=== PATIENT | male | born 1940 | race Caucasian/White ===

== ENCOUNTER → 2018-09-15 | Day surgery (SDC) | payer MEDICARE, OTHER ==
[2018-09-12 13:22] LABS: BASOPHILS % 1.3 % (0.0-1.0); EOSINOPHILS # (AUTO) 0.1 (0.0-0.4); EOSINOPHILS % 4.4 % (0.0-6.0); HEMATOCRIT 26.5 % (38.2-49.6); LYMPHOCYTES # (AUTO) 0.8 (1.0-3.2); LYMPHOCYTES % 48.1 % (18.0-39.1); MEAN CORPUSCULAR HEMOGLOBIN 29.2 pg (28-32); MEAN CORPUSCULAR HGB CONC 30.2 g/dL (31-35); MEAN CORPUSCULAR VOLUME 96.7 fL (81-99); MONOCYTES # (AUTO) 0.2 (0.2-0.8); NEUTROPHILS # (AUTO) 0.5 (2.1-6.9); NEUTROPHILS % 31.2 % (38.7-80.0); RED BLOOD COUNT 2.74 x10e6/uL (4.3-5.7); RED CELL DISTRIBUTION WIDTH 15.9 % (11.7-14.4)
[2018-09-12 13:26] LABS: PLATELET COUNT 62 x10e3/uL (140-360)
[2018-09-12 13:50] LABS: ALBUMIN 3.3 g/dL (3.5-5.0); ANION GAP 16.6 mmol/L (8-16); CALCIUM 8.7 mg/dL (8.4-10.2); CREATININE, SERUM 1.72 mg/dL (0.72-1.25); POTASSIUM 4.6 mmol/L (3.5-5.1)
--- NOTE | 2018-09-12 14:20 | Diagnostic Imaging Report ---
EXAMINATION: CHEST 2 VIEWS INDICATION: Preop COMPARISON: CT abdomen and pelvis 01/18/2017 FINDINGS: PA and lateral views TUBES and LINES: None. LUNGS: Lungs are hyperinflated. Right upper lobe nodular opacities. Faint reticular nodular opacities in the right and left lower lobe. No lobar consolidations or pulmonary edema. PLEURA: No pleural effusion or pneumothorax. HEART AND MEDIASTINUM: The cardiomediastinal silhouette is unremarkable. BONES AND SOFT TISSUES: No acute osseous lesion. Soft tissues are unremarkable. UPPER ABDOMEN: No free air under the diaphragm. Linear opacities overlying the upper abdomen may represent retained contrast versus calcifications. IMPRESSION: Left and right lower lobe reticular nodular opacities, new since 01/18/2017 as well as reticular nodular opacities in the right upper lobe not included on CT abdomen and pelvis are indeterminate. Differential diagnosis includes infection or aspiration. Correlate with clinical history and consider CT chest for further evaluation. Signed by: Dr. Yvette Berger M.D. on 09/12/2018 2:17 PM
[2018-09-12 16:14] LABS: EOSINOPHILS % (MANUAL) 2 % (0-7); HYPOCHROMASIA MODERATE; LYMPHOCYTES % (MANUAL) 46 % (19-48); MONOCYTES % (MANUAL) 4 % (3.4-9.0); NEUTROPHILS % (MANUAL) 48 % (40-74); PLATELET ESTIMATE MODERATELY DECREASED; PLATELET MORPHOLOGY COMMENT FEW LARGE; RBC MORPHOLOGY COMMENT NORMAL
[~2018-09-15] MED LIST: ASPIRIN81 MG PO; BUPIVACAINE 0.25% 30ML SDV INJ ONE; COQ-10100 MG PO; CORAL CALCIUM1 EACH PO; FENOFIBRATE145 MG PO; FENTANYL CITRATE/PF 100MCG/2 ML INJ ONE; FINASTERIDE5 MG PO; HEPARIN SOD (PORCINE) 5,000 UNIT/ML VIAL ONE; LEVOFLOXACIN 500MG/D5W 100ML 100 ML IV ONE; LEVOTHYROXINE50 MCG PO; LIDOCAINE HCL 2% LOCAL INJ 5 ML SDV VIAL INJ ONE; LISINOPRIL2.5 MG PO; LORATADINE10 MG PO; MIDAZOLAM HCL 2 MG/2 ML VIAL ONE; MONTELUKAST SOD10 MG PO; NITROLINGUAL SL; NORCO 7.5-3251 EACH PO; OMEPRAZOLE40 MG PO; ONDANSETRON HCL INJ 2 MG/ML VIAL ONE; PLAVIX75 MG PO; PRAVASTATIN SOD40 MG PO; PROPOFOL IV EMULSION 10 MG/ML 20 ML VIAL ONE; SEVOFLURANE INHAL SOLN 250 ML PEN BTL ONE; SODIUM CHLORIDE 0.9% 500ML 500 ML ONE; TRICOR48 MG PO; Z FEOSOL PO; Z.0.AMIODARONE HCL20 PO; Z.0.ASPIRIN325 MG PO; Z.0.ATENOLOL25 MG PO; Z.0.COUMADIN4 MG; Z.0.CRESTOR40 MG; Z.0.EFFIENT10 MG; Z.0.OMEPRAZOLE20 M1; [UNRECOGNIZED DRUG - OTHER] PO
[2018-09-15 16:10] VITALS: BP 110/50
--- NOTE | 2018-09-15 16:21 | Operative Report ---
DATE OF PROCEDURE: September 15, 2018 PREOPERATIVE DIAGNOSIS: Myelodysplastic disease needing intravenous access for chemotherapy. 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 OPERATION PERFORMED: Placement of left subclavian venous access port under C-arm guidance. ANESTHESIA: General. COMPLICATIONS: None. ESTIMATED BLOOD LOSS: Minimal. DESCRIPTION OF PROCEDURE: With the patient lying in bed in the Trendelenburg position under good general anesthesia, the left chest and neck were prepped with Betadine solution and draped in the usual manner. A standard left subclavian venipuncture was performed without any difficulty, and a guidewire was advanced into central venous position. Using the C-arm, the tip of the wire was confirmed to be at the level of the superior vena cava and the left lung was fully expanded. A pocket was then created in the left anterior chest to accept the reservoir, and the catheter was threaded to the subclavian position. the reservoir was anchored to the anterior chest wall with interrupted sutures of 2-0 silk. The reservoir and catheter were fully flushed. The peel-away sheath introducer was then placed over the guidewire, and the guidewire was removed. The catheter had been previously cut to the appropriate length and was then threaded through the peel-away sheath introducer. The peel-away sheath was removed without any problems. There was good blood return, and the reservoir and catheter were flushed. Using the C-arm, the tip of the catheter was confirmed to be at the level of the superior vena cava and the left lung was fully expanded. The wounds were then closed in layers. The subcutaneous tissue was approximated with 3-0 and 4-0 Vicryl, and the skin was closed with subcuticular 5-0 Vicryl. Benzoin, Steri-Strips and dressings were applied. The sponge, lap and needle count was correct. The patient tolerated the procedure well and returned to the recovery room in stable condition. Job#: [id number] VIANNEY
--- OUTSIDE RECORDS SUMMARY | 2018-09-16 14:19 | XMS REPORT ---
Author Author [facility] Address Unknown Phone Unavailable Care Team Providers Care Dictionary Editor Name Role Phone Jose MARES Unavailable Unavailable Payers Payer Name Policy Type Policy Number Effective Date Expiration Date Problems This patient has no known problems. Allergies, Adverse Reactions, Alerts Allergy Name Allergy Type Status Severity Reaction(s) Onset Date Inactive Date Treating Clinician Comments cephalexin DA Active MO 2018-08-15 00:00:00 Iodine and Iodide Containing Produc DA Active MO 2016-04-02 00:00:00 Heparin Analogues DA Active SV 2016-04-02 00:00:00 Penicillins DA Active MO 2016-04-02 00:00:00 chlordiazepoxide DA Active MO 2016-04-02 00:00:00 lithium DA Active MO 2016-04-02 00:00:00 Medications This patient has no known medications. Results Test Description Test Time Test Comments Text Results Atomic Results Result Comments CHEST 2 VIEWS 2018-09-12 14:14:00 [place] [id number] Patient Name: DEJUAN BROWN MR #: [id number] : 1940 Age/Sex: 78/M Req #: [id number] Adm Physician: Ordered by: CATHY MARES MD Report #: [id number] Location: OR Room/Bed: Procedure: [id number] DX/CHEST 2 VIEWS Exam Date: Exam Time: REPORT STATUS: Signed EXAMINATION: CHEST 2 VIEWS INDICATION: Preop COMPARISON: CT abdomen and pelvis 01/18/2017 FINDINGS: PA and lateral views TUBES and LINES: None. LUNGS: Lungs are hyperinflated. Right upper lobe nodular opacities. Faint reticular nodular opacities in the right and left lower lobe. No lobar consolidations or pulmonary edema. PLEURA: No pleural effusion or pneumothorax. HEART AND MEDIASTINUM: The cardiomediastinal silhouette is unremarkable. BONES AND SOFT TISSUES: No acute osseous lesion. Soft tissues are unremarkable. UPPER ABDOMEN: No free air under the diaphragm. Linear opacities overlying the upper abdomen may represent retained contrast versus calcifications. IMPRESSION: Left and right lower lobe reticular nodular opacities, new since 01/18/2017 as well as reti cular nodular opacities in the right upper lobe not included on CT abdomen and pelvis are indeterminate. Differential diagnosis includes infection or aspiration. Correlate with clinical history and consider CT chest for further evaluation. Signed by: Dr. Alvino Montgomery M.D. on 09/12/2018 2:17 PM Dictated By: ALVINO MONTGOMERY MD 16 Transcribed By: GRACIELA on 09/12/181416 COPY TO: CATHY MARES MD
== END | disposition home or self-care (01) ==
LOC: OR 10:49
PROVIDERS: ATTEND Surgery
DX: D46.9 Myelodysplastic syndrome, unspecified (principal); I48.91 Unspecified atrial fibrillation; I25.10 Atherosclerotic heart disease of native coronary artery without angina pectoris; E03.9 Hypothyroidism, unspecified; Z88.0 Allergy status to penicillin; Z88.8 Allergy status to other drugs, medicaments and biological substances; Z91.041 Radiographic dye allergy status; Z01.810 Encounter for preprocedural cardiovascular examination; Z01.812 Encounter for preprocedural laboratory examination; Z01.818 Encounter for other preprocedural examination; Z79.82 Long term (current) use of aspirin; Z95.5 Presence of coronary angioplasty implant and graft; Z87.01 Personal history of pneumonia (recurrent)
CPT/HCPCS: 36415; 36561; 71046; 77001; 80053; 85025; 93005; C1751; J1644; J1956; J2001; J2250; J2405; J7040

== ENCOUNTER 2019-04-29 12:10 | Inpatient (IN) | payer MEDICARE, OTHER ==
[~2019-04-29] VITALS: Ht 175.3 cm; Wt 91.2 kg
[~2019-04-29 12:10] MED LIST changes: -BUPIVACAINE 0.25% 30ML SDV INJ ONE; -FENTANYL CITRATE/PF 100MCG/2 ML INJ ONE; -HEPARIN SOD (PORCINE) 5,000 UNIT/ML VIAL ONE; -LEVOFLOXACIN 500MG/D5W 100ML 100 ML IV ONE; -LIDOCAINE HCL 2% LOCAL INJ 5 ML SDV VIAL INJ ONE; -MIDAZOLAM HCL 2 MG/2 ML VIAL ONE; -ONDANSETRON HCL INJ 2 MG/ML VIAL ONE; -PROPOFOL IV EMULSION 10 MG/ML 20 ML VIAL ONE; -SEVOFLURANE INHAL SOLN 250 ML PEN BTL ONE; -SODIUM CHLORIDE 0.9% 500ML 500 ML ONE
[2019-04-29] MEDS ORDERED: SODIUM CHLORIDE 0.9% 1000ML 1,000 ML IV STA (12:22)
[2019-04-29] MEDS ORDERED: SODIUM CHLORIDE 0.9% 1000ML 1,000 ML ONE (12:30)
[2019-04-29] MEDS ORDERED: SODIUM CHLORIDE 0.9% 250ML 250 ML IV ONE ×2 (12:30→13:30)
--- NOTE | 2019-04-29 12:45 | NUR ---
PATIENT ABULATED TO ROOM 1
[2019-04-29 13:11] LABS: LYMPHOCYTES # (AUTO) 0.5 (1.0-3.2); LYMPHOCYTES % 86.7 % (18.0-39.1); MEAN CORPUSCULAR HEMOGLOBIN 29.5 pg (28-32); MEAN CORPUSCULAR HGB CONC 30.1 g/dL (31-35); MEAN CORPUSCULAR VOLUME 97.9 fL (81-99); MONOCYTES # (AUTO) 0.1 (0.2-0.8); NEUTROPHILS % 3.3 % (38.7-80.0); RED CELL DISTRIBUTION WIDTH 17.2 % (11.7-14.4)
[2019-04-29 13:17] LABS: HEMATOCRIT 18.6 % (38.2-49.6); HEMOGLOBIN 5.6 g/dL (14.0-18.0); PLATELET COUNT 3 x10e3/uL (140-360)
--- NOTE | 2019-04-29 13:18 | NUR ---
RECEIVED BLOOD RESULTS FROM LAB WBC .60 HBG 5.6 HCT 18.6 PLT 3
[2019-04-29 13:21] LABS: INR 1.04; PARTIAL THROMBOPLASTIN TIME 23.8 seconds (23.8-35.5); PROTHROMBIN TIME 14.1 seconds (11.9-14.5)
[2019-04-29 13:31] LABS: ALANINE AMINOTRANSFERASE 9 IU/L (0-55); ALBUMIN 2.7 g/dL (3.5-5.0); ALBUMIN/GLOBULIN RATIO 1.5 (0.8-2.0); ALKALINE PHOSPHATASE 36 IU/L (40-150); ANION GAP 8.1 mmol/L (8-16); BLOOD UREA NITROGEN 27 mg/dL (7-26); BUN/CREATININE RATIO 16 (6-25); CALCIUM 8.1 mg/dL (8.4-10.2); CARBON DIOXIDE 22 mmol/L (22-29); CHLORIDE 110 mmol/L (98-107); CREATINE KINASE 27 IU/L (30-200); CREATININE, SERUM 1.66 mg/dL (0.72-1.25); EST GLOMERULAR FILTRATION RATE 40 ML/MIN (60-); GLUCOSE 112 mg/dL (74-118); MAGNESIUM 2.2 MG/DL (1.3-2.1); POTASSIUM 4.1 mmol/L (3.5-5.1); SODIUM 136 mmol/L (136-145)
--- NOTE | 2019-04-29 13:36 | Diagnostic Imaging Report ---
Examination: Single AP view of the chest. COMPARISON: 09/12/2018, CT abdomen and pelvis 01/18/2017 INDICATION: Weakness, shortness of breath DISCUSSION: Interval placement of a left subclavian port catheter, the tip of which projects over the mid superior vena cava. The lungs are well-inflated and without consolidation, pleural effusion, or pneumothorax. Right apical nodular opacity and left basal reticular opacities described on the comparison are less conspicuous on the current study. Stable cardiomediastinal contour with convexity along the right heart border shown to represent prominent epicardial fat on comparison CT. No acute osseous abnormality. IMPRESSION: 1. No acute cardiopulmonary abnormalities. Signed by: Dr. Alfonso Boyer M.D. on 04/29/2019 1:33 PM
[2019-04-29] MEDS ORDERED: COQ-10100 MG PO (13:39)
[2019-04-29] MEDS ORDERED: VITAMIN B-1100 M1 PO (13:39)
--- NOTE | 2019-04-29 13:40 | NUR ---
BLOOD CONSENT FOR COMPLETED
[2019-04-29 13:45] LABS: B-TYPE NATRIURETIC PEPTIDE2 141.5 pg/mL (0-100)
[2019-04-29] MEDS: CEFEPIME 2 GM/NS 0.9% 100 ML 100 ML IV SCH (14:45)
--- NOTE | 2019-04-29 15:23 | NUR ---
PATIENT COMPLETED 1 UNIT PLATELET RECEIVING 1ST UNIT PRBC
[2019-04-29 16:57] LABS: BILIRUBIN,URINE NEGATIVE (NEGATIVE); CLARITY,URINE CLEAR (CLEAR); COLOR,URINE YELLOW (YELLOW); KETONES,URINE NEGATIVE (NEGATIVE); LEUKOCYTE ESTERASE ,URINE NEGATIVE (NEGATIVE); NITRITE,URINE NEGATIVE (NEGATIVE); PROTEIN,URINE DIPSTICK NEGATIVE (NEGATIVE); URINE UROBILINOGEN 0.2 mg/dL (0.2 - 1)
--- NOTE | 2019-04-29 17:12 | NUR ---
DR. SANTIAGO AT BEDSIDE EVALUATING PATIENT
[2019-04-29 17:14] LABS: BACTERIA,URINE MODERATE /HPF
--- NOTE | 2019-04-29 18:10 | NUR ---
PT ASSISTED WITH BEDPAN, SMALL BOWEL MOVEMENT NOTED, SEMI-SOLID IN TEXTURE, DARK AND TARRY. INFORMED PRIMARY NURSE IRAM KRAUS.
[2019-04-29] MEDS ORDERED: HYDROCODONE/APAP 7.5MG-325MG 1 EA TAB PO PRN (19:00)
--- NOTE | 2019-04-29 19:14 | NUR ---
PATIENT HAD RED BLOODY STOOL
--- NOTE | 2019-04-29 19:20 | NUR ---
BEDSIDE REPORT TO AYDIN Erwin
[2019-04-29 20:19] LABS: BLAST CELLS % MANUAL 4; HYPOCHROMASIA MODERATE; LYMPHOCYTES % (MANUAL) 64 % (19-48); MONOCYTES % (MANUAL) 10 % (3.4-9.0); PLATELET ESTIMATE MARKEDLY DECREASED; PLATELET MORPHOLOGY COMMENT NORMAL; POIKILOCYTOSIS SLIGHT; PROMYELOCYTES % (MANUAL) 2 % (0-0); RBC MORPHOLOGY COMMENT NORMAL
[2019-04-29] MEDS ORDERED: LEVOTHYROXINE SODIUM 50 MCG TAB PO SCH (21:00)
--- NOTE | 2019-04-29 21:15 | NUR ---
Received patient, stable, states improvement. On his 2nd unit of blood, no complaints raised.
[2019-04-29 21:16] VITALS: BP 123/56
[2019-04-29 22:00] VITALS: BP 124/50
[2019-04-29] MEDS: FINASTERIDE 5 MG TAB PO SCH (22:00)
[2019-04-29] MEDS: LORATADINE 10 MG TAB PO SCH (22:00)
[2019-04-29 22:30] VITALS: BP_SYST 137; BP_SYST 143; BP_DIAS 56; BP_DIAS 62
[2019-04-29 23:00] VITALS: BP 136/61
--- NOTE | 2019-04-29 23:36 | Consultation ---
DATE OF CONSULTATION: HISTORY OF PRESENT ILLNESS: Mr. Sykes is a 79-year-old male with MDS, who progressing towards acute myelogenous leukemia, presents with extreme weakness, found to have a hemoglobin of 5.6, hematocrit 18.6, white count of 600, and platelets of 3000. The patient claims that he has had some rectal bleed. SOCIAL HISTORY: Noncontributory. FAMILY HISTORY: Noncontributory. ALLERGIES: NONE. MEDICATIONS: At this time consisting of: 1. Cefepime. 2. Normal saline. REVIEW OF SYSTEMS: HEENT: Normal. CARDIAC: History of hypertension. RESPIRATORY: Normal. GI: GI bleed at this time. : Normal. Musculoskeletal: Normal. SKIN AND BREASTS: Normal. NEUROENDOCRINE: Essentially normal. PHYSICAL EXAMINATION: GENERAL: A marked adult male. NECK: No palpable adenopathy. HEART: Within normal limits. LUNGS: Clear. ABDOMEN: Soft. RECTAL: Deferred. CENTRAL NERVOUS SYSTEM: Essentially normal. EXTREMITIES: Essentially normal. IMPRESSION: 1. Neutropenia. 2. Thrombocytopenia. 3. Anemia. 4. Myelodysplastic syndrome. 5. Progression towards acute myelogenous leukemia. 6. Gastrointestinal bleed. PLAN: Give him platelets, blood transfusion, Neupogen if possible will be avoided. Appropriate cultures. Antibiotics with supportive care. MD TIMOTHY Yang/MODL /[id number]
[2019-04-30] VITALS (15 sets, daily range): BP systolic 101–146; BP diastolic 38–67
[2019-04-30 00:08] LABS: HEMATOCRIT 21.8 % (38.2-49.6); HEMOGLOBIN 7.2 g/dL (14.0-18.0); LYMPHOCYTES # (AUTO) 0.6 (1.0-3.2); LYMPHOCYTES % 66.7 % (18.0-39.1); MEAN CORPUSCULAR HEMOGLOBIN 30.1 pg (28-32); MONOCYTES # (AUTO) 0.2 (0.2-0.8); MONOCYTES % 20.2 % (4.4-11.3); NEUTROPHILS # (AUTO) 0.1 (2.1-6.9); NEUTROPHILS % 13.1 % (38.7-80.0); RED BLOOD COUNT 2.39 x10e6/uL (4.3-5.7); RED CELL DISTRIBUTION WIDTH 16.9 % (11.7-14.4)
[2019-04-30 00:26] LABS: PLATELET COUNT 39 x10e3/uL (140-360)
[2019-04-30 00:27] LABS: MEAN CORPUSCULAR VOLUME 91.2 fL (81-99)
--- NOTE | 2019-04-30 00:30 | NUR ---
Dr Chapin informed of the CBC results, ordered for jumbo platelet and 1 unit of PRBC, for repeat of CBC in the AM
[2019-04-30] MEDS ORDERED: SODIUM CHLORIDE 0.9% 250ML 250 ML IV ONE ×2 (00:45→22:45)
[2019-04-30] MEDS: CEFEPIME 2 GM/NS 0.9% 100 ML 100 ML IV SCH ×2 (02:00→14:10)
--- NOTE | 2019-04-30 06:54 | NUR ---
handed over stable, blood transfusion ended at 0600 awaiting CBC sample collection
[2019-04-30] MEDS: AMIODARONE HCL 200 MG TAB PO SCH (08:26)
[2019-04-30] MEDS: PANTOPRAZOLE 40 MG 10ML VIAL IV SCH (08:26)
[2019-04-30] MEDS: ATENOLOL 50 MG TAB PO SCH (08:26)
[2019-04-30 08:52] LABS: HEMATOCRIT 24.1 % (38.2-49.6); LYMPHOCYTES # (AUTO) 0.4 (1.0-3.2); LYMPHOCYTES % 48.3 % (18.0-39.1); MEAN CORPUSCULAR HEMOGLOBIN 29.6 pg (28-32); MEAN CORPUSCULAR HGB CONC 33.2 g/dL (31-35); MEAN CORPUSCULAR VOLUME 89.3 fL (81-99); MONOCYTES # (AUTO) 0.3 (0.2-0.8); MONOCYTES % 32.2 % (4.4-11.3); NEUTROPHILS # (AUTO) 0.2 (2.1-6.9); NEUTROPHILS % 19.5 % (38.7-80.0); RED CELL DISTRIBUTION WIDTH 17.2 % (11.7-14.4)
[2019-04-30 09:03] LABS: PLATELET COUNT 39 x10e3/uL (140-360)
--- NOTE | 2019-04-30 09:45 | NUR ---
SPOKE TO REGARDING RESULTS RECEIVED ORDERS. PER MD 1900 AND 0700 RESULTS TO BE CALLED TO MD PERSONAL CELL PHONE.
--- NOTE | 2019-04-30 11:50 | NUR ---
RECEIVED CALL FROM CHRIS IN LAB STATES THERE IS NO PLTS AVAILABLE AT THIS TIME BLOOD BANK ATTEMPTING TO LOCATE AT THIS TIME WILL CALL WHEN READY
[2019-04-30] MEDS ORDERED: SODIUM CHLORIDE 0.9% 250ML 250 ML ONE ×2 (12:31→16:44)
[2019-04-30 14:39] LABS: RBC MORPHOLOGY COMMENT ABNORMAL
[2019-04-30 14:46] LABS: ANISOCYTOSIS MODERATE; HYPOCHROMASIA MODERATE; PLATELET ESTIMATE MARKEDLY DECREASED; PLATELET MORPHOLOGY COMMENT NORMAL
--- NOTE | 2019-04-30 14:53 | NUR ---
REPORTED TO NURSE TO RESUME CARE OF PATIENT SPOKE TO AYDIN IN THE LAB WHO STATES PLATELETS WHERE FOUND AND WHERE BEING SENT TO HOSPITAL STAT.
--- NOTE | 2019-04-30 19:57 | NUR ---
RECEIVED PT SITTING ON THE CHAIR PT HAD 2 UNIT PLATELETS .NO ACUTE DISTRESS NOTED .RESPIRATIONS ARE EVEN AND UNLABORED .DENIES PAIN CALL LIGHT WITH IN REACH .CONTINUE TO MONITOR
[2019-04-30] MEDS: FINASTERIDE 5 MG TAB PO SCH (21:06)
[2019-04-30] MEDS: LORATADINE 10 MG TAB PO SCH (21:06)
[2019-04-30 21:41] LABS: HEMATOCRIT 24.7 % (38.2-49.6); HEMOGLOBIN 7.9 g/dL (14.0-18.0); LYMPHOCYTES # (AUTO) 0.8 (1.0-3.2); LYMPHOCYTES % 61.5 % (18.0-39.1); MEAN CORPUSCULAR HEMOGLOBIN 30.3 pg (28-32); MEAN CORPUSCULAR VOLUME 94.6 fL (81-99); MONOCYTES # (AUTO) 0.4 (0.2-0.8); MONOCYTES % 32.8 % (4.4-11.3); NEUTROPHILS # (AUTO) 0.1 (2.1-6.9); NEUTROPHILS % 4.9 % (38.7-80.0); PLATELET COUNT 58 x10e3/uL (140-360); RED BLOOD COUNT 2.61 x10e6/uL (4.3-5.7); RED CELL DISTRIBUTION WIDTH 18.2 % (11.7-14.4)
[2019-04-30 22:36] LABS: BLAST CELLS % MANUAL 3; EOSINOPHILS % (MANUAL) 1 % (0-7); LYMPHOCYTES % (MANUAL) 62 % (19-48); MONOCYTES % (MANUAL) 29 % (3.4-9.0); NEUTROPHILS % (MANUAL) 5 % (40-74)
[2019-05-01] VITALS (8 sets, daily range): BP systolic 130–146; BP diastolic 47–85
[2019-05-01] MEDS ORDERED: SODIUM CHLORIDE 0.9% 250ML 250 ML ONE ×2 (00:39→02:10)
[2019-05-01] MEDS: CEFEPIME 2 GM/NS 0.9% 100 ML 100 ML IV SCH (01:45)
[2019-05-01] MEDS: LEVOTHYROXINE SODIUM 50 MCG TAB PO SCH (06:01)
--- NOTE | 2019-05-01 06:02 | NUR ---
TRANSFUSED 1 UNI RBC .NO REACTION NOTED 3BM .I WAS BLOODY AND OTHER 2 HAS NO BLOOD .PT RESTING .CALL LIGHT WITH IN REACH CONTINUE TO MONITOR
--- NOTE | 2019-05-01 07:06 | NUR ---
REPORT GIVEN TO THE ONCOMING NURSE.
[2019-05-01 08:09] LABS: HEMATOCRIT 27.4 % (38.2-49.6); HEMOGLOBIN 8.8 g/dL (14.0-18.0); LYMPHOCYTES # (AUTO) 0.7 (1.0-3.2); LYMPHOCYTES % 72.3 % (18.0-39.1); MEAN CORPUSCULAR HEMOGLOBIN 29.7 pg (28-32); MEAN CORPUSCULAR HGB CONC 32.1 g/dL (31-35); MEAN CORPUSCULAR VOLUME 92.6 fL (81-99); MONOCYTES # (AUTO) 0.2 (0.2-0.8); MONOCYTES % 22.8 % (4.4-11.3); NEUTROPHILS % 3.9 % (38.7-80.0); PLATELET COUNT 52 x10e3/uL (140-360); RED BLOOD COUNT 2.96 x10e6/uL (4.3-5.7); RED CELL DISTRIBUTION WIDTH 16.6 % (11.7-14.4)
--- NOTE | 2019-05-01 08:28 | NUR ---
Called Dr. Westley Asher, left a message of CBC results and WBC critical 1.01, waiting for a call back.
--- NOTE | 2019-05-01 08:58 | NUR ---
Lab was informed 1 unit of Jumbo platelets were ordered stat by Dr. Cristina Asher, Lab reported platelets not in stock in our facility they will call [facility] Dr. Sweeney made aware.
[2019-05-01] MEDS: PANTOPRAZOLE 40 MG 10ML VIAL IV SCH (09:14)
[2019-05-01] MEDS: AMIODARONE HCL 200 MG TAB PO SCH (09:14)
[2019-05-01] MEDS: ATENOLOL 50 MG TAB PO SCH (09:33)
[2019-05-01 13:49] LABS: HEMATOCRIT 29.4 % (38.2-49.6); HEMOGLOBIN 9.4 g/dL (14.0-18.0); LYMPHOCYTES # (AUTO) 0.7 (1.0-3.2); LYMPHOCYTES % 77.1 % (18.0-39.1); MEAN CORPUSCULAR HEMOGLOBIN 29.7 pg (28-32); MEAN CORPUSCULAR VOLUME 92.7 fL (81-99); MONOCYTES # (AUTO) 0.2 (0.2-0.8); MONOCYTES % 18.8 % (4.4-11.3); NEUTROPHILS % 4.1 % (38.7-80.0); RED BLOOD COUNT 3.17 x10e6/uL (4.3-5.7); RED CELL DISTRIBUTION WIDTH 16.8 % (11.7-14.4)
[2019-05-01 13:50] LABS: PLATELET COUNT 66 x10e3/uL (140-360)
[2019-05-01 14:02] LABS: HYPOCHROMASIA MODERATE; RBC MORPHOLOGY COMMENT ABNORMAL
[2019-05-01 14:03] LABS: ANISOCYTOSIS SLIGHT; PLATELET ESTIMATE SLIGHTLY DECREASED; PLATELET MORPHOLOGY COMMENT NORMAL
[2019-05-01] MEDS ORDERED: PEG (High)/E-LYTE SOLN 4,000 ML BTL PO ONE (17:15)
[2019-05-01] MEDS ORDERED: BISACODYL 5 MG TAB EC PO ONE (17:15)
[2019-05-01] MEDS: FINASTERIDE 5 MG TAB PO SCH (20:54)
[2019-05-01] MEDS: LORATADINE 10 MG TAB PO SCH (20:54)
[2019-05-02] VITALS (9 sets, daily range): BP systolic 115–158; BP diastolic 57–78
--- NOTE | 2019-05-02 00:02 | Consultation ---
DATE OF CONSULTATION: 05/01/2019 HISTORY OF PRESENT ILLNESS: This is a 79-year-old gentleman, who has a history of MDS along with pancytopenia, admitted to the hospital because of generalized weakness, significant pancytopenia, and some rectal bleeding. The patient also complained of mild left upper quadrant pain. He reports that he apparently has had an EGD and a colonoscopy about five years or so ago and was found to have some vessel that was have to be cauterized. He denies any nausea or vomiting. He denies any history of ulcer disease. PAST MEDICAL HISTORY: Significant for history of MDS progressing towards acute myelogenous leukemia. ALLERGIES: NONE. CURRENT MEDICATIONS: Including Timolol, Protonix, Cordarone, Synthroid, and Claritin. SOCIAL HISTORY: No alcohol use. FAMILY HISTORY: Noncontributory. REVIEW OF SYSTEMS: Denies any chest pain or shortness of breath. Denies any dysphagia or odynophagia. Denies any dysuria, hematuria, or any kind of syncopal episode. PHYSICAL EXAMINATION: GENERAL: The patient is awake, alert, appears to be stable and not in acute distress at this point. VITAL SIGNS: Afebrile currently with stable vital signs. HEAD, EYES, EARS, NOSE, AND THROAT: Normocephalic, atraumatic. Sclerae are anicteric. NECK: Supple. HEART: Regular. LUNGS: Clear. ABDOMEN: Soft. Nontender. EXTREMITIES: No cyanosis. No clubbing. LABORATORY VALUES: WBC 0.96, hemoglobin of 9.4, hematocrit 29.4, platelet count of 66,000, okay. IMPRESSION: 1. Gastrointestinal bleed. The patient has some abdominal pain. Very likely he probably have problems with AVMs. 2. Myelodysplastic syndrome progressing to acute myelogenous leukemia. 3. Pancytopenia. RECOMMENDATION: Continue current care at this point. We will proceed with EGD and colonoscopy progressing tomorrow, follow labs clinically. This has been discussed with Dr. Velazquez, who agreed with the plan. MD KENNETH Rodríguez/TIMOTHY /[id number] cc: MD Harvey Yang MD
[2019-05-02] MEDS ORDERED: SODIUM CHLORIDE 0.9% 250ML 250 ML ONE ×2 (01:34→15:17)
--- NOTE | 2019-05-02 01:50 | NUR ---
Transfused 1units of Jumbo platelets at this time. Patient tolerated well. Will continue to monitor.
--- NOTE | 2019-05-02 03:12 | NUR ---
Patient had several times liquid BM with brown red color. V/S WNL. Will continue to monitor.
[2019-05-02 05:24] LABS: HEMATOCRIT 22.2 % (38.2-49.6); HEMOGLOBIN 7.4 g/dL (14.0-18.0); LYMPHOCYTES # (AUTO) 0.6 (1.0-3.2); LYMPHOCYTES % 82.7 % (18.0-39.1); MEAN CORPUSCULAR HEMOGLOBIN 30.2 pg (28-32); MEAN CORPUSCULAR HGB CONC 33.3 g/dL (31-35); MEAN CORPUSCULAR VOLUME 90.6 fL (81-99); MONOCYTES # (AUTO) 0.1 (0.2-0.8); MONOCYTES % 14.7 % (4.4-11.3); NEUTROPHILS % 2.6 % (38.7-80.0); PLATELET COUNT 65 x10e3/uL (140-360); RED BLOOD COUNT 2.45 x10e6/uL (4.3-5.7); RED CELL DISTRIBUTION WIDTH 16.7 % (11.7-14.4)
[2019-05-02] MEDS: LEVOTHYROXINE SODIUM 50 MCG TAB PO SCH (05:32)
[2019-05-02 05:43] LABS: INR 0.99; PROTHROMBIN TIME 13.6 seconds (11.9-14.5)
[2019-05-02 05:50] LABS: ANION GAP 8.6 mmol/L (8-16); BLOOD UREA NITROGEN 16 mg/dL (7-26); BUN/CREATININE RATIO 14 (6-25); CALCIUM 8.3 mg/dL (8.4-10.2); CARBON DIOXIDE 24 mmol/L (22-29); CHLORIDE 111 mmol/L (98-107); CREATININE, SERUM 1.11 mg/dL (0.72-1.25); EST GLOMERULAR FILTRATION RATE > 60 ML/MIN (60-); GLUCOSE 91 mg/dL (74-118); POTASSIUM 3.6 mmol/L (3.5-5.1); SODIUM 140 mmol/L (136-145)
--- NOTE | 2019-05-02 06:43 | NUR ---
Report given to lissette Amin.
[2019-05-02] MEDS ORDERED: FUROSEMIDE INJ 10 MG/ML 2 ML VIAL IV NR (08:15)
[2019-05-02] MEDS ORDERED: FAMOTIDINE 20 MG/2 ML VIAL IV NR (08:15)
[2019-05-02] MEDS ORDERED: SODIUM CHLORIDE 0.9% 250ML 250 ML IV NR (08:15)
[2019-05-02] MEDS: CEFEPIME 2 GM/NS 0.9% 100 ML 100 ML IV SCH (08:31)
[2019-05-02] MEDS: PANTOPRAZOLE 40 MG 10ML VIAL IV SCH (13:00)
[2019-05-02] MEDS: ATENOLOL 50 MG TAB PO SCH (13:00)
[2019-05-02] MEDS: AMIODARONE HCL 200 MG TAB PO SCH (13:00)
--- NOTE | 2019-05-02 13:00 | NUR ---
patient back from procedure. platelet transfusion started. am meds given. vitals stable with no distress.
--- NOTE | 2019-05-02 16:14 | NUR ---
all platelets and plasma done and 1st unit PRBC started. will monitor status closely.
[2019-05-02] MEDS ORDERED: PROPOFOL IV EMULSION 10 MG/ML 20 ML VIAL ONE (17:29)
[2019-05-02] MEDS ORDERED: FENTANYL CITRATE/PF 100MCG/2 ML INJ ONE (18:46)
[2019-05-02] MEDS ORDERED: MIDAZOLAM HCL 2 MG/2 ML VIAL ONE (18:46)
[2019-05-02] MEDS ORDERED: KETAMINE HCL INJ 50 MG/ML 10 ML VIAL ONE (18:46)
--- NOTE | 2019-05-02 19:00 | NUR ---
Received patient from day nurse, introduced self to patient, plan of care discussed with patient, patient with ng tube to suction, patient on fluids, patient with two jose guadalupe drains, site assessment done, patient has an abdominal binder, patient is alert and oriented, patient on buffing wheel operator dilaudid pump on demand. patient is fairly stable, will continue to monitor.
[2019-05-02] MEDS: AMINOCAPROIC ACID IV SCH (20:00)
[2019-05-02] MEDS: SODIUM CHLORIDE 0.9% IV SCH (20:00)
--- NOTE | 2019-05-02 20:01 | NUR ---
Amicar drip started
--- NOTE | 2019-05-02 21:40 | NUR ---
Blood started, vitals checked within normal limits.
[2019-05-02] MEDS: LORATADINE 10 MG TAB PO SCH (22:01)
[2019-05-02] MEDS: FINASTERIDE 5 MG TAB PO SCH (22:01)
[2019-05-03] VITALS (9 sets, daily range): BP systolic 116–146; BP diastolic 48–82
--- NOTE | 2019-05-03 01:00 | NUR ---
blood completed, vitals stable.
[2019-05-03 05:12] LABS: HEMATOCRIT 27.1 % (38.2-49.6); HEMOGLOBIN 9.2 g/dL (14.0-18.0); LYMPHOCYTES # (AUTO) 0.8 (1.0-3.2); LYMPHOCYTES % 80.9 % (18.0-39.1); MEAN CORPUSCULAR HEMOGLOBIN 30.5 pg (28-32); MEAN CORPUSCULAR HGB CONC 33.9 g/dL (31-35); MEAN CORPUSCULAR VOLUME 89.7 fL (81-99); MONOCYTES # (AUTO) 0.2 (0.2-0.8); NEUTROPHILS % 2.1 % (38.7-80.0); PLATELET COUNT 57 x10e3/uL (140-360); RED BLOOD COUNT 3.02 x10e6/uL (4.3-5.7); RED CELL DISTRIBUTION WIDTH 15.9 % (11.7-14.4)
[2019-05-03] MEDS: LEVOTHYROXINE SODIUM 50 MCG TAB PO SCH (05:59)
[2019-05-03 06:56] LABS: EOSINOPHILS % (MANUAL) 1 % (0-7); LYMPHOCYTES % (MANUAL) 79 % (19-48); MONOCYTES % (MANUAL) 17 % (3.4-9.0); NEUTROPHILS % (MANUAL) 3 % (40-74)
[2019-05-03] MEDS: CEFEPIME 2 GM/NS 0.9% 100 ML 100 ML IV SCH (09:37)
[2019-05-03] MEDS: PANTOPRAZOLE 40 MG 10ML VIAL IV SCH (09:37)
[2019-05-03] MEDS: AMIODARONE HCL 200 MG TAB PO SCH (09:37)
[2019-05-03] MEDS: ATENOLOL 50 MG TAB PO SCH (09:38)
--- NOTE | 2019-05-03 15:20 | NUR ---
Visit made by the Spiritual Care Department Pastoral Visitor, Todd Díaz. PV provided pastoral presence, hospitality, and supportive listening. Pastoral Visitor informed pt/family of the scope of Phytopathologist Services and availability. MARIA L MCGOWAN Bilingual Secretary Spiritual Care Department O: [phone] Pager: [phone] ([phone] number calling from)
[2019-05-03] MEDS: AMINOCAPROIC ACID IV SCH (16:52)
[2019-05-03] MEDS: SODIUM CHLORIDE 0.9% IV SCH (16:52)
--- NOTE | 2019-05-03 19:15 | NUR ---
Received patient from day nurse, patient is alert and oriented x3. patient is on room air. safety and fall precautions maintained, bed in lowest position and locked, needed items beside bed, call gonzalez placed close to patient and patient instructed to use it to call nurses for assistance needed, patient verbalized understanding. patient is currently stable, will continue to monitor.
[2019-05-03 19:17] LABS: HEMATOCRIT 28.3 % (38.2-49.6); HEMOGLOBIN 9.6 g/dL (14.0-18.0); LYMPHOCYTES # (AUTO) 0.7 (1.0-3.2); LYMPHOCYTES % 80.5 % (18.0-39.1); MEAN CORPUSCULAR HEMOGLOBIN 30.9 pg (28-32); MEAN CORPUSCULAR HGB CONC 33.9 g/dL (31-35); MONOCYTES # (AUTO) 0.1 (0.2-0.8); MONOCYTES % 14.6 % (4.4-11.3); NEUTROPHILS % 3.7 % (38.7-80.0); RED BLOOD COUNT 3.11 x10e6/uL (4.3-5.7); RED CELL DISTRIBUTION WIDTH 16.5 % (11.7-14.4)
[2019-05-03 19:54] LABS: PLATELET COUNT 43 x10e3/uL (140-360)
--- NOTE | 2019-05-03 20:45 | NUR ---
Dr. Laz Evans was paged for critical lab value wbc=0.82, platelets 43, no call back yet. patient is stable.
[2019-05-03] MEDS: FINASTERIDE 5 MG TAB PO SCH (21:20)
[2019-05-03] MEDS: LORATADINE 10 MG TAB PO SCH (21:20)
[2019-05-04 04:00] VITALS: BP 136/78
[2019-05-04] MEDS: LEVOTHYROXINE SODIUM 50 MCG TAB PO SCH (05:15)
[2019-05-04 05:36] LABS: HEMATOCRIT 27.5 % (38.2-49.6); HEMOGLOBIN 9.1 g/dL (14.0-18.0); LYMPHOCYTES # (AUTO) 0.8 (1.0-3.2); LYMPHOCYTES % 86.7 % (18.0-39.1); MEAN CORPUSCULAR HEMOGLOBIN 30.2 pg (28-32); MEAN CORPUSCULAR HGB CONC 33.1 g/dL (31-35); MEAN CORPUSCULAR VOLUME 91.4 fL (81-99); MONOCYTES # (AUTO) 0.1 (0.2-0.8); NEUTROPHILS % 3.3 % (38.7-80.0); RED BLOOD COUNT 3.01 x10e6/uL (4.3-5.7); RED CELL DISTRIBUTION WIDTH 16.3 % (11.7-14.4)
[2019-05-04 05:40] LABS: PLATELET COUNT 35 x10e3/uL (140-360)
--- NOTE | 2019-05-04 06:16 | NUR ---
Dr. Rosa Isela Evans office called for critical lab value of wbc and platelets, no response message left with Brenda. Will endorse to day nurse for continuity of care.
--- NOTE | 2019-05-04 06:42 | NUR ---
Dr. Rosa Isela Evans called back for critical lab values informed him about the wbc and platelet levels, no new orders.
--- NOTE | 2019-05-04 07:13 | NUR ---
patient endorsed to next shift for continuity of care.
[2019-05-04 07:30] VITALS: BP 103/53
--- NOTE | 2019-05-04 07:30 | NUR ---
Pt received resting in bed. Alert and oriented x4. Oriented to staff and surroundings. Encouraged to press call gonzalez if help needed. Pt on neutropenic isolation. Pt with left chest wall portAcath, left upper arm and left wrist saline locks. Pt verbalized understanding of teaching. Emotional support given. Will monitor
--- NOTE | 2019-05-04 08:40 | NUR ---
All meds given as ordered. Pt receiving Amicar drip. Call gonzalez within reach. Will monitor
[2019-05-04] MEDS: CEFEPIME 2 GM/NS 0.9% 100 ML 100 ML IV SCH (08:41)
[2019-05-04] MEDS: PANTOPRAZOLE 40 MG 10ML VIAL IV SCH (08:41)
[2019-05-04] MEDS: ATENOLOL 50 MG TAB PO SCH (09:00)
--- NOTE | 2019-05-04 10:00 | NUR ---
Pt is for discharge home once IV bag is completed (1-2pm). Pt made aware. Emotional support given. Will monitor
[2019-05-04 11:59] VITALS: BP 121/47
--- NOTE | 2019-05-04 13:47 | NUR ---
EDUCATED ABOUT IMM, SIGNED, FILED IN CHART, WITH COPY LEFT WITH FAMILY AT BEDSIDE
[2019-05-04 16:24] VITALS: BP 141/68
[2019-05-04] MEDS ORDERED: amicar PO (16:50)
[2019-05-04] MEDS ORDERED: HEPARIN SOD (PORCINE) 1000 UNIT/ML 10ML MDV IV STA (18:14)
[2019-05-04] MEDS ORDERED: HEPARIN SOD (PORCINE) 1000 UNIT/ML SDV INJ ONE (18:30)
--- NOTE | 2019-05-04 18:38 | NUR ---
Pt educated regarding meds, diet, activities, and follow up appointment with hematology. Dr. Chapin gave order to pack PortAcath with 1000Units of heparin. Removal done by nurse watch supervisor. Emotional support given to pt. Will take pt out in wheelchair to niece's car
--- NOTE | 2019-05-05 06:31 | Discharge Summary ---
CONSULTANTS: 1. Urban Velazquez MD. 2. Parker Pina MD. FINAL DIAGNOSES: 1. Pancytopenia secondary to myelodysplastic syndrome. 2. Severe thrombocytopenia and anemia, status post multiple blood transfusion and platelet transfusion. 3. Status post EGD and colonoscopy finding of colon internal hemorrhoids and EGD with gastritis, but no gross bleed. The patient has duodenitis and hiatal hernia. 4. Neutropenia. SUMMARY: The patient is a 79-year-old male with MDS. The patient did receive chemotherapy. The patient came into the hospital with severe low WBC of 600 and also hemoglobin and hematocrit of 5.6 and 18.6. The patient also has very low platelet of 3000 on admission. The patient since then receive multiple treatments including platelet transfusion and blood transfusion. The patient also has received aminocaproic acid drip as well. The patient did undergoes EGD and colonoscopy due to rectal bleed, positive for stool for occult blood. The patient was empirically treated with antibiotics due to his severe neutropenia. The patient is doing much better now. He is stable. Platelet is 35,000, hemoglobin and hematocrit of 9.1 and 27.5. BUN and creatinine of 16 and 1.1 respectively. The patient has been cleared by Dr. Velazquez for discharge home and I agreed. He is very comfortable. He will follow up with Dr. Velazquez tomorrow for Neupogen treatment. The patient is otherwise stable. Resume home medication. He will get aminocaproic acid 1000 mg 4 times a day. The patient will continue to monitor his outpatient. He will stop the aspirin. MD SUE Ramirez/MODL /[id number]
== END 2019-05-04 18:47 | disposition home or self-care (01) | DRG 809 ==
LOC: ER 12:10 → ERHOLD 13:50 → ICU 21:07 → IMCU 04-30 14:42
PROVIDERS: ADMIT Internal Medicine; ATTEND Internal Medicine
PROC: 30233N1 Transfusion of Nonautologous Red Blood Cells into Peripheral Vein, Percutaneous Approach (ICD-10-PCS; 2019-04-29)
PROC: 30233R1 Transfusion of Nonautologous Platelets into Peripheral Vein, Percutaneous Approach (ICD-10-PCS; 2019-04-29)
PROC: 30233K1 Transfusion of Nonautologous Frozen Plasma into Peripheral Vein, Percutaneous Approach (ICD-10-PCS; principal; 2019-04-30)
PROC: 0DJ08ZZ Inspection of Upper Intestinal Tract, Via Natural or Artificial Opening Endoscopic (ICD-10-PCS; 2019-05-02)
PROC: 0DJD8ZZ Inspection of Lower Intestinal Tract, Via Natural or Artificial Opening Endoscopic (ICD-10-PCS; 2019-05-02)
DX: D61.818 Other pancytopenia (principal); C92.92 Myeloid leukemia, unspecified in relapse; K92.2 Gastrointestinal hemorrhage, unspecified; D46.9 Myelodysplastic syndrome, unspecified; K64.8 Other hemorrhoids; D62 Acute posthemorrhagic anemia; K29.70 Gastritis, unspecified, without bleeding; K44.9 Diaphragmatic hernia without obstruction or gangrene; K29.80 Duodenitis without bleeding; G47.33 Obstructive sleep apnea (adult) (pediatric); E03.9 Hypothyroidism, unspecified; I48.91 Unspecified atrial fibrillation; I25.10 Atherosclerotic heart disease of native coronary artery without angina pectoris; J45.909 Unspecified asthma, uncomplicated; I95.9 Hypotension, unspecified; I25.2 Old myocardial infarction; Z88.8 Allergy status to other drugs, medicaments and biological substances; Z95.1 Presence of aortocoronary bypass graft; Z91.041 Radiographic dye allergy status; Z95.5 Presence of coronary angioplasty implant and graft; Z88.0 Allergy status to penicillin; Z91.013 Allergy to seafood
CPT/HCPCS: 36415; 43235; 45378; 71045; 80048; 80053; 81001; 82270; 82550; 82553; 83605; 83735; 83880; 84484; 85025; 85610; 85730; 86850; 86900; 86920; 86945; 87040; 87086; 93005; 96361; 99284; J1940; J2250; J7030; J7050; P9016; P9017; P9034

== ENCOUNTER 2019-05-13 14:46 | Observation (INO) | payer MEDICARE, OTHER ==
[~2019-05-13] VITALS: Ht 327.7 cm; Wt 91.2 kg
[~2019-05-13 14:46] MED LIST changes: +VITAMIN B-1100 M1 PO; +amicar PO
[2019-05-13 15:53] LABS: HEMATOCRIT 29.2 % (38.2-49.6); HEMOGLOBIN 9.2 g/dL (14.0-18.0); LYMPHOCYTES # (AUTO) 0.6 (1.0-3.2); LYMPHOCYTES % 86.6 % (18.0-39.1); MEAN CORPUSCULAR HEMOGLOBIN 29.9 pg (28-32); MEAN CORPUSCULAR HGB CONC 31.5 g/dL (31-35); MEAN CORPUSCULAR VOLUME 94.8 fL (81-99); MONOCYTES # (AUTO) 0.1 (0.2-0.8); MONOCYTES % 10.4 % (4.4-11.3); RED BLOOD COUNT 3.08 x10e6/uL (4.3-5.7); RED CELL DISTRIBUTION WIDTH 16.4 % (11.7-14.4)
[2019-05-13 16:00] LABS: INR 0.95; PLATELET COUNT 5 x10e3/uL (140-360); PROTHROMBIN TIME 13.2 seconds (11.9-14.5)
[2019-05-13 16:01] LABS: PARTIAL THROMBOPLASTIN TIME 27.5 seconds (23.8-35.5)
--- NOTE | 2019-05-13 16:10 | Diagnostic Imaging Report ---
EXAM: CHEST SINGLE (PORTABLE), AP Portable DATE: 05/13/2019 Time stamp on exam: 3:55 PM INDICATION: Shortness of breath with possible pneumonia COMPARISON: 04/29/2019 FINDINGS: LINES/TUBES: Left subclavian Port-A-Cath present appearing unchanged in position. LUNGS: No consolidations or edema. PLEURA: No effusions or pneumothorax. HEART AND MEDIASTINUM: Normal size and contour. Again noted is a prominent right epicardial fat pad. BONES AND SOFT TISSUES: No acute findings. IMPRESSION: No acute thoracic abnormality. Signed by: Dr. Doyle Arango DO on 05/13/2019 4:07 PM
[2019-05-13 16:11] LABS: ALBUMIN 3.4 g/dL (3.5-5.0); ALBUMIN/GLOBULIN RATIO 1.5 (0.8-2.0); ANION GAP 9.1 mmol/L (8-16); CALCIUM 9.2 mg/dL (8.4-10.2); CREATININE, SERUM 1.37 mg/dL (0.72-1.25); POTASSIUM 4.1 mmol/L (3.5-5.1)
--- NOTE | 2019-05-13 16:44 | NUR ---
Accessed port a cath with 20g 1" de paz with sterile technique and pt tolerated well. Pt has no complaints or concerns. Pt has a large bruise on his right upper chest into axilla area from an IV last week and IV today started in his right forearm infiltrated into his arm tonight.
--- NOTE | 2019-05-13 17:03 | NUR ---
Report to IRAM Roberson
[2019-05-13 17:20] VITALS: BP 143/56
--- NOTE | 2019-05-13 17:22 | NUR ---
received patient to room 187. patient is alert, oriented, no s/s of distress. able to scoot from stretcher to bed. neutropenic precations. awaiting platelet transfusion
[2019-05-13 18:10] VITALS: BP 130/67
--- NOTE | 2019-05-13 19:39 | NUR ---
reports received from Jose Luis dickens, patient just finished with the first platelets transfusion, patient is awake alert oriented no distress noted. dr Li just made round at this time, jose luis made him aware about reconciled meds list. will continue to monitor.
[2019-05-13 19:57] LABS: BILIRUBIN,URINE NEGATIVE (NEGATIVE); CLARITY,URINE CLEAR (CLEAR); COLOR,URINE YELLOW (YELLOW); KETONES,URINE NEGATIVE (NEGATIVE); LEUKOCYTE ESTERASE ,URINE NEGATIVE (NEGATIVE); NITRITE,URINE NEGATIVE (NEGATIVE); PROTEIN,URINE DIPSTICK NEGATIVE (NEGATIVE); URINE UROBILINOGEN 0.2 mg/dL (0.2 - 1)
[2019-05-13] MEDS ORDERED: ONDANSETRON HCL INJ 2MG/ML 2ML 2 MG/ML VIAL IV PRN (20:00)
[2019-05-13] MEDS ORDERED: HYDROCODONE/APAP 7.5MG-325MG 1 EA TAB PO PRN (20:00)
[2019-05-13] MEDS ORDERED: ACETAMINOPHEN 325 MG TAB PO PRN (20:00)
[2019-05-13 20:02] VITALS: BP 127/57
[2019-05-13 20:03] VITALS: BP 127/57
[2019-05-13 20:12] LABS: BACTERIA,URINE FEW /HPF; EPITHELIAL CELLS,URINE FEW /LPF; WBC,URINE (MAN) 0-5 /HPF (0-5)
[2019-05-13 20:43] VITALS: BP 150/63
[2019-05-13] MEDS ORDERED: LORATADINE 10 MG TAB PO SCH (21:00)
[2019-05-13] MEDS ORDERED: NON-FORMULARY MEDICATION (Pravastatin Sodium 40 MG) PO SCH (21:00)
[2019-05-13] MEDS ORDERED: FENOFIBRATE 48 MG TAB PO SCH (21:00)
[2019-05-13] MEDS ORDERED: PANTOPRAZOLE SOD 40 MG TABEC PO SCH (21:00)
[2019-05-13] MEDS ORDERED: FINASTERIDE 5 MG TAB PO SCH (21:00)
[2019-05-13] MEDS ORDERED: LISINOPRIL 2.5 MG TAB PO SCH (21:00)
[2019-05-13] MEDS ORDERED: MONTELUKAST SODIUM 10 MG TAB PO SCH (21:00)
[2019-05-13] MEDS ORDERED: PRAVASTATIN 20 MG TAB PO SCH (21:00)
[2019-05-13 21:52] VITALS: BP 150/63
--- NOTE | 2019-05-14 00:53 | Consultation ---
DATE OF CONSULTATION: 05/13/2019 HISTORY OF PRESENT ILLNESS: Mr. Sykes is a 79-year-old male with MDS, brought as outpatient for platelet transfusion as the platelets are less than 10,000. Past illness history of MDS, treated for more than one year with systemic chemotherapy consisting of Vidaza. FAMILY HISTORY: Noncontributory. FAMILY HISTORY: Noncontributory. ALLERGIES: REPORTED NONE. MEDICATIONS: At this time. 1. Amiodarone. 2. Atenolol. 3. Fenofibrate. 4. Finasteride. 5. Hydrocodone. 6. Synthroid. 7. Lisinopril. 8. Montelukast. 9. Pravastatin. 10. Thiamine. 11. Omeprazole. REVIEW OF SYSTEMS: HEENT: Normal. CARDIAC: History of cardiac arrhythmias, history of hyperlipidemia. RESPIRATORY: History of bronchial asthma. GASTROINTESTINAL: GI bleed in the past. GENITOURINARY: Normal. MUSCULOSKELETAL: Normal. SKIN AND BREASTS: Normal. NEUROENDOCRINE: History of hypothyroidism. PHYSICAL EXAMINATION: GENERAL: A marked adult male very anemic, no palpable adenopathy. HEART: Within normal limits. LUNGS: Clear. ABDOMEN: Obese. RECTAL EXAM: Deferred. CENTRAL NERVOUS SYSTEM: Essentially normal. LAB: Shows a hemoglobin of 9.2, hematocrit 29.2, white count of 0.67, platelets of 5,000 and absolute neutrophil count is 0. IMPRESSION: 1. Neutropenia. 2. Anemia. 3. Thrombocytopenia. 4. Myelodysplastic syndromes. 5. Hypertension. 6. Hyperlipidemia. 7. Cardiac arrhythmias. 8. Bronchial asthma. 9. Hypothyroidism. PLAN: To give him platelets to avoid any bleeding. A very close watch will be kept in the patient's CBC and the patient will also have a bone marrow aspirate and biopsy as an outpatient once stable. MD TIMOTHY Yang/TIMOTHY /[id number]
--- NOTE | 2019-05-14 03:04 | History and Physical ---
PRIMARY CARE PHYSICIAN: Dr. Keith. CAR COOPER: Dr. Tom. I am covering for Dr. Keith. CHIEF COMPLAINT: Thrombocytopenia. 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 The patient denies any other source of bleeding, no hematuria, no black tarry stool, no hematochezia, no hemoptysis, no hematemesis. He reports just epistaxis only. The patient denies any recent fever, cough, congestion, or any recent infection. Reports having recent chemotherapy about 3 weeks ago. The patient was seen and evaluated at bedside on the medical floor. He is currently doing well with no other issues at this time. REVIEW OF SYSTEMS: Pertinent positives: Epistaxis. Pertinent negatives: Denies any chest pain, palpitation, nausea, vomiting, diarrhea, dysuria, hematuria, frequency, urgency, lightheadedness, dizziness, abdominal pain, headaches, shortness of breath, cough, congestion, fever, or any other complaints. The rest of 14-point review of systems are reviewed with the patient and are negative. ALLERGIES: HEPARIN, PENICILLIN, CEPHALEXIN, CHLORDIAZEPOXIDE, IODINE, AND LITHIUM. HOME MEDICATIONS: Amiodarone 200 mg daily, fenofibrate 48 mg at bedtime, iron supplements 325 mg p.o. b.i.d., finasteride 5 mg at bedtime, Fertile 7.5 mg one tab every 8 hours as needed for pain, levothyroxine 50 mcg daily, lisinopril 5 mg daily, loratadine 10 mg daily, Singulair 10 mg daily, omeprazole 40 mg at bedtime, atenolol 25 mg daily, pravastatin 40 mg at bedtime, thiamine 100 mg p.o. b.i.d. PAST MEDICAL HISTORY: He has history of atrial fibrillation, iron deficiency anemia, myelodysplastic syndrome, hypertension, and hyperlipidemia. PAST SURGICAL HISTORY: He has a port. FAMILY HISTORY: Hypertension and diabetes. SOCIAL HISTORY: No drugs. No alcohol. Does not smoke. Good social support. LAB FINDINGS: Show white count of 0.67, hemoglobin 9.2, hematocrit 29, platelets of 5. Coagulation, PT 13, INR 0.95, PTT 27.5. Chemistry, sodium 137, potassium 4.1, chloride 106, bicarb 26, anion gap 9.1, BUN 21, creatinine 1.37, glucose 99, calcium 9.2, total bilirubin is 0.8, AST 13, ALT 12, total protein 5.7, albumin is 3.4. MICROBIOLOGY: Blood cultures were corrected. IMAGING STUDIES: Chest x-ray, no acute thoracic abnormality. PHYSICAL EXAMINATION: VITAL SIGNS: Temperature is 98, pulse 62, respiratory rate is 20, blood pressure is 116/63, pulse ox 100% on room air. GENERAL: No acute distress. Alert and oriented x3. Cooperative on examination. HEENT: Head is normocephalic, atraumatic. Eyes; pupils are equal, round, and reactive to light bilaterally. Extraocular movements are intact bilaterally. Throat, no evidence of erythema or exudates in the posterior pharynx. Has poor dentition. NECK: Supple. Good range of motion throughout. PULMONARY: Clear to auscultation bilaterally. No wheezing, no rales, no rhonchi, and no crackles appreciated. CARDIOVASCULAR: Positive S1 and S2. No murmurs, rubs, or gallops appreciated. ABDOMEN: Soft, nondistended, and nontender to palpation. Bowel sounds present. MUSCULOSKELETAL: Strength is 5/5 throughout. No evidence of any muscle deficits on examination. NEUROLOGIC: Cranial nerves II through XII grossly intact. No evidence of any neurological deficits on exam. SKIN: Intact. Warm to touch. Good cap refill. PSYCHIATRIC: Normal affect and mood. EXTREMITIES: No edema. Good range of motion throughout. IMPRESSION: 1. Epistaxis secondary to thrombocytopenia from underlying chemotherapy. 2. Myelodysplastic syndrome. 3. Benign prostatic hypertrophy. 4. Hypertension. 5. History of atrial fibrillation. 6. Leukopenia. 7. Thrombocytopenia. PLAN: At this time, he has already received one jumbo platelets. He is scheduled to have another jumbo platelets. Hematology-Oncology consulted. Repeat labs in the morning. According to Hematology if his platelets are much improved, he can be discharged tomorrow. We are going to resume same home medications with no changes. Pain control, antinausea medications. Regular diet for now. No anticoagulation due to low platelets, otherwise we will continue same plan of care and monitor him very closely. Dr. Keith will be available tomorrow. MD DIGNA Paez/TIMOTHY /[id number]
[2019-05-14 04:07] VITALS: BP 131/52
--- NOTE | 2019-05-14 04:08 | NUR ---
patient awaken, vitals checked, denied any pain or discomfort.
[2019-05-14 05:51] LABS: HEMATOCRIT 25.6 % (38.2-49.6); HEMOGLOBIN 8.4 g/dL (14.0-18.0); LYMPHOCYTES # (AUTO) 0.6 (1.0-3.2); LYMPHOCYTES % 84.5 % (18.0-39.1); MEAN CORPUSCULAR HEMOGLOBIN 30.3 pg (28-32); MEAN CORPUSCULAR HGB CONC 32.8 g/dL (31-35); MEAN CORPUSCULAR VOLUME 92.4 fL (81-99); MONOCYTES # (AUTO) 0.1 (0.2-0.8); MONOCYTES % 9.9 % (4.4-11.3); NEUTROPHILS % 5.6 % (38.7-80.0); RED BLOOD COUNT 2.77 x10e6/uL (4.3-5.7); RED CELL DISTRIBUTION WIDTH 15.9 % (11.7-14.4)
[2019-05-14] MEDS ORDERED: LEVOTHYROXINE SODIUM 50 MCG TAB PO SCH (06:00)
[2019-05-14 06:20] LABS: PLATELET COUNT 40 x10e3/uL (140-360)
--- NOTE | 2019-05-14 06:38 | NUR ---
Called answering service of dr Velazquez tried to report labs results; awaiting for MD to call back.
--- NOTE | 2019-05-14 07:11 | NUR ---
received report from parking lot supervisor rn, no distress noted, denies pain at this time, updated on poc voiced understanding, pt in reverse isolation no other co voiced call light in reach will continue to monitor
[2019-05-14 08:00] VITALS: BP 126/61
[2019-05-14] MEDS ORDERED: OYST-CAL-D 500MG TABLET PO SCH (08:00)
--- NOTE | 2019-05-14 08:00 | History and Physical ---
CHIEF COMPLAINT: Thrombocytopenia. HISTORY OF PRESENT ILLNESS: This is a 79-year-old male. DICTATION ENDS HERE MD DIGNA Paez/TIMOTHY /[id number]
[2019-05-14 09:00] VITALS: BP 126/61
[2019-05-14] MEDS ORDERED: ATENOLOL 50 MG TAB PO SCH (09:00)
[2019-05-14] MEDS ORDERED: FERROUS SULFATE 325 MG TAB PO SCH (09:00)
[2019-05-14] MEDS ORDERED: NON-FORMULARY MEDICATION (Thiamine Mononitrate (Vitamin B-1) 100 MG) PO SCH (09:00)
[2019-05-14] MEDS ORDERED: AMIODARONE HCL 200 MG TAB PO SCH (09:00)
[2019-05-14] MEDS ORDERED: NON-FORMULARY MEDICATION (Atenolol 25 MG) PO SCH (09:00)
[2019-05-14] MEDS ORDERED: THIAMINE HCL 100 MG TAB PO SCH (09:00)
[2019-05-14] MEDS ORDERED: ONDANSETRON HCL 4 MG ORAL DISINTEGRATING TAB PO PRN (09:15)
--- NOTE | 2019-05-14 10:04 | NUR ---
SPOKE WITH DR ZAVALA RE: PLT COUNT, PT BEING DC'D HOME AND FU WITH MD IN OFFICE TOMORROW. VOICED UNDERSTANDING, WITH NO FURTHER ORDERS AT THIS TIME,
--- NOTE | 2019-05-14 10:47 | NUR ---
SPOKE WITH DR ZAVALA RE: HEPARIN ADMINISTRATION FOR PORT A CATH DEACCESS, NEW ORDERS NOTED. CONFIRMED WITH PATIENT AND DR ZAVALA RE: ALLERGIES, PATIENT AND MD INFORMED THIS NURSE PT HAS NO ALLERGIES TO HEPARIN.
--- NOTE | 2019-05-14 11:20 | NUR ---
port a cath dc'd as per ordered using sterile technique, cath flushed with 5cc of saline then 1000units of heparin as per ordered, needle removed,site covered with dressing,pt tolerated well, dc instructions given voiced understanding,
--- NOTE | 2019-05-15 02:50 | Discharge Summary ---
The patient is on observation. FINAL DIAGNOSES: 1. Chronic thrombocytopenia with severe low level. 2. Status post 2 Jumbo units of platelets. SUMMARY: A 79-year-old male with MDS with low platelet. Outpatient lab work sent to the hospital for platelet transfusion. The patient is stable. He did receive 2 Jumbo platelets. His platelet now is 40,000. The patient is stable. He will be discharged home today and he will have a bone marrow biopsy tomorrow with Dr. Urban Velazquez, his oncologist. The patient is otherwise stable. He will resume his home medication on discharge. MD SUE Ramirez/TIMOTHY /[id number]
== END 2019-05-14 11:30 | disposition home or self-care (01) ==
LOC: ER 14:46 → IMCU 16:25 → INTOOBSV 16:25 → ER 17:08
PROVIDERS: ADMIT Internal Medicine; ATTEND Internal Medicine
DX: D69.6 Thrombocytopenia, unspecified (principal); R04.0 Epistaxis; I12.9 Hypertensive chronic kidney disease with stage 1 through stage 4 chronic kidney disease, or unspecified chronic kidney disease; N18.9 Chronic kidney disease, unspecified; I25.2 Old myocardial infarction; Z88.0 Allergy status to penicillin; Z88.8 Allergy status to other drugs, medicaments and biological substances; Z91.048 Other nonmedicinal substance allergy status; D70.9 Neutropenia, unspecified; I48.91 Unspecified atrial fibrillation; N40.0 Benign prostatic hyperplasia without lower urinary tract symptoms; D46.9 Myelodysplastic syndrome, unspecified; E78.5 Hyperlipidemia, unspecified; E03.9 Hypothyroidism, unspecified
CPT/HCPCS: 36415 ×2; 36430; 71045; 80053; 81001; 85025 ×2; 85610; 85730; 86850; 86900; 87040; 87086; 99284; G0378 ×2; J1642; J3411; P9031; S0164

== ENCOUNTER 2019-06-10 17:50 | Observation (INO) | payer MEDICARE, OTHER ==
[~2019-06-10] VITALS: Ht 175.3 cm; Wt 86.2 kg
--- OUTSIDE RECORDS SUMMARY | 2019-06-10 17:55 | XMS REPORT | Clinical Summary ---
Author Author [facility] [place] [facility] Address Unknown Phone Unavailable Care Team Providers [employer] Manufacturer Name Role Phone Dejuan Keith MD PCP Allergies Comments Active Allergy Reactions Severity Noted Date Cephalexin 05/16/2019 Allergic to oral only not topical. Iodine Hives, Rash Low 05/16/2019 Chlordiazepoxide Hcl 05/16/2019 [place] 05/16/2019 Penicillins 05/16/2019 Medications End Date Status Medication Sig Dispensed Refills Start Date Active amIODarone (PACERONE) 200 Take 200 mg 0 MG tablet by mouth daily. Active ferrous sulfate 325 (65 Take 325 mg 0 FE) MG tablet by mouth 2 (two) times a day. Active loratadine (CLARITIN) 10 Take 10 mg by 0 mg tablet mouth nightly. Active levothyroxine (SYNTHROID, Take 50 mcg 0 LEVOXYL) 50 mcg tablet by mouth daily. Active montelukast (SINGULAIR) Take 10 mg by 0 10 mg tablet mouth nightly. Active nitroglycerin (NITROSTAT) Place 0.4 mg 0 0.4 MG SL tablet under the tongue every 5 (five) minutes as needed for chest pain (sprays at 5 min intervals, max 3 sprays/15 min max.). Active omeprazole (PriLOSEC) 40 Take 40 mg by 0 MG capsule mouth nightly. Active thiamine mononitrate, vit Take 100 mg 0 B1, (B-1) 100 mg tablet by mouth 2 (two) times a day. Active pravastatin (PRAVACHOL) Take 40 mg by 0 40 MG tablet mouth daily. 06/21/2019 Active pregabalin (LYRICA) 50 MG Take 1 60 capsule 0 capsule capsule (50 9 mg total) by mouth 2 (two) times a day for 30 days. 06/21/2019 Active metoprolol tartrate Take 1 tablet 60 tablet 0 (LOPRESSOR) 25 mg tablet (25 mg total) 9 by mouth 2 (two) times a day for 30 days. 06/22/2019 Active fenofibrate (LOFIBRA) 54 Take 1 tablet 30 tablet 0 MG tablet (54 mg total) 9 by mouth daily for 30 days. 06/21/2019 Active finasteride (PROSCAR) 5 Take 1 tablet 30 tablet 0 mg tablet (5 mg total) 9 by mouth nightly for 30 days. 06/22/2019 Active amLODIPine (NORVASC) 5 mg Take 1 tablet 30 tablet 0 tablet (5 mg total) 9 by mouth daily for 30 days. 05/22/2020 Active venetoclax (VENCLEXTA) Take 400 mg 120 tablet 11 100 mg tabletIndications: by mouth 9 MDS (myelodysplastic daily for 360 syndrome), high grade days. (HCC) 05/22/2019 Discontinued atenolol (TENORMIN) 25 MG Take 25 mg by 0 tablet mouth daily. 05/22/2019 Discontinued fenofibrate (TRICOR) 48 Take 48 mg by 0 MG tablet mouth nightly. 05/22/2019 Discontinued finasteride (PROSCAR) 5 Take 5 mg by 0 mg tablet mouth nightly. 05/22/2019 Discontinued acetaminophen-codeine Take 1 tablet 0 (TYLENOL WITH CODEINE #3) by mouth 300-30 mg per tablet every 6 (six) hours as needed for moderate pain. 05/17/2019 Discontinued aminocaproic acid Take 1 g by 0 (AMICAR) 500 mg tablet mouth 4 (four) times a day. 05/17/2019 Discontinued aspirin (ECOTRIN) 81 MG Take 81 mg by 0 enteric coated tablet mouth daily. 05/22/2019 Discontinued aminocaproic acid Take 1 g by 0 (AMICAR) 500 mg tablet mouth 4 (four) times a day. 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 Last Filed Vital Signs Time Taken Vital Sign Reading 05/22/2019 11:57 AM CDT Blood Pressure 116/55 05/22/2019 11:57 AM CDT Pulse 71 05/22/2019 11:57 AM CDT Temperature 36.3 C (97.4 F) 05/22/2019 11:57 AM CDT Respiratory Rate 16 05/22/2019 11:57 AM CDT Oxygen Saturation 99% - Inhaled Oxygen - Concentration 05/16/2019 11:01 PM CDT Weight 86 kg (189 lb 9.6 oz) 05/16/2019 7:17 PM CDT Height 175.3 cm (5' 9") 05/16/2019 7:17 PM CDT Body Mass Index 28 Plan of Treatment Health Maintenance Due Date Last Done Comments SHINGLES VACCINES (#1) 02/06/1992 65+ PNEUMOCOCCAL VACCINE 2007 (1 of 2 - PCV13) INFLUENZA VACCINE 07/02/2019 Implants Device Identifier Shelf Expiration Date Model / Serial / Lot Implanted Type Area Manufactur er Vascular Access-02/13/2019 Vascular Left: Chest Implanted: 02/13/2019 (Quantity not Access on file) Procedures Comments Procedure Name Priority Date/Time Associated Diagnosis MANUAL DIFFERENTIAL Routine 05/22/2019 4:00 AM CDT ESTIMATED GFR Routine 05/22/2019 4:00 AM CDT PHOSPHORUS LEVEL Routine 05/22/2019 4:00 AM CDT MAGNESIUM LEVEL Routine 05/22/2019 4:00 AM CDT CBC WITH PLATELET AND Routine 05/22/2019 DIFFERENTIAL 4:00 AM CDT BASIC METABOLIC PANEL Routine 05/22/2019 4:00 AM CDT MANUAL DIFFERENTIAL Routine 05/21/2019 4:40 AM CDT ESTIMATED GFR Routine 05/21/2019 4:40 AM CDT PHOSPHORUS LEVEL Routine 05/21/2019 4:40 AM CDT MAGNESIUM LEVEL Routine 05/21/2019 4:40 AM CDT CBC WITH PLATELET AND Routine 05/21/2019 DIFFERENTIAL 4:40 AM CDT BASIC METABOLIC PANEL Routine 05/21/2019 4:40 AM CDT ECG 12-LEAD Routine 05/20/2019 4:48 PM CDT ECHOCARDIOGRAM 2D Routine 05/20/2019 COMPLETE W MMODE SPECTRAL 12:02 PM CDT COLOR DOPPLER ([id number]) MANUAL DIFFERENTIAL Routine 05/20/2019 4:43 AM CDT ESTIMATED GFR Routine 05/20/2019 4:43 AM CDT PHOSPHORUS LEVEL Routine 05/20/2019 4:43 AM CDT MAGNESIUM LEVEL Routine 05/20/2019 4:43 AM CDT CBC WITH PLATELET AND Routine 05/20/2019 DIFFERENTIAL 4:43 AM CDT BASIC METABOLIC PANEL Routine 05/20/2019 4:43 AM CDT SURGICAL PATHOLOGY Routine 05/19/2019 REQUEST 4:39 PM CDT MISCELLANEOUS REFERRAL Routine 05/19/2019 TEST 2:44 PM CDT 54 GENE MYELOID MUTATION Routine 05/19/2019 TEST 2:44 PM CDT BONE MARROW TRAY Routine 05/19/2019 2:44 PM CDT FLOW CYTOMETRY EVALUATION Routine 05/19/2019 2:44 PM CDT PREPARE PLATELET PHERESIS Routine 05/19/2019 5:25 AM CDT TYPE AND SCREEN Routine 05/19/2019 5:25 AM CDT MANUAL DIFFERENTIAL Routine 05/19/2019 5:10 AM CDT ESTIMATED GFR Routine 05/19/2019 5:10 AM CDT PHOSPHORUS LEVEL Routine 05/19/2019 5:10 AM CDT MAGNESIUM LEVEL Routine 05/19/2019 5:10 AM CDT CBC WITH PLATELET AND Routine 05/19/2019 DIFFERENTIAL 5:10 AM CDT BASIC METABOLIC PANEL Routine 05/19/2019 5:10 AM CDT TRANSFUSE PLATELETS Routine 05/18/2019 3:16 PM CDT TRANSFUSE PLATELETS Routine 05/18/2019 12:38 PM CDT FLOW CYTOMETRY EVALUATION Routine 05/18/2019 11:02 AM CDT MANUAL DIFFERENTIAL Routine 05/18/2019 5:00 AM CDT ESTIMATED GFR Routine 05/18/2019 5:00 AM CDT PHOSPHORUS LEVEL Routine 05/18/2019 5:00 AM CDT MAGNESIUM LEVEL Routine 05/18/2019 5:00 AM CDT CBC WITH PLATELET AND Routine 05/18/2019 DIFFERENTIAL 5:00 AM CDT BASIC METABOLIC PANEL Routine 05/18/2019 5:00 AM CDT SMEAR REVIEW Routine 05/17/2019 5:25 AM CDT ESTIMATED GFR Routine 05/17/2019 5:25 AM CDT LIPID PANEL Routine 05/17/2019 5:25 AM CDT HEMOGLOBIN A1C Routine 05/17/2019 5:25 AM CDT T4, FREE Routine 05/17/2019 5:25 AM CDT THYROID STIMULATING Routine 05/17/2019 HORMONE 5:25 AM CDT PHOSPHORUS LEVEL Routine 05/17/2019 5:25 AM CDT MAGNESIUM LEVEL Routine 05/17/2019 5:25 AM CDT BASIC METABOLIC PANEL Routine 05/17/2019 5:25 AM CDT CBC HEMOGRAM Routine 05/17/2019 5:25 AM CDT FOLATE LEVEL Routine 05/17/2019 5:25 AM CDT VITAMIN B12 LEVEL Routine 05/17/2019 5:25 AM CDT LACTIC ACID LEVEL, SEPSIS Timed 05/17/2019 - NOW AND REPEAT 2X EVERY 5:25 AM CDT 3 HOURS US RENAL Routine 05/16/2019 9:00 PM CDT RADHA MARKS VIRUS (EBV) Routine 05/16/2019 BY PCR 8:13 PM CDT PARTIAL THROMBOPLASTIN Routine 05/16/2019 TIME (PTT) 7:18 PM CDT FIBRINOGEN Routine 05/16/2019 7:18 PM CDT RETICULOCYTE COUNT Routine 05/16/2019 7:18 PM CDT SYPHILIS TOTAL ANTIBODY Routine 05/16/2019 7:18 PM CDT HIV AG/AB COMBINATION Routine 05/16/2019 7:18 PM CDT PARVOVIRUS B19 ANTIBODY, Routine 05/16/2019 IGG AND IGM 7:18 PM CDT LACTIC ACID LEVEL, SEPSIS Timed 05/16/2019 - NOW AND REPEAT 2X EVERY 7:18 PM CDT 3 HOURS ECG 12-LEAD STAT 05/16/2019 5:44 PM CDT URINALYSIS SCREEN AND STAT 05/16/2019 MICROSCOPY, WITH REFLEX 5:30 PM CDT TO CULTURE URINE CULTURE STAT 05/16/2019 5:30 PM CDT RESPIRATORY PATHOGEN Routine 05/16/2019 PANEL 5:23 PM CDT BLOOD CULTURE, AEROBIC & Routine 05/16/2019 ANAEROBIC 3:33 PM CDT PREPARE PLATELET PHERESIS Routine 05/16/2019 3:25 PM CDT MANUAL DIFFERENTIAL STAT 05/16/2019 3:25 PM CDT ESTIMATED GFR STAT 05/16/2019 3:25 PM CDT LACTIC ACID LEVEL, SEPSIS STAT 05/16/2019 - NOW AND REPEAT 2X EVERY 3:25 PM CDT 3 HOURS PHOSPHORUS LEVEL STAT 05/16/2019 3:25 PM CDT MAGNESIUM LEVEL STAT 05/16/2019 3:25 PM CDT COMPREHENSIVE METABOLIC STAT 05/16/2019 PANEL 3:25 PM CDT TYPE AND SCREEN Routine 05/16/2019 3:25 PM CDT CBC WITH PLATELET AND STAT 05/16/2019 DIFFERENTIAL 3:25 PM CDT PARTIAL THROMBOPLASTIN STAT 05/16/2019 TIME (PTT) 3:25 PM CDT PROTHROMBIN TIME WITH INR STAT 05/16/2019 3:25 PM CDT BLOOD CULTURE, AEROBIC & Routine 05/16/2019 ANAEROBIC 3:25 PM CDT XR CHEST 1 VW PORTABLE STAT 05/16/2019 2:57 PM CDT after 06/09/2018 Results * Estimated GFR (05/22/2019 4:00 AM CDT) Only the most recent of 7 results within the time period is included. Pathologist [facility] Estimated GFR 49 (A) mL/min/1.73 m2 [facility] Comment: [facility] rpretation G1 >=90 Normal or high G2 60-89Mildly decreased [id number] Mildly to moderately decreased C7y85-12 Moderately to severely decreased G4 15-29Severely decreased G5 <15Kidney failure The eGFR was calculated using the Chronic Kidney Disease Epidemiology Collaboration (CKD-EPI) equation. Interpretation is based on recommendations of the National Kidney Foundation-Kidney Disease Outcomes Quality Initiative (NKF-KDOQI) published in 2014. Specimen Plasma specimen Performing Organization Address City/[facility] [place] [address] PATHOLOGY AND [facility]ICINE [address] * Manual differential (05/22/2019 4:00 AM CDT) Only the most recent of 6 results within the time period is included. [facility] Manual PERFORMED [facility] Neutrophils 5.0 (L) 39.0 - 69.0 % [facility] Lymphocytes 82.0 (H) 25.0 - 45.0 % [facility] Monocytes 10.0 0.0 - 10.0 % [facility] Eosinophils 1.0 0.0 - 5.0 % [facility] Basophils 0.0 0.0 - 1.0 % [facility] Metamyelocytes 0 % [facility] Myelocytes 2 % [facility] Promyelocytes 0 % [facility] Platelet slide Mkd decreased (A) [facility] Anisocytosis Moderate [facility] Ovalocytes Moderate [facility] Specimen Performing Organization Address City/[facility]/Zipcode Phone Number [facility] [place] [address] PATHOLOGY AND [facility] [address] * CBC with platelet and differential (05/22/2019 4:00 AM CDT) Only the most recent of 6 results within the time period is included. [facility] WBC 0.88 (LL) 4.50 - 11.00 k/uL [facility] Comment: [facility] Results called to and read HOSPITAL back by RICKY Zurita OCA/WT14 (name/location) at 05/22/201905:50 (date/time) by 465. RBC 2.42 (L) 4.40 - 6.00 m/uL [facility] HGB 7.3 (L) 14.0 - 18.0 g/dL [facility] HCT 23.6 (L) 41.0 - 51.0 % [facility] MCV 97.5 82.0 - 100.0 fL [facility] MCH 30.2 27.0 - 34.0 pg [facility] MCHC 30.9 (L) 31.0 - 37.0 g/dL [facility] RDW - SD 58.9 (H) 37.0 - 55.0 fL [facility] MPV 10.5 8.8 - 13.2 fL [facility] Platelet count 31 (L) 150 - 400 k/uL [facility] Nucleated RBC 0.00 /100 WBC [facility] Neutrophils 5.0 (L) 39.0 - 69.0 % [facility] Lymphocytes 82.0 (H) 25.0 - 45.0 % [facility] Monocytes 10.0 0.0 - 10.0 % [facility] Eosinophils 1.0 0.0 - 5.0 % [facility] Basophils 0.0 0.0 - 1.0 % [facility] Specimen Blood Performing Organization Address City/[facility]/Zipcode Phone Number [facility] DEPARTMENT OF [address] [place] [address] PATHOLOGY AND GENOMIC MEDICINE [address] * Phosphorus level (05/22/2019 4:00 AM CDT) Only the most recent of 7 results within the time period is included. Phosphorus 3.6 2.4 - 4.5 mg/dL [facility] Specimen Plasma specimen Performing Organization Address City/[facility]ercode Phone Number [facility] [place] [address] PATHOLOGY AND GENOMIC MEDICINE [address] * Magnesium level (05/22/2019 4:00 AM CDT) Only the most recent of 7 results within the time period is included. Pathologist [facility] Magnesium 1.8 1.6 - 2.4 mg/dL [facility] Specimen Plasma specimen Performing Organization Address City/[facility]ode Phone Number [facility] [place] [address] PATHOLOGY AND GENOMIC MEDICINE [address] * Basic metabolic panel (05/22/2019 4:00 AM CDT) Only the most recent of 6 results within the time period is included. Pathologist [facility] Sodium 142 135 - 148 mEq/L [facility] Potassium 4.0 3.5 - 5.0 mEq/L [facility] Chloride 109 98 - 112 mEq/L [facility] CO2 22 (L) 24 - 31 mEq/L [facility] Anion gap 11@ANIO 7 - 15 mEq/L [facility] BUN 20 8 - 23 mg/dL [facility] Creatinine 1.38 (H) 0.70 - 1.20 mg/dL [facility] Glucose 98 65 - 99 mg/dL [facility] Calcium 8.6 (L) 8.8 - 10.2 mg/dL [facility] Specimen Plasma specimen Performing Organization Address City/[facility]ode Phone Number [facility] [place] [address] PATHOLOGY AND GENOMIC MEDICINE [address] * Transfuse platelets (05/21/2019 5:54 PM CDT) Only the most recent of 4 results within the time period is included. * ECG 12 lead (05/20/2019 4:48 PM CDT) Only the most recent of 2 results within the time period is included. Ventricular 68 [facility] rate Atrial rate 68 [facility] [place] interval 164 [facility] QRSD interval 88 [facility] QT interval 438 [facility] QTC interval 465 [facility] P axis 1 61 [facility] QRS axis 1 42 [facility] T wave axis 80 [facility] EKG impression Normal sinus rhythm-Low [facility] voltage QRS-Septal infarct (cited on or before 16-MAY-2019)-Abnormal ECG-In automated comparison with ECG of 16-MAY-2019 17:44,-No significant change was found- Specimen Narrative Performed At Performing Organization Address City/State/Zipcode Phone Number [facility] [address] [place] [address] * Echocardiogram complete w contrast and 3D if needed (05/20/2019 12:02 PM CDT) Specimen Narrative Performed At DONNA RonquilloName:DEJUAN BROWN.ID:[id number] .Date: 05/20/2019 Exam Time: 11:26:00 AM Study Type:Routine EchoHeight:69in Weight:188.61lbBSA: 2.02 m2 DOBAge:1940,79YSex: MALE Sonogrphr: Kristy Study Status:Final Echo Event ID:[id number] Order ID:[id number] Procedures:2D Echo, Colorflow Doppler, Intravenous Lumason Contrast Race:C FINDINGS: LV: LV size is normal. Concentric left ventricular remodeling. LVEF is normal. Overall wall motion is normal. Estimated EFis 60-64%. RV: RV size is normal. RV systolic function is normal. RV wall motionis normal. LA: LA size is normal. RA: RA size is normal. AO: Aortic root diameter is normal. JILLIAN: No pericardial effusion. AV: No structural AV abnormalities noted. MV: No structural MV abnormalities noted. A trace of mitral regurgitation. PV: No structural PV abnormalities noted. A trace of pulmonic regurgitation. TV: No structural TV abnormalities noted. Costa: LV relaxation is impaired. LV filling pressure is elevated. Other:Insufficient TR jet to estimate PA systolic pressure. MEASUREMENTS: 2D Parasternal Long [place] LVOT 2 cmLA Ds4.4 cm LVIDd4.6 cmIndex2.3 cm/m Ao Rtd 3.8 cm Index1.9 cm/m LVIDs2.8 cm LV Icaj288.6 g(122-174) LV%fs 39.4 % LVM Myyqd863.8 g/m2 IVSd 1.3 cmRWT0.5 LVPWd1.1 cm LA Sng Plane LA Area 21.2 cm2(8.8-23.4) LA Vol60.3 ml Index29.8 ml/m LA LngAx 6.3 cm RA Sng Plane RA Area 19.8 cm2(8.3-19.5) RA Vol56.4 ml Index27.9 ml/m RA LngAx 5.8 cm Signed 05/21/2019 05:05 PM Litzy Mackay M.D. Procedure Note Interface, Radiology Results In - 05/21/2019 5:05 PM CDT Pat.Name: DEJUAN BROWN Gloria.ID: [id number] .Date: 05/20/2019 Exam Time: 11:26:00 AM Study Type:Routine Echo Height: 69in Weight: 188.61lb BSA: 2.02 m2 Age: 5 1940,79Y Sex: MALE Sonogrphr: Kristy Study Status:Final Echo Event ID:[id number] Order ID: [id number] Procedures:2D Echo, Colorflow Doppler, Intravenous Lumason Contrast Race: C FINDINGS: LV: LV size is normal. Concentric left ventricular remodeling. LV EF is normal. Overall wall motion is normal. Estimated EF is 60-64%. RV: RV size is normal. RV systolic function is normal. RV wall motion is normal. LA: LA size is normal. RA: RA size is normal. AO: Aortic root diameter is normal. JILLIAN: No pericardial effusion. AV: No structural AV abnormalities noted. MV: No structural MV abnormalities noted. A trace of mitral regurgitation. PV: No structural PV abnormalities noted. A trace of pulmonic regurgitation. TV: No structural TV abnormalities noted. Costa: LV relaxation is impaired. LV filling pressure is elevated. Other: Insufficient TR jet to estimate PA systolic pressure. MEASUREMENTS: 2D Parasternal Long [place] LVOT 2 cm LA Ds 4.4 cm LVIDd 4.6 cm Index 2.3 cm/m Ao Rtd 3.8 cm Index 1.9 cm/m LVIDs 2.8 cm LV Mass 209.6 g (122-174) LV%fs 39.4 % LVM Index 103.8 g/m2 IVSd 1.3 cm RWT 0.5 LVPWd 1.1 cm LA Sng Plane LA Area 21.2 cm2 (8.8-23.4) LA Vol 60.3 ml Index 29.8 ml/m LA LngAx 6.3 cm RA Sng Plane RA Area 19.8 cm2 (8.3-19.5) RA Vol 56.4 ml Index 27.9 ml/m RA LngAx 5.8 cm Signed 05/21/2019 05:05 PM Ltizy Mackay M.D. Performing Organization Address City/[facility]/Zipcode Phone Number [facility] [address] [place] [address] * Surgical pathology request (05/19/2019 4:39 PM CDT) [facility] OF PATHOLOGY AND GENOMIC MEDICINE Surgical See link below for PDF Lab [facility] pathology Report OF PATHOLOGY report AND GENOMIC MEDICINE Result status This is Final Report for [facility] [id number] OF PATHOLOGY AND GENOMIC MEDICINE Specimen Performing Organization Address City/State/Zipcode Phone Number [facility] OF [address] [place] [address] PATHOLOGY AND GENOMIC MEDICINE * Bone marrow tray (05/19/2019 2:44 PM CDT) Bone marrow Done [facility] Specimen Fluid Performing Organization Address City/State/Zipcode Phone Number [facility] DEPART[facility] OF [address] [place] [address] PATHOLOGY AND GENOMIC MEDICINE [facility] [address] [place] [address] HOSPITAL * Miscellaneous referral test (05/19/2019 2:44 PM CDT) [facility] test name FLT3,CEPBA,NPM1,IDH2 SHOWN ABOVE [facility] test see note SHOWN ABOVE result Comment: EBPA Mutation Detection [employer] test code 3640031 CEBPA Mutation Detection Results Not Detected A CEBPA mutation was not detected.This does not exclude the possibility of a mutation present below the limit of detection for this assay. This result has been reviewed and approved by Ted Owens M.D., Ph.D. INTERPRETIVE INFORMATION: CEBPA Mutation Detection INTERPRETATION: The presence of double (two) mutations, but not a single (one) mutation, is associated with a more favorable clinical outcome in patients with acute myeloid leukemia. The good prognosis associated with double CEBPA mutations is only seen in the absence of a concurrent FLT3-ITD mutation (Jovan DAMON, et al. 2010. J Clin Oncol:28,2422-9279). METHODOLOGY: CEBPA mutations in white blood cells are detected by a combination of PCR amplification, fragment length analysis (agarose gel electrophoresis), and direct sequencing of DNA fragments from the coding regions of the CEBPA gene. LIMIT OF DETECTION: The detection limit for heterozygous mutations is 40 percent mutated cells. LIMITATIONS: A "Not Detected" result does not preclude the presence of CEBPA mutations below the detection limits of this test. Results of this test must always be interpreted in the context of morphologic and other relevant data, and should not be used alone for a diagnosis of malignancy. Test developed and characteristics determined by [facility]. See Compliance Statement B: [employer]/CS ------ ------ ------ -- Order comments CEBPA Mutation Detection ONE FULL LAVENDER BONE MARROW IDH1 and IDH2 Mutation Analysis, exon 4 [employer] test code [id number] IDH1 and IDH2 Mutation Results Not Detected A mutation was not detected in the IDH1 (codon R132) or IDH2 (codons R140 or R172) genes. This does not exclude the possibility of a mutation below the limit of detection for this assay. This result has been reviewed and approved by Ted Owens M.D., Ph.D. BACKGROUND INFORMATION: IDH1 and IDH2 Mutation Results CHARACTERISTICS: This test is designed to detect mutations in exon 4 of the IDH1 and IDH2 genes at hotspots R132 of IDH1 and R140 and R172 of IDH2 that are frequently present in gliomas and in a subset of cases of acute myeloid leukemia. IDH1/2 mutations in gliomas are generally associated with a better prognosis. In acute myeloid leukemia, the prognostic significance of IDH1 mutations is context dependent. IDH1 mutations appear to be associated with worse outcome in patients without FLT3-ITD mutations (see J Clin Oncol 2010. 28:3636 and Blood 2010. 116:2779). In acute myeloid leukemia patients with IDH2 abnormalities, IDH2 R140 mutations appear to be associated with better outcome while IDH2 R172 mutations appear associated with worse outcome (see Blood 2011. 118:409). METHODOLOGY: DNA is isolated from FFPE tissue, blood, or bone marrow. The DNA is amplified for IDH1 and IDH2 covering exon 4 of both genes including the important residues R132 (IDH1), R140 (IDH2) and R172 (IDH2). Lola sequencing is then performed to detect mutations. Only mutations in R132 (IDH1), R140 and R172 (IDH2) are reported. LIMITATIONS: Mutations in other locations within the IDH1 and IDH2 genes or in other genes will not be detected. The limit of detection for this test is 20 percent mutant allele. Results of this test must always be interpreted within the clinical context and with other relevant data, and should not be used alone for a diagnosis of malignancy. This test is not intended to detect minimal residual disease. Test developed and characteristics determined by [facility]. See Compliance Statement B: [employer]/CS - - - - - - - - - - - - - - - - - - - - - - - - - - - - - - IDH 1-2 Source Bone Marrow ------ ------ ------ -- Order comments IDH1 and IDH2 Mutation Analysis, exon 4 ONE FULL LAVENDER BONE MARROW NPM1 Mutation Detection by RT-PCR, Quantitative [facility] test code [id number] NPM1 Quantitative, Source Bone Marrow - - - - - - - - - - - - - - - - - - - - - - - - - - - - - - NPM1 Quantitative, Result Not Detected A NPM1 (type A, B, or D) mutation was not detected. This result has been reviewed and approved by Ted Owens M.D., Ph.D. INTERPRETIVE INFORMATION: NPM1 Mutation Detection by RT-PCR, Quantitative This test is designed to detect and quantify NPM1 mutant transcripts. NPM1 mutations represent a common recurrent genetic abnormality found in a subset of patients with acute myeloid leukemia (AML). Approximately one-third of AML patients overall and one-half of cytogenetically normal AML patients harbor an NPM1 mutation, with the most common form being a TCTG insertion (type A) seen in approximately 80% of NPM1-mutated cases. Rarer forms, known as types B and D, compose around 10% of NPM1-mutated cases. This test is designed to detect and quantify NPM1-mutant transcripts of types A, B, and D only. Mutated NPM1 confers a favorable prognosis in cytogenetically normal AML patients who lack FLT3 internal tandem duplication mutations. Recent studies show that minimal residual disease (MRD) monitoring of AML patients after chemotherapy provides important prognostic information independent of other risk factors and may help to inform clinical decisions (see reference). METHODOLOGY: Patient RNA is isolated, reverse transcribed into cDNA, and amplified using multiplex allele-specific primers targeting types A, B, and D NPM1 variants. A fragment of the ABL1 gene is co-amplified and quantification is performed using the delta-delta Ct method relative to a plasmid calibrator that harbors a 1:1 ratio of NPM1 type A and ABL1 cDNA fragments. Results are reported as a normalized ratio of NPM1 variant transcripts to ABL1 transcripts present in the sample. LIMITATIONS: Rare NPM1 variants (non-type A, B, or D) may not be detected. The limit of detection for this assay is 1:100,000 cells (0.001%) for type A NPM1 mutants based on cell line dilution experiments. The sensitivity of this assay for type B and D mutants is expected to be similar but has not been demonstrated. Results of this test must always be interpreted within the patient's clinical context and in conjunction with other relevant data, and should not be used alone for a diagnosis of malignancy. A negative result does not definitely exclude the possibility of an NPM1 mutation below the detection limit of this test and does not exclude the possibility ofrare forms of NPM1 mutant transcripts (non-type A, B, or D) not detectable by this methodology. For ongoing monitoring after initial diagnosis, this test should only be used in patients who are known to have NPM1-mutated AML. Reference: Jazmin Cohen et al. Assessment of Minimal Residual Disease in Standard-Risk AML. N Engl J Med. 2016 Jan 05;374(5):422-33. Test developed and characteristics determined by [facility]. See Compliance Statement B: [employer] - - - - - - - - - - - - - - - - - - - - - - - - - - - - - - NPM1 Quantitative, Ratio 0.0000 ------ ------ ------ -- Order comments NPM1 Mutation Detection by RT-PCR, Quantitative ONE FULL LAVENDER BONE MARROW FLT3 ITD and TKD Mutation Detection [employer] test code [id number] FLT3 Source Bone Marrow - - - - - - - - - - - - - - - - - - - - - - - - - - - - - - ITD Result Not Detected - - - - - - - - - - - - - - - - - - - - - - - - - - - - - - ITD Ratio 0.00 - - - - - - - - - - - - - - - - - - - - - - - - - - - - - - TKD Result Not Detected - - - - - - - - - - - - - - - - - - - - - - - - - - - - - - FLT3 ITD and TKD Mutation Detection See Note A FLT3 mutation was not detected. This result has been reviewed and approved by Ted Owens M.D., Ph.D. INTERPRETIVE INFORMATION: FLT3 Mutation Detection by PCR and Fragment Analysis This test is designed to detect FLT3 mutations in acute myeloid leukemia (AML). FLT3 mutation incidence is 20-30 percent in cytogenetically normal AML and represents an important diagnostic and prognostic marker. Up to 70 percent of FLT3-mutated patients harbor internal tandem duplication (ITD) mutations of the juxtamembrane domain and 30 percent demonstrate tyrosine kinase domain (TKD) D835 mutations in exon 20. This test is designed to detect both ITD and D835 mutations. FLT3-ITD mutations in some AML subgroups carry a poor prognosis, while the significance of TKD mutations is less clear. The identification of these mutations is also useful in selecting an appropriate therapy. METHODOLOGY: Genomic DNA is isolated from total leukocytes, and amplified in multiplex for ITD and D835 variants. PCR products are digested with EcoRV and resolved by capillary electrophoresis. ITDs are reported with an SR, calculated by the peak area of mutated allele divided by the peak area of the wild-type allele. D835 variants are reported as Detected or Not Detected. LIMITATIONS: FLT3 mutations other than ITD and D835 will not be detected with this assay. This assay detects both D835 and I836 variants but does not distinguish between them. The limit of detection for this assay is an SR of 0.05 for ITD and 0.05 for D835 based on dilutions of DNA from mutated cell lines and patient specimens. Results of this test must always be interpreted within the patient's clinical context and in conjunction with other relevant data and should not be used alone for a diagnosis of malignancy. A negative result does not definitely exclude the possibility of an FLT3 mutation below the detection limit of this test and does not exclude the possibility of rare forms of FLT3 mutations not detectable by this methodology. Test developed and characteristics determined by [facility]. See Compliance Statement B: [employer] ------ ------ ------ -- Order comments FLT3 ITD and TKD Mutation Detection ONE FULL LAVENDER BONE MARROW Test performed by: [facility] [address] [place], [id number] Specimen Narrative Performed At [facility] DEPARTMENT OF FLT3, NPM1, CEBPA, IDH2 PCR PATHOLOGY AND ONLY ONE FULL [facility] GENOMIC MEDICINE Performing Organization Address City/State/Zipcode Phone Number [facility] DEPARTMENT OF [address] [place] [address] PATHOLOGY AND GENOMIC MEDICINE SHOWN ABOVE * Flow cytometry evaluation (05/19/2019 2:44 PM CDT) Only the most recent of 2 results within the time period is included. [facility] Flow cytometry See link below for PDF Lab COMO evaluation Report [facility] [place] Specimen Blood Narrative Performed At Performing Organization Address City/State/Zipcode Phone Number [facility] DEPARTMENT OF [address] [place] [address] PATHOLOGY AND GENOMIC MEDICINE [facility] * 54 gene myeloid mutation test (05/19/2019 2:44 PM CDT) Interpretation VARIANT(S) DETECTED: [facility] No Mutations Detected [facility] Amplicon coverage:532 of HOSPITAL 538 amplicons (98.9%) had >100x coverage and were included in the analysis. The following amplicons had <100x coverage and were not analyzed: CALR.exon.9.line.45.chr19.1305 [id number]_tile_1 CDKN2A.CDS.3.line.204.chr9.219 [id number]_tile_1 CDKN2A.CDS.3.line.204.chr9.219 [id number]_tile_2 DNMT3A.CDS.11.line.63.chr2.254 [id number]_tile_1 IKZF1.CDS.7.line.152.chr7.5046 [id number]_tile_1 RUNX1.CDS.9.line.82.chr21.3616 [id number]_tile_1 This case was reviewed in a [facility] consensus conference by Drs. Klaus Hutchinson, Judy Logan and Erasmo Jc who agree with the above interpretation. 54 genes analyzed: ABL1, ASXL1, ATRX, BCOR, BCORL1, BRAF, CALR, CBL, CBLB, CBLC, CDKN2A, CEBPA, CSF3R, CUX1, DNMT3A, ETV6, EZH2, FBXW7, FLT3, GATA1, GATA2, GNAS, HRAS, IDH1, IDH2, IKZF1, JAK2, JAK3, KDM6A, KIT, KMT2A, KRAS, MPL, MYD88, NOTCH1, NPM1, NRAS, PDGFRA, PHF6, PTEN, PTPN11, RAD21, RUNX1, SETBP1, SF3B1, SMC1A, SMC3, SRSF2, STAG2, TET2, TP53, U2AF1, WT1 and ZRSR2 54GMT result Wild Type [facility] 54 gene myeloid See link below for PDF Lab COMO mutation test ReportComment: Case Number: [facility] [id number] HOSPITAL Specimen Narrative Performed At Reviewed and signed by Erasmo Jc, PhD ([facility]) [facility] Performing Organization Address City/[facility] Phone Number [facility] [place] [address] PATHOLOGY AND GENOMIC MEDICINE [address] * Prepare platelet pheresis, 1 Units, Irradiated, Leukoreduced (05/19/2019 5:25 AM CDT) Only the most recent of 2 results within the time period is included. Product name Apheresis PLT, Leukored IRR #2 [facility] Unit number [id number] [facility] Product code [id number] [facility] Dispense status Transfused [facility] Blood [id number] COMO expiration date [facility], [place] Blood type code 6200 [facility] Blood type A POSITIVE [facility] Specimen Blood Performing Organization Address City/[facility] Centercode Phone Number [facility] [place] [address] PATHOLOGY AND GENOMIC MEDICINE [address] * Type and screen (05/19/2019 5:25 AM CDT) Only the most recent of 2 results within the time period is included. ABO grouping A [facility] Rh type POS [facility] Antibody screen NEG COMO (gel) [facility] [place] Specimen Performing Organization Address City/[facility]/Zipcode Phone Number [facility] DEPARTMENT OF [address] [place] [address] PATHOLOGY AND GENOMIC MEDICINE [address] * Smear review (05/17/2019 5:25 AM CDT) Pathologist [facility] Smear review Smear Reviewed [facility] Specimen Performing Organization Address City/State/Zipcode Phone Number [facility] DEPARTMENT OF [address] [place] [address] PATHOLOGY AND GENOMIC MEDICINE [address] * Lactic acid level, SEPSIS - Now and repeat 2x every 3 hours (05/17/2019 5:25 AM CDT) Only the most recent of 3 results within the time period is included. [facility] Lactic acid 0.9 0.5 - 2.2 mmol/L [facility] Specimen Blood Performing Organization Address City/State/Zipcode Phone Number [facility] DEPARTMENT OF [address] [place] [address] PATHOLOGY AND GENOMIC MEDICINE [address] * CBC hemogram (05/17/2019 5:25 AM CDT) [facility] WBC 0.70 (LL) 4.50 - 11.00 k/uL [facility] Comment: [facility] WBC results called to and read HOSPITAL back byFRANKI FOX (name/location) at 05/17/201905:57 (date/time) by [facility]. RBC 2.61 (L) 4.40 - 6.00 m/uL [facility] HGB 7.6 (L) 14.0 - 18.0 g/dL [facility] HCT 25.0 (L) 41.0 - 51.0 % [facility] MCV 95.8 82.0 - 100.0 fL [facility] MCH 29.1 27.0 - 34.0 pg [facility] MCHC 30.4 (L) 31.0 - 37.0 g/dL [facility] RDW - SD 53.5 37.0 - 55.0 fL [facility] MPV 11.1 8.8 - 13.2 fL [facility] Platelet count 16 (LL) 150 - 400 k/uL [facility] Comment: [facility] PLT results called to and read HOSPITAL back Geetha FOX (name/location) at 05/17/201905:57 (date/time) by JENNIE. Nucleated RBC 0.00 /100 WBC [facility] Specimen Blood Performing Organization Address City/State/Zipcode Phone Number [facility] [place] [address] PATHOLOGY AND GENOMIC MEDICINE [address] * Thyroid stimulating hormone (05/17/2019 5:25 AM CDT) TSH 2.25 0.27 - 4.20 uIU/mL [facility] Specimen Plasma specimen Performing Organization Address City/State/Zipcode Phone Number [facility] [place] [address] PATHOLOGY AND [facility] MEDICINE [address] * T4, free (05/17/2019 5:25 AM CDT) T4, free 1.4 0.9 - 1.7 ng/dL [facility] Specimen Plasma specimen Performing Organization Address City/[facility]/Zipcode Phone Number [facility] [place] [address] PATHOLOGY AND GENOMIC MEDICINE [address] * Hemoglobin A1c (05/17/2019 5:25 AM CDT) [facility] Hemoglobin A1C 6.8 (H) 4.0 - 5.6 % [facility]O Comment: [facility] HbA1c cutoffs for diagnosing HOSPITAL diabetes: 4.0% - 5.6%=normal 5.7% - 6.4%=increased risk for diabetes (prediabetes) >=6.5%=diabetes Goals for glycemic control (ADA 2016) < 7.0%Target for non adults with diabetes. More or less stringent targets may be appropriate for individual patients. <7.5% Target for Children and adolescents with type 1 diabetes. Specimen Blood Performing Organization Address City/[facility]/Zipcode Phone Number [facility] [place] [address] PATHOLOGY AND GENOMIC MEDICINE [address] * Folate level (05/17/2019 5:25 AM CDT) Folate 10.6 4.8 - 24.2 ng/mL [facility] Specimen Serum Performing Organization Address City/[facility] Centercode Phone Number [facility] DEPARTMENT [address] [address] PATHOLOGY AND GENOMIC MEDICINE [address] * Vitamin B12 level (05/17/2019 5:25 AM CDT) Vitamin B12 234 211 - 946 pg/mL [facility] Comment: [facility] Significant overlap exists HOSPITAL between normal and deficiency states. However, most patients with deficiencies will have Serum B12 <200 pg/mL. Specimen Serum Performing Organization Address [facility] Centercode Phone Number [facility] [place] [address] PATHOLOGY AND GENOMIC MEDICINE [address] * Lipid panel (05/17/2019 5:25 AM CDT) Cholesterol 141 <200 mg/dL [facility] Triglycerides 184 (H) <150 mg/dL [facility] HDL cholesterol 47 >40 mg/dL [facility] LDL cholesterol 66Comment: Result obtained by <100 mg/dL [facility] direct LDL measurement [facility] [place] Lipid [facility] interpretation Comment: [facility] Total Cholesterol HOSPITAL (mg/dL) <200 Desirable 200-239Borderline -high >=240High Triglycerides (mg/dL) <150 Normal 150-199Borderline -high 200-499High >=500Very high HDL Cholesterol (mg/dL) <40Low (male) <40Low (female) LDL Cholesterol (mg/dL) <100 Optimal 100-129Near or above optimal 130-159Borderline -high 160-189High >=190Very high Risk Catergories that modify LDL goals. Risk Catergories LDL goal (mg/dL) CHD and CHD risk equivalent<100 (10-year risk >20%) Multiple (2+) risk factors <130 (10-year risk=<20%) 0-1 risk factors <160 (<10-year risk) Defining levels of lipids in metabolic syndrome Triglycerides >=150 mg/dL HDL Cholesterol Men <40 mg/dL Women <40 mg/dL Non-HDL cholesterol is a second target for therapy in persons with high triglycerides (>=200 mg/dL) Specimen Plasma specimen Performing Organization Address City/State/Zipcode Phone Number [facility] DEPARTMENT OF [address] [place] [phone] PATHOLOGY AND GENOMIC MEDICINE [address] [address] [facility] * US Renal (05/16/2019 9:00 PM CDT) Specimen Narrative Performed At EXAMINATION:US RENAL [facility] CLINICAL HISTORY:Renal failureacute (kidney injury) COMPARISON:None. TECHNIQUE:Ultrasound evaluation of the kidneys and bladder. IMPRESSION: The right kidney measures 10.4 cm in length with a cortical thickness of 1.5 cm. Normal parenchymal echogenicity. No solid mass. No stone. There is mild hydronephrosis. The left kidney measures 11.1 cm in length with a cortical thickness of 1.3 cm. Normal parenchymal echogenicity. No solid mass. No stone. There is mild hydronephrosis. The bladder is unremarkable. [facility]-[id number] Procedure Note Interface, Radiology Results Incoming - 05/16/2019 10:15 PM CDT EXAMINATION: US RENAL CLINICAL HISTORY: Renal failure acute (kidney injury) COMPARISON: None. TECHNIQUE: Ultrasound evaluation of the kidneys and bladder. IMPRESSION: The right kidney measures 10.4 cm in length with a cortical thickness of 1.5 cm. Normal parenchymal echogenicity. No solid mass. No stone. There is mild hydronephrosis. The left kidney measures 11.1 cm in length with a cortical thickness of 1.3 cm. Normal parenchymal echogenicity. No solid mass. No stone. There is mild hydronephrosis. The bladder is unremarkable. [facility]-[id number] Performing Organization Address City/State/Zipcode Phone Number [facility] [address] [place] [phone] * Radha Marks Virus (EBV) by PCR (05/16/2019 8:13 PM CDT) Radha Marks Not-Detected Not-Detected COMO virus, PCR copies/mL [facility] [place] Radha Marks See link below for PDF Lab MADRIGAL virus, PCR ReportComment: Case Number: [facility] [id number] HOSPITAL Specimen Performing Organization Address City/State/Zipcode Phone Number [facility] DEPARTMENT OF [address] [place] [address] PATHOLOGY AND GENOMIC MEDICINE [address] [address] [facility] * Syphilis total antibody (05/16/2019 7:18 PM CDT) Pathologist [facility] Syphilis total Non-reactiveComment: No Non-reactive [facility] antibody serological evidence of [facility] syphilis infection. HOSPITAL Specimen Blood Performing Organization Address City/State/Zipcode Phone Number [facility] DEPARTMENT OF [address] [place] [address] PATHOLOGY AND GENOMIC MEDICINE [address] * HIV Ag/Ab combination (05/16/2019 7:18 PM CDT) Pathologist [facility] HIV Ag/Ab Non-reactive Non-reactive [facility] Specimen Blood Performing Organization Address City/State/Zipcode Phone Number [facility] DEPARTMENT OF [address] [place] [phone] PATHOLOGY AND GENOMIC MEDICINE [address] * Parvovirus B19 antibody, IgG and IgM (05/16/2019 7:18 PM CDT) [facility] Parvovirus B19 6.31 (H) <=0.89 IV [facility] REF LAB IgG Comment: INTERPRETIVE INFORMATION: Parvovirus B19 Antibody, IgG 0.89 IV or less .......... Negative - No significant level of detectable Parvovirus B19 IgG antibody. 0.90 - 1.10 IV ........... Equivocal - Repeat testing in 10-14 days may be helpful. 1.11 IV or greater ....... Positive - IgG antibody to Parvovirus B19 detected which may indicate a current or past infection. The best evidence for current infection is a significant change on two appropriately timed specimens, where both tests are done in the same laboratory at the same time. Parvovirus B19 0.16 <=0.89 IV [facility] REF LAB IgM Comment: INTERPRETIVE INFORMATION: Parvovirus B19 Antibody, IgM 0.89 IV or less .......... Negative - No significant level of detectable Parvovirus B19 IgM antibody. 0.90 - 1.10 IV ........... Equivocal - Repeat testing in 10-14 days may be helpful. 1.11 IV or greater ........ Positive - IgM antibody to Parvovirus B19 detected which may indicate a current or recent infection. However, low levels of IgM antibodies may occasionally persist for more than 12 months post-infection. The best evidence for current infection is a significant change on two appropriately timed specimens, where both tests are done in the same laboratory at the same time. Appearance of an IgM antibody response normally occurs 7 to 14 days after the onset of disease. Testing immediately post-exposure is of no value without a later convalescent specimen. A residual IgM response may be distinguished from early IgM response to infection by testing sera from patients three to four weeks later for changing levels of specific IgM antibodies. Performed by [facility], [address] [place] [id number] www.[employer], Buzz Tom MD - Lab. Director Specimen Serum Performing Organization Address [facility] Centercode Phone Number [facility] [address] [place] [address] REF [address] [place] [address] * Partial thromboplastin time, activated (05/16/2019 7:18 PM CDT) Only the most recent of 2 results within the time period is included. [facility] PTT 27.6 23.0 - 36.0 sec [facility] Comment: [facility] PTT therapeutic range for HOSPITAL unfractionated heparin is 61.0-112.0 seconds which corresponds to Anti-Xa 0.3-0.7 U/ml. Specimen Blood Performing Organization Address [facility] Centercoor Phone Number [facility] [place] [address] PATHOLOGY AND [facility] MEDICINE [address] * Fibrinogen (05/16/2019 7:18 PM CDT) [facility] Fibrinogen 355 200 - 450 mg/dL [facility] Specimen Blood Performing Organization Address City/[facility] Centercode Phone Number [facility] [place] [address] PATHOLOGY AND [facility] MEDICINE [address] * Reticulocyte count (05/16/2019 7:18 PM CDT) [facility] Retic %, auto 2.1 0.5 - 2.1 % [facility] Retic absolute, 0.0550 0.0220 - 0.1260 m/uL [facility] Specimen Blood Performing Organization Address City/[facility]/Zipcode Phone Number [facility] [place] [address] PATHOLOGY AND GENOMIC MEDICINE [address] * Urinalysis screen and microscopy, with reflex to culture (05/16/2019 5:30 PM CDT) Specimen site Clean catch [facility] Color, UA Straw [facility] Appearance, UA Clear [facility] Specific 1.013 1.001 - 1.035 [facility] gravity, [facility] pH, UA 6.0 5.0 - 8.5 [facility] Protein, UA Negative Negative [facility] Glucose, UA Negative Negative [facility] Ketones, UA Negative Negative [facility] Bilirubin, UA Negative Negative [facility] Blood, UA Negative Negative [facility] Nitrite, UA Negative Negative [facility] Urobilinogen, <2.0 <2.0 [facility] Leukocyte Negative Negative [facility] esterase, [facility] Epithelial <1 /HPF [facility] cells, [facility] WBC, UA <1 0 - 1 /HPF [facility] RBC, UA <1 0 - 5 /HPF [facility] Bacteria, UA None seen None seen [facility] Yeast, UA None seen [facility] Yeast with None seen [facility] Specimen Urine Performing Organization Address City/[facility]/Zipcode Phone Number [facility] [place] [address] PATHOLOGY AND GENOMIC MEDICINE [address] * Urine culture (05/16/2019 5:30 PM CDT) Pathologist [facility] Urine culture SEE COMMENTComment: [facility] Bacteriuria screen negative. [facility] [place] Specimen Performing Organization Address City/State/Zipcode Phone Number [facility] [place] [address] PATHOLOGY AND GENOMIC MEDICINE [address] * Respiratory pathogen panel (05/16/2019 5:23 PM CDT) Pathologist [facility] Respiratory Negative for all pathogens [facility] pathogen panel tested: [facility] Negative for Adenovirus [facility] Negative for Coronavirus HKU1 Negative for Coronavirus NL63 Negative for Coronavirus 229E Negative for Coronavirus OC43 Negative for Human Metapneumovirus Negative for Rhinovirus/Enterovirus Negative for Influenza A Negative for Influenza A/H1 Negative for Influenza A/H3 Negative for Influenza A/H1-2009 Negative for Influenza B Negative for Parainfluenza Virus 1 Negative for Parainfluenza Virus 2 Negative for Parainfluenza Virus 3 Negative for Parainfluenza Virus 4 Negative for Respiratory Syncytial Virus Negative for Bordetella pertussis Negative for Chlamydophila pneumoniae Negative for Mycoplasma pneumoniae This real-time PCR assay detects the presence of nucleic acids (RNA or DNA) for the respiratory pathogens listed. A result of "Not-detected" does not exclude the possibility of the presence of one or more pathogens at concentrations less than the detectable limits of the assay. Comment: Specimen Information Specimen Source: Nares Specimen Site: Not specified Specimen Nares - Not specified Performing Organization Address City/[facility] Phone Number [facility] [address] * Blood culture, aerobic & anaerobic (05/16/2019 3:33 PM CDT) Only the most recent of 2 results within the time period is included. [facility] Blood culture No growth after 5 days of COMO isolate incubation. EVANGELICAL Comment: HOSPITAL Specimen Information Specimen Source: Blood Specimen Site: Forearm, right Specimen Blood - Forearm, right Performing Organization Address [facility] Phone Number [facility] [address] * Prothrombin time with INR (05/16/2019 3:25 PM CDT) [facility] Prothrombin 13.8 11.5 - 14.5 sec [facility] INR 1.1 [facility] Comment: EVANGELICAL The International Normalized HOSPITAL Ratio (INR) is a therapeutic monitoring tool for patients who are stable on oral anticoagulant therapy. An INR of 2.0-3.0 is suggested for deep vein thrombosis/pulmonary embolism. Specimen Blood Performing Organization Address [facility] [place] [address] PATHOLOGY AND [facility] [address] * Comprehensive metabolic panel (05/16/2019 3:25 PM CDT) Sodium 143 135 - 148 mEq/L [facility] Potassium 4.3 3.5 - 5.0 mEq/L [facility] Chloride 108 98 - 112 mEq/L [facility] CO2 22 (L) 24 - 31 mEq/L [facility] Anion gap 13@ANIO 7 - 15 mEq/L [facility] BUN 29 (H) 8 - 23 mg/dL [facility] Creatinine 1.74 (H) 0.70 - 1.20 mg/dL [facility] Glucose 114 (H) 65 - 99 mg/dL [facility] Calcium 8.7 (L) 8.8 - 10.2 mg/dL [facility] Protein 6.1 (L) 6.3 - 8.3 g/dL [place] Comment: [facility] 4.6-7.0 g/dL 1 week 4.4-7.6 g/dL 7 months-1year 5.1-7.3 g/dL 1-2 years5.6-7 .5 g/dL >3 years6.0-8 .0 g/dL 18-150 6.3-8.3 g/dL Albumin 3.5 3.5 - 5.0 g/dL [facility] A/G ratio 1.3 0.7 - 3.8 [facility] Alkaline 64 40 - 129 U/L [facility] phosphatase [facility] [place] AST 16 10 - 50 U/L [facility] ALT 14 5 - 50 U/L [facility] Total bilirubin 0.6 0.0 - 1.2 mg/dL [facility] Specimen Plasma specimen Performing Organization Address City/State/Zipcode Phone Number [facility] [address] [place] [address] PATHOLOGY AND GENOMIC MEDICINE [facility] [address] [place] [id number] [facility] * XR Chest 1 Vw Portable (05/16/2019 2:57 PM CDT) Specimen Narrative Performed At EXAMINATION: [facility] XR CHEST 1 VW PORTABLE CLINICAL HISTORY: SOB COMPARISON: None. FINDINGS: Cardiac and mediastinal silhouettes are within normal limits. There is no vascular congestion, pleural fluid, infiltrate or pneumothorax. Skeletal structures are normal. A left subclavian Port-A-Cath has its tip overlying the mid superior vena cava. A 4 mm opacity is overlying the right atrium, probably outside the patient. IMPRESSION: No acute cardiopulmonary findings. [facility]-[id number] Procedure Note Hm Interface, Radiology Results Incoming - 05/16/2019 3:06 PM CDT EXAMINATION: XR CHEST 1 VW PORTABLE CLINICAL HISTORY: SOB COMPARISON: None. FINDINGS: Cardiac and mediastinal silhouettes are within normal limits. There is no vascular congestion, pleural fluid, infiltrate or pneumothorax. Skeletal structures are normal. A left subclavian Port-A-Cath has its tip overlying the mid superior vena cava. A 4 mm opacity is overlying the right atrium, probably outside the patient. IMPRESSION: No acute cardiopulmonary findings. [facility]-[id number] Performing Organization Address City/State/Zipcode Phone Number [facility] [address] [place] [address] after 06/09/2018 Insurance Type Payer Benefit Subscriber ID Effective Phone Address Plan / Dates Group Medicare MEDICARE MEDICARE xxxxxxxxxxx 2007-P [place], PART A [place] [employer] COLONIAL COLONIAL xxxxxxxxx 2012-P [facility] Advance Directives Patient has advance care planning documents on file. For more information, teodoro luevano contact: Rohan Martinez [address] [place] [address]
[2019-06-10 18:49] LABS: HEMATOCRIT 25.7 % (38.2-49.6); HEMOGLOBIN 7.6 g/dL (14.0-18.0); LYMPHOCYTES # (AUTO) 1.3 (1.0-3.2); LYMPHOCYTES % 59.3 % (18.0-39.1); MEAN CORPUSCULAR HEMOGLOBIN 28.8 pg (28-32); MEAN CORPUSCULAR HGB CONC 29.6 g/dL (31-35); MEAN CORPUSCULAR VOLUME 97.3 fL (81-99); MONOCYTES # (AUTO) 0.2 (0.2-0.8); MONOCYTES % 9.3 % (4.4-11.3); NEUTROPHILS # (AUTO) 0.7 (2.1-6.9); NEUTROPHILS % 29.6 % (38.7-80.0); RED BLOOD COUNT 2.64 x10e6/uL (4.3-5.7)
[2019-06-10 18:53] LABS: PLATELET COUNT 27 x10e3/uL (140-360)
[2019-06-10 18:57] LABS: INR 0.92; PROTHROMBIN TIME 12.9 seconds (11.9-14.5)
[2019-06-10 18:58] LABS: PARTIAL THROMBOPLASTIN TIME 27.4 seconds (23.8-35.5)
[2019-06-10] MEDS ORDERED: SODIUM CHLORIDE 0.9% 250ML 250 ML IV ONE (19:00)
[2019-06-10 19:05] LABS: ALBUMIN 3.1 g/dL (3.5-5.0); ALBUMIN/GLOBULIN RATIO 1.1 (0.8-2.0); ANION GAP 12.9 mmol/L (8-16); CALCIUM 8.9 mg/dL (8.4-10.2); CREATININE, SERUM 1.51 mg/dL (0.72-1.25); POTASSIUM 3.9 mmol/L (3.5-5.1)
[2019-06-10 20:05] LABS: HYPOCHROMASIA MARKED; LYMPHOCYTES % (MANUAL) 61 % (19-48); MONOCYTES % (MANUAL) 12 % (3.4-9.0); NEUTROPHILS % (MANUAL) 26 % (40-74); PROMYELOCYTES % (MANUAL) 1 % (0-0)
[2019-06-10 20:06] LABS: PLATELET ESTIMATE MARKEDLY DECREASED; PLATELET MORPHOLOGY COMMENT NORMAL
--- NOTE | 2019-06-10 20:10 | NUR ---
WITNESSED INFORMED CONSENT FOR TRANSFUSION OF BLOOD AND OR BLOOD PRODUCTS AT THIS TIME, PT AWARE OF RISKS AND BENEFITS OF PROCEDURE EXPLAINED BY DR. MORTON.
--- OUTSIDE RECORDS SUMMARY | 2019-06-10 21:10 | XMS REPORT | Clinical Summary ---
Author Author Madrigal Religion Organization [place] [employer] Address Unknown Phone Unavailable Care Team Providers Care Learning Administrator Name Role Phone Dejuan Keith MD PCP Allergies Comments Active Allergy Reactions Severity Noted Date Cephalexin 05/16/2019 Allergic to oral only not topical. Iodine Hives, Rash Low 05/16/2019 Chlordiazepoxide Hcl 05/16/2019 [place] 05/16/2019 Penicillins 05/16/2019 Medications End Date Status [...] MMODE SPECTRAL 12:02 PM CDT COLOR DOPPLER ([id number]) MANUAL DIFFERENTIAL Routine 05/20/2019 4:43 AM CDT [...] within the time period is included. Pathologist [facility] Estimated GFR 49 (A) mL/min/1.73 m2 DOWNS Comment: [facility] rpretation G1 >=90 Normal or high G2 60-89Mildly decreased O7u86-25 Mildly to moderately decreased B1u40-00 Moderately to severely decreased G4 15-29Severely decreased G5 <15Kidney failure The eGFR was calculated using the Chronic Kidney Disease Epidemiology Collaboration (CKD-EPI) equation. Interpretation is based on recommendations of the National Kidney Foundation-Kidney Disease Outcomes Quality Initiative (NKF-KDOQI) published in 2014. Specimen Plasma specimen Performing Organization Address City/[facility] [address] PATHOLOGY AND [facility] MEDICINE [address] * Manual differential (05/22/2019 4:00 AM CDT) Only the most recent of 6 results within the time period is included. [facility] Manual PERFORMED [facility] Neutrophils 5.0 (L) 39.0 - 69.0 % [facility] Lymphocytes 82.0 (H) 25.0 - 45.0 % [facility] Monocytes 10.0 0.0 - 10.0 % [facility] Eosinophils 1.0 0.0 - 5.0 % [facility] Basophils 0.0 0.0 - 1.0 % [facility] Metamyelocytes 0 % [facility] Myelocytes 2 % [facility] Promyelocytes 0 % [facility] Platelet slide Mkd decreased (A) [facility] Anisocytosis Moderate [facility] Ovalocytes Moderate [facility] Specimen Performing Organization Address City/[facility]/Zipcode Phone Number [facility] [place] [address] PATHOLOGY AND [facility] MEDICINE [address] * CBC with platelet and differential (05/22/2019 4:00 AM CDT) Only the most recent of 6 results within the time period is included. [facility] WBC 0.88 (LL) 4.50 - 11.00 k/uL DOWNS Comment: [facility] Results called to and read HOSPITAL back by RICKY Zurita OCA/WT14 (name/location) at 05/22/201905:50 (date/time) by 465. RBC 2.42 (L) 4.40 - 6.00 m/uL [facility] HGB 7.3 (L) 14.0 - 18.0 g/dL [facility] HCT 23.6 (L) 41.0 - 51.0 % [facility] MCV 97.5 82.0 - 100.0 fL [facility] MCH 30.2 27.0 - 34.0 pg [facility] MCHC 30.9 (L) 31.0 - 37.0 g/dL [facility] RDW - SD 58.9 (H) 37.0 - 55.0 fL [facility] MPV 10.5 8.8 - 13.2 fL [facility] Platelet count 31 (L) 150 - 400 k/uL [facility] Nucleated RBC 0.00 /100 WBC [facility] Neutrophils 5.0 (L) 39.0 - 69.0 % [facility] Lymphocytes 82.0 (H) 25.0 - 45.0 % [facility] Monocytes 10.0 0.0 - 10.0 % [facility] Eosinophils 1.0 0.0 - 5.0 % [facility] Basophils 0.0 0.0 - 1.0 % [facility] Specimen Blood Performing Organization Address City/[facility]/Zipcode Phone Number [facility] DEPARTMENT OF [address] [place] [address] PATHOLOGY AND GENOMIC MEDICINE [address] * Phosphorus level (05/22/2019 4:00 AM CDT) Only the most recent of 7 results within the time period is included. Phosphorus 3.6 2.4 - 4.5 mg/dL [facility] Specimen Plasma specimen Performing Organization Address City/[facility] Phone Number [facility] [place] [address] PATHOLOGY AND GENOMIC MEDICINE [address] * Magnesium level (05/22/2019 4:00 AM CDT) Only the most recent of 7 results within the time period is included. Pathologist [facility] Magnesium 1.8 1.6 - 2.4 mg/dL [facility] Specimen Plasma specimen Performing Organization Address City/[facility] Phone Number [facility] [place] [address] PATHOLOGY AND GENOMIC MEDICINE [address] * Basic metabolic panel (05/22/2019 4:00 AM CDT) Only the most recent of 6 results within the time period is included. Pathologist [facility] Sodium 142 135 - 148 mEq/L [facility] Potassium 4.0 3.5 - 5.0 mEq/L [facility] Chloride 109 98 - 112 mEq/L [facility] CO2 22 (L) 24 - 31 mEq/L [facility] Anion gap 11@ANIO 7 - 15 mEq/L [facility] BUN 20 8 - 23 mg/dL [facility] Creatinine 1.38 (H) 0.70 - 1.20 mg/dL [facility] Glucose 98 65 - 99 mg/dL [facility] Calcium 8.6 (L) 8.8 - 10.2 mg/dL [facility] Specimen Plasma specimen Performing Organization Address City/[facility] Phone Number [facility] [place] [address] PATHOLOGY AND GENOMIC MEDICINE [address] * Transfuse platelets (05/21/2019 5:54 PM CDT) Only the most recent of 4 results within the time period is included. * ECG 12 lead (05/20/2019 4:48 PM CDT) Only the most recent of 2 results within the time period is included. Ventricular 68 [facility] MUSE rate Atrial rate 68 [facility] MUSE OK interval 164 [facility] MUSE QRSD interval 88 [...] At Performing Organization Address City/State/Zipcode Phone Number [facility] [place] [address] [place] [address] * Echocardiogram complete w contrast and 3D if needed (05/20/2019 12:02 PM CDT) Specimen Narrative Performed At DONNA RonquilloName:DEJUAN BROWN.ID:[id number] .Date: 05/20/2019 Exam Time: 11:26:00 AM Study Type:Routine EchoHeight:69in Weight:188.61lbBSA: 2.02 m2 DOBAge:1940,79YSex: MALE Sonogrphr: Kristy Study Status:Final Echo Event ID:[id number] Order ID:[id number] Procedures:2D Echo, Colorflow Doppler, Intravenous Lumason Contrast [...] PA systolic pressure. MEASUREMENTS: 2D Parasternal [place] LVOT 2 cmLA Ds4.4 cm LVIDd4.6 cmIndex2.3 cm/m Ao Rtd 3.8 cm Index1.9 cm/m LVIDs2.8 cm LV Dyzv781.6 g(122-174) LV%fs 39.4 % LVM Lkuqm583.8 g/m2 IVSd 1.3 cmRWT0.5 LVPWd1.1 cm LA Sng Plane LA Area 21.2 cm2(8.8-23.4) LA Vol60.3 ml Index29.8 ml/m LA LngAx 6.3 cm RA Sng Plane RA Area 19.8 cm2(8.3-19.5) RA Vol56.4 ml Index27.9 ml/m RA LngAx 5.8 cm Signed 05/21/2019 05:05 PM Litzy Mackay M.D. Procedure Note Interface, Radiology Results In - 05/21/2019 5:05 PM CDT Pat.Name: DEJUAN BROWN Gloria.ID: [id number] .Date: 05/20/2019 Exam Time: 11:26:00 AM Study Type:Routine Echo Height: 69in Weight: 188.61lb BSA: 2.02 m2 Age: 5 1940,79Y Sex: MALE Sonogrphr: Kristy Study Status:Final Echo Event ID:[id number] Order ID: [id number] Procedures:2D Echo, Colorflow Doppler, Intravenous Lumason Contrast [...] PA systolic pressure. MEASUREMENTS: 2D Parasternal [place] LVOT 2 cm LA Ds 4.4 cm [...] Signed 05/21/2019 05:05 PM Litzy Mackay M.D. Performing Organization Address City/[facility]/Zipcode Phone Number [facility] [address] [place] [address] * Surgical pathology request (05/19/2019 4:39 PM CDT) [facility] DEPARTMENT OF PATHOLOGY AND GENOMIC MEDICINE Surgical See link below for PDF Lab [facility] DEPARTMENT pathology Report OF PATHOLOGY report AND GENOMIC MEDICINE Result status This is Final Report for [facility] DEPARTMENT [id number] OF PATHOLOGY AND GENOMIC MEDICINE Specimen Performing Organization Address City/State/Zipcode Phone Number [facility] DEPARTMENT OF [address] [place] [address] PATHOLOGY AND GENOMIC MEDICINE * Bone marrow tray (05/19/2019 2:44 PM CDT) Bone marrow Done [facility] Specimen Fluid Performing Organization Address City/State/Zipcode Phone Number [facility] DEPARTMENT OF [address] [place] [address] PATHOLOGY AND GENOMIC MEDICINE DOWNS [facility] [address] [place] [address] HOSPITAL * Miscellaneous referral test (05/19/2019 2:44 PM CDT) [facility] test name FLT3,CEPBA,NPM1,IDH2 SHOWN ABOVE [facility] test see note SHOWN ABOVE result Comment: EBPA Mutation Detection [employer] test code 6593602 CEBPA Mutation Detection Results Not Detected A [...] (Jovan DAMON, et al. 2010. J Clin Oncol:[id number]). METHODOLOGY: CEBPA mutations in white blood cells [...] malignancy. Test developed and characteristics determined by [facility]. See Compliance Statement B: [employer]/CS ------ ------ ------ -- Order comments CEBPA Mutation Detection ONE FULL LAVENDER BONE MARROW IDH1 and IDH2 Mutation Analysis, exon 4 [employer] test code 9651671 IDH1 and IDH2 Mutation Results Not Detected [...] disease. Test developed and characteristics determined by [facility]. See Compliance Statement B: [employer]/CS - - - - - - - - - - - - - - - - - - - - - - - - - - - - - - IDH 1-2 Source Bone Marrow ------ ------ ------ -- Order comments IDH1 and IDH2 Mutation Analysis, exon 4 ONE FULL LAVENDER BONE MARROW NPM1 Mutation Detection by RT-PCR, Quantitative [facility] test code 6220030 NPM1 Quantitative, Source Bone Marrow - - [...] 05;374(5):422-33. Test developed and characteristics determined by [facility]. See Compliance Statement B: [employer] - - - - - - - - - - - - - - - - - - - - - - - - - - - - - - NPM1 Quantitative, Ratio 0.0000 ------ ------ ------ -- Order comments NPM1 Mutation Detection by RT-PCR, Quantitative ONE FULL LAVENDER BONE MARROW FLT3 ITD and TKD Mutation Detection [employer] test code 2767685 FLT3 Source Bone Marrow - - - [...] methodology. Test developed and characteristics determined by [facility]. See Compliance Statement B: [employer] ------ ------ ------ -- Order comments FLT3 ITD and TKD Mutation Detection ONE FULL LAVENDER BONE MARROW Test performed by: [facility] [address] [place], [id number] Specimen Narrative Performed At BONE MARROW [facility] DEPARTMENT OF FLT3, NPM1, CEBPA, IDH2 PCR PATHOLOGY AND ONLY ONE FULL [facility] GENOMIC MEDICINE Performing Organization Address City/State/Zipcode Phone Number [facility] DEPARTMENT OF [address] [place] [address] PATHOLOGY AND GENOMIC MEDICINE SHOWN ABOVE * Flow cytometry evaluation (05/19/2019 2:44 PM CDT) Only the most recent of 2 results within the time period is included. [facility] Flow cytometry See link below for PDF Lab DOWNS evaluation Report [facility] Specimen Blood Narrative Performed At Performing Organization Address City/State/Zipcode Phone Number [facility] DEPARTMENT OF [address] [place] [address] PATHOLOGY AND GENOMIC MEDICINE [facility] * 54 gene myeloid mutation test (05/19/2019 2:44 PM CDT) Interpretation VARIANT(S) DETECTED: DOWNS No Mutations Detected [facility] Amplicon coverage:532 of HOSPITAL 538 amplicons (98.9%) had >100x coverage and were included in the analysis. 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 Product name Apheresis PLT, Leukored IRR #2 [facility] Unit number [id number] [facility] Product code [id number] [facility] Dispense status Transfused [facility] Blood [id number] DOWNS expiration date [facility] Blood type code 6200 [facility] Blood type A POSITIVE [facility] Specimen Blood Performing Organization Address City/[facility] Phone Number [facility] [place] [address] PATHOLOGY AND GENOMIC MEDICINE [address] * Type and screen (05/19/2019 5:25 AM CDT) Only the most recent of 2 results within the time period is included. ABO grouping A [facility] Rh type POS [facility] Antibody screen NEG DOWNS (gel) [facility] Specimen Performing Organization Address City/[facility]/Zipcode Phone Number [facility] DEPARTMENT OF [address] [place] [address] PATHOLOGY AND GENOMIC MEDICINE [address] * Smear review (05/17/2019 5:25 AM CDT) Pathologist [facility] Smear review Smear Reviewed [facility] Specimen Performing Organization Address City/State/Zipcode Phone Number [facility] DEPARTMENT OF [address] [place] [address] PATHOLOGY AND GENOMIC MEDICINE [address] * Lactic acid level, SEPSIS - Now and repeat 2x every 3 hours (05/17/2019 5:25 AM CDT) Only the most recent of 3 results within the time period is included. [facility] Lactic acid 0.9 0.5 - 2.2 mmol/L [facility] Specimen Blood Performing Organization Address City/State/Zipcode Phone Number [facility] DEPARTMENT OF [address] [place] [address] PATHOLOGY AND GENOMIC MEDICINE [address] * CBC hemogram (05/17/2019 5:25 AM CDT) [facility] WBC 0.70 (LL) 4.50 - 11.00 k/uL DOWNS Comment: [facility] WBC results called to and read HOSPITAL back byFRANKI FOX (name/location) at 05/17/201905:57 (date/time) by [facility]. RBC 2.61 (L) 4.40 - 6.00 m/uL [facility] HGB 7.6 (L) 14.0 - 18.0 g/dL [facility] HCT 25.0 (L) 41.0 - 51.0 % [facility] MCV 95.8 82.0 - 100.0 fL [facility] MCH 29.1 27.0 - 34.0 pg [facility] MCHC 30.4 (L) 31.0 - 37.0 g/dL [facility] RDW - SD 53.5 37.0 - 55.0 fL [facility] MPV 11.1 8.8 - 13.2 fL [facility] Platelet count 16 (LL) 150 - 400 k/uL DOWNS Comment: [facility] PLT results called to and read HOSPITAL back Geetha FOX (name/location) at 05/17/201905:57 (date/time) by JENNIE. Nucleated RBC 0.00 /100 WBC [facility] Specimen Blood Performing Organization Address City/State/Zipcode Phone Number [facility] [place] [address] PATHOLOGY AND GENOMIC MEDICINE [address] * Thyroid stimulating hormone (05/17/2019 5:25 AM CDT) TSH 2.25 0.27 - 4.20 uIU/mL [facility] Specimen Plasma specimen Performing Organization Address City/State/Zipcode Phone Number [facility] [place] [address] PATHOLOGY AND [facility] MEDICINE [address] * T4, free (05/17/2019 5:25 AM CDT) T4, free 1.4 0.9 - 1.7 ng/dL [facility] Specimen Plasma specimen Performing Organization Address City/[facility]/Zipcode Phone Number [facility] [place] [place] [address] PATHOLOGY AND GENOMIC MEDICINE [address] * Hemoglobin A1c (05/17/2019 5:25 AM CDT) [facility] Hemoglobin A1C 6.8 (H) 4.0 - 5.6 % DOWNS Comment: [facility] HbA1c cutoffs for diagnosing HOSPITAL diabetes: 4.0% - 5.6%=normal 5.7% - 6.4%=increased risk for diabetes (prediabetes) >=6.5%=diabetes Goals for glycemic control (ADA 2016) < 7.0%Target for non adults with diabetes. More or less stringent targets may be appropriate for individual patients. <7.5% Target for Children and adolescents with type 1 diabetes. Specimen Blood Performing Organization Address City/[facility]/Zipcode Phone Number [facility] [place] [address] PATHOLOGY AND GENOMIC MEDICINE [address] * Folate level (05/17/2019 5:25 AM CDT) Folate 10.6 4.8 - 24.2 ng/mL [facility] Specimen Serum Performing Organization Address City/[facility] Phone Number [facility] DEPARTMENT [address] [address] PATHOLOGY AND GENOMIC MEDICINE [address] * Vitamin B12 level (05/17/2019 5:25 AM CDT) Vitamin B12 234 211 - 946 pg/mL DOWNS Comment: [facility] Significant overlap exists HOSPITAL between normal and deficiency states. However, most patients with deficiencies will have Serum B12 <200 pg/mL. Specimen Serum Performing Organization Address [facility] Phone Number [facility] [place] [place] [address] PATHOLOGY AND GENOMIC MEDICINE [address] * Lipid panel (05/17/2019 5:25 AM CDT) Cholesterol 141 <200 mg/dL [facility] Triglycerides 184 (H) <150 mg/dL [facility] HDL cholesterol 47 >40 mg/dL [facility] LDL cholesterol 66Comment: Result obtained by <100 mg/dL DOWNS direct LDL measurement [facility] Lipid panel [facility] interpretation Comment: [facility] Total Cholesterol HOSPITAL (mg/dL) <200 Desirable 200-239Borderline [...] specimen Performing Organization Address City/State/Zipcode Phone Number [facility] DEPARTMENT OF [address] [place] [address] PATHOLOGY AND GENOMIC MEDICINE [address] [address] [facility] * US Renal (05/16/2019 9:00 PM CDT) Specimen Narrative Performed At EXAMINATION:US RENAL [facility] CLINICAL HISTORY:Renal failureacute (kidney injury) COMPARISON:None. TECHNIQUE:Ultrasound [...] is mild hydronephrosis. The bladder is unremarkable. [facility]-[id number] Procedure Note Interface, Radiology Results Incoming - [...] is mild hydronephrosis. The bladder is unremarkable. [facility]-[id number] Performing Organization Address City/State/Zipcode Phone Number [facility] [address] [place] [address] * Radha Marks Virus (EBV) by PCR (05/16/2019 8:13 PM CDT) Radha Marks Not-Detected Not-Detected DOWNS virus, PCR copies/mL [facility] Radha Marks See link below for PDF Lab MADRIGAL virus, PCR ReportComment: Case Number: [facility] [id number] HOSPITAL Specimen Performing Organization Address City/State/Zipcode Phone Number [facility] DEPARTMENT OF [address] [place] [address] PATHOLOGY AND GENOMIC MEDICINE [address] [address] [facility] * Syphilis total antibody (05/16/2019 7:18 PM CDT) Pathologist [facility] Syphilis total Non-reactiveComment: No Non-reactive DOWNS antibody serological evidence of [facility] syphilis infection. HOSPITAL Specimen Blood Performing Organization Address City/State/Zipcode Phone Number [facility] DEPARTMENT OF [address] [place] [address] PATHOLOGY AND GENOMIC MEDICINE [address] * HIV Ag/Ab combination (05/16/2019 7:18 PM CDT) Pathologist [facility] HIV Ag/Ab Non-reactive Non-reactive [facility] Specimen Blood Performing Organization Address City/State/Zipcode Phone Number [facility] DEPARTMENT OF [address] [place] [address] PATHOLOGY AND GENOMIC MEDICINE [address] * Parvovirus B19 antibody, IgG and IgM (05/16/2019 7:18 PM CDT) [facility] Parvovirus B19 6.31 (H) <=0.89 IV [facility] REF LAB IgG Comment: INTERPRETIVE INFORMATION: Parvovirus [...] levels of specific IgM antibodies. Performed by [facility], [address] [place] [id number] [email or web address], Buzz Tom MD - Lab. Director Specimen Serum Performing Organization Address [facility] Phone Number [facility] [address] [place] [address] RE[address] [place] [address] * Partial thromboplastin time, activated (05/16/2019 7:18 PM CDT) Only the most recent of 2 results within the time period is included. [facility] PTT 27.6 23.0 - 36.0 sec DOWNS Comment: [facility] PTT therapeutic range for HOSPITAL unfractionated heparin is 61.0-112.0 seconds which corresponds to Anti-Xa 0.3-0.7 U/ml. Specimen Blood Performing Organization Address [facility] Hospital[facility]owi Phone Number [facility] [place] [address] PATHOLOGY AND [facility] MEDICINE [address] * Fibrinogen (05/16/2019 7:18 PM CDT) [facility] Fibrinogen 355 200 - 450 mg/dL [facility] Specimen Blood Performing Organization Address City/[facility] Phone Number [facility] [place] [address] PATHOLOGY AND [facility] MEDICINE [address] * Reticulocyte count (05/16/2019 7:18 PM CDT) [facility] Retic %, auto 2.1 0.5 - 2.1 % [facility] Retic absolute, 0.0550 0.0220 - 0.1260 m/uL [facility] Specimen Blood Performing Organization Address City/[facility]/Zipcode Phone Number [facility] [place] [address] PATHOLOGY AND GENOMIC MEDICINE [address] * Urinalysis screen and microscopy, with reflex to culture (05/16/2019 5:30 PM CDT) Specimen site Clean catch [facility] Color, UA Straw [facility] Appearance, UA Clear [facility] Specific 1.013 1.001 - 1.035 DOWNS gravity, [facility] pH, UA 6.0 5.0 - 8.5 [facility] Protein, UA Negative Negative [facility] Glucose, UA Negative Negative [facility] Ketones, UA Negative Negative [facility] Bilirubin, UA Negative Negative [facility] Blood, UA Negative Negative [facility] Nitrite, UA Negative Negative [facility] Urobilinogen, <2.0 <2.0 [facility] Leukocyte Negative Negative DOWNS esterase, [facility] Epithelial <1 /HPF DOWNS cells, [facility] WBC, UA <1 0 - 1 /HPF [facility] RBC, UA <1 0 - 5 /HPF [facility] Bacteria, UA None seen None seen [facility] Yeast, UA None seen [facility] Yeast with None seen [facility] Specimen Urine Performing Organization Address City/[facility]/Zipcode Phone Number [facility] [place] [address] PATHOLOGY AND GENOMIC MEDICINE [address] * Urine culture (05/16/2019 5:30 PM CDT) Pathologist [facility] Urine culture SEE COMMENTComment: DOWNS Bacteriuria screen negative. [facility] Specimen Performing Organization Address City/State/Zipcode Phone Number [facility] [place] [address] PATHOLOGY AND GENOMIC MEDICINE [address] [address] * Respiratory pathogen panel (05/16/2019 5:23 PM CDT) Pathologist [facility] Respiratory Negative for all pathogens [facility] pathogen panel tested: [facility] Negative for Adenovirus [facility] Negative for Coronavirus HKU1 Negative for Coronavirus [...] Nares - Not specified Performing Organization Address City/[facility] Phone Number [facility] DEPARTMENT [address] * Blood culture, aerobic & anaerobic (05/16/2019 3:33 PM CDT) Only the most recent of 2 results within the time period is included. [facility] Blood culture No growth after 5 days of DOWNS isolate incubation. [facility] Comment: HOSPITAL Specimen Information Specimen Source: Blood Specimen Site: Forearm, right Specimen Blood - Forearm, right Performing Organization Address [facility] Phone Number [facility] DEPARTMENT [address] * Prothrombin time with INR (05/16/2019 3:25 PM CDT) [facility] Prothrombin 13.8 11.5 - 14.5 sec [facility] INR 1.1 [facility] Comment: [facility] The International Normalized HOSPITAL Ratio (INR) is a therapeutic monitoring tool for patients who are stable on oral anticoagulant therapy. An INR of 2.0-3.0 is suggested for deep vein thrombosis/pulmonary embolism. Specimen Blood Performing Organization Address [facility] [place] [address] PATHOLOGY AND [facility] MEDICINE [address] * Comprehensive metabolic panel (05/16/2019 3:25 PM CDT) Sodium 143 135 - 148 mEq/L [facility] Potassium 4.3 3.5 - 5.0 mEq/L [facility] Chloride 108 98 - 112 mEq/L [facility] CO2 22 (L) 24 - 31 mEq/L [facility] Anion gap 13@ANIO 7 - 15 mEq/L [facility] BUN 29 (H) 8 - 23 mg/dL [facility] Creatinine 1.74 (H) 0.70 - 1.20 mg/dL [facility] Glucose 114 (H) 65 - 99 mg/dL [facility] Calcium 8.7 (L) 8.8 - 10.2 mg/dL [facility] Protein 6.1 (L) 6.3 - 8.3 g/dL [facility] Comment: [facility] 4.6-7.0 g/dL 1 week 4.4-7.6 g/dL 7 months-1year 5.1-7.3 g/dL 1-2 years5.6-7 .5 g/dL >3 years6.0-8 .0 g/dL 18-150 6.3-8.3 g/dL Albumin 3.5 3.5 - 5.0 g/dL [facility] A/G ratio 1.3 0.7 - 3.8 [facility] Alkaline 64 40 - 129 U/L [facility] phosphatase [facility] AST 16 10 - 50 U/L [facility] ALT 14 5 - 50 U/L [facility] Total bilirubin 0.6 0.0 - 1.2 mg/dL [facility] Specimen Plasma specimen Performing Organization Address City/State/Zipcode Phone Number [facility] DEPARTMENT OF [address] [place] [address] PATHOLOGY AND GENOMIC MEDICINE [facility] [address] [place] [id number] [facility] * XR Chest 1 Vw Portable (05/16/2019 [...] the patient. IMPRESSION: No acute cardiopulmonary findings. [facility]-[id number] Procedure Note Hm Interface, Radiology Results Incoming [...] the patient. IMPRESSION: No acute cardiopulmonary findings. [facility]-[id number] Performing Organization Address City/State/Zipcode Phone Number [facility] [address] [place] [address] after 06/09/2018 Insurance Type Payer Benefit Subscriber ID Effective Phone Address Plan / Dates Group Medicare MEDICARE MEDICARE xxxxxxxxxxx 2007-P [place], PART A [place] resent [place] [employer] COLONIAL COLONIAL xxxxxxxxx 2012-P [facility] Advance Directives Patient has advance care planning documents on file. For more information, teodoro luevano contact: Rohan Martinez [address] [place] [address]
--- NOTE | 2019-06-10 21:14 | NUR ---
BEDSIDE BLOOD VERIFICATION COMPLETED AT THIS TIME, SEE FLOWSHEET ON CHART.
--- NOTE | 2019-06-10 23:30 | NUR ---
BEDSIDE VERIFICATION COMPLETED FOR [facility], SEE FLOWSHEET.
--- NOTE | 2019-06-10 23:45 | NUR ---
PT VERBALIZES TO FEEL IMPROVEMENT, DENIES MUCH WEAKNESS, DENIES CP, SOB; STATES "I CAN SEE I HAVE MORE COLOR NOW".
--- NOTE | 2019-06-11 00:01 | NUR ---
RECEIVED REPORT FROM IRAM TAN.
--- NOTE | 2019-06-11 00:01 | NUR ---
REPORT GIVEN TO IRAM ESPINAL
[2019-06-11] MEDS ORDERED: SODIUM CHLORIDE 0.9% 250ML 250 ML ONE (00:41)
[2019-06-11 03:30] VITALS: BP 140/60
--- NOTE | 2019-06-11 03:30 | NUR ---
patient is a new admit that arrived via stretcher. patient is awake and talking. patient has been assisted into the bed. bed is in the lowest position and call gonzalez is within reach reach. will continue to monitor patient.
[2019-06-11 04:00] VITALS: BP 140/60
--- NOTE | 2019-06-11 06:42 | NUR ---
report given to day nurse. patient is resting comfortably in bed. bed is in lowest position and call gonzalez is within reach.
[2019-06-11] MEDS ORDERED: HYOSCYAMINE 0.125 MG TAB ONE (07:15)
[2019-06-11 07:46] VITALS: BP 143/64
[2019-06-11 08:40] LABS: HEMOGLOBIN 9.9 g/dL (14.0-18.0); LYMPHOCYTES # (AUTO) 1.1 (1.0-3.2); LYMPHOCYTES % 51.9 % (18.0-39.1); MEAN CORPUSCULAR HEMOGLOBIN 28.8 pg (28-32); MEAN CORPUSCULAR HGB CONC 30.9 g/dL (31-35); MONOCYTES # (AUTO) 0.2 (0.2-0.8); NEUTROPHILS # (AUTO) 0.8 (2.1-6.9); NEUTROPHILS % 39.2 % (38.7-80.0); RED BLOOD COUNT 3.44 x10e6/uL (4.3-5.7); RED CELL DISTRIBUTION WIDTH 18.9 % (11.7-14.4)
[2019-06-11 08:53] VITALS: BP 143/64
[2019-06-11 08:55] LABS: PLATELET COUNT 44 x10e3/uL (140-360)
[2019-06-11 08:58] LABS: CREATININE, SERUM 1.48 mg/dL (0.72-1.25)
--- NOTE | 2019-06-11 09:00 | NUR ---
RECIEVED CALL FROM NIRU IN LAB FOR CRITICAL VALUE OF PLATELETS OF 44, [facility] DR ZAVALA STATED, "WHAT IS HIS HEMOGLOBIN..9.9, OKAY, I WILL COME SEE THE PATIENT." DR. ZAVALA DID NOT PROVIDE ANY NEW ORDERS.
--- NOTE | 2019-06-11 13:26 | History and Physical ---
HISTORY OF PRESENT ILLNESS: Mr. Sykes is a 79-year-old white male with MDS, who presents to the ER with history of extreme weakness. Subsequently, he was seen. The patient was found to have a hemoglobin of 7.6, white count of 2260, and platelets of 27,000. The patient is on aggressive systemic chemotherapy consisting of Vidaza for MDS since July 2018. Subsequently admitted for 23-hour observation. SOCIAL HISTORY: Noncontributory. FAMILY HISTORY: Noncontributory. ALLERGIES: REPORTED TO, 1. CEPHALEXIN. 2. LITHIUM. 3. PENICILLIN. 4. CHLORDIAZEPOXIDE. MEDICATIONS: At this time consists of, 1. Amiodarone 200 mg a day. 2. Atenolol 25 mg a day. 3. Pravastatin 40 mg a day. 4. Fenofibrate 48 mg a day. 5. Finasteride 5 mg a day. 6. Tylenol with Codeine No. 3 every 6 hours p.r.n. 7. Loratadine 10 mg a day. 8. Synthroid 50 mcg a day. 9. Montelukast 10 mg a day. 10. Nitroglycerin. 11. Omeprazole 40 mg a day. 12. Aspirin 81 mg a day. 13. Co Q10. 14. Calcium. REVIEW OF SYSTEMS: HEENT: Normal. CARDIAC: History of cardiac arrhythmias. RESPIRATORY: History of bronchial asthma. GI: Multiple GI bleeds. : Normal. MUSCULOSKELETAL: Normal. SKIN AND BREASTS: Normal. NEUROENDOCRINE: History of hypothyroidism. PHYSICAL EXAMINATION: GENERAL: Remarkable male, very anemic. NECK: No palpable adenopathy. HEART: Within normal limits. LUNGS: Clear. ABDOMEN: Obese. RECTAL: Deferred. CENTRAL NERVOUS SYSTEM: Essentially normal. IMPRESSION: 1. Myelodysplastic syndrome. 2. Anemia. 3. Neutropenia. 4. Thrombocytopenia. 5. Coronary artery disease. 6. Cardiac arrhythmias. 7. Hypothyroidism. 8. Hyperlipidemia. PLAN: Plan is to give him blood transfusion, platelet transfusion, as he is symptomatic with anemia and is on fairly aggressive chemotherapy consisting of Vidaza. MD TIMOTHY Yang/TIMOTHY /[id number]
--- NOTE | 2019-06-11 13:31 | Discharge Summary ---
HOSPITAL COURSE: Mr. Sykes is a 79-year-old white male, who presents to the ER with history of weakness. For detailed history and physical, please review my dictation dated 06/09/2019. The patient's hemoglobin was 7.6, hematocrit 25.7, white count of 6260, platelets 27,000. One unit of platelets was given as well as 2 units of packed RBCs with Lasix 20 mg IV before his transfusion. The patient's CBC today shows a hemoglobin of 9.9, hematocrit of 32, white count of 6200, platelets of 44,000. This is a safe figure for him. The patient subsequently is being discharged. The patient is suggested to have systemic chemotherapy restarted on 07/06/2019 when he is schedule to have the chemotherapy at my office, [place] daily x5 days. I have also explained to him that I will be out of country from June 17 for 10 days, to either come to the emergency room or call Dr. Harvey Keith, the attending physician, so that he will be taken care of for any acute medical emergency. Urban Velazquez MD MAQ/MODL /[id number] cc: Harvey Keith MD
== END 2019-06-11 11:06 | disposition home or self-care (01) ==
LOC: ER 17:50 → ERHOLD 21:07 → IMCU 06-11 03:19
PROVIDERS: ADMIT Internal Medicine Medical Oncology; ATTEND Internal Medicine Medical Oncology
DX: D46.9 Myelodysplastic syndrome, unspecified (principal); T45.1X5A Adverse effect of antineoplastic and immunosuppressive drugs, initial encounter; E78.5 Hyperlipidemia, unspecified; E03.9 Hypothyroidism, unspecified; I49.9 Cardiac arrhythmia, unspecified; I25.10 Atherosclerotic heart disease of native coronary artery without angina pectoris; D69.6 Thrombocytopenia, unspecified; D70.9 Neutropenia, unspecified; Z88.0 Allergy status to penicillin; Z88.8 Allergy status to other drugs, medicaments and biological substances
CPT/HCPCS: 36415 ×2; 36430; 80048; 80053; 85025 ×2; 85610; 85730; 86850; 86900; 86920; 93005; 99284; G0378 ×2; J7050 ×2; P9016 ×2; P9034

== ENCOUNTER 2019-07-13 15:24 | Emergency (ER) | payer MEDICARE, OTHER ==
[~2019-07-13] VITALS: Ht 175.3 cm; Wt 86.2 kg
--- OUTSIDE RECORDS SUMMARY | 2019-07-13 15:29 | XMS REPORT | Clinical Summary ---
Author Author [facility] Organization [facility] Address Unknown Phone Unavailable Care Team Providers Care Gravity Prospecting Observer Helper Name Role Phone Dejuan Keith MD PCP Allergies Comments Active Allergy Reactions Severity Noted Date Cephalexin 05/16/2019 Allergic to oral only not topical. Iodine Hives, Rash Low 05/16/2019 Chlordiazepoxide Hcl 05/16/2019 [place] 05/16/2019 Penicillins 05/16/2019 Medications End Date Status [...] by 0 40 MG tablet mouth daily. 05/22/2020 Active venetoclax (VENCLEXTA) Take 400 mg [...] tablet mouth 4 (four) times a day. 06/21/2019 pregabalin (LYRICA) 50 MG Take 1 60 capsule 0 capsule capsule (50 9 mg total) by mouth 2 (two) times a day for 30 days. 06/21/2019 metoprolol tartrate Take 1 tablet 60 tablet 0 (LOPRESSOR) 25 mg tablet (25 mg total) 9 by mouth 2 (two) times a day for 30 days. 06/22/2019 fenofibrate (LOFIBRA) 54 Take 1 tablet 30 tablet 0 MG tablet (54 mg total) 9 by mouth daily for 30 days. 06/21/2019 finasteride (PROSCAR) 5 Take 1 tablet 30 tablet 0 mg tablet (5 mg total) 9 by mouth nightly for 30 days. 06/22/2019 amLODIPine (NORVASC) 5 mg Take 1 tablet 30 tablet 0 tablet (5 mg total) 9 by mouth daily for 30 days. Active Problems Problem Noted Date Severe neutropenia [...] Oncology - Encounter 05/22/2019 05/16/2019 Travel after 07/12/2018 Social History Date Tobacco Use Types Packs/Day [...] MMODE SPECTRAL 12:02 PM CDT COLOR DOPPLER ([id number]) MANUAL DIFFERENTIAL Routine 05/20/2019 4:43 AM CDT [...] PANEL Routine 05/19/2019 5:10 AM CDT TRANSFUSE PLATELET Routine 05/18/2019 PHERESIS 3:16 PM CDT TRANSFUSE PLATELET Routine 05/18/2019 PHERESIS 12:38 PM CDT FLOW CYTOMETRY EVALUATION Routine [...] PORTABLE STAT 05/16/2019 2:57 PM CDT after 07/12/2018 Results * Estimated GFR (05/22/2019 4:00 AM CDT) Only the most recent of 7 results within the time period is included. [facility] Estimated GFR 49 (A) mL/min/1.73 m2 [facility] Comment: [facility] rpretation G1 >=90 Normal or high G2 60-89Mildly decreased K1l85-35 Mildly to moderately decreased L7i81-40 Moderately to severely decreased G4 15-29Severely decreased G5 <15Kidney failure The eGFR was calculated using the Chronic Kidney Disease Epidemiology Collaboration (CKD-EPI) equation. Interpretation is based on recommendations of the National Kidney Foundation-Kidney Disease Outcomes Quality Initiative (NKF-KDOQI) published in 2014. Specimen Plasma specimen Performing Organization Address City/[facility] Phone Number [facility] [place] [address] PATHOLOGY AND GENOMIC MEDICINE [address] * Manual differential (05/22/2019 4:00 AM CDT) Only the most recent of 6 results within the time period is included. [facility] Manual PERFORMED [place] differential [facility] Neutrophils 5.0 (L) 39.0 - 69.0 % [facility] Lymphocytes 82.0 (H) 25.0 - 45.0 % [facility] Monocytes 10.0 0.0 - 10.0 % [facility] Eosinophils 1.0 0.0 - 5.0 % [facility] Basophils 0.0 0.0 - 1.0 % [facility] Metamyelocytes 0 % [facility] Myelocytes 2 % [facility] Promyelocytes 0 % [facility] Platelet slide Mkd decreased (A) [facility] Anisocytosis Moderate [facility] Ovalocytes Moderate [facility] Specimen Performing Organization Address City/[facility] Phone Number [facility] [place] [address] PATHOLOGY AND GENOMIC MEDICINE [address] * CBC with platelet and differential (05/22/2019 4:00 AM CDT) Only the most recent of 6 results within the time period is included. [facility] WBC 0.88 (LL) 4.50 - 11.00 k/uL [facility] Comment: [facility] Results called to and read HOSPITAL back by RICKY Zurita OCA/WT14 (name/location) at 05/22/201905:50 (date/time) by 465. RBC 2.42 (L) 4.40 - 6.00 m/uL [facility] HGB 7.3 (L) 14.0 - 18.0 g/dL [facility] HCT 23.6 (L) 41.0 - 51.0 % [facility] MCV 97.5 82.0 - 100.0 fL [facility] MCH 30.2 27.0 - 34.0 pg [facility] MCHC 30.9 (L) 31.0 - 37.0 g/dL [facility] RDW - SD 58.9 (H) 37.0 - 55.0 fL [facility] MPV 10.5 8.8 - 13.2 fL [facility] Platelet count 31 (L) 150 - 400 k/uL [facility] Nucleated RBC 0.00 /100 WBC [facility] Neutrophils 5.0 (L) 39.0 - 69.0 % [facility] Lymphocytes 82.0 (H) 25.0 - 45.0 % [facility] Monocytes 10.0 0.0 - 10.0 % [facility] Eosinophils 1.0 0.0 - 5.0 % [facility] Basophils 0.0 0.0 - 1.0 % [facility] Specimen Blood Performing Organization Address City/[facility] Phone Number [facility] [place] [address] PATHOLOGY AND [facility] MEDICINE [address] * Phosphorus level (05/22/2019 4:00 AM CDT) Only the most recent of 7 results within the time period is included. Phosphorus 3.6 2.4 - 4.5 mg/dL [facility] Specimen Plasma specimen Performing Organization Address City/[facility]/Zipcode Phone Number [facility] [place] [address] PATHOLOGY AND GENOMIC MEDICINE [address] * Magnesium level (05/22/2019 4:00 AM CDT) Only the most recent of 7 results within the time period is included. Magnesium 1.8 1.6 - 2.4 mg/dL [facility] Specimen Plasma specimen Performing Organization Address City/[facility] [place] [address] PATHOLOGY AND GENOMIC MEDICINE [address] * Basic metabolic panel (05/22/2019 4:00 AM CDT) Only the most recent of 6 results within the time period is included. Pathologist [facility] Sodium 142 135 - 148 mEq/L [facility] Potassium 4.0 3.5 - 5.0 mEq/L [facility] Chloride 109 98 - 112 mEq/L [facility] CO2 22 (L) 24 - 31 mEq/L [facility] Anion gap 11@ANIO 7 - 15 mEq/L [facility] BUN 20 8 - 23 mg/dL [facility] Creatinine 1.38 (H) 0.70 - 1.20 mg/dL [facility] Glucose 98 65 - 99 mg/dL [facility] Calcium 8.6 (L) 8.8 - 10.2 mg/dL [facility] Specimen Plasma specimen Performing Organization Address City/[facility] [place] [address] PATHOLOGY AND [facility] MEDICINE [address] * Transfuse platelets (05/21/2019 5:54 PM CDT) Only the most recent of 4 results within the time period is included. * ECG 12 lead (05/20/2019 4:48 PM CDT) Only the most recent of 2 results within the time period is included. Ventricular 68 [facility] MUSE rate Atrial rate 68 [facility] MUSE TN interval 164 [facility] MUSE QRSD interval 88 [...] At Performing Organization Address City/State/Zipcode Phone Number [facility] MUSE [address] [place] [address] * Echocardiogram complete w contrast and 3D if needed (05/20/2019 12:02 PM CDT) Specimen Narrative Performed At [facility]OM[facility] Castro.Name:DEJUAN BROWN.ID:[id number] .Date: 05/20/2019 Exam Time: 11:26:00 AM Study Type:Routine EchoHeight:69in Weight:188.61lbBSA: 2.02 m2 DOBAge:1940,79YSex: MALE Sonogrphr: Kristy Study Status:Final Echo Event ID:[id number] Order ID:[id number] Procedures:2D Echo, Colorflow Doppler, Intravenous Lumason Contrast [...] PA systolic pressure. MEASUREMENTS: 2D Parasternal [place] LVOT 2 cmLA Ds4.4 cm LVIDd4.6 cmIndex2.3 cm/m Ao Rtd 3.8 cm Index1.9 cm/m LVIDs2.8 cm LV Rbha406.6 g(122-174) LV%fs 39.4 % LVM Ppwve773.8 g/m2 IVSd 1.3 cmRWT0.5 LVPWd1.1 cm LA Sng Plane LA Area 21.2 cm2(8.8-23.4) LA Vol60.3 ml Index29.8 ml/m LA LngAx 6.3 cm RA Sng Plane RA Area 19.8 cm2(8.3-19.5) RA Vol56.4 ml Index27.9 ml/m RA LngAx 5.8 cm Signed 05/21/2019 05:05 PM Litzy Mackay M.D. Procedure Note Interface, Radiology Results In - 05/21/2019 5:05 PM CDT Pat.Name: DEJUAN BROWN Gloria.ID: [id number] .Date: 05/20/2019 Exam Time: 11:26:00 AM Study Type:Routine Echo Height: 69in Weight: 188.61lb BSA: 2.02 m2 Age: 5 1940,79Y Sex: MALE Sonogrphr: Kristy Study Status:Final Echo Event ID:[id number] Order ID: [id number] Procedures:2D Echo, Colorflow Doppler, Intravenous Lumason Contrast [...] PA systolic pressure. MEASUREMENTS: 2D Parasternal [place] LVOT 2 cm LA Ds 4.4 [...] PM Litzy Mackay M.D. Performing Organization Address City/[facility]/Zipcode Phone Number [facility] [address] [place] [address] * Surgical pathology request (05/19/2019 4:39 PM CDT) [facility] DEPARTMENT OF PATHOLOGY AND GENOMIC MEDICINE Surgical See link below for PDF Lab [facility] DEPARTMENT pathology Report OF PATHOLOGY report AND GENOMIC MEDICINE Result status This is Final Report for [facility] DEPARTMENT [id number] OF PATHOLOGY AND GENOMIC MEDICINE Specimen Performing Organization Address City/State/Zipcode Phone Number [facility] DEPARTMENT OF [address] [place] [address] PATHOLOGY AND GENOMIC MEDICINE * Bone marrow tray (05/19/2019 2:44 PM CDT) Bone marrow Done [facility] Specimen Fluid Performing Organization Address City/State/Zipcode Phone Number [facility] DEPARTMENT OF [address] [place] [address] PATHOLOGY AND GENOMIC MEDICINE [facility] [address] * Miscellaneous referral test (05/19/2019 2:44 PM CDT) Misc test name FLT3,CEPBA,NPM1,IDH2 SHOWN ABOVE Misc test see note SHOWN ABOVE result Comment: EBPA Mutation Detection [employer] test code 2536149 CEBPA Mutation Detection Results Not Detected A [...] (Jovan DAMON, et al. 2010. J Clin Oncol:28,[id number]). METHODOLOGY: CEBPA mutations in white blood cells [...] malignancy. Test developed and characteristics determined by [facility]. See Compliance Statement B: [employer]/CS ------ ------ ------ -- Order comments CEBPA Mutation Detection ONE FULL LAVENDER BONE MARROW IDH1 and IDH2 Mutation Analysis, exon 4 [employer] test code 4318933 IDH1 and IDH2 Mutation Results Not Detected [...] disease. Test developed and characteristics determined by [facility]. See Compliance Statement B: [employer]/CS - - - - - - - - - - - - - - - - - - - - - - - - - - - - - - IDH 1-2 Source Bone Marrow ------ ------ ------ -- Order comments IDH1 and IDH2 Mutation Analysis, exon 4 ONE FULL LAVENDER BONE MARROW NPM1 Mutation Detection by RT-PCR, Quantitative [facility] test code 8451470 NPM1 Quantitative, Source Bone Marrow - - [...] 05;374(5):422-33. Test developed and characteristics determined by [facility]. See Compliance Statement B: [employer] - - - - - - - - - - - - - - - - - - - - - - - - - - - - - - NPM1 Quantitative, Ratio 0.0000 ------ ------ ------ -- Order comments NPM1 Mutation Detection by RT-PCR, Quantitative ONE FULL LAVENDER BONE MARROW FLT3 ITD and TKD Mutation Detection [employer] test code 6762757 FLT3 Source Bone Marrow - - - [...] methodology. Test developed and characteristics determined by [facility]. See Compliance Statement B: [employer] ------ ------ ------ -- Order comments FLT3 ITD and TKD Mutation Detection ONE FULL LAVENDER BONE MARROW Test performed by: [facility] [address] [place], [id number] Specimen Narrative Performed At BONE MARROW [facility] DEPARTMENT OF FLT3, NPM1, CEBPA, IDH2 PCR PATHOLOGY AND ONLY ONE FULL [facility] GENOMIC MEDICINE Performing Organization Address City/State/Zipcode Phone Number [facility] DEPARTMENT OF [address] [place] [address] PATHOLOGY AND GENOMIC MEDICINE SHOWN ABOVE * Flow cytometry evaluation (05/19/2019 2:44 PM CDT) Only the most recent of 2 results within the time period is included. [facility] Flow cytometry See link below for PDF Lab [facility] evaluation Report [facility] Specimen Blood Narrative Performed At Performing Organization Address City/State/Zipcode Phone Number [facility] DEPARTMENT OF [address] [place] [address] PATHOLOGY AND GENOMIC MEDICINE [facility] * 54 gene myeloid mutation test (05/19/2019 2:44 PM CDT) Pathologist [facility] Interpretation VARIANT(S) DETECTED: [facility] No Mutations Detected [facility] Amplicon coverage:532 of HOSPITAL 538 amplicons (98.9%) had >100x coverage and were included in the analysis. 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 [place] [address] PATHOLOGY AND GENOMIC MEDICINE [address] * Prepare platelet pheresis, 1 Units, Irradiated, Leukoreduced (05/19/2019 5:25 AM CDT) Only the most recent of 2 results within the time period is included. Pathologist [facility] Product name Apheresis PLT, Leukored IRR #2 [facility] Unit number [id number] [facility] Product code [id number] [facility] Dispense status Transfused [facility] Blood [id number] [place] expiration date [facility] Blood type code 6200 [facility] Blood type A POSITIVE [facility] Specimen Blood Performing Organization Address City/[facility]/Zipcode Phone Number [facility] [place] [address] PATHOLOGY AND GENOMIC MEDICINE [address] * Type and screen (05/19/2019 5:25 AM CDT) Only the most recent of 2 results within the time period is included. ABO grouping A [facility] Rh type POS [facility] Antibody screen NEG [place] (gel) [facility] Specimen Performing Organization Address City/State/Zipcode Phone Number [facility] DEPARTMENT OF [address] [place] [address] PATHOLOGY AND GENOMIC MEDICINE [address] * Smear review (05/17/2019 5:25 AM CDT) Smear review Smear Reviewed [facility] Specimen Performing Organization Address City/[facility]/Zipcode Phone Number [facility] [place] [address] PATHOLOGY AND GENOMIC MEDICINE [address] * Lactic acid level, SEPSIS - Now and repeat 2x every 3 hours (05/17/2019 5:25 AM CDT) Only the most recent of 3 results within the time period is included. Pathologist [facility] Lactic acid 0.9 0.5 - 2.2 mmol/L [facility] Specimen Blood Performing Organization Address City/State/Zipcode Phone Number [facility] [place] [address] PATHOLOGY AND GENOMIC MEDICINE [address] * CBC hemogram (05/17/2019 5:25 AM CDT) [facility] WBC 0.70 (LL) 4.50 - 11.00 k/uL [place] Comment: [facility] WBC results called to and read HOSPITAL back Geetha GARCIA/DACIA (name/location) at 05/17/201905:57 (date/time) by A. RBC 2.61 (L) 4.40 - 6.00 m/uL [facility] HGB 7.6 (L) 14.0 - 18.0 g/dL [facility] HCT 25.0 (L) 41.0 - 51.0 % [facility] MCV 95.8 82.0 - 100.0 fL [facility] MCH 29.1 27.0 - 34.0 pg [facility] MCHC 30.4 (L) 31.0 - 37.0 g/dL [facility] RDW - SD 53.5 37.0 - 55.0 fL [facility] MPV 11.1 8.8 - 13.2 fL [facility] Platelet count 16 (LL) 150 - 400 k/uL [place] Comment: [facility] PLT results called to and read HOSPITAL back Geetha GARCIA/M7SW (name/location) at 05/17/201905:57 (date/time) by JENNIE. Nucleated RBC 0.00 /100 WBC [facility] Specimen Blood Performing Organization Address City/State/Zipcode Phone Number [facility] [place] [address] PATHOLOGY AND [facility] MEDICINE [address] * Thyroid stimulating hormone (05/17/2019 5:25 AM CDT) Pathologist [facility] TSH 2.25 0.27 - 4.20 uIU/mL [facility] Specimen Plasma specimen Performing Organization Address City/[facility]/Zipcode Phone Number [facility] [place] [address] PATHOLOGY AND [facility] MEDICINE [address] * T4, free (05/17/2019 5:25 AM CDT) Pathologist [facility] T4, free 1.4 0.9 - 1.7 ng/dL [facility] Specimen Plasma specimen Performing Organization Address City/[facility]/Zipcode Phone Number [facility] [place] [address] PATHOLOGY AND [facility] MEDICINE [address] * Hemoglobin A1c (05/17/2019 5:25 AM CDT) [facility] Hemoglobin A1C 6.8 (H) 4.0 - 5.6 % [place] Comment: [facility]TO HbA1c cutoffs for diagnosing HOSPITAL diabetes: 4.0% - 5.6%=normal 5.7% - 6.4%=increased risk for diabetes (prediabetes) >=6.5%=diabetes Goals for glycemic control (ADA 2016) < 7.0%Target for non adults with diabetes. More or less stringent targets may be appropriate for individual patients. <7.5% Target for Children and adolescents with type 1 diabetes. Specimen Blood Performing Organization Address City/[facility]/Zipcode Phone Number [facility] [place] [address] PATHOLOGY AND [facility] MEDICINE [address] * Folate level (05/17/2019 5:25 AM CDT) Pathologist [facility] Folate 10.6 4.8 - 24.2 ng/mL [facility] Specimen Serum Performing Organization Address City/[facility]/Zipcode Phone Number [facility] DEPARTMENT OF [address] [place] [address] PATHOLOGY AND GENOMIC MEDICINE [address] * Vitamin B12 level (05/17/2019 5:25 AM CDT) Vitamin B12 234 211 - 946 pg/mL [place] Comment: SH[facility]TO Significant overlap exists HOSPITAL between normal and deficiency states. However, most patients with deficiencies will have Serum B12 <200 pg/mL. Specimen Serum Performing Organization Address [facility] Phone Number [facility] DEPARTMENT OF [address] [place] [address] PATHOLOGY AND GENOMIC MEDICINE [address] * Lipid panel (05/17/2019 5:25 AM CDT) Cholesterol 141 <200 mg/dL [facility] Triglycerides 184 (H) <150 mg/dL [facility] HDL cholesterol 47 >40 mg/dL [facility] LDL cholesterol 66Comment: Result obtained by <100 mg/dL [facility] direct LDL measurement [facility] Lipid panel SeeBelow [facility] interpretation Comment: SHINTO Total Cholesterol HOSPITAL (mg/dL) <200 Desirable 200-239Borderline [...] specimen Performing Organization Address City/State/Zipcode Phone Number [facility] DEPARTMENT OF [address] [place] [address] PATHOLOGY AND GENOMIC MEDICINE [facility] [address] [place] [address] [facility] * US Renal (05/16/2019 9:00 PM CDT) Specimen Narrative Performed At EXAMINATION:US RENAL [facility] CLINICAL HISTORY:Renal failureacute (kidney injury) COMPARISON:None. [...] is mild hydronephrosis. The bladder is unremarkable. [facility]-[id number] Procedure Note Interface, Radiology Results Incoming - [...] is mild hydronephrosis. The bladder is unremarkable. [facility]-[id number] Performing Organization Address City/[facility]/Zipcode Phone Number [address] [address] * Radha Marks Virus (EBV) by PCR (05/16/2019 8:13 PM CDT) Radha Marks Not-Detected Not-Detected [facility] virus, PCR copies/mL [facility] Radha Marks See link below for PDF Lab MADRGIAL virus, PCR ReportComment: Case Number: [facility] [id number] [facility] Specimen Performing Organization Address City/State/Zipcode Phone Number [facility] DEPARTMENT OF [address] [place] [address] PATHOLOGY AND GENOMIC MEDICINE [address] [address] [facility] * Syphilis total antibody (05/16/2019 7:18 PM CDT) Pathologist [facility] Syphilis total Non-reactiveComment: No Non-reactive MADRIGAL antibody serological evidence of [facility]TO syphilis infection. HOSPITAL Specimen Blood Performing Organization Address City/State/Zipcode Phone Number [facility] DEPARTMENT OF [address] [place] [address] PATHOLOGY AND GENOMIC MEDICINE [address] * HIV Ag/Ab combination (05/16/2019 7:18 PM CDT) Pathologist [facility] HIV Ag/Ab Non-reactive Non-reactive [facility] combination [facility] Specimen Blood Performing Organization Address City/State/Zipcode Phone Number [facility] DEPARTMENT OF [address] [place] [address] PATHOLOGY AND GENOMIC MEDICINE [address] * Parvovirus B19 antibody, IgG and IgM (05/16/2019 7:18 PM CDT) [facility] Parvovirus B19 6.31 (H) <=0.89 IV [facility] REF LAB IgG Comment: INTERPRETIVE [...] same time. Parvovirus B19 0.16 <=0.89 IV [facility] REF LAB IgM Comment: INTERPRETIVE INFORMATION: Parvovirus [...] levels of specific IgM antibodies. Performed by [facility], [address] [place] [id number] [email or web address], Buzz Tom MD - Lab. Director Specimen Serum Performing Organization Address [facility] Phone Number [facility] [address] [place] [address] [facility] REF LAB [address] [place] [phone] * Partial thromboplastin time, activated (05/16/2019 7:18 PM CDT) Only the most recent of 2 results within the time period is included. [facility] PTT 27.6 23.0 - 36.0 sec [facility] Comment: SHINTO PTT therapeutic range for HOSPITAL unfractionated heparin is 61.0-112.0 seconds which corresponds to Anti-Xa 0.3-0.7 U/ml. Specimen Blood Performing Organization Address [facility] Phone Number [facility] DEPARTMENT OF [address] [place] [address] PATHOLOGY AND [facility] MEDICINE [address] * Fibrinogen (05/16/2019 7:18 PM CDT) [facility] Fibrinogen 355 200 - 450 mg/dL [facility] Specimen Blood Performing Organization Address [facility] Phone Number [facility] [facility] DEPARTMENT OF [address] [place] [address] PATHOLOGY AND GENOMIC MEDICINE [address] * Reticulocyte count (05/16/2019 7:18 PM CDT) [facility] Retic %, auto 2.1 0.5 - 2.1 % [facility] Retic absolute, 0.0550 0.0220 - 0.1260 m/uL [place] auto [facility] Specimen Blood Performing Organization Address City/State/Zipcode Phone Number [facility] DEPARTMENT OF [address] [place] [phone] PATHOLOGY AND GENOMIC MEDICINE [address] * Urinalysis screen and microscopy, with reflex to culture (05/16/2019 5:30 PM CDT) Specimen site Clean catch [facility] Color, UA Straw [facility] Appearance, UA Clear [facility] Specific 1.013 1.001 - 1.035 [place] gravity, [facility] pH, UA 6.0 5.0 - 8.5 [facility] Protein, UA Negative Negative [facility] Glucose, UA Negative Negative [facility] Ketones, UA Negative Negative [facility] Bilirubin, UA Negative Negative [facility] Blood, UA Negative Negative [facility] Nitrite, UA Negative Negative [facility] Urobilinogen, <2.0 <2.0 [facility] Leukocyte Negative Negative [place] esterase, [facility] Epithelial <1 /HPF [place] cells, [facility] WBC, UA <1 0 - 1 /HPF [facility] RBC, UA <1 0 - 5 /HPF [facility] Bacteria, UA None seen None seen [facility] Yeast, UA None seen [facility] Yeast with None seen [place] [facility] Specimen Urine Performing Organization Address City/[facility]/Zipcode Phone Number [facility] DEPARTMENT [address] [address] PATHOLOGY AND GENOMIC MEDICINE [address] * Urine culture (05/16/2019 5:30 PM CDT) Pathologist [facility] Urine culture SEE COMMENTComment: [place] Bacteriuria screen negative. [facility] Specimen Performing Organization Address City/State/Zipcode Phone Number [facility] DEPARTMENT [address] [address] PATHOLOGY AND GENOMIC MEDICINE [address] * Respiratory pathogen panel (05/16/2019 5:23 PM CDT) Pathologist [facility] Respiratory Negative for all pathogens [place] pathogen panel tested: [facility] Negative for Adenovirus [facility] Negative for Coronavirus HKU1 Negative for Coronavirus [...] Nares - Not specified Performing Organization Address [facility] Phone Number [facility] DEPARTMENT [address] * Blood culture, aerobic & anaerobic (05/16/2019 3:33 PM CDT) Only the most recent of 2 results within the time period is included. [facility] Blood culture No growth after 5 days of [place] isolate incubation. [facility] Comment: [facility] Specimen Information Specimen Source: Blood Specimen Site: Forearm, right Specimen Blood - Forearm, right Performing Organization Address [facility] Phone Number [facility] DEPARTMENT [address] * Prothrombin time with INR (05/16/2019 3:25 PM CDT) [facility] Prothrombin 13.8 11.5 - 14.5 sec [facility] INR 1.1 [place] Comment: [facility] The International Normalized HOSPITAL Ratio (INR) is a therapeutic monitoring tool for patients who are stable on oral anticoagulant therapy. An INR of 2.0-3.0 is suggested for deep vein thrombosis/pulmonary embolism. Specimen Blood Performing Organization Address [facility] Phone Number [facility] [place] [address] PATHOLOGY AND [address] * Comprehensive metabolic panel (05/16/2019 3:25 PM CDT) Sodium 143 135 - 148 mEq/L [facility] Potassium 4.3 3.5 - 5.0 mEq/L [facility] Chloride 108 98 - 112 mEq/L [facility] CO2 22 (L) 24 - 31 mEq/L [facility] Anion gap 13@ANIO 7 - 15 mEq/L [facility] BUN 29 (H) 8 - 23 mg/dL [facility] Creatinine 1.74 (H) 0.70 - 1.20 mg/dL [facility] Glucose 114 (H) 65 - 99 mg/dL [facility] Calcium 8.7 (L) 8.8 - 10.2 mg/dL [facility] Protein 6.1 (L) 6.3 - 8.3 g/dL [place] Comment: [facility] 4.6-7.0 g/dL 1 week 4.4-7.6 g/dL 7 months-1year 5.1-7.3 g/dL 1-2 years5.6-7 .5 g/dL >3 years6.0-8 .0 g/dL 18-150 6.3-8.3 g/dL Albumin 3.5 3.5 - 5.0 g/dL [facility] A/G ratio 1.3 0.7 - 3.8 [facility] Alkaline 64 40 - 129 U/L [place] phosphatase [facility] AST 16 10 - 50 U/L [facility] ALT 14 5 - 50 U/L [facility] Total bilirubin 0.6 0.0 - 1.2 mg/dL [facility] Specimen Plasma specimen Performing Organization Address City/State/Zipcode Phone Number [facility] DEPARTMENT OF [address] [place] [address] PATHOLOGY AND GENOMIC MEDICINE [facility] [address] [place] [address] HOSPITAL * XR Chest 1 Vw Portable [...] the patient. IMPRESSION: No acute cardiopulmonary findings. [facility]-[id number] Procedure Note Hm Interface, Radiology Results Incoming [...] the patient. IMPRESSION: No acute cardiopulmonary findings. [facility]-[id number] Performing Organization Address City/State/Zipcode Phone Number [facility] [address] [place] [address] after 07/12/2018 Insurance Type Payer Benefit Subscriber ID Effective Phone Address Plan / Dates Group Medicare MEDICARE MEDICARE xxxxxxxxxxx 2007-P [place], PART A AND resent [place] [employer] COLONIAL COLONIAL xxxxxxxxx 2012-P L[facility] Advance Directives Patient has advance care planning documents on file. For more information, teodoro luevano contact: Rohan Martinez [address] [place] [address]
--- OUTSIDE RECORDS SUMMARY | 2019-07-13 18:56 | XMS REPORT | Clinical Summary ---
Author Author [facility] Organization [facility] Address Unknown Phone Unavailable Care Team Providers [employer] Name Role Phone Dejuan Keith MD PCP Allergies Comments Active Allergy Reactions Severity Noted Date Cephalexin 05/16/2019 Allergic to oral only not topical. Iodine Hives, Rash Low 05/16/2019 Chlordiazepoxide Hcl 05/16/2019 [place]ock 05/16/2019 Penicillins 05/16/2019 Medications End Date Status [...] MMODE SPECTRAL 12:02 PM CDT COLOR DOPPLER ([id number]) MANUAL DIFFERENTIAL Routine 05/20/2019 4:43 AM CDT [...] results within the time period is included. [facility] Estimated GFR 49 (A) mL/min/1.73 m2 [place] Comment: [facility] rpretation G1 >=90 Normal or high G2 60-89Mildly decreased L5h92-13 Mildly to moderately decreased Y6b04-44 Moderately to severely decreased G4 15-29Severely decreased G5 <15Kidney failure The eGFR was calculated using the Chronic Kidney Disease Epidemiology Collaboration (CKD-EPI) equation. Interpretation is based on recommendations of the National Kidney Foundation-Kidney Disease Outcomes Quality Initiative (NKF-KDOQI) published in 2014. Specimen Plasma specimen Performing Organization Address City/[facility] Phone Number [facility] [place] [address] PATHOLOGY AND GENOMIC MEDICINE [address] * Manual differential (05/22/2019 4:00 AM CDT) Only the most recent of 6 results within the time period is included. [facility] Manual PERFORMED [place] differential [facility] Neutrophils 5.0 (L) 39.0 - 69.0 % [facility] Lymphocytes 82.0 (H) 25.0 - 45.0 % [facility] Monocytes 10.0 0.0 - 10.0 % [facility] Eosinophils 1.0 0.0 - 5.0 % [facility] Basophils 0.0 0.0 - 1.0 % [facility] Metamyelocytes 0 % [facility] Myelocytes 2 % [facility] Promyelocytes 0 % [facility] Platelet slide Mkd decreased (A) [facility] Anisocytosis Moderate [facility] Ovalocytes Moderate [facility] Specimen Performing Organization Address City/[facility] Phone Number [facility] [place] [address] PATHOLOGY AND GENOMIC MEDICINE [address] * CBC with platelet and differential (05/22/2019 4:00 AM CDT) Only the most recent of 6 results within the time period is included. [facility] WBC 0.88 (LL) 4.50 - 11.00 k/uL [place] Comment: [facility] Results called to and read HOSPITAL back by RICKY Zurita OCA/WT14 (name/location) at 05/22/201905:50 (date/time) by 465. RBC 2.42 (L) 4.40 - 6.00 m/uL [facility] HGB 7.3 (L) 14.0 - 18.0 g/dL [facility] HCT 23.6 (L) 41.0 - 51.0 % [facility] MCV 97.5 82.0 - 100.0 fL [facility] MCH 30.2 27.0 - 34.0 pg [facility] MCHC 30.9 (L) 31.0 - 37.0 g/dL [facility] RDW - SD 58.9 (H) 37.0 - 55.0 fL [facility] MPV 10.5 8.8 - 13.2 fL [facility] Platelet count 31 (L) 150 - 400 k/uL [facility] Nucleated RBC 0.00 /100 WBC [facility] Neutrophils 5.0 (L) 39.0 - 69.0 % [facility] Lymphocytes 82.0 (H) 25.0 - 45.0 % [facility] Monocytes 10.0 0.0 - 10.0 % [facility] Eosinophils 1.0 0.0 - 5.0 % [facility] Basophils 0.0 0.0 - 1.0 % [facility] Specimen Blood Performing Organization Address City/[facility] Phone Number [facility] [place] [address] PATHOLOGY AND [facility] MEDICINE [address] * Phosphorus level (05/22/2019 4:00 AM CDT) Only the most recent of 7 results within the time period is included. Phosphorus 3.6 2.4 - 4.5 mg/dL [facility] Specimen Plasma specimen Performing Organization Address City/[facility]/Zipcode Phone Number [facility] [place] [address] PATHOLOGY AND GENOMIC MEDICINE [address] * Magnesium level (05/22/2019 4:00 AM CDT) Only the most recent of 7 results within the time period is included. Magnesium 1.8 1.6 - 2.4 mg/dL [facility] Specimen Plasma specimen Performing Organization Address City/[facility] [place] [address] PATHOLOGY AND GENOMIC MEDICINE [address] * Basic metabolic panel (05/22/2019 4:00 AM CDT) Only the most recent of 6 results within the time period is included. Pathologist [facility] Sodium 142 135 - 148 mEq/L [facility] Potassium 4.0 3.5 - 5.0 mEq/L [facility] Chloride 109 98 - 112 mEq/L [facility] CO2 22 (L) 24 - 31 mEq/L [facility] Anion gap 11@ANIO 7 - 15 mEq/L [facility] BUN 20 8 - 23 mg/dL [facility] Creatinine 1.38 (H) 0.70 - 1.20 mg/dL [facility] Glucose 98 65 - 99 mg/dL [facility] Calcium 8.6 (L) 8.8 - 10.2 mg/dL [facility] Specimen Plasma specimen Performing Organization Address City/[facility] Hospital[facility] [place] [address] PATHOLOGY AND [facility] MEDICINE [address] * Transfuse platelets (05/21/2019 5:54 PM CDT) Only the most recent of 4 results within the time period is included. * ECG 12 lead (05/20/2019 4:48 PM CDT) Only the most recent of 2 results within the time period is included. Ventricular 68 [facility] MUSE rate Atrial rate 68 [facility] UT interval 164 [facility] QRSD interval 88 [...] At Performing Organization Address City/State/Zipcode Phone Number [facility] MUSE [address] [place] [place] [address] * Echocardiogram complete w contrast and 3D if needed (05/20/2019 12:02 PM CDT) Specimen Narrative Performed At TOMMYNADIA Castro.Name:DEJUAN BROWN.ID:[id number] .Date: 05/20/2019 Exam Time: 11:26:00 AM Study Type:Routine EchoHeight:69in Weight:188.61lbBSA: 2.02 m2 DOBAge:1940,79YSex: MALE Sonogrphr: Kristy Study Status:Final Echo Event ID:[id number] Order ID:[id number] Procedures:2D Echo, Colorflow Doppler, Intravenous Lumason Contrast [...] PA systolic pressure. MEASUREMENTS: 2D Parasternal Long Sedan LVOT 2 cmLA Ds4.4 cm LVIDd4.6 cmIndex2.3 cm/m Ao Rtd 3.8 cm Index1.9 cm/m LVIDs2.8 cm LV Rree191.6 g(122-174) LV%fs 39.4 % LVM Kebss728.8 g/m2 IVSd 1.3 cmRWT0.5 LVPWd1.1 cm LA Sng Plane LA Area 21.2 cm2(8.8-23.4) LA Vol60.3 ml Index29.8 ml/m LA LngAx 6.3 cm RA Sng Plane RA Area 19.8 cm2(8.3-19.5) RA Vol56.4 ml Index27.9 ml/m RA LngAx 5.8 cm Signed 05/21/2019 05:05 PM Litzy Mackay M.D. Procedure Note Interface, Radiology Results In - 05/21/2019 5:05 PM CDT Pat.Name: DEJUAN BROWN Gloria.ID: [id number] .Date: 05/20/2019 Exam Time: 11:26:00 AM Study Type:Routine Echo Height: 69in Weight: 188.61lb BSA: 2.02 m2 Age: 5 1940,79Y Sex: MALE Sonogrphr: Kristy Study Status:Final Echo Event ID:[id number] Order ID: [id number] Procedures:2D Echo, Colorflow Doppler, Intravenous Lumason Contrast [...] PA systolic pressure. MEASUREMENTS: 2D Parasternal Long Sedan LVOT 2 cm LA Ds 4.4 cm [...] PM Litzy Mackay M.D. Performing Organization Address City/[facility]/Zipcode Phone Number [facility] [address] [place] [address] * Surgical pathology request (05/19/2019 4:39 PM CDT) [facility] DEPARTMENT OF PATHOLOGY AND GENOMIC MEDICINE Surgical See link below for PDF Lab [facility] DEPART[facility] pathology Report OF PATHOLOGY report AND GENOMIC MEDICINE Result status This is Final Report for [facility] [id number] OF PATHOLOGY AND GENOMIC MEDICINE Specimen Performing Organization Address City/State/Zipcode Phone Number [facility] DEPARTMENT OF [address] [place] [address] PATHOLOGY AND GENOMIC MEDICINE * Bone marrow tray (05/19/2019 2:44 PM CDT) Bone marrow Done [facility] Specimen Fluid Performing Organization Address City/State/Zipcode Phone Number [facility] DEPARTMENT OF [address] [place] [address] PATHOLOGY AND GENOMIC MEDICINE [facility] [address] * Miscellaneous referral test (05/19/2019 2:44 PM CDT) Misc test name FLT3,CEPBA,NPM1,IDH2 SHOWN ABOVE Misc test see note SHOWN ABOVE result Comment: EBPA Mutation Detection [employer] test code 7373591 CEBPA Mutation Detection Results Not Detected A [...] (Jovan DAMON, et al. 2010. J Clin Oncol:28,6683-4698). METHODOLOGY: CEBPA mutations in white blood cells [...] malignancy. Test developed and characteristics determined by [facility]. See Compliance Statement B: [employer]/CS ------ ------ ------ -- Order comments CEBPA Mutation Detection ONE FULL LAVENDER BONE MARROW IDH1 and IDH2 Mutation Analysis, exon 4 [employer] test code 1044427 IDH1 and IDH2 Mutation Results Not Detected [...] disease. Test developed and characteristics determined by [employer]. See Compliance Statement B: [employer] - - - - - - - - - - - - - - - - - - - - - - - - - - - - - - IDH 1-2 Source Bone Marrow ------ ------ ------ -- Order comments IDH1 and IDH2 Mutation Analysis, exon 4 ONE FULL LAVENDER BONE MARROW NPM1 Mutation Detection by RT-PCR, Quantitative [facility] test code 5705683 NPM1 Quantitative, Source Bone Marrow - - [...] 05;374(5):422-33. Test developed and characteristics determined by [facility]. See Compliance Statement B: [employer]/CS - - - - - - - - - - - - - - - - - - - - - - - - - - - - - - NPM1 Quantitative, Ratio 0.0000 ------ ------ ------ -- Order comments NPM1 Mutation Detection by RT-PCR, Quantitative ONE FULL LAVENDER BONE MARROW FLT3 ITD and TKD Mutation Detection [employer] test code 0787223 FLT3 Source Bone Marrow - - - [...] methodology. Test developed and characteristics determined by [facility]. See Compliance Statement B: [employer]CS ------ ------ ------ -- Order comments FLT3 ITD and TKD Mutation Detection ONE FULL LAVENDER BONE MARROW Test performed by: [facility] [address] [place], [place] Specimen Narrative Performed At BONE MARROW [facility] DEPARTMENT OF FLT3, NPM1, CEBPA, IDH2 PCR PATHOLOGY AND ONLY ONE FULL [employer] [facility] GENOMIC MEDICINE Performing Organization Address City/State/Zipcode Phone Number [facility] DEPARTMENT OF [address] [place] [address] PATHOLOGY AND GENOMIC MEDICINE SHOWN ABOVE * Flow cytometry evaluation (05/19/2019 2:44 PM CDT) Only the most recent of 2 results within the time period is included. [facility] Flow cytometry See link below for PDF Lab [place] evaluation Report [facility] Specimen Blood Narrative Performed At Performing Organization Address City/State/Zipcode Phone Number [facility] DEPARTMENT OF [address] [place] [address] PATHOLOGY AND GENOMIC MEDICINE [facility] * 54 gene myeloid mutation test (05/19/2019 2:44 PM CDT) Pathologist [facility] Interpretation VARIANT(S) DETECTED: [place] No Mutations Detected [facility] Amplicon coverage:532 of HOSPITAL 538 amplicons (98.9%) had >100x coverage and were included in the analysis. 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 See link below for PDF Lab [place] mutation test ReportComment: Case Number: [facility] [id number] HOSPITAL Specimen Narrative Performed At Reviewed and signed by Erasmo Jc, PhD ([facility]) [facility] Performing Organization Address City/[facility] Phone Number [facility] [place] [address] PATHOLOGY AND GENOMIC MEDICINE [address] * Prepare platelet pheresis, 1 Units, Irradiated, Leukoreduced (05/19/2019 5:25 AM CDT) Only the most recent of 2 results within the time period is included. Pathologist [facility] Product name Apheresis PLT, Leukored IRR #2 [facility] Unit number [id number] [facility] Product code [id number] [facility] Dispense status Transfused [facility] Blood [id number] [place] expiration date [facility] Blood type code 6200 [facility] Blood type A POSITIVE [facility] Specimen Blood Performing Organization Address City/[facility]/Zipcode Phone Number [facility] [place] [address] PATHOLOGY AND GENOMIC MEDICINE [address] * Type and screen (05/19/2019 5:25 AM CDT) Only the most recent of 2 results within the time period is included. ABO grouping A [facility] Rh type POS [facility] Antibody screen NEG [place] (gel) [facility] Specimen Performing Organization Address City/State/Zipcode Phone Number [facility] DEPARTMENT OF [address] [place] [address] PATHOLOGY AND GENOMIC MEDICINE [address] * Smear review (05/17/2019 5:25 AM CDT) Smear review Smear Reviewed [facility] Specimen Performing Organization Address City/[facility]/Zipcode Phone Number [facility] [place] [address] PATHOLOGY AND GENOMIC MEDICINE [address] * Lactic acid level, SEPSIS - Now and repeat 2x every 3 hours (05/17/2019 5:25 AM CDT) Only the most recent of 3 results within the time period is included. Pathologist [facility] Lactic acid 0.9 0.5 - 2.2 mmol/L [facility] Specimen Blood Performing Organization Address City/State/Zipcode Phone Number [facility] [place] [address] PATHOLOGY AND GENOMIC MEDICINE [address] * CBC hemogram (05/17/2019 5:25 AM CDT) [facility] WBC 0.70 (LL) 4.50 - 11.00 k/uL [place] Comment: [facility] WBC results called to and read HOSPITAL back Geetha GARCIA/DACIA (name/location) at 05/17/201905:57 (date/time) by A. RBC 2.61 (L) 4.40 - 6.00 m/uL [facility] HGB 7.6 (L) 14.0 - 18.0 g/dL [facility] HCT 25.0 (L) 41.0 - 51.0 % [facility] MCV 95.8 82.0 - 100.0 fL [facility] MCH 29.1 27.0 - 34.0 pg [facility] MCHC 30.4 (L) 31.0 - 37.0 g/dL [facility] RDW - SD 53.5 37.0 - 55.0 fL [facility] MPV 11.1 8.8 - 13.2 fL [facility] Platelet count 16 (LL) 150 - 400 k/uL [place] Comment: [facility] PLT results called to and read HOSPITAL back Geetha GARCIA/M7SW (name/location) at 05/17/201905:57 (date/time) by JENNIE. Nucleated RBC 0.00 /100 WBC [facility] Specimen Blood Performing Organization Address City/State/Zipcode Phone Number [facility] [place] [address] PATHOLOGY AND [facility] MEDICINE [address] * Thyroid stimulating hormone (05/17/2019 5:25 AM CDT) Pathologist [facility] TSH 2.25 0.27 - 4.20 uIU/mL [facility] Specimen Plasma specimen Performing Organization Address City/[facility]/Zipcode Phone Number [facility] [place] [address] PATHOLOGY AND [facility] MEDICINE [address] * T4, free (05/17/2019 5:25 AM CDT) Pathologist [facility] T4, free 1.4 0.9 - 1.7 ng/dL [facility] Specimen Plasma specimen Performing Organization Address City/[facility]/Zipcode Phone Number [facility] [place] [address] PATHOLOGY AND [facility] MEDICINE [address] * Hemoglobin A1c (05/17/2019 5:25 AM CDT) [facility] Hemoglobin A1C 6.8 (H) 4.0 - 5.6 % [place] Comment: [facility] HbA1c cutoffs for diagnosing HOSPITAL diabetes: 4.0% - 5.6%=normal 5.7% - 6.4%=increased risk for diabetes (prediabetes) >=6.5%=diabetes Goals for glycemic control (ADA 2016) < 7.0%Target for non adults with diabetes. More or less stringent targets may be appropriate for individual patients. <7.5% Target for Children and adolescents with type 1 diabetes. Specimen Blood Performing Organization Address City/[facility]/Zipcode Phone Number [facility] [place] [address] PATHOLOGY AND [facility] MEDICINE [address] * Folate level (05/17/2019 5:25 AM CDT) Pathologist [facility] Folate 10.6 4.8 - 24.2 ng/mL [facility] Specimen Serum Performing Organization Address City/[facility]/Zipcode Phone Number [facility] DEPARTMENT OF [address] [place] [address] PATHOLOGY AND GENOMIC MEDICINE [address] * Vitamin B12 level (05/17/2019 5:25 AM CDT) Vitamin B12 234 211 - 946 pg/mL [place] Comment: [facility] Significant overlap exists HOSPITAL between normal and deficiency states. However, most patients with deficiencies will have Serum B12 <200 pg/mL. Specimen Serum Performing Organization Address [facility] Phone Number [facility] DEPARTMENT OF [address] [place] [address] PATHOLOGY AND GENOMIC MEDICINE [address] * Lipid panel (05/17/2019 5:25 AM CDT) Cholesterol 141 <200 mg/dL [facility] Triglycerides 184 (H) <150 mg/dL [facility] HDL cholesterol 47 >40 mg/dL [facility] LDL cholesterol 66Comment: Result obtained by <100 mg/dL [place] direct LDL measurement [facility] Lipid panel SeeBelow [place] interpretation Comment: [facility] Total Cholesterol HOSPITAL (mg/dL) <200 Desirable 200-239Borderline [...] specimen Performing Organization Address City/State/Zipcode Phone Number [facility] DEPARTMENT OF [address] [place] [address] PATHOLOGY AND GENOMIC MEDICINE [facility] [address] [place] [address] [facility] * US Renal (05/16/2019 9:00 PM CDT) Specimen Narrative Performed At EXAMINATION:US RENAL [facility] CLINICAL HISTORY:Renal failureacute (kidney injury) COMPARISON:None. [...] is mild hydronephrosis. The bladder is unremarkable. [facility]-[id number] Procedure Note Interface, Radiology Results Incoming - [...] is mild hydronephrosis. The bladder is unremarkable. [facility]-[id number] Performing Organization Address City/[facility]/Zipcode Phone Number [address] [address] * Radha Marks Virus (EBV) by PCR (05/16/2019 8:13 PM CDT) Radha Marks Not-Detected Not-Detected [place] virus, PCR copies/mL [facility] Radha Marks See link below for PDF Lab [facility] virus, PCR ReportComment: Case Number: [facility] [id number] [facility] Specimen Performing Organization Address City/State/Zipcode Phone Number [facility] DEPARTMENT OF [address] [place] [address] PATHOLOGY AND GENOMIC MEDICINE [address] [address] [facility] * Syphilis total antibody (05/16/2019 7:18 PM CDT) Pathologist [facility] Syphilis total Non-reactiveComment: No Non-reactive [facility] antibody serological evidence of [facility] syphilis infection. HOSPITAL Specimen Blood Performing Organization Address City/State/Zipcode Phone Number [facility] DEPARTMENT OF [address] [place] [address] PATHOLOGY AND GENOMIC MEDICINE [address] * HIV Ag/Ab combination (05/16/2019 7:18 PM CDT) Pathologist [facility] HIV Ag/Ab Non-reactive Non-reactive [place] combination [facility] Specimen Blood Performing Organization Address City/State/Zipcode Phone Number [facility] DEPARTMENT OF [address] [place] [address] PATHOLOGY AND GENOMIC MEDICINE [address] * Parvovirus B19 antibody, IgG and IgM (05/16/2019 7:18 PM CDT) [facility] Parvovirus B19 6.31 (H) <=0.89 IV [facility] REF LAB IgG Comment: INTERPRETIVE [...] levels of specific IgM antibodies. Performed by [facility], [address] [place] [id number] [email or web address] Tom MD - Lab. Director Specimen Serum Performing Organization Address [facility] Phone Number [facility] [address] [place] [address] [facility] REF LAB [address] [place] [address] * Partial thromboplastin time, activated (05/16/2019 7:18 PM CDT) Only the most recent of 2 results within the time period is included. [facility] PTT 27.6 23.0 - 36.0 sec [place] Comment: [facility] PTT therapeutic range for HOSPITAL unfractionated heparin is 61.0-112.0 seconds which corresponds to Anti-Xa 0.3-0.7 U/ml. Specimen Blood Performing Organization Address [facility] Phone Number [facility] DEPARTMENT OF [address] [place] [address] PATHOLOGY AND [facility] MEDICINE [address] * Fibrinogen (05/16/2019 7:18 PM CDT) [facility] Fibrinogen 355 200 - 450 mg/dL [facility] Specimen Blood Performing Organization Address [facility] Phone Number [facility] DEPARTMENT OF [address] [place] [address] PATHOLOGY AND GENOMIC MEDICINE [address] * Reticulocyte count (05/16/2019 7:18 PM CDT) [facility] Retic %, auto 2.1 0.5 - 2.1 % [facility] Retic absolute, 0.0550 0.0220 - 0.1260 m/uL [facility] auto [facility] Specimen Blood Performing Organization Address City/State/Zipcode Phone Number [facility] DEPARTMENT OF [address] [place] [address] PATHOLOGY AND GENOMIC MEDICINE [address] * Urinalysis screen and microscopy, with reflex to culture (05/16/2019 5:30 PM CDT) Specimen site Clean catch [facility] Color, UA Straw [facility] Appearance, UA Clear [facility] Specific 1.013 1.001 - 1.035 [place] gravity, [facility] pH, UA 6.0 5.0 - 8.5 [facility] Protein, UA Negative Negative [facility] Glucose, UA Negative Negative [facility] Ketones, UA Negative Negative [facility] Bilirubin, UA Negative Negative [facility] Blood, UA Negative Negative [facility] Nitrite, UA Negative Negative [facility] Urobilinogen, <2.0 <2.0 [facility] Leukocyte Negative Negative [place] esterase, [facility] Epithelial <1 /HPF [place] cells, [facility] WBC, UA <1 0 - 1 /HPF [facility] RBC, UA <1 0 - 5 /HPF [facility] Bacteria, UA None seen None seen [facility] Yeast, UA None seen [facility] Yeast with None seen [place] pseudohyphaeMICHAEL E. DEBA[facility] [facility] Specimen Urine Performing Organization Address City/[facility]/Zipcode Phone Number [facility] [address] [address] PATHOLOGY AND GENOMIC MEDICINE [address] * Urine culture (05/16/2019 5:30 PM CDT) Pathologist [facility] Urine culture SEE COMMENTComment: [place] Bacteriuria screen negative. [facility] Specimen Performing Organization Address City/State/Zipcode Phone Number [facility] [address] [address] PATHOLOGY AND GENOMIC MEDICINE [address] * Respiratory pathogen panel (05/16/2019 5:23 PM CDT) Pathologist [facility] Emergency Department Respiratory Negative for all pathogens [place] pathogen panel tested: [facility] Negative for Adenovirus [facility] Negative for Coronavirus HKU1 Negative for [...] Nares - Not specified Performing Organization Address [facility] Phone Number [facility] [address] * Blood culture, aerobic & anaerobic (05/16/2019 3:33 PM CDT) Only the most recent of 2 results within the time period is included. [facility] Blood culture No growth after 5 days of [place] isolate incubation. [facility] Comment: HOSPITAL Specimen Information Specimen Source: Blood Specimen Site: Forearm, right Specimen Blood - Forearm, right Performing Organization Address [facility] Phone Number [facility] [address] * Prothrombin time with INR (05/16/2019 3:25 PM CDT) [facility] Prothrombin 13.8 11.5 - 14.5 sec [facility] INR 1.1 [place] Comment: [facility] The International Normalized HOSPITAL Ratio (INR) is a therapeutic monitoring tool for patients who are stable on oral anticoagulant therapy. An INR of 2.0-3.0 is suggested for deep vein thrombosis/pulmonary embolism. Specimen Blood Performing Organization Address [facility] Phone Number [facility] [place] [address] PATH[address]Y [address] * Comprehensive metabolic panel (05/16/2019 3:25 PM CDT) Sodium 143 135 - 148 mEq/L [facility] Potassium 4.3 3.5 - 5.0 mEq/L [facility] Chloride 108 98 - 112 mEq/L [facility] CO2 22 (L) 24 - 31 mEq/L [facility] Anion gap 13@ANIO 7 - 15 mEq/L [facility] BUN 29 (H) 8 - 23 mg/dL [facility] Creatinine 1.74 (H) 0.70 - 1.20 mg/dL [facility] Glucose 114 (H) 65 - 99 mg/dL [facility] Calcium 8.7 (L) 8.8 - 10.2 mg/dL [facility] Protein 6.1 (L) 6.3 - 8.3 g/dL [place] Comment: [facility] 4.6-7.0 g/dL 1 week 4.4-7.6 g/dL 7 months-1year 5.1-7.3 g/dL 1-2 years5.6-7 .5 g/dL >3 years6.0-8 .0 g/dL 18-150 6.3-8.3 g/dL Albumin 3.5 3.5 - 5.0 g/dL [facility] A/G ratio 1.3 0.7 - 3.8 [facility] Alkaline 64 40 - 129 U/L [place] phosphatase [facility] AST 16 10 - 50 U/L [facility] ALT 14 5 - 50 U/L [facility] Total bilirubin 0.6 0.0 - 1.2 mg/dL [facility] Specimen Plasma specimen Performing Organization Address City/State/Zipcode Phone Number [facility]PART[facility] OF [address] [place] [address] PATHOLOGY AND GENOMIC MEDICINE [facility] [address] [place] [address] HOSPITAL * XR Chest 1 Vw Portable [...] the patient. IMPRESSION: No acute cardiopulmonary findings. [facility]-[id number] Procedure Note Hm Interface, Radiology Results Incoming [...] the patient. IMPRESSION: No acute cardiopulmonary findings. [facility]-[id number] Performing Organization Address City/State/Zipcode Phone Number [facility] [address] [place] [address] after 07/12/2018 Insurance Type Payer Benefit Subscriber ID Effective Phone Address Plan / Dates Group Medicare MEDICARE MEDICARE xxxxxxxxxxx 2007-P [place], PART A AND resent [place] B Commercial COLONIAL COLONIAL xxxxxxxxx 2012-P L[facility] Advance Directives Patient has advance care planning documents on file. For more information, teodoro luevano contact: Rohan Martinez [address] [place] [address]
[2019-07-13] MEDS ORDERED: SODIUM CHLORIDE 0.9% 250ML 250 ML ONE (21:21)
[2019-07-13] MEDS ORDERED: TYLENOL WITH C1 EACH PO (22:39)
[2019-07-13] MEDS ORDERED: FERROUS SULFAT325 MG (22:39)
[2019-07-13] MEDS ORDERED: METOPROLOL TART25 MG PO (22:39)
[2019-07-13] MEDS ORDERED: NORVASC5 MG PO (22:39)
[2019-07-13] MEDS ORDERED: LYRICA50 MG (22:39)
[2019-07-13] MEDS ORDERED: FENOFIBRATE145 MG (22:39)
== END 2019-07-13 19:30 | disposition home or self-care (01) ==
LOC: ER 15:24 → IMCU 18:52 → UNDOADMIN 18:52 → ER 19:30
DX: D69.6 Thrombocytopenia, unspecified (principal); D64.9 Anemia, unspecified; I10 Essential (primary) hypertension; N18.9 Chronic kidney disease, unspecified; I25.2 Old myocardial infarction; Z95.5 Presence of coronary angioplasty implant and graft; Z85.6 Personal history of leukemia
CPT/HCPCS: 99282; J7050

== ENCOUNTER 2019-07-13 19:19 | Inpatient (IN) | payer MEDICARE, OTHER ==
[~2019-07-13] VITALS: Ht 175.3 cm; Wt 86.2 kg
--- OUTSIDE RECORDS SUMMARY | 2019-07-13 19:24 | XMS REPORT | Clinical Summary ---
Author Author [facility]al [facility] Organization [facility] [facility] Address Unknown Phone Unavailable Care Team Providers Care Jigger Machine Operator Name Role Phone Dejuan Keith MD PCP Allergies Comments Active Allergy Reactions Severity Noted Date Cephalexin 05/16/2019 Allergic to oral only not topical. Iodine Hives, Rash Low 05/16/2019 Chlordiazepoxide Hcl 05/16/2019 [place] 05/16/2019 Penicillins 05/16/2019 Medications End Date Status [...] MMODE SPECTRAL 12:02 PM CDT COLOR DOPPLER ([id number]) MANUAL DIFFERENTIAL Routine 05/20/2019 4:43 AM CDT [...] results within the time period is included. [facility] Estimated GFR 49 (A) mL/min/1.73 m2 [place] Comment: [facility] rpretation G1 >=90 Normal or high G2 60-89Mildly decreased R6t70-40 Mildly to moderately decreased S3e40-38 Moderately to severely decreased G4 15-29Severely decreased G5 <15Kidney failure The eGFR was calculated using the Chronic Kidney Disease Epidemiology Collaboration (CKD-EPI) equation. Interpretation is based on recommendations of the National Kidney Foundation-Kidney Disease Outcomes Quality Initiative (NKF-KDOQI) published in 2014. Specimen Plasma specimen Performing Organization Address City/[facility] Phone Number [facility] [place] [address] PATHOLOGY AND GENOMIC MEDICINE [address] * Manual differential (05/22/2019 4:00 AM CDT) Only the most recent of 6 results within the time period is included. [facility] Manual PERFORMED [place] differential [facility] Neutrophils 5.0 (L) 39.0 - 69.0 % [facility] Lymphocytes 82.0 (H) 25.0 - 45.0 % [facility] Monocytes 10.0 0.0 - 10.0 % [facility] Eosinophils 1.0 0.0 - 5.0 % [facility] Basophils 0.0 0.0 - 1.0 % [facility] Metamyelocytes 0 % [facility] Myelocytes 2 % [facility] Promyelocytes 0 % [facility] Platelet slide Mkd decreased (A) [facility] Anisocytosis Moderate [facility] Ovalocytes Moderate [facility] Specimen Performing Organization Address City/[facility] Cent[facility] Phone Number [facility] [place] [address] PATHOLOGY AND GENOMIC MEDICINE [address] * CBC with platelet and differential (05/22/2019 4:00 AM CDT) Only the most recent of 6 results within the time period is included. [facility] WBC 0.88 (LL) 4.50 - 11.00 k/uL [place] Comment: [facility] Results called to and read HOSPITAL back by RICKY Zurita OCA/WT14 (name/location) at 05/22/201905:50 (date/time) by 465. RBC 2.42 (L) 4.40 - 6.00 m/uL [facility] HGB 7.3 (L) 14.0 - 18.0 g/dL [facility] HCT 23.6 (L) 41.0 - 51.0 % [facility] MCV 97.5 82.0 - 100.0 fL [facility] MCH 30.2 27.0 - 34.0 pg [facility] MCHC 30.9 (L) 31.0 - 37.0 g/dL [facility] RDW - SD 58.9 (H) 37.0 - 55.0 fL [facility] MPV 10.5 8.8 - 13.2 fL [facility] Platelet count 31 (L) 150 - 400 k/uL [facility] Nucleated RBC 0.00 /100 WBC [facility] Neutrophils 5.0 (L) 39.0 - 69.0 % [facility] Lymphocytes 82.0 (H) 25.0 - 45.0 % [facility] Monocytes 10.0 0.0 - 10.0 % [facility] Eosinophils 1.0 0.0 - 5.0 % [facility] Basophils 0.0 0.0 - 1.0 % [facility] Specimen Blood Performing Organization Address City/[facility] Cent[facility]ode Phone Number [facility] [place] [address] PATHOLOGY AND [facility] MEDICINE [address] * Phosphorus level (05/22/2019 4:00 AM CDT) Only the most recent of 7 results within the time period is included. Phosphorus 3.6 2.4 - 4.5 mg/dL [facility] Specimen Plasma specimen Performing Organization Address City/[facility]/Zipcode Phone Number [facility] [place] [address] PATHOLOGY AND GENOMIC MEDICINE [address] * Magnesium level (05/22/2019 4:00 AM CDT) Only the most recent of 7 results within the time period is included. Magnesium 1.8 1.6 - 2.4 mg/dL [facility] Specimen Plasma specimen Performing Organization Address City/[facility] [address] PATHOLOGY AND GENOMIC MEDICINE [address] * Basic metabolic panel (05/22/2019 4:00 AM CDT) Only the most recent of 6 results within the time period is included. Pathologist [facility] Sodium 142 135 - 148 mEq/L [facility] Potassium 4.0 3.5 - 5.0 mEq/L [facility] Chloride 109 98 - 112 mEq/L [facility] CO2 22 (L) 24 - 31 mEq/L [facility] Anion gap 11@ANIO 7 - 15 mEq/L [facility] BUN 20 8 - 23 mg/dL [facility] Creatinine 1.38 (H) 0.70 - 1.20 mg/dL [facility] Glucose 98 65 - 99 mg/dL [facility] Calcium 8.6 (L) 8.8 - 10.2 mg/dL [facility] Specimen Plasma specimen Performing Organization Address City/[facility] [place] [address] PATHOLOGY AND [facility] MEDICINE [address] * Transfuse platelets (05/21/2019 5:54 PM CDT) Only the most recent of 4 results within the time period is included. * ECG 12 lead (05/20/2019 4:48 PM CDT) Only the most recent of 2 results within the time period is included. Ventricular 68 [facility] MUSE rate Atrial rate 68 [facility] MUSE W[place] interval 164 [facility] MUSE QRSD interval 88 [...] At Performing Organization Address City/State/Zipcode Phone Number [facility] MUSE [address] [place] [address] * Echocardiogram complete w contrast and 3D if needed (05/20/2019 12:02 PM CDT) Specimen Narrative Performed At TOMMYNADIA Castro.Name:DEJUAN BROWN.ID:[id number] .Date: 05/20/2019 Exam Time: 11:26:00 AM Study Type:Routine EchoHeight:69in Weight:188.61lbBSA: 2.02 m2 DOBAge:1940,79YSex: MALE Sonogrphr: Kristy Study Status:Final Echo Event ID:[id number] Order ID:[id number] Procedures:2D Echo, Colorflow Doppler, Intravenous Lumason Contrast [...] PA systolic pressure. MEASUREMENTS: 2D Parasternal [place] LVOT 2 cmLA Ds4.4 cm LVIDd4.6 cmIndex2.3 cm/m Ao Rtd 3.8 cm Index1.9 cm/m LVIDs2.8 cm LV Hgct110.6 g(122-174) LV%fs 39.4 % LVM Wvzxu175.8 g/m2 IVSd 1.3 cmRWT0.5 LVPWd1.1 cm LA Sng Plane LA Area 21.2 cm2(8.8-23.4) LA Vol60.3 ml Index29.8 ml/m LA LngAx 6.3 cm RA Sng Plane RA Area 19.8 cm2(8.3-19.5) RA Vol56.4 ml Index27.9 ml/m RA LngAx 5.8 cm Signed 05/21/2019 05:05 PM Litzy Mackay M.D. Procedure Note Interface, Radiology Results In - 05/21/2019 5:05 PM CDT Pat.Name: DEJUAN BROWN Gloria.ID: [id number] .Date: 05/20/2019 Exam Time: 11:26:00 AM Study Type:Routine Echo Height: 69in Weight: 188.61lb BSA: 2.02 m2 Age: 5 1940,79Y Sex: MALE Sonogrphr: Kristy Study Status:Final Echo Event ID:[id number] Order ID: [id number] Procedures:2D Echo, Colorflow Doppler, Intravenous Lumason Contrast [...] PA systolic pressure. MEASUREMENTS: 2D Parasternal [place] LVOT 2 cm LA Ds 4.4 cm [...] PM Litzy Mackay M.D. Performing Organization Address City/[facility]/Zipcode Phone Number [facility] [address] [place] [address] * Surgical pathology request (05/19/2019 4:39 PM CDT) [facility] DEPARTMENT OF PATHOLOGY AND GENOMIC MEDICINE Surgical See link below for PDF Lab [facility] DEPARTMENT pathology Report OF PATHOLOGY report AND GENOMIC MEDICINE Result status This is Final Report for [facility] DEPARTMENT [id number] OF PATHOLOGY AND GENOMIC MEDICINE Specimen Performing Organization Address City/State/Zipcode Phone Number [facility] DEPARTMENT OF [address] [place] [address] PATHOLOGY AND GENOMIC MEDICINE * Bone marrow tray (05/19/2019 2:44 PM CDT) Bone marrow Done [facility] Specimen Fluid Performing Organization Address City/State/Zipcode Phone Number [facility] DEPARTMENT OF [address] [place] [address] PATHOLOGY AND GENOMIC MEDICINE [facility] [address] * Miscellaneous referral test (05/19/2019 2:44 PM CDT) Misc test name FLT3,CEPBA,NPM1,IDH2 SHOWN ABOVE Misc test see note SHOWN ABOVE result Comment: EBPA Mutation Detection natue test code 8003663 CEBPA Mutation Detection Results Not Detected A [...] (Jovan DAMON, et al. 2010. J Clin Oncol:[id number]). METHODOLOGY: CEBPA mutations in white blood cells [...] malignancy. Test developed and characteristics determined by [employer]. See Compliance Statement B: [employer] ------ ------ ------ -- Order comments CEBPA Mutation Detection ONE FULL LAVENDER BONE MARROW IDH1 and IDH2 Mutation Analysis, exon 4 natue test code [id number] IDH1 and IDH2 Mutation Results Not Detected [...] disease. Test developed and characteristics determined by [employer]. See Compliance Statement B: [employer] - - - - - - - - - - - - - - - - - - - - - - - - - - - - - - IDH 1-2 Source Bone Marrow ------ ------ ------ -- Order comments IDH1 and IDH2 Mutation Analysis, exon 4 ONE FULL LAVENDER BONE MARROW NPM1 Mutation Detection by RT-PCR, Quantitative [facility] test code [id number] NPM1 Quantitative, Source Bone Marrow - - [...] 05;374(5):422-33. Test developed and characteristics determined by [employer]. See Compliance Statement B: [employer] - - - - - - - - - - - - - - - - - - - - - - - - - - - - - - NPM1 Quantitative, Ratio 0.0000 ------ ------ ------ -- Order comments NPM1 Mutation Detection by RT-PCR, Quantitative ONE FULL LAVENDER BONE MARROW FLT3 ITD and TKD Mutation Detection natue test code 1609487 FLT3 Source Bone Marrow - - - [...] methodology. Test developed and characteristics determined by [facility]. See Compliance Statement B: [employer] ------ ------ ------ -- Order comments FLT3 ITD and TKD Mutation Detection ONE FULL LAVENDER BONE MARROW Test performed by: [facility] [address] [place], [place] Specimen Narrative Performed At BONE MARROW [facility] DEPARTMENT OF FLT3, NPM1, CEBPA, IDH2 PCR PATHOLOGY AND ONLY ONE FULL [facility] GENOMIC MEDICINE Performing Organization Address City/State/Zipcode Phone Number [facility] DEPARTMENT OF [address] [place] [address] PATHOLOGY AND GENOMIC MEDICINE SHOWN ABOVE * Flow cytometry evaluation (05/19/2019 2:44 PM CDT) Only the most recent of 2 results within the time period is included. [facility] Flow cytometry See link below for PDF Lab [place] evaluation Report [facility] Specimen Blood Narrative Performed At Performing Organization Address City/State/Zipcode Phone Number [facility] DEPARTMENT OF [address] [place] [address] PATHOLOGY AND GENOMIC MEDICINE [facility] * 54 gene myeloid mutation test (05/19/2019 2:44 PM CDT) Pathologist [facility] Interpretation VARIANT(S) DETECTED: [place] No Mutations Detected [place] Amplicon coverage:532 of HOSPITAL 538 amplicons (98.9%) had >100x coverage and were included in the analysis. 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 Cent[facility]ode Phone Number [facility] [place] [address] PATHOLOGY AND GENOMIC MEDICINE [address] * Prepare platelet pheresis, 1 Units, Irradiated, Leukoreduced (05/19/2019 5:25 AM CDT) Only the most recent of 2 results within the time period is included. Pathologist [facility] Product name Apheresis PLT, Leukored IRR #2 [facility] Unit number [id number] [facility] Product code [id number] [facility] Dispense status Transfused [facility] Blood [id number] [place] expiration date [facility] Blood type code 6200 [facility] Blood type A POSITIVE [facility] Specimen Blood Performing Organization Address City/[facility]/Zipcode Phone Number [facility] [place] [address] PATHOLOGY AND GENOMIC MEDICINE [address] * Type and screen (05/19/2019 5:25 AM CDT) Only the most recent of 2 results within the time period is included. ABO grouping A [facility] Rh type POS [facility] Antibody screen NEG [place] (gel) [facility] Specimen Performing Organization Address City/State/Zipcode Phone Number [facility] DEPARTMENT OF [address] [place] [address] PATHOLOGY AND GENOMIC MEDICINE [address] * Smear review (05/17/2019 5:25 AM CDT) Smear review Smear Reviewed [facility] Specimen Performing Organization Address City/[facility]/Zipcode Phone Number [facility] [place] [address] PATHOLOGY AND GENOMIC MEDICINE [address] * Lactic acid level, SEPSIS - Now and repeat 2x every 3 hours (05/17/2019 5:25 AM CDT) Only the most recent of 3 results within the time period is included. Pathologist [facility] Lactic acid 0.9 0.5 - 2.2 mmol/L [facility] Specimen Blood Performing Organization Address City/State/Zipcode Phone Number [facility] [place] [address] PATHOLOGY AND GENOMIC MEDICINE [address] * CBC hemogram (05/17/2019 5:25 AM CDT) [facility] WBC 0.70 (LL) 4.50 - 11.00 k/uL [place] Comment: [place] WBC results called to and read HOSPITAL back Geetha GARCIA/DACIA (name/location) at 05/17/201905:57 (date/time) by A. RBC 2.61 (L) 4.40 - 6.00 m/uL [facility] HGB 7.6 (L) 14.0 - 18.0 g/dL [facility] HCT 25.0 (L) 41.0 - 51.0 % [facility] MCV 95.8 82.0 - 100.0 fL [facility] MCH 29.1 27.0 - 34.0 pg [facility] MCHC 30.4 (L) 31.0 - 37.0 g/dL [facility] RDW - SD 53.5 37.0 - 55.0 fL [facility] MPV 11.1 8.8 - 13.2 fL [facility] Platelet count 16 (LL) 150 - 400 k/uL [place] Comment: [place] PLT results called to and read HOSPITAL back Geetha GARCIA/M7SW (name/location) at 05/17/201905:57 (date/time) by JENNIE. Nucleated RBC 0.00 /100 WBC [facility] Specimen Blood Performing Organization Address City/State/Zipcode Phone Number [facility] [place] [address] PATHOLOGY [facility]IC[facility] [address] * Thyroid stimulating hormone (05/17/2019 5:25 AM CDT) Pathologist [facility] TSH 2.25 0.27 - 4.20 uIU/mL [facility] Specimen Plasma specimen Performing Organization Address City/[facility]/Zipcode Phone Number [facility] [place] [address] PATHOLOG[facility] [address] * T4, free (05/17/2019 5:25 AM CDT) Pathologist [facility] T4, free 1.4 0.9 - 1.7 ng/dL [facility] Specimen Plasma specimen Performing Organization Address City/[facility]/Zipcode Phone Number [facility] [place] [address] PATHOLOGY [facility] [address] * Hemoglobin A1c (05/17/2019 5:25 AM CDT) [facility] Hemoglobin A1C 6.8 (H) 4.0 - 5.6 % [place] Comment: [place] HbA1c cutoffs for diagnosing HOSPITAL diabetes: 4.0% - 5.6%=normal 5.7% - 6.4%=increased risk for diabetes (prediabetes) >=6.5%=diabetes Goals for glycemic control (ADA 2016) < 7.0%Target for non adults with diabetes. More or less stringent targets may be appropriate for individual patients. <7.5% Target for Children and adolescents with type 1 diabetes. Specimen Blood Performing Organization Address City/[facility]/Zipcode Phone Number [facility] [place] [address] PATHOLOG[facility] [address] * Folate level (05/17/2019 5:25 AM CDT) Pathologist [facility] Folate 10.6 4.8 - 24.2 ng/mL [facility] Specimen Serum Performing Organization Address City/[facility]/Zipcode Phone Number [facility] DEPARTMENT OF [address] [place] [address] PATHOLOGY AND GENOMIC MEDICINE [address] * Vitamin B12 level (05/17/2019 5:25 AM CDT) Vitamin B12 234 211 - 946 pg/mL [place] Comment: [place] Significant overlap exists HOSPITAL between normal and deficiency states. However, most patients with deficiencies will have Serum B12 <200 pg/mL. Specimen Serum Performing Organization Address [facility] Centercode Phone Number [facility] DEPARTMENT OF [address] [place] [address] PATHOLOGY AND GENOMIC MEDICINE [address] * Lipid panel (05/17/2019 5:25 AM CDT) Cholesterol 141 <200 mg/dL [facility] Triglycerides 184 (H) <150 mg/dL [facility] HDL cholesterol 47 >40 mg/dL [facility] LDL cholesterol 66Comment: Result obtained by <100 mg/dL [place] direct LDL measurement [facility] Lipid panel SeeBelow [place] interpretation Comment: [place] Total Cholesterol HOSPITAL (mg/dL) <200 Desirable 200-239Borderline [...] specimen Performing Organization Address City/State/Zipcode Phone Number [facility] DEPARTMENT OF [address] [place] [address] PATHOLOGY AND GENOMIC MEDICINE [facility] [address] [place] [address] [facility] * US Renal (05/16/2019 9:00 PM CDT) Specimen Narrative Performed At EXAMINATION:US RENAL [facility] CLINICAL HISTORY:Renal failureacute (kidney injury) COMPARISON:None. TECHNIQUE:Ultrasound [...] is mild hydronephrosis. The bladder is unremarkable. [facility]-[id number] Procedure Note Interface, Radiology Results Incoming - [...] is mild hydronephrosis. The bladder is unremarkable. [facility]-[id number] Performing Organization Address City/[facility]/Zipcode Phone Number [address] [address] * Radha Marks Virus (EBV) by PCR (05/16/2019 8:13 PM CDT) Radha Marks Not-Detected Not-Detected [place] virus, PCR copies/mL [facility] Radha Marks See link below for PDF Lab [facility] virus, PCR ReportComment: Case Number: [facility] [id number] [facility] Specimen Performing Organization Address City/State/Zipcode Phone Number [facility] DEPARTMENT OF [address] [place] [address] PATHOLOGY AND GENOMIC MEDICINE [address] [address] [facility] * Syphilis total antibody (05/16/2019 7:18 PM CDT) Pathologist [facility] Syphilis total Non-reactiveComment: No Non-reactive [facility] antibody serological evidence of [place] syphilis infection. HOSPITAL Specimen Blood Performing Organization Address City/State/Zipcode Phone Number [facility] DEPARTMENT OF [address] [place] [address] PATHOLOGY AND GENOMIC MEDICINE [address] * HIV Ag/Ab combination (05/16/2019 7:18 PM CDT) Pathologist [facility] HIV Ag/Ab Non-reactive Non-reactive [place] combination [facility] Specimen Blood Performing Organization Address City/State/Zipcode Phone Number [facility] DEPARTMENT OF [address] [place] [address] PATHOLOGY AND GENOMIC MEDICINE [address] * Parvovirus B19 antibody, IgG and IgM (05/16/2019 7:18 PM CDT) [facility] Parvovirus B19 6.31 (H) <=0.89 IV [facility] IgG Comment: INTERPRETIVE INFORMATION: [...] levels of specific IgM antibodies. Performed by [employer], [address] [place] [id number] [email or web address], Buzz Tom MD - Lab. Director Specimen Serum Performing Organization Address [facility] Cent[facility]oks Phone Number [facility] [address] [place] [address] [facility] [address] [place] [address] * Partial thromboplastin time, activated (05/16/2019 7:18 PM CDT) Only the most recent of 2 results within the time period is included. [facility] PTT 27.6 23.0 - 36.0 sec [place] Comment: [place] PTT therapeutic range for HOSPITAL unfractionated heparin is 61.0-112.0 seconds which corresponds to Anti-Xa 0.3-0.7 U/ml. Specimen Blood Performing Organization Address [facility] Phone Number [facility] DEPARTMENT OF [address] [place] [address] PATHOLOGY [facility] [address] * Fibrinogen (05/16/2019 7:18 PM CDT) [facility] Fibrinogen 355 200 - 450 mg/dL [facility] Specimen Blood Performing Organization Address [facility] Cent[facility]ode Phone Number [facility] DEPARTMENT OF [address] [place] [address] PATHOLOGY AND GENOMIC MEDICINE [address] * Reticulocyte count (05/16/2019 7:18 PM CDT) [facility] Retic %, auto 2.1 0.5 - 2.1 % [facility] Retic absolute, 0.0550 0.0220 - 0.1260 m/uL [facility] auto [facility] Specimen Blood Performing Organization Address City/State/Zipcode Phone Number [facility] DEPARTMENT OF [address] [place] [address] PATHOLOGY AND GENOMIC MEDICINE [address] * Urinalysis screen and microscopy, with reflex to culture (05/16/2019 5:30 PM CDT) Specimen site Clean catch [facility] Color, UA Straw [facility] Appearance, UA Clear [facility] Specific 1.013 1.001 - 1.035 [place] gravity, [facility] pH, UA 6.0 5.0 - 8.5 [facility] Protein, UA Negative Negative [facility] Glucose, UA Negative Negative [facility] Ketones, UA Negative Negative [facility] Bilirubin, UA Negative Negative [facility] Blood, UA Negative Negative [facility] Nitrite, UA Negative Negative [facility] Urobilinogen, <2.0 <2.0 [facility] Leukocyte Negative Negative [place] esterase, [facility] Epithelial <1 /HPF [place] cells, [facility] WBC, UA <1 0 - 1 /HPF [facility] RBC, UA <1 0 - 5 /HPF [facility] Bacteria, UA None seen None seen [facility] Yeast, UA None seen [facility] Yeast with None seen [place] [facility] Specimen Urine Performing Organization Address City/[facility]/Zipcode Phone Number [facility] DEPARTMENT [address] [address] PATHOLOGY AND GENOMIC MEDICINE [address] * Urine culture (05/16/2019 5:30 PM CDT) Pathologist [facility] Urine culture SEE COMMENTComment: [place] Bacteriuria screen negative. [facility] Specimen Performing Organization Address City/State/Zipcode Phone Number [facility] [address] [address] PATHOLOGY AND GENOMIC MEDICINE [address] * Respiratory pathogen panel (05/16/2019 5:23 PM CDT) Pathologist [facility] Respiratory Negative for all pathogens [place] pathogen panel tested: [place] Negative for Adenovirus [facility] Negative for Coronavirus HKU1 Negative for [...] Nares - Not specified Performing Organization Address [facility] Phone Number [facility] [address] * Blood culture, aerobic & anaerobic (05/16/2019 3:33 PM CDT) Only the most recent of 2 results within the time period is included. [facility] Blood culture No growth after 5 days of [place] isolate incubation. [place] Comment: HOSPITAL Specimen Information Specimen Source: Blood Specimen Site: Forearm, right Specimen Blood - Forearm, right Performing Organization Address [facility]oks Phone Number [facility] [address] * Prothrombin time with INR (05/16/2019 3:25 PM CDT) [facility] Prothrombin 13.8 11.5 - 14.5 sec [facility] INR 1.1 [place] Comment: [place] The International Normalized HOSPITAL Ratio (INR) is a therapeutic monitoring tool for patients who are stable on oral anticoagulant therapy. An INR of 2.0-3.0 is suggested for deep vein thrombosis/pulmonary embolism. Specimen Blood Performing Organization Address [facility] Phone Number [facility] [place] [address] PATH[address] * Comprehensive metabolic panel (05/16/2019 3:25 PM CDT) Sodium 143 135 - 148 mEq/L [facility] Potassium 4.3 3.5 - 5.0 mEq/L [facility] Chloride 108 98 - 112 mEq/L [facility] CO2 22 (L) 24 - 31 mEq/L [facility] Anion gap 13@ANIO 7 - 15 mEq/L [facility] BUN 29 (H) 8 - 23 mg/dL [facility] Creatinine 1.74 (H) 0.70 - 1.20 mg/dL [facility] Glucose 114 (H) 65 - 99 mg/dL [facility] Calcium 8.7 (L) 8.8 - 10.2 mg/dL [facility] Protein 6.1 (L) 6.3 - 8.3 g/dL [place] Comment: [facility] 4.6-7.0 g/dL 1 week 4.4-7.6 g/dL 7 months-1year 5.1-7.3 g/dL 1-2 years5.6-7 .5 g/dL >3 years6.0-8 .0 g/dL 18-150 6.3-8.3 g/dL Albumin 3.5 3.5 - 5.0 g/dL [facility] A/G ratio 1.3 0.7 - 3.8 [facility] Alkaline 64 40 - 129 U/L [place] phosphatase [facility] AST 16 10 - 50 U/L [facility] ALT 14 5 - 50 U/L [facility] Total bilirubin 0.6 0.0 - 1.2 mg/dL [facility] Specimen Plasma specimen Performing Organization Address City/State/Zipcode Phone Number [facility] [address] [place] [address] PATHOLOGY AND GENOMIC MEDICINE [facility] [address] [place] [address] HOSPITAL * XR Chest 1 Vw Portable [...] the patient. IMPRESSION: No acute cardiopulmonary findings. [facility]-[id number] Procedure Note Hm Interface, Radiology Results Incoming [...] the patient. IMPRESSION: No acute cardiopulmonary findings. [facility]-[id number] Performing Organization Address City/State/Zipcode Phone Number [facility] [address] [place] [address] after 07/12/2018 Insurance Type Payer Benefit Subscriber ID Effective Phone Address Plan / Dates Group Medicare MEDICARE MEDICARE xxxxxxxxxxx 2007-P MADRIGAL, PART A AND resent [place] [employer] COLONIAL COLONIAL xxxxxxxxx 2012-P [facility] Advance Directives Patient has advance care planning documents on file. For more information, teodoro luevano contact: Rohan Martinez [address] [place] [address]
[2019-07-13] MEDS ORDERED: FAMOTIDINE 20 MG/2 ML VIAL IV ONE (20:00)
[2019-07-13] MEDS ORDERED: SODIUM CHLORIDE 0.9% 250ML 250 ML IV ONE (20:00)
[2019-07-13 20:21] LABS: LYMPHOCYTES # (AUTO) 1.2 (1.0-3.2); LYMPHOCYTES % 72.4 % (18.0-39.1); MEAN CORPUSCULAR HEMOGLOBIN 29.4 pg (28-32); MEAN CORPUSCULAR HGB CONC 30.8 g/dL (31-35); MEAN CORPUSCULAR VOLUME 95.5 fL (81-99); MONOCYTES # (AUTO) 0.1 (0.2-0.8); MONOCYTES % 6.7 % (4.4-11.3); NEUTROPHILS # (AUTO) 0.3 (2.1-6.9); NEUTROPHILS % 17.2 % (38.7-80.0); RED BLOOD COUNT 1.77 x10e6/uL (4.3-5.7); RED CELL DISTRIBUTION WIDTH 18.6 % (11.7-14.4)
[2019-07-13 20:25] LABS: HEMATOCRIT 16.9 % (38.2-49.6); HEMOGLOBIN 5.2 g/dL (14.0-18.0); PLATELET COUNT 6 x10e3/uL (140-360)
--- NOTE | 2019-07-13 20:37 | NUR ---
PATIENT CAME FROM ER WAITING ROOM, HE IS A DIRECT ADMIT PATIENT DR ACKERMAN, HE CAME AWAKE ALERT ORIENTED, LOOKS PALE. WRITTEN ORDERS FROM DR ACKERMAN TO GIVE BLOOD AND PLATELET TONIGHT. INSERTED 2 IV LINE RIGHT UPPER ARM SIZE 20G AND LEFT UPPER ARM SIZE 22. AWAITING FOR BLOOD TO BE READY TO TRANSFUSE.
--- NOTE | 2019-07-13 20:42 | NUR ---
CALLED AND SPOKE WITH DR ACKERMAN ABOUT CRITICAL LAB RESULTS.
[2019-07-13 20:57] VITALS: BP 133/52
[2019-07-13 20:59] LABS: HYPOCHROMASIA MARKED; LYMPHOCYTES % (MANUAL) 72 % (19-48); MONOCYTES % (MANUAL) 6 % (3.4-9.0); NEUTROPHILS % (MANUAL) 16 % (40-74); PLATELET ESTIMATE MARKEDLY DECREASED; PLATELET MORPHOLOGY COMMENT NORMAL; RBC MORPHOLOGY COMMENT NORMAL
[2019-07-13] MEDS ORDERED: NORVASC5 MG PO (22:39)
[2019-07-13] MEDS ORDERED: LYRICA50 MG (22:39)
[2019-07-13] MEDS ORDERED: METOPROLOL TART25 MG PO (22:39)
[2019-07-13] MEDS ORDERED: FENOFIBRATE145 MG (22:39)
[2019-07-13] MEDS ORDERED: FERROUS SULFAT325 MG (22:39)
[2019-07-13] MEDS ORDERED: TYLENOL WITH C1 EACH PO (22:39)
[2019-07-13 22:47] VITALS: BP 133/52
[2019-07-13 22:58] VITALS: BP 133/52
[2019-07-13] MEDS ORDERED: FUROSEMIDE INJ 10 MG/ML 2 ML VIAL IV ONE (23:30)
[2019-07-14] VITALS (7 sets, daily range): BP systolic 109–139; BP diastolic 49–68
--- NOTE | 2019-07-14 01:47 | NUR ---
SECOND UNIT PRBC STARTED, PATIENT IS AWAKE, NO DISTRESS NOTED, NO ADVERSE REACTION NOTED, DENIED ANY DISCOMFORT. VITALS IN NORMAL RANGE, WILL CONTINUE TO MONITOR.
[2019-07-14] MEDS ORDERED: FUROSEMIDE INJ 10 MG/ML 2 ML VIAL IV ONE ×5 (03:48→13:30)
--- NOTE | 2019-07-14 06:01 | NUR ---
platelets transfusion is done, vitals checked, no adverse reaction noted.
[2019-07-14] MEDS ORDERED: HYDROCODONE/APAP 7.5MG-325MG 1 EA TAB PO PRN (08:45)
[2019-07-14 09:14] LABS: HEMATOCRIT 18.7 % (38.2-49.6); LYMPHOCYTES # (AUTO) 0.5 (1.0-3.2); LYMPHOCYTES % 45.2 % (18.0-39.1); MEAN CORPUSCULAR HEMOGLOBIN 29.9 pg (28-32); MEAN CORPUSCULAR HGB CONC 32.6 g/dL (31-35); MONOCYTES # (AUTO) 0.2 (0.2-0.8); MONOCYTES % 15.7 % (4.4-11.3); NEUTROPHILS # (AUTO) 0.3 (2.1-6.9); NEUTROPHILS % 27.8 % (38.7-80.0); RED BLOOD COUNT 2.04 x10e6/uL (4.3-5.7); RED CELL DISTRIBUTION WIDTH 16.8 % (11.7-14.4)
[2019-07-14 09:20] LABS: HEMOGLOBIN 6.1 g/dL (14.0-18.0)
--- NOTE | 2019-07-14 09:20 | NUR ---
Lab called and reported critical hgb of 6.1, platelets at 30k, WBC at 1.15. Marissa Freeman RN
[2019-07-14 09:21] LABS: MEAN CORPUSCULAR VOLUME 91.7 fL (81-99); PLATELET COUNT 30 x10e3/uL (140-360)
[2019-07-14] MEDS: MONTELUKAST SODIUM 10 MG TAB PO SCH (09:22)
[2019-07-14] MEDS: AMIODARONE HCL 200 MG TAB PO SCH (09:22)
[2019-07-14] MEDS: AMLODIPINE BESYLATE 5 MG TAB PO SCH (09:22)
[2019-07-14] MEDS: METOPROLOL TARTRATE 25 MG TAB PO SCH ×2 (09:30→17:15)
--- NOTE | 2019-07-14 09:30 | NUR ---
Reported critical labs WBC, HGB, HCT, and Platelets to Dr. Cristina Diaz, Received orders to transfuse 2 additional units of Packed red blood cells give each unit over 3 hours and to give Lasix 20mg IVP before each unit, and to do CBC, and BMP in the morning.
[2019-07-14 09:36] LABS: ANION GAP 10.4 mmol/L (8-16); CALCIUM 8.5 mg/dL (8.4-10.2); CREATININE, SERUM 1.52 mg/dL (0.72-1.25); POTASSIUM 4.4 mmol/L (3.5-5.1)
[2019-07-14] MEDS ORDERED: SODIUM CHLORIDE 0.9% 250ML 250 ML IV ONE ×2 (09:45→10:00)
[2019-07-14 10:43] LABS: BAND NEUTROPHILS % (MANUAL) 10 %; LYMPHOCYTES % (MANUAL) 48 % (19-48); MONOCYTES % (MANUAL) 12 % (3.4-9.0); NEUTROPHILS % (MANUAL) 30 % (40-74)
[2019-07-14 10:44] LABS: OVALOCYTES FEW; POIKILOCYTOSIS MODERATE; TEAR DROP CELLS FEW
[2019-07-14 10:45] LABS: ANISOCYTOSIS SLIGHT; PLATELET ESTIMATE MARKEDLY DECREASED; PLATELET MORPHOLOGY COMMENT NORMAL; RBC MORPHOLOGY COMMENT ABNORMAL
[2019-07-14] MEDS: PREGABALIN 50 MG CAP PO SCH (10:58)
--- NOTE | 2019-07-14 12:55 | NUR ---
Called cell of Dr. Cristina Muse, made aware patient patient c/o of itching at the iv site of blood transfusion, received orders, given 25mg iv Benadryl, x1 dose, and give 50cc of NS and continue blood transfusion.
[2019-07-14] MEDS ORDERED: DIPHENHYDRAMINE HCL INJ 50 MG/ML VIAL IV ONE (13:15)
--- NOTE | 2019-07-14 13:40 | NUR ---
Visit made by the Spiritual Care Department Pastoral Visitor, Liliane Stinson. PV provided pastoral presence, hospitality, and supportive listening. Pastoral Visitor informed pt/family of the scope of [employer] and availability. MARIA L MCGOWAN Merchandising Manager Spiritual Care Department O: [phone] Pager: [phone] ([phone] number calling from)
--- NOTE | 2019-07-14 14:05 | Consultation ---
DATE OF CONSULTATION: 07/14/2019 HISTORY OF PRESENT ILLNESS: Mr. Sykes is a 79-year-old white male, referred to me for evaluation of pancytopenia. The patient is known to me for MDS. 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 However, this was repeated again and was reported as still MDS. FAMILY HISTORY: Noncontributory. FAMILY HISTORY: Noncontributory. ALLERGIES: REPORTED NONE. MEDICATIONS: At this time, 1. Amiodarone. 2. Atenolol. 3. Fenofibrate. 4. Finasteride. 5. Hydrocodone. 6. Synthroid. 7. Lisinopril. 8. Montelukast. 9. Pravastatin. 10. Thiamine. 11. Omeprazole. REVIEW OF SYSTEMS: HEENT: Normal. CARDIAC: History of cardiac arrhythmias, history of hyperlipidemia. RESPIRATORY: History of bronchial asthma. GI: Multiple GI bleeds in the past. : Normal. MUSCULOSKELETAL: Normal. SKIN AND BREASTS: Normal. NEUROENDOCRINE: History of hypothyroidism. PHYSICAL EXAMINATION: GENERAL: A moderately-built male, very anemic. No palpable adenopathy. HEART: Within normal limits. LUNGS: Clear. ABDOMEN: Soft. RECTAL: Deferred. CENTRAL NERVOUS SYSTEM: Essentially normal. EXTREMITIES: Essentially normal. LABORATORY DATA: Hemoglobin of 5.2, hematocrit 16.9, white count 1630, and platelets of 6000. IMPRESSION: 1. Myelophthisic anemia. 2. Myelodysplastic syndrome. 3. Neutropenia. 4. Thrombocytopenia. 5. Hypertension. 6. Hyperlipidemia. 7. Cardiac arrhythmias. 8. History of bronchial asthma. 9. History of hypothyroidism. PLAN: Plan is to give him blood transfusion and platelet transfusion to keep the platelets above 15,000 and hemoglobin of 8 g. I will confine myself to Hematology. MD TIMOTHY Yang/TIMOTHY /[id number] cc: Harvey Keith MD
--- NOTE | 2019-07-14 19:00 | NUR ---
Handoff report to oncoming nurse, patient received 2 units of PRBC's, nightman nurse to complete the NS flush.
[2019-07-14] MEDS: LORATADINE 10 MG TAB PO SCH (20:20)
[2019-07-14] MEDS: FINASTERIDE 5 MG TAB PO SCH (20:20)
[2019-07-14] MEDS: PANTOPRAZOLE SOD 40 MG TABEC PO SCH (20:20)
[2019-07-15] VITALS (12 sets, daily range): BP systolic 111–142; BP diastolic 41–67
[2019-07-15] MEDS: LEVOTHYROXINE SODIUM 50 MCG TAB PO SCH (05:05)
[2019-07-15 05:15] LABS: HEMATOCRIT 25.1 % (38.2-49.6); HEMOGLOBIN 8.4 g/dL (14.0-18.0); LYMPHOCYTES # (AUTO) 0.8 (1.0-3.2); LYMPHOCYTES % 66.1 % (18.0-39.1); MEAN CORPUSCULAR HEMOGLOBIN 30.1 pg (28-32); MEAN CORPUSCULAR HGB CONC 33.5 g/dL (31-35); MONOCYTES # (AUTO) 0.1 (0.2-0.8); MONOCYTES % 8.7 % (4.4-11.3); NEUTROPHILS # (AUTO) 0.3 (2.1-6.9); NEUTROPHILS % 24.4 % (38.7-80.0); RED BLOOD COUNT 2.79 x10e6/uL (4.3-5.7); RED CELL DISTRIBUTION WIDTH 16.6 % (11.7-14.4)
[2019-07-15 05:24] LABS: PLATELET COUNT 28 x10e3/uL (140-360)
[2019-07-15 05:33] LABS: ANION GAP 14.1 mmol/L (8-16); CALCIUM 8.7 mg/dL (8.4-10.2); CREATININE, SERUM 1.67 mg/dL (0.72-1.25); POTASSIUM 4.1 mmol/L (3.5-5.1)
[2019-07-15] MEDS: MONTELUKAST SODIUM 10 MG TAB PO SCH (08:02)
[2019-07-15] MEDS: PREGABALIN 50 MG CAP PO SCH (08:02)
[2019-07-15] MEDS: AMIODARONE HCL 200 MG TAB PO SCH (08:03)
[2019-07-15] MEDS: AMLODIPINE BESYLATE 5 MG TAB PO SCH (08:04)
[2019-07-15] MEDS: METOPROLOL TARTRATE 25 MG TAB PO SCH ×2 (09:00→17:30)
[2019-07-15] MEDS ORDERED: SODIUM CHLORIDE 0.9% 250ML 250 ML IV ONE (10:25)
[2019-07-15 10:26] LABS: EOSINOPHILS % (MANUAL) 1 % (0-7); LYMPHOCYTES % (MANUAL) 75 % (19-48); METAMYELOCYTES % (MANUAL) 1 % (0-0); MONOCYTES % (MANUAL) 8 % (3.4-9.0); NEUTROPHILS % (MANUAL) 15 % (40-74); PLATELET ESTIMATE MARKEDLY DECREASED; PLATELET MORPHOLOGY COMMENT NORMAL
[2019-07-15 10:27] LABS: ANISOCYTOSIS SLIGHT; RBC MORPHOLOGY COMMENT NORMAL
--- NOTE | 2019-07-15 11:02 | NUR ---
EDUCATED ABOUT IMM, SIGNED, FILED IN CHART, WITH COPY LEFT WITH FAMILY AT BEDSIDE.
[2019-07-15 16:35] LABS: HEMATOCRIT 32.4 % (38.2-49.6); HEMOGLOBIN 10.9 g/dL (14.0-18.0); LYMPHOCYTES # (AUTO) 0.8 (1.0-3.2); LYMPHOCYTES % 67.2 % (18.0-39.1); MEAN CORPUSCULAR HEMOGLOBIN 30.8 pg (28-32); MEAN CORPUSCULAR HGB CONC 33.6 g/dL (31-35); MEAN CORPUSCULAR VOLUME 91.5 fL (81-99); MONOCYTES # (AUTO) 0.1 (0.2-0.8); MONOCYTES % 6.6 % (4.4-11.3); NEUTROPHILS # (AUTO) 0.3 (2.1-6.9); NEUTROPHILS % 25.4 % (38.7-80.0); RED BLOOD COUNT 3.54 x10e6/uL (4.3-5.7); RED CELL DISTRIBUTION WIDTH 16.4 % (11.7-14.4)
[2019-07-15 16:39] LABS: PLATELET COUNT 19 x10e3/uL (140-360)
[2019-07-15 19:35] LABS: LYMPHOCYTES % (MANUAL) 65 % (19-48); METAMYELOCYTES % (MANUAL) 1 % (0-0); MONOCYTES % (MANUAL) 7 % (3.4-9.0); MYELOCYTES % (MANUAL) 1 % (0-0); NEUTROPHILS % (MANUAL) 17 % (40-74); NUCLEATED RED BLOOD CELLS 1
[2019-07-15 19:36] LABS: ANISOCYTOSIS SLIGHT; HYPOCHROMASIA SLIGHT; PLATELET ESTIMATE MARKEDLY DECREASED; PLATELET MORPHOLOGY COMMENT NORMAL; POIKILOCYTOSIS SLIGHT; RBC MORPHOLOGY COMMENT NORMAL
[2019-07-15] MEDS: FINASTERIDE 5 MG TAB PO SCH (20:18)
[2019-07-15] MEDS: LORATADINE 10 MG TAB PO SCH (20:18)
[2019-07-15] MEDS: PANTOPRAZOLE SOD 40 MG TABEC PO SCH (20:18)
[2019-07-16 00:07] VITALS: BP 131/59
[2019-07-16 04:10] VITALS: BP 112/46
[2019-07-16 05:10] LABS: HEMATOCRIT 33.7 % (38.2-49.6); HEMOGLOBIN 10.8 g/dL (14.0-18.0); LYMPHOCYTES # (AUTO) 0.9 (1.0-3.2); LYMPHOCYTES % 60.4 % (18.0-39.1); MEAN CORPUSCULAR HEMOGLOBIN 29.8 pg (28-32); MEAN CORPUSCULAR VOLUME 93.1 fL (81-99); MONOCYTES # (AUTO) 0.1 (0.2-0.8); MONOCYTES % 6.9 % (4.4-11.3); NEUTROPHILS # (AUTO) 0.4 (2.1-6.9); NEUTROPHILS % 27.1 % (38.7-80.0); RED BLOOD COUNT 3.62 x10e6/uL (4.3-5.7); RED CELL DISTRIBUTION WIDTH 16.6 % (11.7-14.4)
[2019-07-16 05:27] LABS: PLATELET COUNT 21 x10e3/uL (140-360)
[2019-07-16] MEDS: LEVOTHYROXINE SODIUM 50 MCG TAB PO SCH (06:20)
[2019-07-16 07:28] LABS: LYMPHOCYTES % (MANUAL) 51 % (19-48); MONOCYTES % (MANUAL) 1 % (3.4-9.0); NEUTROPHILS % (MANUAL) 46 % (40-74)
[2019-07-16 07:29] LABS: ANISOCYTOSIS SLIGHT; PLATELET ESTIMATE MARKEDLY DECREASED; PLATELET MORPHOLOGY COMMENT NORMAL; POIKILOCYTOSIS SLIGHT
[2019-07-16 07:30] LABS: RBC MORPHOLOGY COMMENT ABNORMAL
[2019-07-16 07:32] VITALS: BP 112/46
[2019-07-16 08:00] VITALS: BP 131/61
[2019-07-16] MEDS: AMIODARONE HCL 200 MG TAB PO SCH (09:17)
[2019-07-16] MEDS: MONTELUKAST SODIUM 10 MG TAB PO SCH (09:17)
[2019-07-16] MEDS: METOPROLOL TARTRATE 25 MG TAB PO SCH (09:17)
[2019-07-16] MEDS: PREGABALIN 50 MG CAP PO SCH (09:17)
[2019-07-16] MEDS: AMLODIPINE BESYLATE 5 MG TAB PO SCH (09:17)
--- NOTE | 2019-07-16 09:52 | NUR ---
PATIENT DISCHARGED WITH MD SMITH INSTRUCTIONS. NO SCRIPTS PROVIDED. PT INSTRUCTED TO RESUME HOME MEDICATIONS. REVIEWED HOME MEDS. PT TO F/U WITH DR. ACKERMAN AND DR. POWELL NEXT WEEK. TINA VERBALIZED UNDERSTANDING OF APPT FOR NEXT WEEK. PATIENT VERBALIZED UNDERSTANDING OF DISCHARGED MEDICATIONS AND PLAN OF CARE. AM MEDS THAT PATIENT TOOK TODAY WERE DOCUMENTED ON PT DISCHARGE INSTRUCTIONS GIVEN TO PATIENT. PT LEFT VIA WHEELCHAIR TO PRIVATE AUTO WITH ALL BELONGINGS.
--- NOTE | 2019-07-16 10:08 | NUR ---
TINA STATED THAT PATIENT RECEIVED PNEUMOVACCINE LAST YEAR. 2018
--- NOTE | 2019-07-16 14:43 | Discharge Summary ---
DRAFTER TOPOGRAPHICAL: Dr. Urban Velazquez. PRIMARY CARE PHYSICIAN: Dr. Harvey Keith. FINAL DIAGNOSES: 1. Severe pancytopenia, status post recent chemotherapy. 2. Status post one Jumbo platelet transfusion and 3 units of packed red blood cells. 3. Symptomatic anemia associated with very severe low hemoglobin of 5. SUMMARY: A 79-year-old male with advanced MDS, received chemotherapy. The patient came in with severe hemoglobin, hematocrit, symptomatic anemia, increasing shortness of breath at rest and worsening with exertion. His hemoglobin and hematocrit were 5.2 and 16.9 respectively. Platelet count was 6000. WBC 1.6. The patient did receive platelet transfusion and also packed red blood cells. Today, the patient's lab work shown WBC is 1.4, hemoglobin 10.8, hematocrit 32.7, and platelets 21,000. The patient is stable. He will go home today. Resume home medication. He needs to follow up with Dr. Velazquez within a week. The patient is stable. Discharged home today. MD SUE Ramirez/TIMOTHY /[id number]
== END 2019-07-16 10:02 | disposition home or self-care (01) | DRG 810 ==
LOC: IMCU 19:19 → ICU 07-15 18:39
PROVIDERS: ADMIT Internal Medicine; ATTEND Internal Medicine
PROC: 30243N1 Transfusion of Nonautologous Red Blood Cells into Central Vein, Percutaneous Approach (ICD-10-PCS; 2019-07-13)
PROC: 30243R1 Transfusion of Nonautologous Platelets into Central Vein, Percutaneous Approach (ICD-10-PCS; principal; 2019-07-14)
DX: D61.810 Antineoplastic chemotherapy induced pancytopenia (principal); D46.9 Myelodysplastic syndrome, unspecified; D61.1 Drug-induced aplastic anemia; T45.1X5A Adverse effect of antineoplastic and immunosuppressive drugs, initial encounter; T50.905A Adverse effect of unspecified drugs, medicaments and biological substances, initial encounter; I48.0 Paroxysmal atrial fibrillation; Z79.01 Long term (current) use of anticoagulants; E78.5 Hyperlipidemia, unspecified; E03.9 Hypothyroidism, unspecified; N40.0 Benign prostatic hyperplasia without lower urinary tract symptoms
CPT/HCPCS: 36415; 80048; 85025; 86850; 86900; 86920; 96360; 99282; J1200; J1940; J7050; P9016; P9034

== ENCOUNTER 2019-07-25 22:44 | Inpatient (IN) | payer MEDICARE, OTHER ==
[~2019-07-25] VITALS: Ht 175.3 cm; Wt 87.1 kg
[~2019-07-25 22:44] MED LIST changes: +FENOFIBRATE145 MG; +FERROUS SULFAT325 MG; +LYRICA50 MG; +METOPROLOL TART25 MG PO; +NORVASC5 MG PO; +TYLENOL WITH C1 EACH PO
[2019-07-25] MEDS ORDERED: LEVOFLOXACIN 500MG/D5W 100ML 100 ML IV STA (22:49)
[2019-07-25] MEDS ORDERED: ACETAMINOPHEN 1000 MG/100 ML IV STA (22:49)
--- OUTSIDE RECORDS SUMMARY | 2019-07-25 22:49 | XMS REPORT | Clinical Summary ---
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 Iodine Hives, Rash Low 05/16/2019 Chlordiazepoxide Hcl 05/16/2019 Chance 05/16/2019 Penicillins 05/16/2019 Medications End Date Status [...] syndrome), high grade days. (HCC) 05/22/2019 Discontinued (Stop Taking at Discharge) atenolol (TENORMIN) 25 MG Take 25 mg by 0 tablet mouth daily. 05/22/2019 Discontinued (Stop Taking at Discharge) fenofibrate (TRICOR) 48 Take 48 mg by 0 MG tablet mouth nightly. 05/22/2019 Discontinued (Stop Taking at Discharge) finasteride (PROSCAR) 5 Take 5 mg by 0 mg tablet mouth nightly. 05/22/2019 Discontinued (Stop Taking at Discharge) acetaminophen-codeine Take 1 tablet 0 (TYLENOL WITH CODEINE #3) by mouth 300-30 mg per tablet every 6 (six) hours as needed for moderate pain. 05/17/2019 Discontinued aminocaproic acid Take 1 g by 0 (AMICAR) 500 mg tablet mouth 4 (four) times a day. 05/17/2019 Discontinued (Patient Reported) aspirin (ECOTRIN) 81 MG Take 81 mg [...] Oncology - Encounter 05/22/2019 05/16/2019 Travel after 07/24/2018 Social History Date Tobacco Use Types Packs/Day Years Used Quit: 05/16/1994 Former Smoker Drinks/Week oz/Week Comments Alcohol Use 15 years ago Not Currently Sex Assigned at Date Recorded Not on file Industry Job Start Date Occupation Not on file Not on file Not on file Travel End Travel History Travel Start No recent travel history available. Last Filed Vital Signs Reading Time Taken Comments Vital Sign 116/55 05/22/2019 11:57 AM CDT Blood Pressure 71 05/22/2019 11:57 AM CDT Pulse 36.3 C (97.4 F) 05/22/2019 11:57 AM CDT Temperature 16 05/22/2019 11:57 AM CDT Respiratory Rate 99% 05/22/2019 11:57 AM CDT Oxygen Saturation - - Inhaled Oxygen Concentration 86 kg (189 lb 9.6 oz) 05/16/2019 11:01 PM CDT Weight 175.3 cm (5' 9") 05/16/2019 7:17 PM CDT Height 28 05/16/2019 7:17 PM CDT Body Mass Index Plan of Treatment Health Maintenance Due Date [...] MMODE SPECTRAL 12:02 PM CDT COLOR DOPPLER ([id number]) MANUAL DIFFERENTIAL Routine 05/20/2019 4:43 AM CDT [...] PORTABLE STAT 05/16/2019 2:57 PM CDT after 07/24/2018 Results * Estimated GFR (05/22/2019 4:00 AM CDT) Only the most recent of 7 results within the time period is included. Pathologist [facility] Estimated GFR 49 (A) mL/min/1.73 m2 [place] Comment: [facility] rpretation G1 >=90 Normal or high G2 60-89Mildly decreased L9x76-93 Mildly to moderately decreased M6t18-92 Moderately to severely decreased G4 15-29Severely decreased G5 <15Kidney failure The eGFR was calculated using the Chronic Kidney Disease Epidemiology Collaboration (CKD-EPI) equation. Interpretation is based on recommendations of the National Kidney Foundation-Kidney Disease Outcomes Quality Initiative (NKF-KDOQI) published in 2014. Specimen Plasma specimen Performing Organization Address City/[facility] [place] [address] PATHOLOGY AND [facility] [address] * Manual differential (05/22/2019 4:00 AM CDT) Only the most recent of 6 results within the time period is included. Pathologist [facility] Manual PERFORMED [facility] Neutrophils 5.0 (L) 39.0 - 69.0 % [facility] Lymphocytes 82.0 (H) 25.0 - 45.0 % [facility] Monocytes 10.0 0.0 - 10.0 % [facility] Eosinophils 1.0 0.0 - 5.0 % [facility] Basophils 0.0 0.0 - 1.0 % [facility] Metamyelocytes 0 % [facility] Myelocytes 2 % [facility] Promyelocytes 0 % [facility] Platelet slide Mkd decreased (A) [facility] Anisocytosis Moderate [facility] Ovalocytes Moderate [facility] Specimen Performing Organization Address City/[facility] Phone Number [facility] [place] [address] PATHOLOGY AND GENOMIC MEDICINE [address] * CBC with platelet and differential (05/22/2019 4:00 AM CDT) Only the most recent of 6 results within the time period is included. WBC 0.88 (LL) 4.50 - 11.00 k/uL [place] Comment: [facility] Results called to and read HOSPITAL back by RICKY Zurita OCA/WT14 (name/location) at 05/22/201905:50 (date/time) by 465. RBC 2.42 (L) 4.40 - 6.00 m/uL [facility] HGB 7.3 (L) 14.0 - 18.0 g/dL [facility] HCT 23.6 (L) 41.0 - 51.0 % [facility] MCV 97.5 82.0 - 100.0 fL [facility] MCH 30.2 27.0 - 34.0 pg [facility] MCHC 30.9 (L) 31.0 - 37.0 g/dL [facility] RDW - SD 58.9 (H) 37.0 - 55.0 fL [facility] MPV 10.5 8.8 - 13.2 fL [facility] Platelet count 31 (L) 150 - 400 k/uL [facility] Nucleated RBC 0.00 /100 WBC [facility] Neutrophils 5.0 (L) 39.0 - 69.0 % [facility] Lymphocytes 82.0 (H) 25.0 - 45.0 % [facility] Monocytes 10.0 0.0 - 10.0 % [facility] Eosinophils 1.0 0.0 - 5.0 % [facility] Basophils 0.0 0.0 - 1.0 % [facility] Specimen Blood Performing Organization Address City/[facility] Hospitalcode Phone Number [facility] DEPARTMENT OF [address] [place] [address] PATHOLOGY AND [place] [address] HOSPITAL * Phosphorus level (05/22/2019 4:00 AM CDT) Only the most recent of 7 results within the time period is included. Phosphorus 3.6 2.4 - 4.5 mg/dL [facility] Specimen Plasma specimen Performing Organization Address City/[facility]/Zipcode Phone Number [facility] DEPARTMENT OF [address] [place] [address] PATHOLOGY AND GENOMIC MEDICINE [address] * Magnesium level (05/22/2019 4:00 AM CDT) Only the most recent of 7 results within the time period is included. Pathologist [facility] Magnesium 1.8 1.6 - 2.4 mg/dL [facility] Specimen Plasma specimen Performing Organization Address [facility] Phone Number [facility] [place] [address] PATHOLOGY AND [facility] [address] * Basic metabolic panel (05/22/2019 4:00 AM CDT) Only the most recent of 6 results within the time period is included. [facility] Sodium 142 135 - 148 mEq/L [facility] Potassium 4.0 3.5 - 5.0 mEq/L [facility] Chloride 109 98 - 112 mEq/L [facility] CO2 22 (L) 24 - 31 mEq/L [facility] Anion gap 11@ANIO 7 - 15 mEq/L [facility] BUN 20 8 - 23 mg/dL [facility] Creatinine 1.38 (H) 0.70 - 1.20 mg/dL [facility] Glucose 98 65 - 99 mg/dL [facility] Calcium 8.6 (L) 8.8 - 10.2 mg/dL [facility] Specimen Plasma specimen Performing Organization Address [facility] Phone Number [facility] [place] [address] PATHOLOGY AND [facility] [address] * Transfuse platelets (05/21/2019 5:54 PM CDT) Only the most recent of 3 results within the time period is included. * ECG 12 lead (05/20/2019 4:48 PM CDT) Only the most recent of 2 results within the time period is included. Ventricular 68 [facility]USE rate Atrial rate 68 [facility] NJ interval 164 [facility] QRSD interval 88 [facility] QT interval 438 [facility] QTC interval 465 [facility] P axis 1 61 [facility] MUSE QRS axis 1 42 [facility] MUSE T wave axis 80 [facility] MUSE EKG impression Normal sinus rhythm-Low [facility] voltage QRS-Septal infarct (cited on or before 16-MAY-2019)-Abnormal ECG-In automated comparison with ECG of 16-MAY-2019 17:44,-No significant change was found- Specimen Narrative Performed At Performing Organization Address City/State/Zipcode Phone Number [facility] MUSE [address] [place] [address] * Echocardiogram complete w contrast and 3D if needed (05/20/2019 12:02 PM CDT) Specimen Narrative Performed At DONNA Castro.Name:DEJUAN BROWN.ID:[id number] St.Date: 05/20/2019 Exam Time: 11:26:00 AM Study Type:Routine EchoHeight:69in Weight:188.61lbBSA: 2.02 m2 DOBAge:1940,79YSex: MALE Sonogrphr: Kristy Study Status:Final Echo Event ID:[id number] Order ID:[id number] Procedures:2D Echo, Colorflow Doppler, Intravenous Lumason Contrast [...] PA systolic pressure. MEASUREMENTS: 2D Parasternal [place] LVOT 2 cmLA Ds4.4 cm LVIDd4.6 cmIndex2.3 cm/m Ao Rtd 3.8 cm Index1.9 cm/m LVIDs2.8 cm LV Diha435.6 g(122-174) LV%fs 39.4 % LVM Qfrmc890.8 g/m2 IVSd 1.3 cmRWT0.5 LVPWd1.1 cm LA Sng Plane LA Area 21.2 cm2(8.8-23.4) LA Vol60.3 ml Index29.8 ml/m LA LngAx 6.3 cm RA Sng Plane RA Area 19.8 cm2(8.3-19.5) RA Vol56.4 ml Index27.9 ml/m RA LngAx 5.8 cm Signed 05/21/2019 05:05 PM Litzy Mackay M.D. Procedure Note Interface, Radiology Results In - 05/21/2019 5:05 PM CDT Pat.Name: DEJUAN BROWN Gloria.ID: [id number] .Date: 05/20/2019 Exam Time: 11:26:00 AM Study Type:Routine Echo Height: 69in Weight: 188.61lb BSA: 2.02 m2 Age: 5 1940,79Y Sex: MALE Sonogrphr: Kristy Study Status:Final Echo Event ID:[id number] Order ID: [id number] Procedures:2D Echo, Colorflow Doppler, Intravenous Lumason Contrast [...] PA systolic pressure. MEASUREMENTS: 2D Parasternal Long [place] LVOT 2 cm LA Ds 4.4 cm [...] PM Litzy Mackay M.D. Performing Organization Address City/[facility]code Phone Number [facility] [address] [place] [address] * Surgical pathology request (05/19/2019 4:39 PM CDT) [facility] DEPARTMENT OF PATHOLOGY AND GENOMIC MEDICINE Surgical See link below for PDF Lab [facility] DEPARTMENT pathology Report OF PATHOLOGY report AND GENOMIC MEDICINE Result status This is Final Report for [facility] DEPARTMENT [id number] OF PATHOLOGY AND GENOMIC MEDICINE Specimen Performing Organization Address City/[facility]/Zipcode Phone Number [facility] DEPARTMENT OF [address] [place] [address] PATHOLOGY AND GENOMIC MEDICINE * Bone marrow tray (05/19/2019 2:44 PM CDT) Bone marrow Done [facility] Specimen Fluid Performing Organization Address City/State/Zipcode Phone Number [facility] DEPARTMENT OF [address] [place] [address] [address] [facility] [address] [place] [address] [facility] * Miscellaneous referral test (05/19/2019 2:44 PM CDT) Misc test name FLT3,CEPBA,NPM1,IDH2 SHOWN ABOVE Misc test see note SHOWN ABOVE result Comment: EBPA Mutation Detection [facility] test code 1088850 CEBPA Mutation Detection Results Not Detected A [...] (Jovan DAMON, et al. 2010. J Clin Oncol:28,8034-2809). METHODOLOGY: CEBPA mutations in white blood cells [...] malignancy. Test developed and characteristics determined by [facility]. See Compliance Statement B: [employer]/CS ------ ------ ------ -- Order comments CEBPA Mutation Detection ONE FULL LAVENDER BONE MARROW IDH1 and IDH2 Mutation Analysis, exon 4 [employer] test code 6506285 IDH1 and IDH2 Mutation Results Not Detected [...] R132 (IDH1), R140 (IDH2) and R172 (IDH2). [place] sequencing is then performed to detect mutations. [...] disease. Test developed and characteristics determined by [employer]. See Compliance Statement B: [employer]/CS - - - - - - - - - - - - - - - - - - - - - - - - - - - - - - IDH 1-2 Source Bone Marrow ------ ------ ------ -- Order comments IDH1 and IDH2 Mutation Analysis, exon 4 ONE FULL LAVENDER BONE MARROW NPM1 Mutation Detection by RT-PCR, Quantitative [facility] test code 4472639 NPM1 Quantitative, Source Bone Marrow - - [...] 05;374(5):422-33. Test developed and characteristics determined by [facility]. See Compliance Statement B: [employer]/CS - - - - - - - - - - - - - - - - - - - - - - - - - - - - - - NPM1 Quantitative, Ratio 0.0000 ------ ------ ------ -- Order comments NPM1 Mutation Detection by RT-PCR, Quantitative ONE FULL LAVENDER BONE MARROW FLT3 ITD and TKD Mutation Detection [employer] test code 9278311 FLT3 Source Bone Marrow - - - [...] methodology. Test developed and characteristics determined by [facility]. See Compliance Statement B: [employer]/CS ------ ------ ------ -- Order comments FLT3 ITD and TKD Mutation Detection ONE FULL LAVENDER BONE MARROW Test performed by: [facility] [address] [place], [place] Specimen Narrative Performed At BONE MARROW [facility] DEPARTMENT OF FLT3, NPM1, CEBPA, IDH2 PCR PATHOLOGY AND ONLY ONE FULL LAVENDER GENOMIC MEDICINE Performing Organization Address City/State/Zipcode Phone Number [facility] DEPARTMENT OF [address] [place] [address] PATHOLOGY AND GENOMIC MEDICINE SHOWN ABOVE * Flow cytometry evaluation (05/19/2019 2:44 PM CDT) Only the most recent of 2 results within the time period is included. [facility] Flow cytometry See link below for PDF Lab [place] evaluation Report [facility] Specimen Blood Narrative Performed At Performing Organization Address City/[facility] Phone Number [facility] DEPARTMENT OF [address] [place] [address] PATHOLOGY AND GENOMIC MEDICINE [facility] * 54 gene myeloid mutation test (05/19/2019 2:44 PM CDT) Interpretation VARIANT(S) DETECTED: [place] No Mutations Detected [facility] Amplicon coverage:532 of HOSPITAL 538 amplicons (98.9%) had >100x coverage and were included in the analysis. 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 [facility] Product name Apheresis PLT, Leukored IRR #2 [facility] Unit number [id number] [facility] Product code [id number] [facility] Dispense status Transfused [facility] Blood [id number] [place] expiration date [facility] Blood type code 6200 [facility] Blood type A POSITIVE [facility] Specimen Blood Performing Organization Address City/[facility]/Zipcode Phone Number [facility] [place] [address] PATHOLOGY AND GENOMIC MEDICINE [address] * Type and screen (05/19/2019 5:25 AM CDT) Only the most recent of 2 results within the time period is included. Pathologist [facility] ABO grouping A [facility] Rh type POS [facility] Antibody screen NEG [place] (gel) [facility] Specimen Performing Organization Address City/State/Zipcode Phone Number [facility] DEPARTMENT OF [address] [place] [address] PATHOLOGY AND GENOMIC MEDICINE [address] * Smear review (05/17/2019 5:25 AM CDT) Smear review Smear Reviewed [facility] Specimen Performing Organization Address City/[facility]/Zipcode Phone Number [facility] DEPARTMENT OF [address] [place] [address] PATHOLOGY AND GENOMIC MEDICINE [address] * Lactic acid level, SEPSIS - Now and repeat 2x every 3 hours (05/17/2019 5:25 AM CDT) Only the most recent of 3 results within the time period is included. Pathologist [facility] Lactic acid 0.9 0.5 - 2.2 mmol/L [facility] Specimen Blood Performing Organization Address [facility] Phone Number [facility] DEPARTMENT OF [address] [place] [address] PATHOLOGY AND GENOMIC MEDICINE [address] * CBC hemogram (05/17/2019 5:25 AM CDT) WBC 0.70 (LL) 4.50 - 11.00 k/uL [place] Comment: [facility] WBC results called to and read HOSPITAL back byFRANKI GARCIA/DACIA (name/location) at 05/17/201905:57 (date/time) by A. RBC 2.61 (L) 4.40 - 6.00 m/uL [facility] HGB 7.6 (L) 14.0 - 18.0 g/dL [facility] HCT 25.0 (L) 41.0 - 51.0 % [facility] MCV 95.8 82.0 - 100.0 fL [facility] MCH 29.1 27.0 - 34.0 pg [facility] MCHC 30.4 (L) 31.0 - 37.0 g/dL [facility] RDW - SD 53.5 37.0 - 55.0 fL [facility] MPV 11.1 8.8 - 13.2 fL [facility] Platelet count 16 (LL) 150 - 400 k/uL [place] Comment: [place] PLT results called to and read HOSPITAL back byFRANKI GARCIA/DACIA (name/location) at 05/17/201905:57 (date/time) by MFNoel. Nucleated RBC 0.00 /100 WBC [facility] Specimen Blood Performing Organization Address City/State/Zipcode Phone Number [facility] [place] [address] PATH[facility]Y AND [facility] [address] * Thyroid stimulating hormone (05/17/2019 5:25 AM CDT) TSH 2.25 0.27 - 4.20 uIU/mL [facility] Specimen Plasma specimen Performing Organization Address [facility] Phone Number [facility] [place] [address] PATHOLOGY [facility] [address] * T4, free (05/17/2019 5:25 AM CDT) T4, free 1.4 0.9 - 1.7 ng/dL [facility] Specimen Plasma specimen Performing Organization Address [facility] Phone Number [facility] [place] [address] PATHOLOGY [facility] MEDICINE [address] * Hemoglobin A1c (05/17/2019 5:25 AM CDT) Hemoglobin A1C 6.8 (H) 4.0 - 5.6 % [place] Comment: [place] HbA1c cutoffs for diagnosing HOSPITAL diabetes: 4.0% - 5.6%=normal 5.7% - 6.4%=increased risk for diabetes (prediabetes) >=6.5%=diabetes Goals for glycemic control (ADA 2016) < 7.0%Target for non adults with diabetes. More or less stringent targets may be appropriate for individual patients. <7.5% Target for Children and adolescents with type 1 diabetes. Specimen Blood Performing Organization Address City/[facility]/Zipcode Phone Number [facility] [place] [address] PATH[facility]Y [facility] [address] * Folate level (05/17/2019 5:25 AM CDT) Folate 10.6 4.8 - 24.2 ng/mL [facility] Specimen Serum Performing Organization Address City/State/Zipcode Phone Number [facility] DEPARTMENT OF [address] [place] [address] PATHOLOGY AND GENOMIC MEDICINE [place] [facility] [address] [place] [address] HOSPITAL * Vitamin B12 level (05/17/2019 5:25 AM CDT) Vitamin B12 234 211 - 946 pg/mL [place] Comment: [place] Significant overlap exists HOSPITAL between normal and deficiency states. However, most patients with deficiencies will have Serum B12 <200 pg/mL. Specimen Serum Performing Organization Address City/[facility]/Zipcode Phone Number [facility] [place] [address] PATHOLOGY AND GENOMIC MEDICINE [place] [facility] [address] [place] [address] * Lipid panel (05/17/2019 5:25 AM CDT) [facility] Cholesterol 141 <200 mg/dL [facility] Triglycerides 184 (H) <150 mg/dL [facility] HDL cholesterol 47 >40 mg/dL [facility] LDL cholesterol 66Comment: Result obtained by <100 mg/dL [place] direct LDL measurement [facility] Lipid panel SeeBelow [place] interpretation Comment: [place] Total Cholesterol HOSPITAL (mg/dL) <200 Desirable 200-239Borderline [...] Performing Organization Address City/State/Zipcode Phone Number [facility] DEPARTMENT OF [address] [place] [address] [address] [facility] [address] [place] [address] HOSPITAL * US Renal (05/16/2019 9:00 PM CDT) Specimen Narrative Performed At EXAMINATION:[facility] CLINICAL HISTORY:Renal failureacute (kidney injury) [...] mild hydronephrosis. The bladder is unremarkable. [facility]-[id number] Procedure Note Interface, Radiology Results Incoming - [...] mild hydronephrosis. The bladder is unremarkable. [facility]-[id number] Performing Organization Address City/State/Zipcode Phone Number [facility] [address] [place] [address] * Radha Marks Virus (EBV) by PCR (05/16/2019 8:13 PM CDT) Radha Marks Not-Detected Not-Detected [place] virus, PCR copies/mL [facility] Radha Marks See link below for PDF Lab [facility] virus, PCR ReportComment: Case Number: [facility] [id number] HOSPITAL Specimen Performing Organization Address City/State/Zipcode Phone Number [facility] DEPARTMENT OF [address] [place] [address] PATHOLOGY AND GENOMIC MEDICINE [facility] [address] [place] [address] [facility] * Syphilis total antibody (05/16/2019 7:18 PM CDT) Pathologist [facility] Syphilis total Non-reactiveComment: No Non-reactive [place] antibody serological evidence of [facility] syphilis infection. HOSPITAL Specimen Blood Performing Organization Address City/State/Zipcode Phone Number [facility] [place] [address] PATH[facility] [address] * HIV Ag/Ab combination (05/16/2019 7:18 PM CDT) Pathologist [facility] HIV Ag/Ab Non-reactive Non-reactive [facility] Specimen Blood Performing Organization Address City/State/Zipcode Phone Number [facility] [place] [address] PATHOLOGY AND [facility] [address] * Parvovirus B19 antibody, IgG and IgM (05/16/2019 7:18 PM CDT) [facility] Parvovirus B19 6.31 (H) <=0.89 IV AR REF LAB IgG Comment: INTERPRETIVE INFORMATION: Parvovirus [...] levels of specific IgM antibodies. Performed by [facility], [address] [place] [id number] [email or web address], Buzz Tom MD - Lab. Director Specimen Serum Performing Organization Address [facility] Phone Number [facility] [address] [place] [address] [facility] REF LAB [address] [place] [id number] * Partial thromboplastin time, activated (05/16/2019 7:18 PM CDT) Only the most recent of 2 results within the time period is included. [facility] PTT 27.6 23.0 - 36.0 sec [place] Comment: [facility] PTT therapeutic range for HOSPITAL unfractionated heparin is 61.0-112.0 seconds which corresponds to Anti-Xa 0.3-0.7 U/ml. Specimen Blood Performing Organization Address [facility] Phone Number [facility] DEPARTMENT OF [address] [place] [address] PATHOLOGY AND [facility] [address] * Fibrinogen (05/16/2019 7:18 PM CDT) [facility] Fibrinogen 355 200 - 450 mg/dL [facility] Specimen Blood Performing Organization Address [facility]/Zipcode Phone Number [facility] DEPARTMENT OF [address] [place] [address] PATHOLOGY AND [facility] [address] * Reticulocyte count (05/16/2019 7:18 PM CDT) [facility] Retic %, auto 2.1 0.5 - 2.1 % [facility] Retic absolute, 0.0550 0.0220 - 0.1260 m/uL [place] auto [facility] Specimen Blood Performing Organization Address City/[facility]/Zipcode Phone Number [facility] [place] [address] PATHOLOGY AND GENOMIC MEDICINE [address] * Urinalysis screen and microscopy, with reflex to culture (05/16/2019 5:30 PM CDT) Specimen site Clean catch [facility] Color, UA Straw [facility] Appearance, UA Clear [facility] Specific 1.013 1.001 - 1.035 [place] gravity, [facility] pH, UA 6.0 5.0 - 8.5 [facility] Protein, UA Negative Negative [facility] Glucose, UA Negative Negative [facility] Ketones, UA Negative Negative [facility] Bilirubin, UA Negative Negative [facility] Blood, UA Negative Negative [facility] Nitrite, UA Negative Negative [facility] Urobilinogen, <2.0 <2.0 [facility] Leukocyte Negative Negative [place] [facility] Epithelial <1 /HPF [place] cells, [facility] WBC, UA <1 0 - 1 /HPF [facility] RBC, UA <1 0 - 5 /HPF [facility] Bacteria, UA None seen None seen [facility] Yeast, UA None seen [facility] Yeast with None seen [place] [facility] Specimen Urine Performing Organization Address City/[facility] Phone Number [facility] [place] [address] PATHOLOGY AND GENOMIC MEDICINE [address] * Urine culture (05/16/2019 5:30 PM CDT) [facility] Urine culture SEE COMMENTComment: [place] Bacteriuria screen negative. [facility] Specimen Performing Organization Address City/[facility]/Zipcode Phone Number [facility] [place] [address] PATHOLOGY AND GENOMIC MEDICINE [address] * Respiratory pathogen panel (05/16/2019 5:23 PM CDT) [facility] Respiratory Negative for all pathogens [place] pathogen panel tested: [facility] Negative for Adenovirus [facility] Negative for Coronavirus HKU1 Negative for [...] Nares - Not specified Performing Organization Address [facility] Phone Number [facility] DEPARTMENT [address] * Blood culture, aerobic & anaerobic (05/16/2019 3:33 PM CDT) Only the most recent of 2 results within the time period is included. [facility] Blood culture No growth after 5 days of [place] isolate incubation. [facility] Comment: HOSPITAL Specimen Information Specimen Source: Blood Specimen Site: Forearm, right Specimen Blood - Forearm, right Performing Organization Address [facility] Phone Number [facility] DEPARTMENT [address] * Prothrombin time with INR (05/16/2019 3:25 PM CDT) [facility] Prothrombin 13.8 11.5 - 14.5 sec [facility] INR 1.1 [place] Comment: [facility] The International Normalized HOSPITAL Ratio (INR) is a therapeutic monitoring tool for patients who are stable on oral anticoagulant therapy. An INR of 2.0-3.0 is suggested for deep vein thrombosis/pulmonary embolism. Specimen Blood Performing Organization Address [facility] Phone Number [facility] [place] [address] PATHOLOGY AND GENOMIC MEDICINE [place] [facility] [address] * Comprehensive metabolic panel (05/16/2019 3:25 PM CDT) Sodium 143 135 - 148 mEq/L [facility] Potassium 4.3 3.5 - 5.0 mEq/L [facility] Chloride 108 98 - 112 mEq/L [facility] CO2 22 (L) 24 - 31 mEq/L [facility] Anion gap 13@ANIO 7 - 15 mEq/L [facility] BUN 29 (H) 8 - 23 mg/dL [facility] Creatinine 1.74 (H) 0.70 - 1.20 mg/dL [facility] Glucose 114 (H) 65 - 99 mg/dL [facility] Calcium 8.7 (L) 8.8 - 10.2 mg/dL [facility] Protein 6.1 (L) 6.3 - 8.3 g/dL [place] Comment: [facility] 4.6-7.0 g/dL 1 week 4.4-7.6 g/dL 7 months-1year 5.1-7.3 g/dL 1-2 years5.6-7 .5 g/dL >3 years6.0-8 .0 g/dL 18-150 6.3-8.3 g/dL Albumin 3.5 3.5 - 5.0 g/dL [facility] A/G ratio 1.3 0.7 - 3.8 [facility] Alkaline 64 40 - 129 U/L [place] phosphatase [facility] AST 16 10 - 50 U/L [facility] ALT 14 5 - 50 U/L [facility] Total bilirubin 0.6 0.0 - 1.2 mg/dL [facility] Specimen Plasma specimen Performing Organization Address City/State/Zipcode Phone Number [facility] DEPARTMENT OF [address] [place] [address] PATHOLOGY AND GENOMIC MEDICINE [address] * XR Chest 1 Vw Portable (05/16/2019 [...] patient. IMPRESSION: No acute cardiopulmonary findings. [facility]-[id number] Procedure Note Hm Interface, Radiology Results Incoming [...] patient. IMPRESSION: No acute cardiopulmonary findings. [facility]-[id number] Performing Organization Address City/State/Zipcode Phone Number [facility] [address] [place] [address] after 07/24/2018 Insurance Type Payer Benefit Subscriber ID Effective Phone Address Plan / Dates Group Medicare MEDICARE MEDICARE xxxxxxxxxxx 2007-P [place], PART A AND resent [place] B Commercial COLONIAL COLONIAL xxxxxxxxx 2012-P [facility] Advance Directives For more information, please contact: [phone] Patient Local Owner Operator Truck Driver Explanation Type Date Recorded Advance Directives, 05/16/2019 3:06 PM Living Will and Medical Power of Insect Control Aide
[2019-07-25] MEDS ORDERED: ACETAMINOPHEN 1000 MG/100 ML 100 ML IV ONE (22:58)
[2019-07-25] MEDS ORDERED: LEVOFLOXACIN 500MG/D5W 100ML 100 ML IV ONE (22:58)
[2019-07-25] MEDS ORDERED: SODIUM CHLORIDE 0.9% 1000ML 1,000 ML ONE (22:58)
[2019-07-25] MEDS ORDERED: SODIUM CHLORIDE 0.9% 1000ML 1,000 ML IV ONE (23:00)
[2019-07-25] MEDS ORDERED: AMLODIPINE BESYL5 MG PO (23:06)
[2019-07-25] MEDS ORDERED: HYDROCODON-ACE1 EA11 PO (23:06)
[2019-07-25] MEDS ORDERED: FENOFIBRATE54 MG PO (23:06)
[2019-07-25] MEDS ORDERED: ATENOLOL25 MG PO (23:06)
[2019-07-25] MEDS ORDERED: LOPRESSOR25 MG PO (23:06)
[2019-07-25] MEDS ORDERED: AMIODARONE HCL200 MG PO (23:06)
[2019-07-25 23:15] LABS: HEMATOCRIT 20.3 % (38.2-49.6); LYMPHOCYTES # (AUTO) 1.2 (1.0-3.2); LYMPHOCYTES % 85.4 % (18.0-39.1); MEAN CORPUSCULAR HGB CONC 31.5 g/dL (31-35); MEAN CORPUSCULAR VOLUME 95.3 fL (81-99); MONOCYTES # (AUTO) 0.2 (0.2-0.8); MONOCYTES % 10.9 % (4.4-11.3); RED BLOOD COUNT 2.13 x10e6/uL (4.3-5.7); RED CELL DISTRIBUTION WIDTH 17.2 % (11.7-14.4)
[2019-07-25 23:18] LABS: HEMOGLOBIN 6.4 g/dL (14.0-18.0)
[2019-07-25 23:19] LABS: PLATELET COUNT 8 x10e3/uL (140-360)
[2019-07-25 23:29] LABS: INR 1.03
[2019-07-25 23:30] LABS: PARTIAL THROMBOPLASTIN TIME 33.8 seconds (23.8-35.5)
[2019-07-25] MEDS ORDERED: FUROSEMIDE INJ 10 MG/ML 2 ML VIAL IV PRN (23:30)
[2019-07-25] MEDS ORDERED: SODIUM CHLORIDE 0.9% 250ML 250 ML IV ONE (23:30)
[2019-07-25 23:38] LABS: ALBUMIN 2.5 g/dL (3.5-5.0); ALBUMIN/GLOBULIN RATIO 0.9 (0.8-2.0); ANION GAP 14.7 mmol/L (8-16); CALCIUM 8.8 mg/dL (8.4-10.2); CREATININE, SERUM 1.75 mg/dL (0.72-1.25); POTASSIUM 3.7 mmol/L (3.5-5.1)
[2019-07-25 23:53] LABS: CREATINE KINASE MB 0.1 ng/mL (0-5.0)
[2019-07-25 23:57] LABS: AMYLASE 22 U/L (25-125); LIPASE 6 U/L (8-78)
[2019-07-26] VITALS (25 sets, daily range): BP systolic 78–123; BP diastolic 45–106
--- NOTE | 2019-07-26 00:13 | Diagnostic Imaging Report ---
EXAM: CT Abdomen and Pelvis WITHOUT contrast INDICATION: Fever, bleeding from rectum. COMPARISON: Abdominal CT 01/18/2017 TECHNIQUE: Abdomen and pelvis were scanned utilizing a multidetector helical scanner from the lung base to the pubic symphysis without administration of IV contrast. Absence of intravenous contrast decreases sensitivity for detection of focal lesions and vascular pathology. Coronal and sagittal reformations were obtained. Routine protocol was performed. IV CONTRAST: None ORAL CONTRAST: None COMPLICATIONS: None RADIATION DOSE: Total DLP: 572 mGy*cm Estimated effective dose: (DLP x 0.015 x size factor) mSv CTDIvol has been reviewed. It is below the limits set by the Radiation Protocol Committee (RPC). Dose modulation, iterative reconstruction, and/or weight based adjustment of the mA/kV was utilized to reduce the radiation dose to as low as reasonably achievable. FINDINGS: LINES and TUBES: None. LOWER THORAX: Calcific coronary artery disease. HEPATOBILIARY: No focal hepatic lesions. No biliary ductal dilation. GALLBLADDER: No radio-opaque stones or sludge. No wall thickening. SPLEEN: The spleen is mildly enlarged measures 13 cm. PANCREAS: No focal masses or ductal dilatation. ADRENALS: No adrenal nodules KIDNEYS/URETERS: No hydronephrosis. No solid mass lesions. No stones. Stable bilateral renal cysts, unchanged compared to 2017. Chronic fat stranding surrounding the kidneys can be due to senescence or renal insufficiency. GI TRACT: Mild hyperdensity of the distal colonic and rectal intraluminal contents. No abnormal distention, wall thickening, or evidence of bowel obstruction. Surgical changes at the gastroesophageal junction. Appendix is normal. PELVIC ORGANS/BLADDER: Unremarkable. LYMPH NODES: Slightly prominent superior mesenteric lymph nodes. VESSELS: There is mild atherosclerotic disease in the aorta and major arterial branches. PERITONEUM / RETROPERITONEUM: No free air or fluid. Mild fat stranding along the superior mesenteric root. BONES: There are degenerative changes in the lumbar spine. SOFT TISSUES: Unremarkable. IMPRESSION: 1. Subtle findings along the mesenteric and mild splenomegaly can be seen in the setting of patient's known lymphoproliferative disorder. 2. Mild hyperdensity of the distal colonic and rectal intraluminal contents could be due to blood in the distal colon. 3. Calcific coronary artery disease. Signed by: Robert Ventura DO on 07/26/2019 12:09 AM
--- NOTE | 2019-07-26 00:14 | Diagnostic Imaging Report ---
EXAMINATION: CHEST SINGLE (PORTABLE) INDICATION: Fever COMPARISON: Abdominal CT 07/25/2019, chest radiograph 05/13/2019 FINDINGS: AP view TUBES and LINES: Left chest port with left subclavian central venous catheter component, tip at the superior cavoatrial junction.. LUNGS: Lungs are well inflated. Lungs are clear. There is no evidence of pneumonia or pulmonary edema. Stable right epicardial fat pad. PLEURA: No pleural effusion or pneumothorax. HEART AND MEDIASTINUM: The cardiomediastinal silhouette is unremarkable. BONES AND SOFT TISSUES: No acute osseous lesion. Soft tissues are unremarkable. UPPER ABDOMEN: No free air under the diaphragm. IMPRESSION: No acute thoracic abnormality. Signed by: Robert Ventura DO on 07/26/2019 12:11 AM
[2019-07-26] MEDS: LEVOFLOXACIN 500MG/D5W 100ML 100 ML IV SCH ×2 (00:15→23:39)
[2019-07-26] MEDS ORDERED: ACETAMINOPHEN 325 MG TAB PO PRN (00:15)
[2019-07-26] MEDS ORDERED: SODIUM CHLORIDE FLUSH 10 ML SYR INJ PRN (00:15)
[2019-07-26] MEDS: METRONIDAZOLE 500MG/NS 100ML 100 ML IV SCH ×5 (00:19→23:39)
--- OUTSIDE RECORDS SUMMARY | 2019-07-26 00:20 | XMS REPORT | Clinical Summary ---
Author Author [facility] Address Unknown Phone Unavailable Care Team Providers Care Academic Department Chair Name Role Phone Dejuan Keith MD PCP Allergies Comments Active Allergy Reactions Severity Noted Date Cephalexin 05/16/2019 Allergic to oral only not topical. Iodine Hives, Rash Low 05/16/2019 Chlordiazepoxide Hcl 05/16/2019 [place] 05/16/2019 Penicillins 05/16/2019 Medications End Date Status [...] Oncology - Encounter 05/22/2019 05/16/2019 Travel after 07/25/2018 Social History Date Tobacco Use Types Packs/Day [...] MMODE SPECTRAL 12:02 PM CDT COLOR DOPPLER ([id number]) MANUAL DIFFERENTIAL Routine 05/20/2019 4:43 AM CDT [...] PORTABLE STAT 05/16/2019 2:57 PM CDT after 07/25/2018 Results * Estimated GFR (05/22/2019 4:00 AM CDT) Only the most recent of 7 results within the time period is included. Pathologist [facility] Estimated GFR 49 (A) mL/min/1.73 m2 [place] Comment: [facility] rpretation G1 >=90 Normal or high G2 60-89Mildly decreased A3w67-45 Mildly to moderately decreased [id number] Moderately to severely decreased G4 15-29Severely decreased G5 <15Kidney failure The eGFR was calculated using the Chronic Kidney Disease Epidemiology Collaboration (CKD-EPI) equation. Interpretation is based on recommendations of the National Kidney Foundation-Kidney Disease Outcomes Quality Initiative (NKF-KDOQI) published in 2014. Specimen Plasma specimen Performing Organization Address City/[facility] [place] [address] PATHOLOGY AND [facility] MEDICINE [address] * Manual differential (05/22/2019 4:00 AM CDT) Only the most recent of 6 results within the time period is included. Pathologist [facility] Manual PERFORMED [facility] Neutrophils 5.0 (L) 39.0 - 69.0 [...] [facility] Platelet slide Mkd decreased (A) [facility] Anisocytosis Moderate [facility] Ovalocytes Moderate [facility] Specimen Performing Organization Address City/[facility] Centercode Phone Number [facility] [place] [place] [address] PATHOLOGY AND GENOMIC MEDICINE [address] * CBC with platelet and differential (05/22/2019 4:00 AM CDT) Only the most recent of 6 results within the time period is included. WBC 0.88 (LL) 4.50 - 11.00 k/uL [place] Comment: [facility] Results called to and read HOSPITAL back [...] [facility] Specimen Blood Performing Organization Address City/[facility] Centercode Phone Number [facility] DEPARTMENT OF [address] [place] [address] PATHOLOGY [place] [address] HOSPITAL * Phosphorus level (05/22/2019 4:00 AM CDT) Only the most recent of 7 results within the time period is included. Phosphorus 3.6 2.4 - 4.5 mg/dL [facility] Specimen Plasma specimen Performing Organization Address City/[facility]/Zipcode Phone Number [facility] DEPARTMENT OF [address] [place] [address] PATHOLOGY AND GENOMIC MEDICINE [address] * Magnesium level (05/22/2019 4:00 AM CDT) Only the most recent of 7 results within the time period is included. Pathologist [facility] Magnesium 1.8 1.6 - 2.4 mg/dL [facility] Specimen Plasma specimen Performing Organization Address [facility] Phone Number [facility] [place] [place] [address] PATHOLOGY AND [facility] MEDICINE [address] * Basic metabolic panel (05/22/2019 4:00 AM CDT) Only the most recent of 6 results within the time period is included. [facility] Sodium 142 135 - 148 mEq/L [place] [...] [facility] Specimen Plasma specimen Performing Organization Address [facility] Phone Number [facility] [place] [place] [address] PATHOLOGY AND [facility] MEDICINE [address] * Transfuse platelets (05/21/2019 5:54 PM CDT) Only the most recent of 3 results within the time period is included. * ECG 12 lead (05/20/2019 4:48 PM CDT) Only the most recent of 2 results within the time period is included. Ventricular 68 [facility] MUSE rate Atrial rate 68 [facility] MUSE [place] interval 164 [facility] MUSE QRSD interval 88 [...] At Performing Organization Address City/State/Zipcode Phone Number [facility] MUSE [address] [place] [address] * Echocardiogram complete w contrast and 3D if needed (05/20/2019 12:02 PM CDT) Specimen Narrative Performed At DONNA Castro.Name:DEJUAN BROWN.ID:[id number] St.Date: 05/20/2019 Exam Time: 11:26:00 AM Study Type:Routine EchoHeight:69in Weight:188.61lbBSA: 2.02 m2 DOBAge:1940,79YSex: MALE Sonogrphr: Kristy Study Status:Final Echo Event ID:[id number] Order ID:[id number] Procedures:2D Echo, Colorflow Doppler, Intravenous Lumason Contrast [...] PA systolic pressure. MEASUREMENTS: 2D Parasternal Long [place] LVOT 2 cmLA Ds4.4 cm LVIDd4.6 cmIndex2.3 cm/m Ao Rtd 3.8 cm Index1.9 cm/m LVIDs2.8 cm LV Basq653.6 g(122-174) LV%fs 39.4 % LVM Rjlqg228.8 g/m2 IVSd 1.3 cmRWT0.5 LVPWd1.1 cm LA Sng Plane LA Area 21.2 cm2(8.8-23.4) LA Vol60.3 ml Index29.8 ml/m LA LngAx 6.3 cm RA Sng Plane RA Area 19.8 cm2(8.3-19.5) RA Vol56.4 ml Index27.9 ml/m RA LngAx 5.8 cm Signed 05/21/2019 05:05 PM Litzy Mackay M.D. Procedure Note Interface, Radiology Results In - 05/21/2019 5:05 PM CDT Pat.Name: DEJUAN BROWN Gloria.ID: [id number] .Date: 05/20/2019 Exam Time: 11:26:00 AM Study Type:Routine Echo Height: 69in Weight: 188.61lb BSA: 2.02 m2 Age: 5 1940,79Y Sex: MALE Sonogrphr: Kristy Study Status:Final Echo Event ID:[id number] Order ID: [id number] Procedures:2D Echo, Colorflow Doppler, Intravenous Lumason Contrast [...] PA systolic pressure. MEASUREMENTS: 2D Parasternal Long [place] LVOT 2 cm LA Ds 4.4 cm [...] PM Litzy Mackay M.D. Performing Organization Address City/[facility] Centercode Phone Number [facility] [address] [place] [address] * Surgical pathology request (05/19/2019 4:39 PM CDT) [facility] DEPARTMENT OF PATHOLOGY AND GENOMIC MEDICINE Surgical See link below for PDF Lab [facility] DEPARTMENT pathology Report OF PATHOLOGY report AND GENOMIC MEDICINE Result status This is Final Report for [facility] DEPARTMENT [id number] OF PATHOLOGY AND GENOMIC MEDICINE Specimen Performing Organization Address City/[facility]/Zipcode Phone Number [facility] DEPARTMENT OF [address] [place] [address] PATHOLOGY AND GENOMIC MEDICINE * Bone marrow tray (05/19/2019 2:44 PM CDT) Bone marrow Done [facility] Specimen Fluid Performing Organization Address City/State/Zipcode Phone Number [facility] DEPARTMENT OF [address] [place] [address] PATHOLOGY AND GENOMIC MEDICINE [facility] [address] [place] [address] [facility] * Miscellaneous referral test (05/19/2019 2:44 PM CDT) Misc test name FLT3,CEPBA,NPM1,IDH2 SHOWN ABOVE Misc test see note SHOWN ABOVE result Comment: EBPA Mutation Detection [facility] test code 3185524 CEBPA Mutation Detection Results Not Detected A [...] (Jovan DAMON, et al. 2010. J Clin Oncol:28,[id number]). METHODOLOGY: CEBPA mutations in white blood cells [...] malignancy. Test developed and characteristics determined by [employer]. See Compliance Statement B: [facility]/CS ------ ------ ------ -- Order comments CEBPA Mutation Detection ONE FULL LAVENDER BONE MARROW IDH1 and IDH2 Mutation Analysis, exon 4 [facility] test code 1728613 IDH1 and IDH2 Mutation Results Not Detected [...] R132 (IDH1), R140 (IDH2) and R172 (IDH2). [place] sequencing is then performed to detect mutations. [...] disease. Test developed and characteristics determined by [employer]. See Compliance Statement B: [facility]/CS - - - - - - - - - - - - - - - - - - - - - - - - - - - - - - IDH 1-2 Source Bone Marrow ------ ------ ------ -- Order comments IDH1 and IDH2 Mutation Analysis, exon 4 ONE FULL LAVENDER BONE MARROW NPM1 Mutation Detection by RT-PCR, Quantitative [facility] test code [id number] NPM1 Quantitative, Source Bone Marrow - - [...] 05;374(5):422-33. Test developed and characteristics determined by [employer]. See Compliance Statement B: [facility]/CS - - - - - - - - - - - - - - - - - - - - - - - - - - - - - - NPM1 Quantitative, Ratio 0.0000 ------ ------ ------ -- Order comments NPM1 Mutation Detection by RT-PCR, Quantitative ONE FULL LAVENDER BONE MARROW FLT3 ITD and TKD Mutation Detection 3 day Blinds test code 1910189 FLT3 Source Bone Marrow - - - [...] methodology. Test developed and characteristics determined by [employer]. See Compliance Statement B: Rog[facility]/CS ------ ------ ------ -- Order comments FLT3 ITD and TKD Mutation Detection ONE FULL LAVENDER BONE MARROW Test performed by: [employer] [address] [place], [place] Specimen Narrative Performed At BONE MARROW [facility] DEPARTMENT OF FLT3, NPM1, CEBPA, IDH2 PCR PATHOLOGY AND ONLY ONE FULL LAVENDER GENOMIC MEDICINE Performing Organization Address City/State/Zipcode Phone Number [facility] DEPARTMENT OF [address] [place] [address] PATHOLOGY AND GENOMIC MEDICINE SHOWN ABOVE * Flow cytometry evaluation (05/19/2019 2:44 PM CDT) Only the most recent of 2 results within the time period is included. [facility] Flow cytometry See link below for PDF Lab [place] evaluation Report [facility] Specimen Blood Narrative Performed At Performing Organization Address City/[facility] Centercode Phone Number [facility] DEPARTMENT OF [address] [place] [address] PATHOLOGY AND GENOMIC MEDICINE [facility] * 54 gene myeloid mutation test (05/19/2019 2:44 PM CDT) Interpretation VARIANT(S) DETECTED: [place] No Mutations Detected [facility] Amplicon coverage:532 of HOSPITAL 538 amplicons (98.9%) had >100x coverage and were included in the analysis. The following amplicons had <100x coverage and were not analyzed: CALR.exon.9.line.45.chr19.1305 [id number]_tile_1 CDKN2A.CDS.3.line.204.chr9.219 21609.21971207_tile_1 CDKN2A.CDS.3.line.204.chr9.219 40054.21971207_tile_2 DNMT3A.CDS.11.line.63.chr2.254 56999.25469645_tile_1 IKZF1.CDS.7.line.152.chr7.5046 [id number]_tile_1 RUNX1.CDS.9.line.82.chr21.3616 4431.36164907_tile_1 This case was [...] myeloid See link below for PDF Lab [place] mutation test ReportComment: Case Number: [facility] [id number] HOSPITAL Specimen Narrative Performed At Reviewed and signed by Erasmo Jc, PhD ([facility]) [facility] Performing Organization Address City/State/Zipcode Phone Number [facility] [place] [place] [address] PATHOLOGY AND GENOMIC MEDICINE [address] * Prepare platelet pheresis, 1 Units, Irradiated, Leukoreduced (05/19/2019 5:25 AM CDT) Only the most recent of 2 results within the time period is included. [facility] Product name Apheresis PLT, Leukored IRR #2 [facility] Unit number [id number] [facility] Product code [id number] [facility] Dispense status Transfused [facility] Blood [id number] [place] expiration date [facility] Blood type code 6200 [facility] Blood type A POSITIVE [facility] Specimen Blood Performing Organization Address City/[facility]/Zipcode Phone Number [facility] [place] [place] [address] PATHOLOGY AND GENOMIC MEDICINE [address] * Type and screen (05/19/2019 5:25 AM CDT) Only the most recent of 2 results within the time period is included. Pathologist [facility] ABO grouping A [facility] Rh type POS [facility] Antibody screen NEG [place] (gel) [facility] Specimen Performing Organization Address City/State/Zipcode Phone Number [facility] DEPARTMENT OF [address] [place] [address] PATHOLOGY AND GENOMIC MEDICINE [address] * Smear review (05/17/2019 5:25 AM CDT) Smear review Smear Reviewed [facility] Specimen Performing Organization Address City/[facility]/Zipcode Phone Number [facility] DEPARTMENT OF [address] [place] [address] PATHOLOGY AND GENOMIC MEDICINE [address] * Lactic acid level, SEPSIS - Now and repeat 2x every 3 hours (05/17/2019 5:25 AM CDT) Only the most recent of 3 results within the time period is included. Pathologist [facility] Lactic acid 0.9 0.5 - 2.2 mmol/L [facility] Specimen Blood Performing Organization Address [facility] Centercode Phone Number [facility] DEPARTMENT OF [address] [place] [address] PATHOLOGY AND GENOMIC MEDICINE [address] * CBC hemogram (05/17/2019 5:25 AM CDT) WBC 0.70 (LL) 4.50 - 11.00 k/uL [place] Comment: [facility] WBC results called to and read HOSPITAL [...] count 16 (LL) 150 - 400 k/uL [place] Comment: [facility] PLT results called to and read HOSPITAL back byFRANKI GARCIA/DACIA (name/location) at 05/17/201905:57 (date/time) by MFNoel. Nucleated RBC 0.00 /100 WBC [facility] Specimen Blood Performing Organization Address City/State/Zipcode Phone Number [facility] [place] [place] [address] PATHOLOGY AND [facility] MEDICINE [address] * Thyroid stimulating hormone (05/17/2019 5:25 AM CDT) TSH 2.25 0.27 - 4.20 uIU/mL [facility] Specimen Plasma specimen Performing Organization Address [facility] Centercode Phone Number [facility] [place] [place] [address] PATHOLOGY AND [facility] MEDICINE [address] * T4, free (05/17/2019 5:25 AM CDT) T4, free 1.4 0.9 - 1.7 ng/dL [facility] Specimen Plasma specimen Performing Organization Address [facility] Centercode Phone Number [facility] [place] [place] [address] PATHOLOGY [facility] MEDICINE [address] * Hemoglobin A1c (05/17/2019 5:25 AM CDT) Hemoglobin A1C 6.8 (H) 4.0 - 5.6 % [place] Comment: [facility] HbA1c cutoffs for diagnosing HOSPITAL diabetes: 4.0% - 5.6%=normal 5.7% - 6.4%=increased risk for diabetes (prediabetes) >=6.5%=diabetes Goals for glycemic control (ADA 2016) < 7.0%Target for non adults with diabetes. More or less stringent targets may be appropriate for individual patients. <7.5% Target for Children and adolescents with type 1 diabetes. Specimen Blood Performing Organization Address City/[facility]/Zipcode Phone Number [facility] [place] [place] [address] PATHOLOGY AND [facility] MEDICINE [address] * Folate level (05/17/2019 5:25 AM CDT) Folate 10.6 4.8 - 24.2 ng/mL [facility] Specimen Serum Performing Organization Address City/State/Zipcode Phone Number [facility] DEPARTMENT OF [address] [place] [address] PATHOLOGY AND GENOMIC MEDICINE [place] [facility] [address] [place] [address] HOSPITAL * Vitamin B12 level (05/17/2019 5:25 AM CDT) Vitamin B12 234 211 - 946 pg/mL [place] Comment: [facility] Significant overlap exists HOSPITAL between normal and deficiency states. However, most patients with deficiencies will have Serum B12 <200 pg/mL. Specimen Serum Performing Organization Address City/[facility]/Zipcode Phone Number [facility] [place] [place] [address] PATHOLOGY AND GENOMIC MEDICINE [place] [facility] [address] [place] [address] * Lipid panel (05/17/2019 5:25 AM CDT) [facility] Cholesterol 141 <200 mg/dL [facility] Triglycerides 184 (H) <150 mg/dL [facility] HDL cholesterol 47 >40 mg/dL [facility] LDL cholesterol 66Comment: Result obtained by <100 mg/dL [place] direct LDL measurement [facility] Lipid panel SeeBelow [place] interpretation Comment: [facility] Total Cholesterol HOSPITAL (mg/dL) <200 Desirable 200-239Borderline [...] specimen Performing Organization Address City/State/Zipcode Phone Number [facility] DEPARTMENT OF [address] [place] [address] PATHOLOGY AND GENOMIC MEDICINE [facility] [address] [place] [address] HOSPITAL * US Renal (05/16/2019 9:00 PM CDT) Specimen Narrative Performed At EXAMINATION[facility]:Renal failureacute (kidney injury) [...] is mild hydronephrosis. The bladder is unremarkable. [facility]-[id number] Procedure Note Interface, Radiology Results Incoming - [...] is mild hydronephrosis. The bladder is unremarkable. [facility]-[id number] Performing Organization Address City/State/Zipcode Phone Number [facility] [address] [place] [address] * Radha Marks Virus (EBV) by PCR (05/16/2019 8:13 PM CDT) Radha Marks Not-Detected Not-Detected [place] virus, PCR copies/mL [facility] Radha Marks See link below for PDF Lab LUJAN virus, PCR ReportComment: Case Number: [facility] [id number] HOSPITAL Specimen Performing Organization Address City/State/Zipcode Phone Number [facility] DEPARTMENT OF [address] [place] [address] PATHOLOGY AND GENOMIC MEDICINE [facility] [address] [place] [address] [facility] * Syphilis total antibody (05/16/2019 7:18 PM CDT) Pathologist [facility] Syphilis total Non-reactiveComment: No Non-reactive [place] antibody serological evidence of [facility] syphilis infection. HOSPITAL Specimen Blood Performing Organization Address City/State/Zipcode Phone Number [facility] [place] [place] [address] PATHOLOGY AND [facility] MEDICINE [address] * HIV Ag/Ab combination (05/16/2019 7:18 PM CDT) Pathologist [facility] HIV Ag/Ab Non-reactive Non-reactive [facility] Specimen Blood Performing Organization Address City/State/Zipcode Phone Number [facility] [place] [place] [address] PATHOLOGY AND [facility] MEDICINE [address] * Parvovirus B19 antibody, IgG and IgM (05/16/2019 7:18 PM CDT) [facility] Parvovirus B19 6.31 (H) <=0.89 IV AR [...] levels of specific IgM antibodies. Performed by [employer], [address] [place] [address] [email or web address] Tom MD - Lab. Director Specimen Serum Performing Organization Address [facility] Centercode Phone Number [facility] [address] [place] [address] [facility] [address] [place] [address] * Partial thromboplastin time, activated (05/16/2019 7:18 PM CDT) Only the most recent of 2 results within the time period is included. [facility] PTT 27.6 23.0 - 36.0 sec [place] Comment: [facility] PTT therapeutic range for HOSPITAL unfractionated heparin is 61.0-112.0 seconds which corresponds to Anti-Xa 0.3-0.7 U/ml. Specimen Blood Performing Organization Address [facility] Centercode Phone Number [facility] DEPARTMENT OF [address] [place] [address] PATHOLOGY AND [facility] MEDICINE [address] * Fibrinogen (05/16/2019 7:18 PM CDT) [facility] Fibrinogen 355 200 - 450 mg/dL [facility] Specimen Blood Performing Organization Address [facility]/Zipcode Phone Number [facility] DEPARTMENT OF [address] [place] [address] PATHOLOGY AND [facility] MEDICINE [address] * Reticulocyte count (05/16/2019 7:18 PM CDT) [facility] Retic %, auto 2.1 0.5 - 2.1 % [facility] Retic absolute, 0.0550 0.0220 - 0.1260 m/uL [place] auto [facility] Specimen Blood Performing Organization Address City/[facility]/Zipcode Phone Number [facility] [place] [place] [address] PATHOLOGY AND GENOMIC MEDICINE [address] * Urinalysis screen and microscopy, with reflex to culture (05/16/2019 5:30 PM CDT) Specimen site Clean catch [facility] Color, UA Straw [facility] Appearance, UA Clear [facility] Specific 1.013 1.001 - 1.035 [place] gravity, [facility] pH, UA 6.0 5.0 - 8.5 [facility] Protein, UA Negative Negative [facility] Glucose, UA Negative Negative [facility] Ketones, UA Negative Negative [facility] Bilirubin, UA Negative Negative [facility] Blood, UA Negative Negative [facility] Nitrite, UA Negative Negative [facility] Urobilinogen, <2.0 <2.0 [facility] Leukocyte Negative Negative [place] [facility] Epithelial <1 /HPF [place] cells, [facility] WBC, UA <1 0 - 1 /HPF [facility] RBC, UA <1 0 - 5 /HPF [facility] Bacteria, UA None seen None seen [facility] Yeast, UA None seen [facility] Yeast with None seen [place] pseudohyphaeBAYLOR [facility] Specimen Urine Performing Organization Address City/[facility] Centercode Phone Number [facility] [place] [place] [address] PATHOLOGY AND GENOMIC MEDICINE [address] * Urine culture (05/16/2019 5:30 PM CDT) [facility] Urine culture SEE COMMENTComment: [place] Bacteriuria screen negative. [facility] Specimen Performing Organization Address City/[facility]/Zipcode Phone Number [facility] [place] [place] [address] PATHOLOGY AND GENOMIC MEDICINE [address] * Respiratory pathogen panel (05/16/2019 5:23 PM CDT) [facility] Respiratory Negative for all pathogens [place] pathogen panel tested: [facility] Negative for Adenovirus [facility] Negative for Coronavirus HKU1 [...] - Not specified Performing Organization Address [facility] Phone Number [facility] DEPARTMENT [address] * Blood culture, aerobic & anaerobic (05/16/2019 3:33 PM CDT) Only the most recent of 2 results within the time period is included. [facility] Blood culture No growth after 5 days of [place] isolate incubation. [facility] Comment: HOSPITAL Specimen Information Specimen Source: Blood Specimen Site: Forearm, right Specimen Blood - Forearm, right Performing Organization Address [facility] [place] Phone Number [facility] DEPARTMENT [address] * Prothrombin time with INR (05/16/2019 3:25 PM CDT) [facility] Prothrombin 13.8 11.5 - 14.[address] [facility] INR 1.1 [place] Comment: [facility] The International Normalized HOSPITAL Ratio (INR) is a therapeutic monitoring tool for patients who are stable on oral anticoagulant therapy. An INR of 2.0-3.0 is suggested for deep vein thrombosis/pulmonary embolism. Specimen Blood Performing Organization Address [facility] Phone Number [facility] [place] [place] [address] PATHOLOGY AND GENOMIC MEDICINE [facility] [address] * Comprehensive metabolic panel (05/16/2019 3:25 [...] Protein 6.1 (L) 6.3 - 8.3 g/dL [place] Comment: [facility] 4.6-7.0 g/dL 1 week 4.4-7.6 g/dL 7 months-1year 5.1-7.3 g/dL 1-2 years5.6-7 .5 g/dL >3 years6.0-8 .0 g/dL 18-150 6.3-8.3 g/dL Albumin 3.5 3.5 - 5.0 g/dL [facility] A/G ratio 1.3 0.7 - 3.8 [facility] Alkaline 64 40 - 129 U/L [place] phosphatase [facility] AST 16 10 - 50 U/L [facility] ALT 14 5 - 50 U/L [facility] Total bilirubin 0.6 0.0 - 1.2 mg/dL [facility] Specimen Plasma specimen Performing Organization Address City/State/Zipcode Phone Number [facility] DEPARTMENT OF [address] [place] [address] PATHOLOGY AND GENOMIC MEDICINE [address] * XR Chest 1 Vw Portable [...] the patient. IMPRESSION: No acute cardiopulmonary findings. [facility]-[id number] Procedure Note Hm Interface, Radiology Results Incoming [...] the patient. IMPRESSION: No acute cardiopulmonary findings. [facility]-[id number] Performing Organization Address City/State/Zipcode Phone Number [facility] [address] [place] [address] after 07/25/2018 Insurance Type Payer Benefit Subscriber ID Effective Phone Address Plan / Dates Group Medicare MEDICARE MEDICARE xxxxxxxxxxx 2007-P [place], PART A AND resent [place] Commercial COLONIAL COLONIAL xxxxxxxxx 2012-P [facility] Advance Directives For more information, please contact: [phone] Patient Supervisor Fitting Explanation Type Date Recorded Advance Directives, 05/16/2019 3:06 PM Living Will and Medical Power of Anchorer
[2019-07-26] MEDS ORDERED: SODIUM CHLORIDE 0.9% 250ML 250 ML ONE ×3 (04:21→19:53)
[2019-07-26 04:25] LABS: BILIRUBIN,URINE SMALL (NEGATIVE); CLARITY,URINE CLEAR (CLEAR); COLOR,URINE YELLOW (YELLOW); KETONES,URINE NEGATIVE (NEGATIVE); LEUKOCYTE ESTERASE ,URINE NEGATIVE (NEGATIVE); NITRITE,URINE NEGATIVE (NEGATIVE); PROTEIN,URINE DIPSTICK NEGATIVE (NEGATIVE); URINE UROBILINOGEN 0.2 mg/dL (0.2 - 1)
[2019-07-26] MEDS: HYDROCODONE/APAP 5MG-325MG TAB PO PRN (04:31)
[2019-07-26 04:46] LABS: BACTERIA,URINE MODERATE /HPF; EPITHELIAL CELLS,URINE MODERATE /LPF; RBC,URINE 0-5 /HPF (0-5)
[2019-07-26 08:34] LABS: EOSINOPHILS % (MANUAL) 2 % (0-7); LYMPHOCYTES % (MANUAL) 86 % (19-48); MONOCYTES % (MANUAL) 12 % (3.4-9.0); NUCLEATED RED BLOOD CELLS 1; POLYCHROMASIA FEW
[2019-07-26 08:35] LABS: ANISOCYTOSIS SLIGHT; HYPOCHROMASIA SLIGHT; POIKILOCYTOSIS SLIGHT; SCHISTOCYTES FEW
[2019-07-26 08:39] LABS: PLATELET ESTIMATE MARKEDLY DECREASED; PLATELET MORPHOLOGY COMMENT NORMAL
[2019-07-26] MEDS: THIAMINE HCL 100 MG TAB PO SCH ×2 (09:00→17:23)
[2019-07-26] MEDS: AMIODARONE HCL 200 MG TAB PO SCH (09:00)
[2019-07-26] MEDS: MONTELUKAST SODIUM 10 MG TAB PO SCH (09:00)
[2019-07-26] MEDS: PREGABALIN 50 MG CAP PO SCH (09:00)
[2019-07-26] MEDS: FERROUS SULFATE 325 MG TAB PO SCH ×2 (09:00→17:22)
[2019-07-26] MEDS: METOPROLOL TARTRATE 25 MG TAB PO SCH ×2 (09:00→17:23)
[2019-07-26] MEDS ORDERED: NON-FORMULARY MEDICATION (Fenofibrate 54 MG) PO SCH (09:00)
[2019-07-26] MEDS: FENOFIBRATE 48 MG TAB PO SCH (09:00)
[2019-07-26 13:45] LABS: LYMPHOCYTES # (AUTO) 0.5 (1.0-3.2); LYMPHOCYTES % 71.1 % (18.0-39.1); MEAN CORPUSCULAR HEMOGLOBIN 29.4 pg (28-32); MEAN CORPUSCULAR HGB CONC 32.3 g/dL (31-35); MONOCYTES # (AUTO) 0.2 (0.2-0.8); MONOCYTES % 22.4 % (4.4-11.3); NEUTROPHILS % 2.6 % (38.7-80.0); RED BLOOD COUNT 1.77 x10e6/uL (4.3-5.7); RED CELL DISTRIBUTION WIDTH 16.9 % (11.7-14.4)
[2019-07-26 13:57] LABS: ANION GAP 11.8 mmol/L (8-16); CALCIUM 7.9 mg/dL (8.4-10.2); CREATININE, SERUM 1.52 mg/dL (0.72-1.25); POTASSIUM 3.8 mmol/L (3.5-5.1)
--- NOTE | 2019-07-26 14:55 | History and Physical ---
PRIMARY CARE PHYSICIAN: Harvey Keith MD. CAR SALESMAN: Urban Velazquez MD. CHIEF COMPLAINT: Severe anemia, pancytopenia, fever, and rectal bleed. HISTORY OF PRESENT ILLNESS: This is a 79-year-old male with advanced MDS. The patient had recurrent pancytopenia. The patient required blood transfusion and platelet transfusion, recently discharged from the hospital less than two weeks. The patient had a Neupogen injection for the leukopenia. Apparently, the patient experienced rectal bleed. He also has a right facial skin area bleed as well. The patient came to the hospital for evaluation. In the emergency room, his WBC was 1.37, hemoglobin and hematocrit 6.4 and 20.3 respectively with platelet of 8000. The patient had negative urinalysis. He did have fever, temperature of 101. The patient is stable. He is admitted to the ICU. He did receive 2 units of packed red blood cell transfusion. The patient is pending for platelet transfusion. He is pending for FFP as well. His coagulation also appears well. The patient is stable at this time. PAST MEDICAL HISTORY: Advanced MDS, hypertension, coronary disease, cardiac arrhythmia, atrial fibrillation, hypothyroidism, dyslipidemia, reflux, chronic anemia, and pancytopenia. Undergoing chemotherapy for his MDS. Multiple blood transfusions and platelet transfusions. ALLERGIES: TO CEPHALEXIN, LITHIUM, PENICILLIN, AND CHLORDIAZEPOXIDE. HOME MEDICATIONS: List is reviewed. REVIEW OF SYSTEMS: Right facial small area of bleed. Rectal bleed. Shortness of breath with exertion. No chest pain at rest. No shortness of breath at rest. PHYSICAL EXAMINATION: VITAL SIGNS: Temperature is maximum 101, current 98.1. Blood pressure 117/77. Pulse rate is 100. GENERAL: The patient is not in any acute distress at this time. HEENT: Normocephalic, atraumatic. Pupils reactive. Anicteric. NECK: Supple grossly. PULMONARY: Diminished breath sounds. CARDIOVASCULAR: Tachycardia. ABDOMEN: Soft. EXTREMITIES: No cyanosis or edema. SKIN: Right facial area skin tear with bleed. NEUROLOGIC: Gross focal deficit. LABORATORY DATA: Sodium is 139, potassium 3.7, chloride 107, bicarb 21, BUN 23, creatinine 1.7, and glucose 123. WBC is 1.37, hemoglobin 6.4, hematocrit 20.3, and platelets 8000. INR is 1.03. PTT 33.8. AST 7, ALT 10, alkaline phosphatase 56, and total bilirubin 0.6. IMPRESSION: 1. Rectal bleed, most likely secondary to severe low platelets. 2. Pancytopenia with low WBC and platelets. 3. Neutropenic fever, could be reactive. 4. Rectal bleed. 5. Multiple chronic baseline problems. PLAN: Continue with antibiotics. Platelet and blood transfusion. Repeat lab work. Consultation with Dr. Urban Velazquez. Continue with current management. MD SUE Ramirez/TIMOTHY /[id number]
[2019-07-26 14:59] LABS: HEMOGLOBIN 5.2 g/dL (14.0-18.0); PLATELET COUNT 28 x10e3/uL (140-360)
[2019-07-26 15:00] LABS: HEMATOCRIT 16.1 % (38.2-49.6)
[2019-07-26] MEDS ORDERED: SODIUM CHLORIDE 0.9% 250ML 250 ML IV NR (16:00)
[2019-07-26] MEDS: LORATADINE 10 MG TAB PO SCH (20:14)
[2019-07-26] MEDS: PANTOPRAZOLE SOD 40 MG TABEC PO SCH (20:14)
[2019-07-26] MEDS: LEVOTHYROXINE SODIUM 50 MCG TAB PO SCH (20:14)
[2019-07-26] MEDS: FINASTERIDE 5 MG TAB PO SCH (20:14)
[2019-07-26] MEDS: FUROSEMIDE INJ 10 MG/ML 2 ML VIAL IV SCH (21:11)
[2019-07-26 22:04] LABS: LYMPHOCYTES % (MANUAL) 82 % (19-48); MONOCYTES % (MANUAL) 12 % (3.4-9.0); NEUTROPHILS % (MANUAL) 6 % (40-74); NUCLEATED RED BLOOD CELLS 2
[2019-07-26 22:06] LABS: PLATELET ESTIMATE MARKEDLY DECREASED; PLATELET MORPHOLOGY COMMENT NORMAL; POLYCHROMASIA FEW
[2019-07-26 22:07] LABS: HYPOCHROMASIA SLIGHT
[2019-07-27] VITALS (25 sets, daily range): BP systolic 90–125; BP diastolic 39–77
[2019-07-27] MEDS: FUROSEMIDE INJ 10 MG/ML 2 ML VIAL IV SCH (00:25)
[2019-07-27] MEDS ORDERED: SODIUM CHLORIDE 0.9% 250ML 250 ML ONE ×2 (00:33→03:51)
[2019-07-27] MEDS: METRONIDAZOLE 500MG/NS 100ML 100 ML IV SCH ×3 (05:56→17:00)
[2019-07-27] MEDS: FERROUS SULFATE 325 MG TAB PO SCH ×2 (08:03→16:57)
[2019-07-27] MEDS: AMIODARONE HCL 200 MG TAB PO SCH (08:03)
[2019-07-27] MEDS: PANTOPRAZOLE 40 MG 10ML VIAL IV SCH (08:03)
[2019-07-27] MEDS: METOPROLOL TARTRATE 25 MG TAB PO SCH ×2 (08:04→16:57)
[2019-07-27] MEDS: MONTELUKAST SODIUM 10 MG TAB PO SCH (08:04)
[2019-07-27] MEDS: FENOFIBRATE 48 MG TAB PO SCH (08:04)
[2019-07-27] MEDS: HYDROCODONE/APAP 5MG-325MG TAB PO PRN (08:04)
[2019-07-27] MEDS: PREGABALIN 50 MG CAP PO SCH (08:04)
[2019-07-27] MEDS: THIAMINE HCL 100 MG TAB PO SCH ×2 (08:04→16:57)
[2019-07-27 09:23] LABS: ANION GAP 11.4 mmol/L (8-16); CALCIUM 7.9 mg/dL (8.4-10.2); CREATININE, SERUM 1.68 mg/dL (0.72-1.25); POTASSIUM 3.4 mmol/L (3.5-5.1)
[2019-07-27 09:32] LABS: HEMATOCRIT 22.6 % (38.2-49.6); HEMOGLOBIN 7.7 g/dL (14.0-18.0); LYMPHOCYTES # (AUTO) 0.6 (1.0-3.2); LYMPHOCYTES % 81.3 % (18.0-39.1); MEAN CORPUSCULAR HEMOGLOBIN 30.1 pg (28-32); MEAN CORPUSCULAR HGB CONC 34.1 g/dL (31-35); MEAN CORPUSCULAR VOLUME 88.3 fL (81-99); MONOCYTES # (AUTO) 0.1 (0.2-0.8); MONOCYTES % 10.7 % (4.4-11.3); NEUTROPHILS # (AUTO) 0.1 (2.1-6.9); PLATELET COUNT 58 x10e3/uL (140-360); RED BLOOD COUNT 2.56 x10e6/uL (4.3-5.7); RED CELL DISTRIBUTION WIDTH 15.4 % (11.7-14.4)
[2019-07-27] MEDS ORDERED: FUROSEMIDE INJ 10 MG/ML 2 ML VIAL IV PRN (10:15)
[2019-07-27] MEDS ORDERED: SODIUM CHLORIDE 0.9% 250ML 250 ML IV ONE (10:15)
[2019-07-27 11:12] LABS: LYMPHOCYTES % (MANUAL) 71 % (19-48); MONOCYTES % (MANUAL) 9 % (3.4-9.0); NEUTROPHILS % (MANUAL) 20 % (40-74)
[2019-07-27 11:13] LABS: PLATELET ESTIMATE MARKEDLY DECREASED; PLATELET MORPHOLOGY COMMENT FEW LARGE; RBC MORPHOLOGY COMMENT NORMAL
--- NOTE | 2019-07-27 16:05 | Consultation ---
DATE OF CONSULTATION: 07/26/[address] Keith. HISTORY OF PRESENT ILLNESS: Mr. Sykes is a 79-year-old white male, referred to me for evaluation of pancytopenia. The patient had a CBC at my office and the patient was found to have platelets of 8 that was then subsequently platelet transfusion was arranged as an outpatient at [facility]. However, the patient was also informed if he has any kind of bleed to come to the emergency room. Subsequently, the patient had a GI bleed, was seen in the ER, subsequently admitted for further evaluation and treatment. HISTORY OF PAST ILLNESS: History of MDS, being treated aggressively with systemic chemotherapy consisting of Vidaza, possibility of transformation to acute leukemia was raised, however, a bone marrow was suggestive of acute leukemia. However, the patient had another bone marrow, which did not reveal acute leukemia. However, the blast count has gone up. The patient continues to receive Vidaza. FAMILY HISTORY: Noncontributory. FAMILY HISTORY: Noncontributory. ALLERGIES: REPORTED: 1. CEPHALEXIN. 2. LITHIUM. 3. IODINE. 4. PENICILLIN. 5. CHLORDIAZEPOXIDE. 6. ACTALIN. REVIEW OF SYSTEMS: HEENT: Normal. CARDIAC: Normal. RESPIRATORY: Normal. GI: History of multiple GI bleeds. : Normal. MUSCULOSKELETAL: Normal. SKIN: Normal. BREASTS: Normal. NEUROENDOCRINE: Normal. HEMATOLOGICAL: History of MDS, which will transform eventually to acute leukemia is just a matter of time. PHYSICAL EXAMINATION: GENERAL: A moderately built male, anemic. NECK: No palpable adenopathy. HEART: Within normal limits. LUNGS: Clear. ABDOMEN: Obese. RECTAL: Deferred. CENTRAL NERVOUS SYSTEM: Essentially normal. EXTREMITIES: Essentially normal. LABORATORY DATA: Lab investigations of interest show a hemoglobin of 6.4, hematocrit 20.3, white count 1370, and platelets of 8000. IMPRESSION: 1. Pancytopenia. 2. Gastrointestinal bleed. 3. Myelodysplastic syndrome. PLAN: Plan is to treat him with blood transfusion, platelet transfusion. Prognosis remains extremely poor. Once home, the patient will be receiving GM-CSF, which is not available at this institution. MD TIMOTHY Yang/TIMOTHY /[id number]
[2019-07-27] MEDS: PANTOPRAZOLE SOD 40 MG TABEC PO SCH (21:24)
[2019-07-27] MEDS: LEVOTHYROXINE SODIUM 50 MCG TAB PO SCH (21:24)
[2019-07-27] MEDS: FINASTERIDE 5 MG TAB PO SCH (21:24)
[2019-07-27] MEDS: LORATADINE 10 MG TAB PO SCH (21:24)
[2019-07-28] VITALS (25 sets, daily range): BP systolic 88–137; BP diastolic 42–85
[2019-07-28] MEDS: METRONIDAZOLE 500MG/NS 100ML 100 ML IV SCH ×4 (01:14→18:10)
[2019-07-28] MEDS: LEVOFLOXACIN 500MG/D5W 100ML 100 ML IV SCH (01:14)
[2019-07-28 05:11] LABS: HEMATOCRIT 19.8 % (38.2-49.6); LYMPHOCYTES # (AUTO) 0.6 (1.0-3.2); LYMPHOCYTES % 75.3 % (18.0-39.1); MEAN CORPUSCULAR HEMOGLOBIN 30.4 pg (28-32); MEAN CORPUSCULAR HGB CONC 34.3 g/dL (31-35); MEAN CORPUSCULAR VOLUME 88.4 fL (81-99); MONOCYTES # (AUTO) 0.1 (0.2-0.8); MONOCYTES % 14.3 % (4.4-11.3); NEUTROPHILS # (AUTO) 0.1 (2.1-6.9); NEUTROPHILS % 10.4 % (38.7-80.0); RED BLOOD COUNT 2.24 x10e6/uL (4.3-5.7); RED CELL DISTRIBUTION WIDTH 15.3 % (11.7-14.4)
[2019-07-28 05:14] LABS: HEMOGLOBIN 6.8 g/dL (14.0-18.0); PLATELET COUNT 35 x10e3/uL (140-360)
[2019-07-28 05:32] LABS: CALCIUM 7.6 mg/dL (8.4-10.2); CREATININE, SERUM 1.61 mg/dL (0.72-1.25)
[2019-07-28 06:34] LABS: EOSINOPHILS % (MANUAL) 1 % (0-7); LYMPHOCYTES % (MANUAL) 73 % (19-48); MONOCYTES % (MANUAL) 15 % (3.4-9.0); NEUTROPHILS % (MANUAL) 11 % (40-74); PLATELET ESTIMATE MARKEDLY DECREASED
[2019-07-28 06:36] LABS: PLATELET MORPHOLOGY COMMENT FEW LARGE; RBC MORPHOLOGY COMMENT NORMAL
[2019-07-28] MEDS ORDERED: FUROSEMIDE INJ 10 MG/ML 2 ML VIAL IV PRN (06:45)
[2019-07-28] MEDS: FUROSEMIDE INJ 10 MG/ML 2 ML VIAL IV SCH ×2 (09:40→18:57)
[2019-07-28] MEDS: PANTOPRAZOLE 40 MG 10ML VIAL IV SCH (10:02)
[2019-07-28] MEDS: AMIODARONE HCL 200 MG TAB PO SCH (10:02)
[2019-07-28] MEDS: FERROUS SULFATE 325 MG TAB PO SCH ×2 (10:02→17:26)
[2019-07-28] MEDS: MONTELUKAST SODIUM 10 MG TAB PO SCH (10:03)
[2019-07-28] MEDS: THIAMINE HCL 100 MG TAB PO SCH ×2 (10:03→17:27)
[2019-07-28] MEDS: FENOFIBRATE 48 MG TAB PO SCH (10:03)
[2019-07-28] MEDS: METOPROLOL TARTRATE 25 MG TAB PO SCH ×2 (10:03→17:27)
[2019-07-28] MEDS: PREGABALIN 50 MG CAP PO SCH (10:03)
--- NOTE | 2019-07-28 18:41 | Consultation ---
DATE OF CONSULTATION: Cardiology Consultation CHIEF COMPLAINT: The patient is a 79-year-old with severe anemia. HISTORY OF PRESENT ILLNESS: The patient is a 79-year-old, who with myelodysplastic syndrome, who came into the hospital with recurrent pancytopenia. The patient was feeling very fatigued. The patient was having some rectal bleeding and his hemoglobin was 6.4 in the emergency room. The patient was given a transfusion. The patient has had no chest pain and no shortness of breath. PAST MEDICAL HISTORY: Significant for: 1. Myelodysplastic syndrome. 2. Coronary artery disease with previous stent placement. 3. History of paroxysmal atrial fibrillation. 4. History of hypothyroidism. 5. Chronic anemia and chronic pancytopenia. SOCIAL HISTORY: The patient does not drink and does not smoke. FAMILY HISTORY: There is no known family history of coronary artery disease. PHYSICAL EXAMINATION: GENERAL: The patient is in no obvious distress. VITAL SIGNS: Included a temperature of 98.4, blood pressure 120/70, pulse was 96. HEAD, EARS, EYES, NOSE, and THROAT: The patient's cranium was normocephalic and atraumatic. Extraocular muscles were intact. Sclerae were anicteric. Pupils were equal, round, reactive to light. There was no pallor or cyanosis of the oral mucosa. NECK: Supple. No jugular venous distention. CHEST: Demonstrated rhonchi bilaterally. CARDIAC: Demonstrated tachycardia with a normal S1 and S2. No murmurs. ABDOMEN: Demonstrated good bowel sounds and tenderness. EXTREMITIES: There were no clubbing, no cyanosis, and no edema. NEUROLOGICAL: The patient was alert and oriented x3. Cranial nerves II through XII were intact. The patient's EKG demonstrated sinus tachycardia with some nonspecific ST and T-wave changes. IMPRESSION: The patient is a 79-year-old with advanced myelodysplastic syndrome. The patient has a sinus tachycardia with no evidence of active cardiac issues. An echocardiogram has been ordered to evaluate the left ventricular size and function. Alfonso Velázquez MD [facility] /[id number] cc: Harvey Keith MD
[2019-07-28] MEDS ORDERED: SODIUM CHLORIDE 0.9% 250ML 250 ML ONE (18:55)
[2019-07-28] MEDS: LEVOTHYROXINE SODIUM 50 MCG TAB PO SCH (21:05)
[2019-07-28] MEDS: LORATADINE 10 MG TAB PO SCH (21:05)
[2019-07-28] MEDS: FINASTERIDE 5 MG TAB PO SCH (21:05)
[2019-07-29] VITALS (26 sets, daily range): BP systolic 82–127; BP diastolic 29–95
[2019-07-29] MEDS: LEVOFLOXACIN 500MG/D5W 100ML 100 ML IV SCH (01:45)
[2019-07-29] MEDS: METRONIDAZOLE 500MG/NS 100ML 100 ML IV SCH ×4 (02:08→18:00)
[2019-07-29 05:15] LABS: HEMATOCRIT 21.9 % (38.2-49.6); HEMOGLOBIN 7.2 g/dL (14.0-18.0); LYMPHOCYTES # (AUTO) 1.2 (1.0-3.2); LYMPHOCYTES % 84.2 % (18.0-39.1); MEAN CORPUSCULAR HEMOGLOBIN 29.3 pg (28-32); MEAN CORPUSCULAR HGB CONC 32.9 g/dL (31-35); MONOCYTES # (AUTO) 0.1 (0.2-0.8); MONOCYTES % 6.8 % (4.4-11.3); NEUTROPHILS # (AUTO) 0.1 (2.1-6.9); NEUTROPHILS % 8.3 % (38.7-80.0); PLATELET COUNT 147 x10e3/uL (140-360); RED BLOOD COUNT 2.46 x10e6/uL (4.3-5.7); RED CELL DISTRIBUTION WIDTH 15.6 % (11.7-14.4)
[2019-07-29 05:35] LABS: ANION GAP 13.3 mmol/L (8-16); CALCIUM 7.9 mg/dL (8.4-10.2); CREATININE, SERUM 1.65 mg/dL (0.72-1.25); POTASSIUM 3.3 mmol/L (3.5-5.1)
[2019-07-29 06:00] LABS: MAGNESIUM 1.7 MG/DL (1.3-2.1); PHOSPHORUS 3.3 MG/DL (2.3-4.7)
[2019-07-29] MEDS: FERROUS SULFATE 325 MG TAB PO SCH ×2 (09:00→16:50)
[2019-07-29] MEDS: METOPROLOL TARTRATE 25 MG TAB PO SCH ×2 (09:00→16:50)
[2019-07-29] MEDS: FENOFIBRATE 48 MG TAB PO SCH (09:00)
[2019-07-29] MEDS: AMIODARONE HCL 200 MG TAB PO SCH (09:00)
[2019-07-29] MEDS: PREGABALIN 50 MG CAP PO SCH (09:00)
[2019-07-29] MEDS: MONTELUKAST SODIUM 10 MG TAB PO SCH (09:00)
[2019-07-29] MEDS: PANTOPRAZOLE 40 MG 10ML VIAL IV SCH (09:00)
[2019-07-29] MEDS: THIAMINE HCL 100 MG TAB PO SCH ×2 (09:00→17:04)
[2019-07-29] MEDS ORDERED: FUROSEMIDE INJ 10 MG/ML 4 ML VIAL IV ONE (09:45)
[2019-07-29] MEDS ORDERED: POTASSIUM CHLORIDE 20MEQ/100ML 200 ML IV ONE (09:45)
[2019-07-29] MEDS ORDERED: SODIUM CHLORIDE 0.9% 250ML 250 ML IV ONE (09:45)
[2019-07-29] MEDS: HYDROCODONE/APAP 5MG-325MG TAB PO PRN (10:15)
[2019-07-29] MEDS: SODIUM CHLORIDE 0.9% IV SCH (11:22)
[2019-07-29] MEDS: AMINOCAPROIC ACID IV SCH (11:22)
[2019-07-29 11:59] LABS: LYMPHOCYTES % (MANUAL) 85 % (19-48); MONOCYTES % (MANUAL) 5 % (3.4-9.0); NEUTROPHILS % (MANUAL) 10 % (40-74); PLATELET ESTIMATE ADEQUATE; PLATELET MORPHOLOGY COMMENT NORMAL; RBC MORPHOLOGY COMMENT NORMAL
[2019-07-29] MEDS ORDERED: SODIUM CHLORIDE 0.9% 250ML 250 ML ONE (14:48)
[2019-07-29] MEDS ORDERED: SODIUM CHLORIDE 0.9% IV ONE (15:00)
[2019-07-29] MEDS ORDERED: POTASSIUM CHLORIDE IV ONE (15:00)
[2019-07-29] MEDS: LEVOTHYROXINE SODIUM 50 MCG TAB PO SCH (21:31)
[2019-07-29] MEDS: LORATADINE 10 MG TAB PO SCH (21:31)
[2019-07-29] MEDS: FINASTERIDE 5 MG TAB PO SCH (21:31)
[2019-07-30] VITALS (26 sets, daily range): BP systolic 93–134; BP diastolic 38–82
[2019-07-30] MEDS: METRONIDAZOLE 500MG/NS 100ML 100 ML IV SCH ×5 (00:10→23:17)
[2019-07-30] MEDS: LEVOFLOXACIN 500MG/D5W 100ML 100 ML IV SCH (00:58)
[2019-07-30 05:08] LABS: LYMPHOCYTES # (AUTO) 0.4 (1.0-3.2); LYMPHOCYTES % 67.2 % (18.0-39.1); MEAN CORPUSCULAR HEMOGLOBIN 29.5 pg (28-32); MEAN CORPUSCULAR VOLUME 89.5 fL (81-99); MONOCYTES # (AUTO) 0.1 (0.2-0.8); MONOCYTES % 17.2 % (4.4-11.3); NEUTROPHILS # (AUTO) 0.1 (2.1-6.9); NEUTROPHILS % 15.6 % (38.7-80.0); PLATELET COUNT 51 x10e3/uL (140-360); RED CELL DISTRIBUTION WIDTH 14.9 % (11.7-14.4)
[2019-07-30 05:15] LABS: HEMOGLOBIN 6.5 g/dL (14.0-18.0)
[2019-07-30 05:16] LABS: HEMATOCRIT 19.7 % (38.2-49.6)
[2019-07-30 05:26] LABS: ANION GAP 11.7 mmol/L (8-16); POTASSIUM 3.7 mmol/L (3.5-5.1)
[2019-07-30 06:49] LABS: LYMPHOCYTES % (MANUAL) 73 % (19-48); MONOCYTES % (MANUAL) 14 % (3.4-9.0); NEUTROPHILS % (MANUAL) 13 % (40-74); PLATELET ESTIMATE MARKEDLY DECREASED; PLATELET MORPHOLOGY COMMENT FEW LARGE
[2019-07-30 06:50] LABS: RBC MORPHOLOGY COMMENT NORMAL
[2019-07-30] MEDS ORDERED: SODIUM CHLORIDE 0.9% 250ML 250 ML IV ONE (07:30)
[2019-07-30] MEDS ORDERED: FUROSEMIDE INJ 10 MG/ML 2 ML VIAL IV ONE (07:30)
[2019-07-30] MEDS: AMIODARONE HCL 200 MG TAB PO SCH (09:00)
[2019-07-30] MEDS: PANTOPRAZOLE 40 MG 10ML VIAL IV SCH (09:00)
[2019-07-30] MEDS: PREGABALIN 50 MG CAP PO SCH (09:00)
[2019-07-30] MEDS: FENOFIBRATE 48 MG TAB PO SCH (09:00)
[2019-07-30] MEDS: THIAMINE HCL 100 MG TAB PO SCH ×2 (09:00→17:00)
[2019-07-30] MEDS: MONTELUKAST SODIUM 10 MG TAB PO SCH (09:00)
[2019-07-30] MEDS: METOPROLOL TARTRATE 25 MG TAB PO SCH ×2 (09:00→17:00)
[2019-07-30] MEDS: FERROUS SULFATE 325 MG TAB PO SCH ×2 (09:00→17:00)
[2019-07-30] MEDS: AMINOCAPROIC ACID IV SCH (09:49)
[2019-07-30] MEDS: SODIUM CHLORIDE 0.9% IV SCH (09:49)
[2019-07-30] MEDS ORDERED: SODIUM CHLORIDE 0.9% 250ML 500 ML ONE (13:26)
[2019-07-30] MEDS: FINASTERIDE 5 MG TAB PO SCH (21:53)
[2019-07-30] MEDS: LORATADINE 10 MG TAB PO SCH (21:53)
[2019-07-30] MEDS: LEVOTHYROXINE SODIUM 50 MCG TAB PO SCH (21:54)
[2019-07-31] VITALS (25 sets, daily range): BP systolic 92–137; BP diastolic 34–81
[2019-07-31] MEDS: LEVOFLOXACIN 500MG/D5W 100ML 100 ML IV SCH ×2 (00:16→23:19)
[2019-07-31 05:01] LABS: HEMATOCRIT 24.2 % (38.2-49.6); HEMOGLOBIN 8.3 g/dL (14.0-18.0); LYMPHOCYTES # (AUTO) 0.5 (1.0-3.2); LYMPHOCYTES % 75.4 % (18.0-39.1); MEAN CORPUSCULAR HEMOGLOBIN 30.3 pg (28-32); MEAN CORPUSCULAR HGB CONC 34.3 g/dL (31-35); MEAN CORPUSCULAR VOLUME 88.3 fL (81-99); MONOCYTES # (AUTO) 0.1 (0.2-0.8); MONOCYTES % 14.8 % (4.4-11.3); NEUTROPHILS % 4.9 % (38.7-80.0); RED BLOOD COUNT 2.74 x10e6/uL (4.3-5.7); RED CELL DISTRIBUTION WIDTH 15.2 % (11.7-14.4)
[2019-07-31 05:16] LABS: PLATELET COUNT 47 x10e3/uL (140-360)
[2019-07-31 05:17] LABS: ANION GAP 7.5 mmol/L (8-16); POTASSIUM 3.5 mmol/L (3.5-5.1)
[2019-07-31] MEDS: METRONIDAZOLE 500MG/NS 100ML 100 ML IV SCH ×4 (05:26→23:19)
[2019-07-31 07:21] LABS: LYMPHOCYTES % (MANUAL) 85 % (19-48); MONOCYTES % (MANUAL) 12 % (3.4-9.0); NEUTROPHILS % (MANUAL) 3 % (40-74); PLATELET ESTIMATE MARKEDLY DECREASED
[2019-07-31 07:24] LABS: PLATELET MORPHOLOGY COMMENT FEW GIANT; RBC MORPHOLOGY COMMENT NORMAL
[2019-07-31] MEDS: PANTOPRAZOLE 40 MG 10ML VIAL IV SCH (08:21)
[2019-07-31] MEDS: FERROUS SULFATE 325 MG TAB PO SCH ×2 (08:21→16:48)
[2019-07-31] MEDS: AMIODARONE HCL 200 MG TAB PO SCH (08:21)
[2019-07-31] MEDS: METOPROLOL TARTRATE 25 MG TAB PO SCH ×2 (08:22→19:03)
[2019-07-31] MEDS: PREGABALIN 50 MG CAP PO SCH (08:22)
[2019-07-31] MEDS: THIAMINE HCL 100 MG TAB PO SCH ×2 (08:22→19:03)
[2019-07-31] MEDS: MONTELUKAST SODIUM 10 MG TAB PO SCH (08:22)
[2019-07-31] MEDS: FENOFIBRATE 48 MG TAB PO SCH (08:26)
[2019-07-31] MEDS: SODIUM CHLORIDE 0.9% IV SCH (10:22)
[2019-07-31] MEDS: AMINOCAPROIC ACID IV SCH (10:22)
[2019-07-31] MEDS ORDERED: TEMAZEPAM 15 MG CAP PO PRN (11:00)
[2019-07-31] MEDS ORDERED: SODIUM CHLORIDE 0.9% 250ML 250 ML ONE (13:36)
[2019-07-31] MEDS: FINASTERIDE 5 MG TAB PO SCH (20:27)
[2019-07-31] MEDS: LORATADINE 10 MG TAB PO SCH (20:27)
[2019-07-31] MEDS: LEVOTHYROXINE SODIUM 50 MCG TAB PO SCH (20:27)
[2019-08-01] VITALS (23 sets, daily range): BP systolic 88–126; BP diastolic 38–67
[2019-08-01] MEDS: METRONIDAZOLE 500MG/NS 100ML 100 ML IV SCH ×3 (05:20→18:38)
[2019-08-01 06:44] LABS: HEMATOCRIT 24.1 % (38.2-49.6); HEMOGLOBIN 8.1 g/dL (14.0-18.0); LYMPHOCYTES # (AUTO) 0.5 (1.0-3.2); LYMPHOCYTES % 80.3 % (18.0-39.1); MEAN CORPUSCULAR HEMOGLOBIN 29.9 pg (28-32); MEAN CORPUSCULAR HGB CONC 33.6 g/dL (31-35); MEAN CORPUSCULAR VOLUME 88.9 fL (81-99); MONOCYTES # (AUTO) 0.1 (0.2-0.8); MONOCYTES % 9.8 % (4.4-11.3); NEUTROPHILS # (AUTO) 0.1 (2.1-6.9); NEUTROPHILS % 8.3 % (38.7-80.0); PLATELET COUNT 59 x10e3/uL (140-360); RED BLOOD COUNT 2.71 x10e6/uL (4.3-5.7); RED CELL DISTRIBUTION WIDTH 14.9 % (11.7-14.4)
[2019-08-01 07:02] LABS: ANION GAP 10.5 mmol/L (8-16); CALCIUM 8.4 mg/dL (8.4-10.2); CREATININE, SERUM 1.17 mg/dL (0.72-1.25); POTASSIUM 3.5 mmol/L (3.5-5.1)
[2019-08-01 08:53] LABS: ANISOCYTOSIS SLIGHT; HYPOCHROMASIA SLIGHT; LYMPHOCYTES % (MANUAL) 88 % (19-48); MONOCYTES % (MANUAL) 4 % (3.4-9.0); NEUTROPHILS % (MANUAL) 8 % (40-74); PLATELET ESTIMATE MARKEDLY DECREASED; PLATELET MORPHOLOGY COMMENT NORMAL; RBC MORPHOLOGY COMMENT ABNORMAL
[2019-08-01] MEDS: AMINOCAPROIC ACID IV SCH (10:03)
[2019-08-01] MEDS: THIAMINE HCL 100 MG TAB PO SCH ×2 (10:03→18:38)
[2019-08-01] MEDS: SODIUM CHLORIDE 0.9% IV SCH (10:03)
[2019-08-01] MEDS: MONTELUKAST SODIUM 10 MG TAB PO SCH (10:03)
[2019-08-01] MEDS: FENOFIBRATE 48 MG TAB PO SCH (10:03)
[2019-08-01] MEDS: PANTOPRAZOLE 40 MG 10ML VIAL IV SCH (10:03)
[2019-08-01] MEDS: AMIODARONE HCL 200 MG TAB PO SCH (10:03)
[2019-08-01] MEDS: FERROUS SULFATE 325 MG TAB PO SCH ×2 (10:03→18:38)
[2019-08-01] MEDS: PREGABALIN 50 MG CAP PO SCH (10:03)
[2019-08-01] MEDS: METOPROLOL TARTRATE 25 MG TAB PO SCH ×2 (10:04→17:00)
--- NOTE | 2019-08-01 14:02 | Progress Note ---
DATE: 08/01/2019 Medicine Progress Note I am covering for Dr. Harvey Keith. SUBJECTIVE: The patient apparently has myelodysplastic syndrome, being managed by Dr. Velazquez, Oncology. He came in with underlying GI bleed. He was also found to be anemic. He also had a fever. He is currently doing much better at this time. PHYSICAL EXAMINATION: VITAL SIGNS: Temperature is 97.6. He is afebrile for more than 24 hours. Pulse is 81, respiratory rate is 14, blood pressure, the last one recorded at 93/46. He is on 97% on room air. GENERAL: No acute distress. Alert and oriented x3. Cooperative on examination. HEENT: Head; normocephalic, atraumatic. Eyes; pupils are equal, round, and reactive to light bilaterally. Extraocular movements intact bilaterally. Throat; no evidence of erythema or exudates in the posterior pharynx. Has poor dentition. NECK: Supple. Good range of motion. PULMONARY: Clear to auscultation bilaterally. No wheezing, no rales, no rhonchi, no crackles appreciated. CARDIOVASCULAR: Positive S1 and S2. No murmurs, rubs, or gallops appreciated. ABDOMEN: Soft, nondistended, and nontender to palpation. Bowel sounds present. MUSCULOSKELETAL: Strength is 5/5 throughout. No evidence of any muscle deficits on examination. No weakness appreciated. NEUROLOGIC: Cranial nerve II through XII grossly intact. No evidence of any neurological deficits on exam. SKIN: Intact. Warm to touch. Good cap refill. PSYCHIATRIC: Normal affect and mood. EXTREMITIES: No edema. Good range of motion throughout. LABORATORY FINDINGS: Show white count is 0.61, hemoglobin 8.1, hematocrit is 24, platelets of 59. Chemistry; sodium 143, potassium 3.5, chloride 114, bicarb 22, anion gap of 10, BUN is 12, creatinine is 1.1, calcium is 8.4. Urinalysis noted. MICROBIOLOGY: Blood cultures were no growth to date. Urine cultures were negative. IMPRESSION: 1. Severe advanced myelodysplastic syndrome with severe pancytopenia and neutropenia. 2. Requiring blood transfusions and blood products. 3. Thrombocytopenia. 4. Hyperlipidemia. 5. Fever, neutropenia. PLAN: At this time, continue with blood products as needed as per Hematology recommendations. It seems like his hemoglobin is much improved at 8.1, platelets are better at 59. He continues to be on IV Levaquin for coverage for fever and neutropenia. He has not had a fever in significant period of time. His microbiology, blood and urine cultures were all negative. Continue to follow with Oncology recommendations. We are going to resume same home medications. Monitor very closely. Once again, I am covering for Dr. Harvey Keith. Currently, the patient is doing well and I discussed this plan of care with the nursing staff. MD DIGNA Paez/SYLVIAL /[id number]
[2019-08-01] MEDS: LEVOTHYROXINE SODIUM 50 MCG TAB PO SCH (20:35)
[2019-08-01] MEDS: LORATADINE 10 MG TAB PO SCH (20:35)
[2019-08-01] MEDS: FINASTERIDE 5 MG TAB PO SCH (20:35)
[2019-08-02] VITALS (16 sets, daily range): BP systolic 105–140; BP diastolic 44–80
[2019-08-02] MEDS: METRONIDAZOLE 500MG/NS 100ML 100 ML IV SCH ×4 (00:06→16:24)
[2019-08-02] MEDS: LEVOFLOXACIN 500MG/D5W 100ML 100 ML IV SCH (00:06)
[2019-08-02 06:05] LABS: HEMATOCRIT 25.2 % (38.2-49.6); HEMOGLOBIN 8.3 g/dL (14.0-18.0); LYMPHOCYTES # (AUTO) 0.5 (1.0-3.2); LYMPHOCYTES % 82.8 % (18.0-39.1); MEAN CORPUSCULAR HEMOGLOBIN 29.4 pg (28-32); MEAN CORPUSCULAR HGB CONC 32.9 g/dL (31-35); MEAN CORPUSCULAR VOLUME 89.4 fL (81-99); MONOCYTES # (AUTO) 0.1 (0.2-0.8); MONOCYTES % 10.9 % (4.4-11.3); NEUTROPHILS % 6.3 % (38.7-80.0); RED BLOOD COUNT 2.82 x10e6/uL (4.3-5.7); RED CELL DISTRIBUTION WIDTH 14.6 % (11.7-14.4)
[2019-08-02 06:17] LABS: PLATELET COUNT 43 x10e3/uL (140-360)
[2019-08-02 06:24] LABS: CALCIUM 8.7 mg/dL (8.4-10.2); CREATININE, SERUM 1.2 mg/dL (0.72-1.25)
[2019-08-02] MEDS: SODIUM CHLORIDE 0.9% IV SCH (07:00)
[2019-08-02] MEDS: AMINOCAPROIC ACID IV SCH (07:00)
[2019-08-02 07:02] LABS: POTASSIUM 3.4 mmol/L (3.5-5.1)
[2019-08-02 07:10] LABS: ANION GAP 8.4 mmol/L (8-16)
[2019-08-02 08:08] LABS: LYMPHOCYTES % (MANUAL) 82 % (19-48); MONOCYTES % (MANUAL) 9 % (3.4-9.0); NEUTROPHILS % (MANUAL) 9 % (40-74)
[2019-08-02 08:09] LABS: PLATELET ESTIMATE MARKEDLY DECREASED; PLATELET MORPHOLOGY COMMENT NORMAL; RBC MORPHOLOGY COMMENT NORMAL
[2019-08-02] MEDS: AMIODARONE HCL 200 MG TAB PO SCH (08:41)
[2019-08-02] MEDS: FERROUS SULFATE 325 MG TAB PO SCH ×2 (08:41→16:24)
[2019-08-02] MEDS: PREGABALIN 50 MG CAP PO SCH (08:41)
[2019-08-02] MEDS: FENOFIBRATE 48 MG TAB PO SCH (08:41)
[2019-08-02] MEDS: METOPROLOL TARTRATE 25 MG TAB PO SCH ×2 (08:41→16:24)
[2019-08-02] MEDS: PANTOPRAZOLE 40 MG 10ML VIAL IV SCH (08:41)
[2019-08-02] MEDS: THIAMINE HCL 100 MG TAB PO SCH ×2 (08:41→16:24)
[2019-08-02] MEDS: MONTELUKAST SODIUM 10 MG TAB PO SCH (08:41)
[2019-08-02] MEDS ORDERED: MELATONIN 5 MG TABLET PO PRN (13:45)
[2019-08-02] MEDS ORDERED: SODIUM CHLORIDE 0.9% 250ML 250 ML ONE (15:45)
--- NOTE | 2019-08-02 16:24 | Progress Note ---
DATE: 08/02/2019 Medicine Progress Note I am covering for Dr. Harvey Keith. SUBJECTIVE: The patient is doing well today with no complaints. No overnight events. PHYSICAL EXAMINATION: VITAL SIGNS: Temperature 98, pulse 75, respiratory rate is 24, blood pressure is 105/44, pulse ox 100% on room air. GENERAL: Not in acute distress. Alert and oriented x3. Cooperative on examination. HEENT: Head; normocephalic, atraumatic. Eyes; pupils are equal, round, and reactive to light bilaterally. Extraocular movements are intact bilaterally. Throat; no evidence of erythema or exudates in the posterior pharynx. Has poor dentition. NECK: Supple. Good range of motion. PULMONARY: Clear to auscultation bilaterally. No wheezing, no rales, no rhonchi, no crackles appreciated. CARDIOVASCULAR: Positive S1 and S2. No murmurs, rubs, or gallops appreciated. ABDOMEN: Soft, nondistended, and nontender to palpation. Bowel sounds present. MUSCULOSKELETAL: Strength is 5/5 throughout. No evidence of any muscle deficits on examination. No weakness appreciated. NEUROLOGIC: Cranial nerves II through XII grossly intact. No evidence of any neurological deficits on exam. SKIN: Intact. Warm to touch. Good cap refill. PSYCHIATRIC: Normal affect and mood. EXTREMITIES: No edema. Good range of motion throughout. LABORATORY DATA: Lab findings show white count 0.64, hemoglobin 8.3, hematocrit 25, and platelets of 43. Chemistry; sodium 142, potassium 3.4, chloride 114, bicarb 23, anion gap is 8.4, BUN 15, creatinine is 1.2. MICROBIOLOGY: None. IMAGING: None. IMPRESSION: 1. Severe advanced myelodysplastic syndrome with severe pancytopenia and neutropenia. 2. Requiring blood transfusions and blood products. 3. Thrombocytopenia. 4. Hyperlipidemia. 5. Fever, neutropenia. PLAN: At this time, blood products will be managed per Hematology. His hemoglobin is stable. His platelets seem to be fairly okay. He is on IV antibiotics for fever and neutropenia precaution. He has had no fever. All blood and urine cultures were found to be negative. We will continue with same plan of care. Monitor closely. Transfer to the medical floor. Discussed plan of care with nursing staff. MD DIGNA Paez/SYLVIAL /[id number]
[2019-08-02] MEDS: FINASTERIDE 5 MG TAB PO SCH (22:27)
[2019-08-02] MEDS: LEVOTHYROXINE SODIUM 50 MCG TAB PO SCH (22:27)
[2019-08-02] MEDS: LORATADINE 10 MG TAB PO SCH (22:27)
[2019-08-03] VITALS (8 sets, daily range): BP systolic 102–144; BP diastolic 54–65
[2019-08-03] MEDS: METRONIDAZOLE 500MG/NS 100ML 100 ML IV SCH ×4 (00:06→16:52)
[2019-08-03] MEDS: LEVOFLOXACIN 500MG/D5W 100ML 100 ML IV SCH (01:06)
[2019-08-03 05:34] LABS: HEMATOCRIT 25.4 % (38.2-49.6); HEMOGLOBIN 8.5 g/dL (14.0-18.0); LYMPHOCYTES # (AUTO) 0.5 (1.0-3.2); LYMPHOCYTES % 76.7 % (18.0-39.1); MEAN CORPUSCULAR HEMOGLOBIN 29.9 pg (28-32); MEAN CORPUSCULAR HGB CONC 33.5 g/dL (31-35); MEAN CORPUSCULAR VOLUME 89.4 fL (81-99); MONOCYTES # (AUTO) 0.1 (0.2-0.8); MONOCYTES % 18.3 % (4.4-11.3); RED BLOOD COUNT 2.84 x10e6/uL (4.3-5.7); RED CELL DISTRIBUTION WIDTH 14.6 % (11.7-14.4)
[2019-08-03 05:46] LABS: PLATELET COUNT 28 x10e3/uL (140-360)
[2019-08-03 05:55] LABS: ANION GAP 11.7 mmol/L (8-16); CALCIUM 8.6 mg/dL (8.4-10.2); CREATININE, SERUM 1.3 mg/dL (0.72-1.25); POTASSIUM 3.7 mmol/L (3.5-5.1)
[2019-08-03 07:27] LABS: LYMPHOCYTES % (MANUAL) 80 % (19-48); MONOCYTES % (MANUAL) 16 % (3.4-9.0); NEUTROPHILS % (MANUAL) 4 % (40-74); PLATELET ESTIMATE MARKEDLY DECREASED
[2019-08-03 07:28] LABS: ANISOCYTOSIS SLIGHT; PLATELET MORPHOLOGY COMMENT NORMAL; POIKILOCYTOSIS SLIGHT; RBC MORPHOLOGY COMMENT NORMAL
[2019-08-03] MEDS: AMIODARONE HCL 200 MG TAB PO SCH (09:32)
[2019-08-03] MEDS: PANTOPRAZOLE 40 MG 10ML VIAL IV SCH (09:32)
[2019-08-03] MEDS: FERROUS SULFATE 325 MG TAB PO SCH ×2 (09:32→16:52)
[2019-08-03] MEDS: METOPROLOL TARTRATE 25 MG TAB PO SCH ×2 (09:33→16:12)
[2019-08-03] MEDS: FENOFIBRATE 48 MG TAB PO SCH (09:33)
[2019-08-03] MEDS: MONTELUKAST SODIUM 10 MG TAB PO SCH (09:33)
[2019-08-03] MEDS: THIAMINE HCL 100 MG TAB PO SCH ×2 (09:33→16:52)
[2019-08-03] MEDS ORDERED: HYDROCODONE/APAP 5MG-325MG TAB PO PRN (13:00)
[2019-08-03] MEDS ORDERED: POTASSIUM CHLORIDE 20 MEQ TAB CR PO ONE (13:30)
[2019-08-03] MEDS: FUROSEMIDE INJ 10 MG/ML 4 ML VIAL IV SCH ×2 (13:31→21:11)
[2019-08-03] MEDS ORDERED: FUROSEMIDE INJ 10 MG/ML 4 ML VIAL IV SCH (14:00)
--- NOTE | 2019-08-03 17:02 | Progress Note ---
DATE: 08/03/2019 Medicine Progress Note. SUBJECTIVE: The patient is doing well today. Only complaint is lower back pain, which he takes [place] at home. Also, complained of lower extremity edema, which Lasix has been ordered. PHYSICAL EXAMINATION: VITAL SIGNS: Temperature 97.9, pulse 78, respiratory rate is 16, blood pressure 104/54, pulse ox 100% on room air. GENERAL: Not in acute distress. Alert and oriented x3. Cooperative on examination. HEENT: Head; normocephalic, atraumatic. Eyes; pupils are equal, round, and reactive to light bilaterally. Extraocular movements are intact bilaterally. Throat; no evidence of erythema or exudates in the posterior pharynx. Has poor dentition. NECK: Supple. Good range of motion. PULMONARY: Clear to auscultation bilaterally. No wheezing, no rales, no rhonchi, no crackles appreciated. CARDIOVASCULAR: Positive S1 and S2. No murmurs, rubs, or gallops appreciated. ABDOMEN: Soft, nondistended, and nontender to palpation. Bowel sounds present. MUSCULOSKELETAL: Strength is 5/5 throughout. No evidence of any muscle deficits on examination. No weakness appreciated. NEUROLOGIC: Cranial nerves II through XII grossly intact. No evidence of any neurological deficits on exam. SKIN: Intact. Warm to touch. Good cap refill. PSYCHIATRIC: Normal affect and mood. EXTREMITIES: No edema. Good range of motion throughout. LABORATORY DATA: White count 0.6, hemoglobin 8.5, hematocrit 25, and platelets of 28. Chemistry, reviewed and stable. IMPRESSION: 1. Severe advanced myelodysplastic syndrome with severe pancytopenia and neutropenia. 2. Requiring blood transfusion and blood products. 3. Thrombocytopenia. 4. Hyperlipidemia. 5. Fever and neutropenia. PLAN: At this time, blood products will be managed per Hematology. Hemoglobin is stable. Platelets are low, but we will have Hematology way in on it. Continue with IV antibiotics for fever and neutropenia precautions. He does not have a fever at this current time and cultures are all negative. He is on the medical floor. I did start him on IV diuretics, a.m. labs. I did restart his [place] as well. He could possibly be discharged if cleared by Hematology in the next [address] Keith will be available tomorrow. MD DIGNA Paez/TIMOTHY /[id number]
[2019-08-03] MEDS: LORATADINE 10 MG TAB PO SCH (21:11)
[2019-08-03] MEDS: FINASTERIDE 5 MG TAB PO SCH (21:11)
[2019-08-03] MEDS: LEVOTHYROXINE SODIUM 50 MCG TAB PO SCH (21:11)
[2019-08-04] VITALS (7 sets, daily range): BP systolic 113–136; BP diastolic 54–71
[2019-08-04] MEDS: METRONIDAZOLE 500MG/NS 100ML 100 ML IV SCH ×2 (00:06→05:50)
[2019-08-04] MEDS: LEVOFLOXACIN 500MG/D5W 100ML 100 ML IV SCH (01:00)
[2019-08-04 05:27] LABS: HEMATOCRIT 24.9 % (38.2-49.6); LYMPHOCYTES # (AUTO) 0.5 (1.0-3.2); LYMPHOCYTES % 77.6 % (18.0-39.1); MEAN CORPUSCULAR HEMOGLOBIN 29.4 pg (28-32); MEAN CORPUSCULAR HGB CONC 32.1 g/dL (31-35); MEAN CORPUSCULAR VOLUME 91.5 fL (81-99); MONOCYTES # (AUTO) 0.1 (0.2-0.8); MONOCYTES % 17.9 % (4.4-11.3); RED BLOOD COUNT 2.72 x10e6/uL (4.3-5.7); RED CELL DISTRIBUTION WIDTH 14.7 % (11.7-14.4)
[2019-08-04 05:45] LABS: PLATELET COUNT 21 x10e3/uL (140-360)
[2019-08-04 05:46] LABS: CALCIUM 8.5 mg/dL (8.4-10.2); CREATININE, SERUM 1.66 mg/dL (0.72-1.25)
[2019-08-04 06:47] LABS: EOSINOPHILS % (MANUAL) 3 % (0-7); LYMPHOCYTES % (MANUAL) 82 % (19-48); MONOCYTES % (MANUAL) 9 % (3.4-9.0); NEUTROPHILS % (MANUAL) 6 % (40-74); RBC MORPHOLOGY COMMENT ABNORMAL
[2019-08-04 06:48] LABS: ANISOCYTOSIS SLIGHT; PLATELET ESTIMATE MARKEDLY DECREASED; PLATELET MORPHOLOGY COMMENT NORMAL; POIKILOCYTOSIS SLIGHT
[2019-08-04] MEDS: AMIODARONE HCL 200 MG TAB PO SCH (08:30)
[2019-08-04] MEDS: FENOFIBRATE 48 MG TAB PO SCH (08:30)
[2019-08-04] MEDS: THIAMINE HCL 100 MG TAB PO SCH ×2 (08:30→16:23)
[2019-08-04] MEDS: FERROUS SULFATE 325 MG TAB PO SCH ×2 (08:30→15:49)
[2019-08-04] MEDS: METOPROLOL TARTRATE 25 MG TAB PO SCH ×2 (08:30→16:23)
[2019-08-04] MEDS: MONTELUKAST SODIUM 10 MG TAB PO SCH (08:30)
[2019-08-04] MEDS: PANTOPRAZOLE 40 MG 10ML VIAL IV SCH (08:30)
[2019-08-04] MEDS: LORATADINE 10 MG TAB PO SCH (20:45)
[2019-08-04] MEDS: LEVOTHYROXINE SODIUM 50 MCG TAB PO SCH (20:46)
[2019-08-04] MEDS: FINASTERIDE 5 MG TAB PO SCH (20:46)
[2019-08-05] VITALS: BP 139/66
[2019-08-05 04:00] VITALS: BP 146/70
[2019-08-05 06:00] LABS: HEMATOCRIT 25.2 % (38.2-49.6); HEMOGLOBIN 8.2 g/dL (14.0-18.0); LYMPHOCYTES # (AUTO) 0.5 (1.0-3.2); LYMPHOCYTES % 82.8 % (18.0-39.1); MEAN CORPUSCULAR HEMOGLOBIN 29.6 pg (28-32); MEAN CORPUSCULAR HGB CONC 32.5 g/dL (31-35); MONOCYTES # (AUTO) 0.1 (0.2-0.8); MONOCYTES % 12.5 % (4.4-11.3); NEUTROPHILS % 4.7 % (38.7-80.0); RED BLOOD COUNT 2.77 x10e6/uL (4.3-5.7); RED CELL DISTRIBUTION WIDTH 14.4 % (11.7-14.4)
[2019-08-05 06:04] LABS: PLATELET COUNT 17 x10e3/uL (140-360)
[2019-08-05 08:00] VITALS: BP 145/64
[2019-08-05] MEDS: THIAMINE HCL 100 MG TAB PO SCH (10:00)
[2019-08-05] MEDS: FERROUS SULFATE 325 MG TAB PO SCH (10:00)
[2019-08-05] MEDS: METOPROLOL TARTRATE 25 MG TAB PO SCH (10:00)
[2019-08-05] MEDS: MONTELUKAST SODIUM 10 MG TAB PO SCH (10:00)
[2019-08-05] MEDS: AMIODARONE HCL 200 MG TAB PO SCH (10:00)
[2019-08-05 10:31] VITALS: BP 145/64
[2019-08-05] MEDS ORDERED: SODIUM CHLORIDE 0.9% 250ML 250 ML ONE (10:39)
[2019-08-05] MEDS ORDERED: NORCO 10-325 T1 EACH PO (11:57)
[2019-08-05 12:00] VITALS: BP 134/60
[2019-08-05 16:28] VITALS: BP 159/97
--- NOTE | 2019-08-05 18:36 | Discharge Summary ---
CONSULTANTS: 1. Urban Velazquez MD. 2. Alfonso Velázquez MD. FINAL DIAGNOSES: 1. Fever, resolved. Neutropenia persist. 2. Myelodysplastic syndrome advanced with pancytopenia. 3. Multiple packed red blood transfusion, platelet transfusion, and FFP. 4. Electrolyte disorder, corrected. 5. Shortness of breath secondary to anemia, resolving. 6. Paroxysmal atrial fibrillation, coronary artery disease with stent, but unable to anticoagulate due to rectal bleed secondary to pancytopenia. SUMMARY: The patient is a 79-year-old male with advanced MDS with AML conversion. The patient has WBC of 0.6, hemoglobin and hematocrit of 8.2 and 25.2, but more importantly, his platelet dropped down gradually from 21,000 to 17,000 today. The patient has no gross bleed. He has advanced MDS and is unable to tolerate any further chemotherapy. The patient has been cleared by Dr. Urban Velazquez, his oncologist for going home today. The patient is otherwise stable. No bleed. He seems comfortable. Discussed with the patient and family at length. There is a family meeting with Dr. Velazquez office sometime this week or early next week. The patient will go home today. Medication reconciliation is done. Discussed with the patient at length regarding comfort measure, but declined hospice. We will continue to manage the patient's pain control. The patient is otherwise stable clinically and he will go home today. MD SUE Ramirez/MODL /[id number]
== END 2019-08-05 16:40 | disposition home or self-care (01) | DRG 871 ==
LOC: ER 22:44 → ERHOLD 07-26 00:15 → ICU 07-26 00:36 → MED/SURG 08-02 14:51
PROVIDERS: ADMIT Internal Medicine; ATTEND Internal Medicine
PROC: 30233R1 Transfusion of Nonautologous Platelets into Peripheral Vein, Percutaneous Approach (ICD-10-PCS; principal; 2019-07-26)
PROC: 30233N1 Transfusion of Nonautologous Red Blood Cells into Peripheral Vein, Percutaneous Approach (ICD-10-PCS; 2019-07-26)
DX: A41.9 Sepsis, unspecified organism (principal); D61.1 Drug-induced aplastic anemia; D61.818 Other pancytopenia; D62 Acute posthemorrhagic anemia; K92.2 Gastrointestinal hemorrhage, unspecified; D46.Z Other myelodysplastic syndromes; R50.81 Fever presenting with conditions classified elsewhere; I25.2 Old myocardial infarction; Z95.5 Presence of coronary angioplasty implant and graft; Z82.49 Family history of ischemic heart disease and other diseases of the circulatory system; Z88.0 Allergy status to penicillin; Z88.8 Allergy status to other drugs, medicaments and biological substances; Z91.041 Radiographic dye allergy status; I13.10 Hypertensive heart and chronic kidney disease without heart failure, with stage 1 through stage 4 chronic kidney disease, or unspecified chronic kidney disease; N18.9 Chronic kidney disease, unspecified; I25.10 Atherosclerotic heart disease of native coronary artery without angina pectoris; I48.0 Paroxysmal atrial fibrillation; E03.9 Hypothyroidism, unspecified; D69.6 Thrombocytopenia, unspecified; E78.5 Hyperlipidemia, unspecified; E11.22 Type 2 diabetes mellitus with diabetic chronic kidney disease; T45.1X5A Adverse effect of antineoplastic and immunosuppressive drugs, initial encounter
CPT/HCPCS: 36415; 71045; 74176; 80048; 80051; 80053; 81001; 82150; 82550; 82553; 83605; 83690; 83735; 84100; 84484; 85025; 85610; 85730; 86850; 86900; 86920; 87040; 87086; 93005; 93306; 99284; J1940; J1956; J3411; J3480; J7030; J7040; J7050; P9016; P9031; P9034

== ENCOUNTER 2019-08-28 09:55 | Inpatient (IN) | payer MEDICARE, OTHER ==
[2019-08-27] MEDS: SODIUM CHLORIDE 0.9% 1000ML 1,000 ML IV SCH (21:30)
[~2019-08-28] VITALS: Ht 175.3 cm; Wt 87.1 kg
--- NOTE | 2019-08-28 | NUR ---
INITIATED 1ST UNIT OF BLOOD. VS WNL AT THIS TIME. VERIFIED WITH 2ND NURSE. NO S/S OF REACTION. BED LOW/LOCKED. CONTINUE TO MONITOR CLOSELY Addendum: 08/29/19 at 0128 by Sybil Choudhary RN WRONG TIME
[~2019-08-28 09:55] MED LIST changes: +AMIODARONE HCL200 MG PO; +AMLODIPINE BESYL5 MG PO; +ATENOLOL25 MG PO; +FENOFIBRATE54 MG PO; +HYDROCODON-ACE1 EA11 PO; +LOPRESSOR25 MG PO; +NORCO 10-325 T1 EACH PO
--- OUTSIDE RECORDS SUMMARY | 2019-08-28 10:01 | XMS REPORT | Clinical Summary ---
Author Author [facility] Organization [facility] Address Unknown Phone Unavailable Care Team Providers Care Chief Ultrasound Technologist Name Role Phone Dejuan Keith MD PCP Allergies Comments Active Allergy Reactions Severity Noted Date Cephalexin 05/16/2019 Allergic to oral only not topical. Iodine Hives, Rash Low 05/16/2019 Chlordiazepoxide Hcl 05/16/2019 [place] 05/16/2019 Penicillins 05/16/2019 Medications End Date Status [...] Oncology - Encounter 05/22/2019 05/16/2019 Travel after 08/27/2018 Social History Date Tobacco Use Types Packs/Day [...] MMODE SPECTRAL 12:02 PM CDT COLOR DOPPLER ([id number]) MANUAL DIFFERENTIAL Routine 05/20/2019 4:43 AM CDT [...] PORTABLE STAT 05/16/2019 2:57 PM CDT after 08/27/2018 Results * Estimated GFR (05/22/2019 4:00 AM CDT) Only the most recent of 7 results within the time period is included. Pathologist [facility] Estimated GFR 49 (A) mL/min/1.73 m2 [place] Comment: [facility] rpretation G1 >=90 Normal or high G2 60-89Mildly decreased M8q81-99 Mildly to moderately decreased D8r11-98 Moderately to severely decreased G4 15-29Severely decreased G5 <15Kidney failure The eGFR was calculated using the Chronic Kidney Disease Epidemiology Collaboration (CKD-EPI) equation. Interpretation is based on recommendations of the National Kidney Foundation-Kidney Disease Outcomes Quality Initiative (NKF-KDOQI) published in 2014. Specimen Plasma specimen Performing Organization Address City/[facility] [place] [address] PATHOLOGY AND [facility] MEDICINE [address] * Manual differential (05/22/2019 4:00 AM CDT) Only the most recent of 6 results within the time period is included. Pathologist [facility] Manual PERFORMED [facility] Neutrophils 5.0 (L) 39.0 - 69.0 % [facility] Lymphocytes 82.0 (H) 25.0 - 45.0 % [facility] Monocytes 10.0 0.0 - 10.0 % [facility] Eosinophils 1.0 0.0 - 5.0 % [facility] Basophils 0.0 0.0 - 1.0 % [facility] Metamyelocytes 0 % [facility] Myelocytes 2 % [facility] Promyelocytes 0 % [facility] Platelet slide Mkd decreased (A) [facility] Anisocytosis Moderate [facility] Ovalocytes Moderate [facility] Specimen Performing Organization Address City/[facility] Phone Number [facility] [address] PATHOLOGY AND GENOMIC MEDICINE [address] * CBC with platelet and differential (05/22/2019 4:00 AM CDT) Only the most recent of 6 results within the time period is included. WBC 0.88 (LL) 4.50 - 11.00 k/uL [place] Comment: [facility]INDUISM Results called to and read HOSPITAL back by RICKY Zurita OCA/WT14 (name/location) at 05/22/201905:50 (date/time) by 465. RBC 2.42 (L) 4.40 - 6.00 m/uL [facility] HGB 7.3 (L) 14.0 - 18.0 g/dL [facility] HCT 23.6 (L) 41.0 - 51.0 % [facility] MCV 97.5 82.0 - 100.0 fL [facility] MCH 30.2 27.0 - 34.0 pg [facility] MCHC 30.9 (L) 31.0 - 37.0 g/dL [facility] RDW - SD 58.9 (H) 37.0 - 55.0 fL [facility] MPV 10.5 8.8 - 13.2 fL [facility] Platelet count 31 (L) 150 - 400 k/uL [facility] Nucleated RBC 0.00 /100 WBC [facility] Neutrophils 5.0 (L) 39.0 - 69.0 % [facility] Lymphocytes 82.0 (H) 25.0 - 45.0 % [facility] Monocytes 10.0 0.0 - 10.0 % [facility] Eosinophils 1.0 0.0 - 5.0 % [facility] Basophils 0.0 0.0 - 1.0 % [facility] Specimen Blood Performing Organization Address City/[facility] Phone Number [facility] DEPARTMENT OF [address] [place] [address] PATHOLOGY [place] [address] HOSPITAL * Phosphorus level (05/22/2019 4:00 AM CDT) Only the most recent of 7 results within the time period is included. Phosphorus 3.6 2.4 - 4.5 mg/dL [facility] Specimen Plasma specimen Performing Organization Address City/[facility]/Zipcode Phone Number [facility] DEPARTMENT OF [address] [place] [address] PATHOLOGY AND GENOMIC MEDICINE [address] * Magnesium level (05/22/2019 4:00 AM CDT) Only the most recent of 7 results within the time period is included. Pathologist [facility] Magnesium 1.8 1.6 - 2.4 mg/dL [facility] Specimen Plasma specimen Performing Organization Address [facility] Phone Number [facility] [address] PATHOLOGY AND [facility] MEDICINE [address] * Basic metabolic panel (05/22/2019 4:00 AM CDT) Only the most recent of 6 results within the time period is included. [facility] Sodium 142 135 - 148 mEq/L [facility] Potassium 4.0 3.5 - 5.0 mEq/L [facility] Chloride 109 98 - 112 mEq/L [facility] CO2 22 (L) 24 - 31 mEq/L [facility] Anion gap 11@ANIO 7 - 15 mEq/L [facility] BUN 20 8 - 23 mg/dL [facility] Creatinine 1.38 (H) 0.70 - 1.20 mg/dL [facility] Glucose 98 65 - 99 mg/dL [facility] Calcium 8.6 (L) 8.8 - 10.2 mg/dL [facility] Specimen Plasma specimen Performing Organization Address [facility] Phone Number [facility] [address] PATHOLOGY AND [facility] MEDICINE [address] * Transfuse platelets (05/21/2019 5:54 PM CDT) Only the most recent of 3 results within the time period is included. * ECG 12 lead (05/20/2019 4:48 PM CDT) Only the most recent of 2 results within the time period is included. Ventricular 68 [facility] MUSE rate Atrial rate 68 [facility] MUSE [place] interval 164 [facility] MUSE QRSD interval 88 [...] At Performing Organization Address City/State/Zipcode Phone Number [facility] [address] [place] [address] * Echocardiogram complete w contrast and 3D if needed (05/20/2019 12:02 PM CDT) Specimen Narrative Performed At DONNA Castro.Name:DEJUAN BROWN.ID:[id number] St.Date: 05/20/2019 Exam Time: 11:26:00 AM Study Type:Routine EchoHeight:69in Weight:188.61lbBSA: 2.02 m2 DOBAge:1940,79YSex: MALE Sonogrphr: Kristy Study Status:Final Echo Event ID:[id number] Order ID:[id number] Procedures:2D Echo, Colorflow Doppler, Intravenous Lumason Contrast [...] PA systolic pressure. MEASUREMENTS: 2D Parasternal Long [place] LVOT 2 cmLA Ds4.4 cm LVIDd4.6 cmIndex2.3 cm/m Ao Rtd 3.8 cm Index1.9 cm/m LVIDs2.8 cm LV Gegj567.6 g(122-174) LV%fs 39.4 % LVM Vzrdl021.8 g/m2 IVSd 1.3 cmRWT0.5 LVPWd1.1 cm LA Sng Plane LA Area 21.2 cm2(8.8-23.4) LA Vol60.3 ml Index29.8 ml/m LA LngAx 6.3 cm RA Sng Plane RA Area 19.8 cm2(8.3-19.5) RA Vol56.4 ml Index27.9 ml/m RA LngAx 5.8 cm Signed 05/21/2019 05:05 PM Litzy Mackay M.D. Procedure Note Interface, Radiology Results In - 05/21/2019 5:05 PM CDT Pat.Name: DEJUAN BROWN Gloria.ID: [id number] .Date: 05/20/2019 Exam Time: 11:26:00 AM Study Type:Routine Echo Height: 69in Weight: 188.61lb BSA: 2.02 m2 Age: 5 1940,79Y Sex: MALE Sonogrphr: Kristy Study Status:Final Echo Event ID:[id number] Order ID: [id number] Procedures:2D Echo, Colorflow Doppler, Intravenous Lumason Contrast [...] PA systolic pressure. MEASUREMENTS: 2D Parasternal Long [place] LVOT 2 cm LA Ds 4.4 cm [...] PM Ltizy Mackay M.D. Performing Organization Address City/[facility] Phone Number [facility] [address] [place] [address] * Surgical pathology request (05/19/2019 4:39 PM CDT) [facility] OF PATHOLOGY AND GENOMIC MEDICINE Surgical See link below for PDF Lab [facility] pathology Report OF PATHOLOGY report AND GENOMIC MEDICINE Result status This is Final Report for [facility] [id number] OF PATHOLOGY AND GENOMIC MEDICINE Specimen Performing Organization Address City/[facility]/Zipcode Phone Number [facility] DEPARTMENT OF [address] [place] [address] PATHOLOGY AND GENOMIC MEDICINE * Bone marrow tray (05/19/2019 2:44 PM CDT) Bone marrow Done [facility] Specimen Fluid Performing Organization Address City/State/Zipcode Phone Number [facility] DEPARTMENT OF [address] [place] [address] PATHOLOGY AND GENOMIC MEDICINE [facility] [address] [place] [address] [facility] * Miscellaneous referral test (05/19/2019 2:44 PM CDT) Misc test name FLT3,CEPBA,NPM1,IDH2 SHOWN ABOVE Misc test see note SHOWN ABOVE result Comment: EBPA Mutation Detection [facility] test code 6329764 CEBPA Mutation Detection Results Not Detected A [...] (Jovan DAMON, et al. 2010. J Clin Oncol:28,[id number]). METHODOLOGY: CEBPA mutations in white blood cells [...] malignancy. Test developed and characteristics determined by [email or web address]. See Compliance Statement B: [employer]/CS ------ ------ ------ -- Order comments CEBPA Mutation Detection ONE FULL LAVENDER BONE MARROW IDH1 and IDH2 Mutation Analysis, exon 4 [id number] test code [id number] IDH1 and IDH2 Mutation Results Not Detected [...] R132 (IDH1), R140 (IDH2) and R172 (IDH2). Wyano sequencing is then performed to detect mutations. [...] disease. Test developed and characteristics determined by [employer]. See Compliance Statement B: [employer]/CS - - - - - - - - - - - - - - - - - - - - - - - - - - - - - - IDH 1-2 Source Bone Marrow ------ ------ ------ -- Order comments IDH1 and IDH2 Mutation Analysis, exon 4 ONE FULL LAVENDER BONE MARROW NPM1 Mutation Detection by RT-PCR, Quantitative [facility] test code [id number] NPM1 Quantitative, Source Bone Marrow - - [...] 05;374(5):422-33. Test developed and characteristics determined by [email or web address]. See Compliance Statement B: [employer]/CS - - - - - - - - - - - - - - - - - - - - - - - - - - - - - - NPM1 Quantitative, Ratio 0.0000 ------ ------ ------ -- Order comments NPM1 Mutation Detection by RT-PCR, Quantitative ONE FULL LAVENDER BONE MARROW FLT3 ITD and TKD Mutation Detection [employer] test code 0100153 FLT3 Source Bone Marrow - - - [...] methodology. Test developed and characteristics determined by [email or web address]. See Compliance Statement B: [employer]/CS ------ ------ ------ -- Order comments FLT3 ITD and TKD Mutation Detection ONE FULL LAVENDER BONE MARROW Test performed by: [email or web address] [address] [place], [place] Specimen Narrative Performed At BONE MARROW [facility] DEPARTMENT OF FLT3, NPM1, CEBPA, IDH2 PCR PATHOLOGY AND ONLY ONE FULL LAVENDER GENOMIC MEDICINE Performing Organization Address City/State/Zipcode Phone Number [facility] DEPARTMENT OF [address] [place] [address] PATHOLOGY AND GENOMIC MEDICINE SHOWN ABOVE * Flow cytometry evaluation (05/19/2019 2:44 PM CDT) Only the most recent of 2 results within the time period is included. [facility] Flow cytometry See link below for PDF Lab [place] evaluation Report [facility] Specimen Blood Narrative Performed At Performing Organization Address City/[facility] Phone Number [facility] DEPARTMENT OF [address] [place] [address] PATHOLOGY AND GENOMIC MEDICINE [facility] * 54 gene myeloid mutation test (05/19/2019 2:44 PM CDT) Interpretation VARIANT(S) DETECTED: [place] No Mutations Detected [facility] Amplicon coverage:532 of HOSPITAL 538 amplicons (98.9%) had >100x coverage and were included in the analysis. 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 [facility] Product name Apheresis PLT, Leukored IRR #2 [facility] Unit number [id number] [facility] Product code [id number] [facility] Dispense status Transfused [facility] Blood [id number] [place] expiration date [facility] Blood type code 6200 [facility] Blood type A POSITIVE [facility] Specimen Blood Performing Organization Address City/[facility]/Zipcode Phone Number [facility] [address] PATHOLOGY AND GENOMIC MEDICINE [address] * Type and screen (05/19/2019 5:25 AM CDT) Only the most recent of 2 results within the time period is included. Pathologist [facility] ABO grouping A [facility] Rh type POS [facility] Antibody screen NEG [place] (gel) [facility] Specimen Performing Organization Address City/State/Zipcode Phone Number [facility] DEPARTMENT OF [address] [place] [address] PATHOLOGY AND GENOMIC MEDICINE [address] * Smear review (05/17/2019 5:25 AM CDT) Smear review Smear Reviewed [facility] Specimen Performing Organization Address City/[facility]/Zipcode Phone Number [facility] DEPARTMENT OF [address] [place] [address] PATHOLOGY AND GENOMIC MEDICINE [address] * Lactic acid level, SEPSIS - Now and repeat 2x every 3 hours (05/17/2019 5:25 AM CDT) Only the most recent of 3 results within the time period is included. Pathologist [facility] Lactic acid 0.9 0.5 - 2.2 mmol/L [facility] Specimen Blood Performing Organization Address [facility] Phone Number [facility] DEPARTMENT OF [address] [place] [address] PATHOLOGY AND GENOMIC MEDICINE [address] * CBC hemogram (05/17/2019 5:25 AM CDT) WBC 0.70 (LL) 4.50 - 11.00 k/uL [place] Comment: [place] WBC results called to and read HOSPITAL back byFRANKI GARCIA/DACIA (name/location) at 05/17/201905:57 (date/time) by A. RBC 2.61 (L) 4.40 - 6.00 m/uL [facility] HGB 7.6 (L) 14.0 - 18.0 g/dL [facility] HCT 25.0 (L) 41.0 - 51.0 % [facility] MCV 95.8 82.0 - 100.0 fL [facility] MCH 29.1 27.0 - 34.0 pg [facility] MCHC 30.4 (L) 31.0 - 37.0 g/dL [facility] RDW - SD 53.5 37.0 - 55.0 fL [facility] MPV 11.1 8.8 - 13.2 fL [facility] Platelet count 16 (LL) 150 - 400 k/uL [place] Comment: [place] PLT results called to and read HOSPITAL back byFRANKI GARCIA/DACIA (name/location) at 05/17/201905:57 (date/time) by MFNoel. Nucleated RBC 0.00 /100 WBC [facility] Specimen Blood Performing Organization Address City/State/Zipcode Phone Number [facility] [address] PATHOLOGY AND [facility] MEDICINE [address] * Thyroid stimulating hormone (05/17/2019 5:25 AM CDT) TSH 2.25 0.27 - 4.20 uIU/mL [facility] Specimen Plasma specimen Performing Organization Address [facility] Phone [facility] [address] PATHOLOGY AND [facility] MEDICINE [address] * T4, free (05/17/2019 5:25 AM CDT) T4, free 1.4 0.9 - 1.7 ng/dL [facility] Specimen Plasma specimen Performing Organization Address [facility] Phone Number [facility] [address] PATHOLOGY [facility] MEDICINE [address] * Hemoglobin A1c (05/17/2019 5:25 AM CDT) Hemoglobin A1C 6.8 (H) 4.0 - 5.6 % [place] Comment: [facility]ISM HbA1c cutoffs for diagnosing HOSPITAL diabetes: 4.0% - 5.6%=normal 5.7% - 6.4%=increased risk for diabetes (prediabetes) >=6.5%=diabetes Goals for glycemic control (ADA 2016) < 7.0%Target for non adults with diabetes. More or less stringent targets may be appropriate for individual patients. <7.5% Target for Children and adolescents with type 1 diabetes. Specimen Blood Performing Organization Address City/[facility]/Zipcode Phone Number [facility] [address] PATHOLOGY AND [facility] MEDICINE [address] * Folate level (05/17/2019 5:25 AM CDT) Folate 10.6 4.8 - 24.2 ng/mL [facility] Specimen Serum Performing Organization Address City/State/Zipcode Phone Number [facility] DEPARTMENT OF [address] [place] [address] PATHOLOGY AND GENOMIC MEDICINE [place] [facility] [address] [place] [address] HOSPITAL * Vitamin B12 level (05/17/2019 5:25 AM CDT) Vitamin B12 234 211 - 946 pg/mL [place] Comment: [place] Significant overlap exists HOSPITAL between normal and deficiency states. However, most patients with deficiencies will have Serum B12 <200 pg/mL. Specimen Serum Performing Organization Address City/[facility]/Zipcode Phone Number [facility] [address] PATHOLOGY AND GENOMIC MEDICINE [place] [facility] [address] [place] [address] * Lipid panel (05/17/2019 5:25 AM CDT) [facility] Cholesterol 141 <200 mg/dL [facility] Triglycerides 184 (H) <150 mg/dL [facility] HDL cholesterol 47 >40 mg/dL [facility] LDL cholesterol 66Comment: Result obtained by <100 mg/dL [place] direct LDL measurement [facility] Lipid panel SeeBelow [place] interpretation Comment: [facility]UISM Total Cholesterol HOSPITAL (mg/dL) <200 Desirable 200-239Borderline [...] specimen Performing Organization Address City/State/Zipcode Phone Number [facility] DEPARTMENT OF [address] [place] [address] PATHOLOGY AND GENOMIC MEDICINE [facility] [address] [place] [address] HOSPITAL * US Renal (05/16/2019 9:00 PM CDT) Specimen Narrative Performed At [facility]AMIN[facility] H[facility]:Renal failureacute (kidney injury) COMPARISON:None. TECHNIQUE:Ultrasound [...] is mild hydronephrosis. The bladder is unremarkable. [facility]-[id number] Procedure Note Interface, Radiology Results Incoming - [...] is mild hydronephrosis. The bladder is unremarkable. [facility]-[id number] Performing Organization Address City/State/Zipcode Phone Number [facility] [address] [place] [address] * Radha Marks Virus (EBV) by PCR (05/16/2019 8:13 PM CDT) Radha Marks Not-Detected Not-Detected [place] virus, PCR copies/mL [facility] Radha Marks See link below for PDF Lab LUJAN virus, PCR ReportComment: Case Number: [facility] [id number] HOSPITAL Specimen Performing Organization Address City/State/Zipcode Phone Number [facility] DEPARTMENT OF [address] [place] [address] PATHOLOGY AND GENOMIC MEDICINE [facility] [address] [place] [address] [facility] * Syphilis total antibody (05/16/2019 7:18 PM CDT) Pathologist [facility] Syphilis total Non-reactiveComment: No Non-reactive [place] antibody serological evidence of [facility]ISM syphilis infection. HOSPITAL Specimen Blood Performing Organization Address City/State/Zipcode Phone Number [place] [address] PATHOLOGY AND [facility] MEDICINE [address] * HIV Ag/Ab combination (05/16/2019 7:18 PM CDT) Pathologist [facility] HIV Ag/Ab Non-reactive Non-reactive [facility] Specimen Blood Performing Organization Address City/State/Zipcode Phone Number [place] [address] PATHOLOGY AND [facility] MEDICINE [address] * Parvovirus B19 antibody, IgG and IgM (05/16/2019 7:18 PM CDT) [facility] Parvovirus B19 6.31 (H) <=0.89 IV AR [...] levels of specific IgM antibodies. Performed by [employer], [address] [place] [id number] [email or web address], Buzz Tom MD - Lab. Director Specimen Serum Performing Organization Address [facility] Phone Number [facility] [address] [place] [address] [facility] RE[facility] LAB [address] [place] [address] * Partial thromboplastin time, activated (05/16/2019 7:18 PM CDT) Only the most recent of 2 results within the time period is included. [facility] PTT 27.6 23.0 - 36.0 sec [place] Comment: [facility]INDUISM PTT therapeutic range for HOSPITAL unfractionated heparin is 61.0-112.0 seconds which corresponds to Anti-Xa 0.3-0.7 U/ml. Specimen Blood Performing Organization Address [facility] Phone Number [facility] DE[facility] OF [address] [place] [address] PATHOLOGY AND [facility] MEDICINE [address] * Fibrinogen (05/16/2019 7:18 PM CDT) [facility] Fibrinogen 355 200 - 450 mg/dL [facility] Specimen Blood Performing Organization Address [facility]/Zipcode Phone Number [facility] DEPARTMENT OF [address] [place] [address] PATHOLOGY AND [facility] MEDICINE [address] * Reticulocyte count (05/16/2019 7:18 PM CDT) [facility] Retic %, auto 2.1 0.5 - 2.1 % [facility] Retic absolute, 0.0550 0.0220 - 0.1260 m/uL [place] auto [facility] Specimen Blood Performing Organization Address City/[facility]/Zipcode Phone Number [place] [address] PATHOLOGY AND GENOMIC MEDICINE [address] * Urinalysis screen and microscopy, with reflex to culture (05/16/2019 5:30 PM CDT) Specimen site Clean catch [facility] Color, UA Straw [facility] Appearance, UA Clear [facility] Specific 1.013 1.001 - 1.035 [place] gravity, [facility] pH, UA 6.0 5.0 - 8.5 [facility] Protein, UA Negative Negative [facility] Glucose, UA Negative Negative [facility] Ketones, UA Negative Negative [facility] Bilirubin, UA Negative Negative [facility] Blood, UA Negative Negative [facility] Nitrite, UA Negative Negative [facility] Urobilinogen, <2.[address] [facility] Leukocyte Negative Negative [place] [facility] Epithelial <1 /HPF [place] cells, [facility] WBC, UA <1 0 - 1 /HPF [facility] RBC, UA <1 0 - 5 /HPF [facility] Bacteria, UA None seen None seen [facility] Yeast, UA None seen [facility] Yeast with None seen [place] [facility] Specimen Urine Performing Organization Address City/[facility] Phone Number [place] [address] PATHOLOGY AND GENOMIC MEDICINE [address] * Urine culture (05/16/2019 5:30 PM CDT) [facility] Urine culture SEE COMMENTComment: [place] Bacteriuria screen negative. [facility] Specimen Performing Organization Address City/[facility]/Zipcode Phone Number [place] [address] PATHOLOGY AND GENOMIC MEDICINE [address] * Respiratory pathogen panel (05/16/2019 5:23 PM CDT) [facility] Respiratory Negative for all pathogens [place] pathogen panel tested: [place] Negative for Adenovirus [facility] Negative for [...] Nares - Not specified Performing Organization Address [facility] Phone Number [facility] [address] * Blood culture, aerobic & anaerobic (05/16/2019 3:33 PM CDT) Only the most recent of 2 results within the time period is included. [facility] Blood culture No growth after 5 days of [place] isolate incubation. [facility] Comment: HOSPITAL Specimen Information Specimen Source: Blood Specimen Site: Forearm, right Specimen Blood - Forearm, right Performing Organization Address [facility] Phone Number [facility] [address] * Prothrombin time with INR (05/16/2019 3:25 PM CDT) [facility] Prothrombin 13.8 11.5 - 14.5 sec [facility] INR 1.1 [place] Comment: [place] The International Normalized HOSPITAL Ratio (INR) is a therapeutic monitoring tool for patients who are stable on oral anticoagulant therapy. An INR of 2.0-3.0 is suggested for deep vein thrombosis/pulmonary embolism. Specimen Blood Performing Organization Address [facility] Phone Number [place] [address] PATHOLOGY AND GENOMIC MEDICINE LUJAN HINDUISM [address] * Comprehensive metabolic panel (05/16/2019 3:25 PM CDT) Sodium 143 135 - 148 mEq/L [facility] Potassium 4.3 3.5 - 5.0 mEq/L [facility] Chloride 108 98 - 112 mEq/L [facility] CO2 22 (L) 24 - 31 mEq/L [facility] Anion gap 13@ANIO 7 - 15 mEq/L [facility] BUN 29 (H) 8 - 23 mg/dL [facility] Creatinine 1.74 (H) 0.70 - 1.20 mg/dL [facility] Glucose 114 (H) 65 - 99 mg/dL [facility] Calcium 8.7 (L) 8.8 - 10.2 mg/dL [facility] Protein 6.1 (L) 6.3 - 8.3 g/dL [place] Comment: [facility] 4.6-7.0 g/dL 1 week 4.4-7.6 g/dL 7 months-1year 5.1-7.3 g/dL 1-2 years5.6-7 .5 g/dL >3 years6.0-8 .0 g/dL 18-150 6.3-8.3 g/dL Albumin 3.5 3.5 - 5.0 g/dL [facility] A/G ratio 1.3 0.7 - 3.8 [facility] Alkaline 64 40 - 129 U/L [place] phosphatase [facility] AST 16 10 - 50 U/L [facility] ALT 14 5 - 50 U/L [facility] Total bilirubin 0.6 0.0 - 1.2 mg/dL [facility] Specimen Plasma specimen Performing Organization Address City/State/Zipcode Phone Number [facility] [address] [place] [address] PATHOLOGY AND GENOMIC MEDICINE [address] * XR Chest 1 Vw Portable [...] the patient. IMPRESSION: No acute cardiopulmonary findings. [facility]-[id number] Procedure Note Hm Interface, Radiology Results Incoming [...] the patient. IMPRESSION: No acute cardiopulmonary findings. [facility]-[id number] Performing Organization Address City/State/Zipcode Phone Number [facility] [address] [place] [address] after 08/27/2018 Insurance Type Payer Benefit Subscriber ID Effective Phone Address Plan / Dates Group Medicare MEDICARE MEDICARE xxxxxxxxxxx 2007-P [place], PART A AND resent [place] [employer] COLONIAL COLONIAL xxxxxxxxx 2012-P [facility] Advance Directives For more information, please contact: [phone] Patient Piece Dyer Explanation Type Date Recorded Advance Directives, 05/16/2019 3:06 PM Living Will and Medical Power of Jira Administrator
[2019-08-28 11:29] LABS: LYMPHOCYTES # (AUTO) 0.5 (1.0-3.2); LYMPHOCYTES % 75.7 % (18.0-39.1); MEAN CORPUSCULAR HEMOGLOBIN 29.4 pg (28-32); MEAN CORPUSCULAR HGB CONC 32.6 g/dL (31-35); MONOCYTES # (AUTO) 0.1 (0.2-0.8); MONOCYTES % 15.7 % (4.4-11.3); NEUTROPHILS # (AUTO) 0.1 (2.1-6.9); NEUTROPHILS % 7.2 % (38.7-80.0); RED BLOOD COUNT 2.11 x10e6/uL (4.3-5.7)
[2019-08-28 11:34] LABS: INR 0.93
[2019-08-28 11:35] LABS: PARTIAL THROMBOPLASTIN TIME 27.5 seconds (23.8-35.5)
[2019-08-28 11:47] LABS: HEMOGLOBIN 6.2 g/dL (14.0-18.0); PLATELET COUNT 10 x10e3/uL (140-360)
[2019-08-28] MEDS ORDERED: SODIUM CHLORIDE 0.9% 1000ML 1,000 ML ONE (11:47)
--- NOTE | 2019-08-28 11:53 | NUR ---
per Stew [employer] per dr keturah helton to access port a cath
[2019-08-28 11:58] LABS: ALANINE AMINOTRANSFERASE 6 IU/L (0-55); ALBUMIN 2.9 g/dL (3.5-5.0); ALKALINE PHOSPHATASE 71 IU/L (40-150); ANION GAP 11.8 mmol/L (8-16); BLOOD UREA NITROGEN 13 mg/dL (7-26); BUN/CREATININE RATIO 11 (6-25); CALCIUM 8.9 mg/dL (8.4-10.2); CARBON DIOXIDE 21 mmol/L (22-29); CHLORIDE 109 mmol/L (98-107); CREATINE KINASE 28 IU/L (30-200); CREATININE, SERUM 1.18 mg/dL (0.72-1.25); EST GLOMERULAR FILTRATION RATE 60 ML/MIN (60-); GLUCOSE 98 mg/dL (74-118); POTASSIUM 3.8 mmol/L (3.5-5.1); SODIUM 138 mmol/L (136-145)
[2019-08-28 12:21] LABS: CREATINE KINASE MB < 1.00 ng/mL (0-4.3)
--- NOTE | 2019-08-28 12:25 | NUR ---
pt placed on reverse isolation precaution; isolation kit hung outside of pt door
--- NOTE | 2019-08-28 12:28 | NUR ---
dr schafer at pt bedside; asks pt about his end of life wishes and code status; pt states he does not want any life saving measures at all and does not want hospice states he will accept blood transfusion this time and thats it
[2019-08-28] MEDS ORDERED: CEFEPIME HCL 2 GM VIAL IV SCH (12:30)
[2019-08-28] MEDS ORDERED: SODIUM CHLORIDE 0.9% 250ML 250 ML IV ONE (12:30)
[2019-08-28] MEDS: SODIUM CHLORIDE 0.9% 1000ML 1,000 ML IV SCH ×2 (12:31→21:30)
--- NOTE | 2019-08-28 12:34 | Diagnostic Imaging Report ---
Examination: CT head without contrast Clinical Indication: Dizziness.. Technique: Transaxial noncontrast images from the skull base through the vertex were obtained. Sagittal and coronal reformatted images were done. Dose modulation, iterative reconstruction, and/or weight based adjustment of the mA/kV was utilized to reduce the radiation dose to as low as reasonably achievable. Comparison: None. Findings: Scalp: No abnormalities. Bones: Intact. No fractures. No blastic or lytic lesions. Brain sulci: Appropriate for patient's age. Ventricles: Normal in size and configuration. No hydrocephalus. . Extra-axial space: No abnormalities. Parenchyma: There are patchy areas of low-attenuation within subcortical and periventricular white matter, nonspecific, but could represent microvascular ischemic disease. No masses, hemorrhage, or acute or chronic cortical based vascular insults. Suprasellar region: No abnormalities. Craniocervical junction: The foramen magnum is patent. No Chiari one malformation. Incidental findings: Atherosclerotic calcification of the cavernous and supraclinoid internal carotid arteries. Impression: 1. No acute intracranial finding. 2. Mild chronic microvascular ischemic change. Signed by: Dr. Jaclyn Luis M.D. on 08/28/2019 12:31 PM
[2019-08-28] MEDS: CEFEPIME 2 GM/NS 0.9% 100 ML 100 ML IV SCH (13:02)
[2019-08-28] MEDS ORDERED: ONDANSETRON HCL INJ 2MG/ML 2ML 2 MG/ML VIAL IV PRN (13:15)
[2019-08-28] MEDS ORDERED: ACETAMINOPHEN 325 MG TAB PO ONE (13:30)
[2019-08-28 13:42] LABS: EOSINOPHILS % (MANUAL) 1 % (0-7); LYMPHOCYTES % (MANUAL) 79 % (19-48); MONOCYTES % (MANUAL) 10 % (3.4-9.0); MYELOCYTES % (MANUAL) 2 % (0-0); NEUTROPHILS % (MANUAL) 8 % (40-74)
[2019-08-28 13:44] LABS: ANISOCYTOSIS MODERATE; BURR CELLS SLIGHT; HYPOCHROMASIA MODERATE; PLATELET ESTIMATE MARKEDLY DECREASED; PLATELET MORPHOLOGY COMMENT NORMAL; POIKILOCYTOSIS MODERATE; RBC MORPHOLOGY COMMENT ABNORMAL
--- OUTSIDE RECORDS SUMMARY | 2019-08-28 13:49 | XMS REPORT | Clinical Summary ---
Author Author [facility] [employer] Organization [facility] [employer] Address Unknown Phone Unavailable Care Team Providers Care Nuclear Engineering Technician Name Role Phone Dejuan Keith MD PCP Allergies Comments Active Allergy Reactions Severity Noted Date Cephalexin 05/16/2019 Allergic to oral only not topical. Iodine Hives, Rash Low 05/16/2019 Chlordiazepoxide Hcl 05/16/2019 [place] 05/16/2019 Penicillins 05/16/2019 Medications End Date Status [...] MMODE SPECTRAL 12:02 PM CDT COLOR DOPPLER ([id number]) MANUAL DIFFERENTIAL Routine 05/20/2019 4:43 AM CDT [...] within the time period is included. Pathologist [facility] Estimated GFR 49 (A) mL/min/1.73 m2 [place] Comment: [facility] [place] rpretation G1 >=90 Normal or high G2 60-89Mildly decreased [id number] Mildly to moderately decreased J2v74-95 Moderately to severely decreased G4 15-29Severely decreased G5 <15Kidney failure The eGFR was calculated using the Chronic Kidney Disease Epidemiology Collaboration (CKD-EPI) equation. Interpretation is based on recommendations of the National Kidney Foundation-Kidney Disease Outcomes Quality Initiative (NKF-KDOQI) published in 2014. Specimen Plasma specimen Performing Organization Address City/[facility] Cent[facility] [address] PATHOLOGY AND [facility] MEDICINE [address] * Manual differential (05/22/2019 4:00 AM CDT) Only the most recent of 6 results within the time period is included. Pathologist [facility] Manual PERFORMED [facility] Neutrophils 5.0 (L) 39.0 - 69.0 % [facility] Lymphocytes 82.0 (H) 25.0 - 45.0 % [facility] Monocytes 10.0 0.0 - 10.0 % [facility] Eosinophils 1.0 0.0 - 5.0 % [facility] Basophils 0.0 0.0 - 1.0 % [facility] Metamyelocytes 0 % [facility] Myelocytes 2 % [facility] Promyelocytes 0 % [facility] Platelet slide Mkd decreased (A) [facility] Anisocytosis Moderate [facility] Ovalocytes Moderate [facility] Specimen Performing Organization Address City/[facility] Centercode Phone Number [facility] [place] [address] PATHOLOGY AND GENOMIC MEDICINE [address] * CBC with platelet and differential (05/22/2019 4:00 AM CDT) Only the most recent of 6 results within the time period is included. WBC 0.88 (LL) 4.50 - 11.00 k/uL [place] Comment: [facility] Results called to and read HOSPITAL back by RICKY Zurita OCA/WT14 (name/location) at 05/22/201905:50 (date/time) by 465. RBC 2.42 (L) 4.40 - 6.00 m/uL [facility] HGB 7.3 (L) 14.0 - 18.0 g/dL [facility] HCT 23.6 (L) 41.0 - 51.0 % [facility] MCV 97.5 82.0 - 100.0 fL [facility] MCH 30.2 27.0 - 34.0 pg [facility] MCHC 30.9 (L) 31.0 - 37.0 g/dL [facility] RDW - SD 58.9 (H) 37.0 - 55.0 fL [facility] MPV 10.5 8.8 - 13.2 fL [facility] Platelet count 31 (L) 150 - 400 k/uL [facility] Nucleated RBC 0.00 /100 WBC [facility] Neutrophils 5.0 (L) 39.0 - 69.0 % [facility] Lymphocytes 82.0 (H) 25.0 - 45.0 % [facility] Monocytes 10.0 0.0 - 10.0 % [facility] Eosinophils 1.0 0.0 - 5.0 % [facility] Basophils 0.0 0.0 - 1.0 % [facility] Specimen Blood Performing Organization Address City/[facility] Centercode Phone Number [facility] DEPARTMENT OF [address] [place] [address] PATHOLOGY [place] [address] HOSPITAL * Phosphorus level (05/22/2019 4:00 AM CDT) Only the most recent of 7 results within the time period is included. Phosphorus 3.6 2.4 - 4.5 mg/dL [facility] Specimen Plasma specimen Performing Organization Address City/[facility]/Zipcode Phone Number [facility] DEPARTMENT OF [address] [place] [address] PATHOLOGY AND GENOMIC MEDICINE [address] * Magnesium level (05/22/2019 4:00 AM CDT) Only the most recent of 7 results within the time period is included. Pathologist [facility] Magnesium 1.8 1.6 - 2.4 mg/dL [facility] Specimen Plasma specimen Performing Organization Address [facility] Phone Number [facility] [place] [address] PATHOLOGY AND [facility] MEDICINE [address] * Basic metabolic panel (05/22/2019 4:00 AM CDT) Only the most recent of 6 results within the time period is included. [facility] Sodium 142 135 - 148 mEq/L [facility] Potassium 4.0 3.5 - 5.0 mEq/L [facility] Chloride 109 98 - 112 mEq/L [facility] CO2 22 (L) 24 - 31 mEq/L [facility] Anion gap 11@ANIO 7 - 15 mEq/L [facility] BUN 20 8 - 23 mg/dL [facility] Creatinine 1.38 (H) 0.70 - 1.20 mg/dL [facility] Glucose 98 65 - 99 mg/dL [facility] Calcium 8.6 (L) 8.8 - 10.2 mg/dL [facility] Specimen Plasma specimen Performing Organization Address [facility] Phone Number [facility] [place] [address] PATHOLOGY AND [facility] MEDICINE [address] * Transfuse platelets (05/21/2019 5:54 PM CDT) Only the most recent of 3 results within the time period is included. * ECG 12 lead (05/20/2019 4:48 PM CDT) Only the most recent of 2 results within the time period is included. Ventricular 68 [facility] MUSE rate Atrial rate 68 [facility] MUSE VA interval 164 [facility] M[facility] QRSD interval 88 [...] At Performing Organization Address City/State/Zipcode Phone Number [facility] MUSE [address] [place] [address] * Echocardiogram complete w contrast and 3D if needed (05/20/2019 12:02 PM CDT) Specimen Narrative Performed At DONNA Castro.Name:DEJUAN BROWN.ID:[id number] St.Date: 05/20/2019 Exam Time: 11:26:00 AM Study Type:Routine EchoHeight:69in Weight:188.61lbBSA: 2.02 m2 DOBAge:1940,79YSex: MALE Sonogrphr: Kristy Study Status:Final Echo Event ID:[id number] Order ID:[id number] Procedures:2D Echo, Colorflow Doppler, Intravenous Lumason Contrast [...] PA systolic pressure. MEASUREMENTS: 2D Parasternal Long Moore LVOT 2 cmLA Ds4.4 cm LVIDd4.6 cmIndex2.3 cm/m Ao Rtd 3.8 cm Index1.9 cm/m LVIDs2.8 cm LV Pgig116.6 g(122-174) LV%fs 39.4 % LVM Lfcuy371.8 g/m2 IVSd 1.3 cmRWT0.5 LVPWd1.1 cm LA Sng Plane LA Area 21.2 cm2(8.8-23.4) LA Vol60.3 ml Index29.8 ml/m LA LngAx 6.3 cm RA Sng Plane RA Area 19.8 cm2(8.3-19.5) RA Vol56.4 ml Index27.9 ml/m RA LngAx 5.8 cm Signed 05/21/2019 05:05 PM Litzy Mackay M.D. Procedure Note Interface, Radiology Results In - 05/21/2019 5:05 PM CDT Pat.Name: DEJUAN BROWN Gloria.ID: [id number] .Date: 05/20/2019 Exam Time: 11:26:00 AM Study Type:Routine Echo Height: 69in Weight: 188.61lb BSA: 2.02 m2 Age: 5 1940,79Y Sex: MALE Sonogrphr: Kristy Study Status:Final Echo Event ID:[id number] Order ID: [id number] Procedures:2D Echo, Colorflow Doppler, Intravenous Lumason Contrast [...] PA systolic pressure. MEASUREMENTS: 2D Parasternal Long Moore LVOT 2 cm LA Ds 4.4 cm [...] PM Litzy Mackay M.D. Performing Organization Address City/[facility] Centercode Phone Number [facility] [address] [place] [address] * Surgical pathology request (05/19/2019 4:39 PM CDT) [facility] OF PATHOLOGY AND GENOMIC MEDICINE Surgical See link below for PDF Lab [facility] pathology Report OF PATHOLOGY report AND GENOMIC MEDICINE Result status This is Final Report for [facility] [id number] OF PATHOLOGY AND GENOMIC MEDICINE Specimen Performing Organization Address City/[facility]/Zipcode Phone Number [facility] DEPARTMENT OF [address] [place] [address] PATHOLOGY AND GENOMIC MEDICINE * Bone marrow tray (05/19/2019 2:44 PM CDT) Bone marrow Done [facility] Specimen Fluid Performing Organization Address City/State/Zipcode Phone Number [facility] DEPARTMENT OF [address] [place] [address] PATHOLOGY AND GENOMIC MEDICINE [facility] [address] [place] [address] [facility] * Miscellaneous referral test (05/19/2019 2:44 PM CDT) Misc test name FLT3,CEPBA,NPM1,IDH2 SHOWN ABOVE Misc test see note SHOWN ABOVE result Comment: EBPA Mutation Detection [facility] test code 0471677 CEBPA Mutation Detection Results Not Detected A [...] (Jovan DAMON, et al. 2010. J Clin Oncol:[phone]). METHODOLOGY: CEBPA mutations in white blood cells [...] malignancy. Test developed and characteristics determined by [facility]. See Compliance Statement B: [facility]/CS ------ ------ ------ -- Order comments CEBPA Mutation Detection ONE FULL LAVENDER BONE MARROW IDH1 and IDH2 Mutation Analysis, exon 4 [facility] [employer] test code 3092952 IDH1 and IDH2 Mutation Results Not Detected [...] R132 (IDH1), R140 (IDH2) and R172 (IDH2). Keene sequencing is then performed to detect mutations. [...] disease. Test developed and characteristics determined by [employer]. See Compliance Statement B: [facility]/CS - - - - - - - - - - - - - - - - - - - - - - - - - - - - - - IDH 1-2 Source Bone Marrow ------ ------ ------ -- Order comments IDH1 and IDH2 Mutation Analysis, exon 4 ONE FULL LAVENDER BONE MARROW NPM1 Mutation Detection by RT-PCR, Quantitative [facility] test code 4167716 NPM1 Quantitative, Source Bone Marrow - - [...] 05;374(5):422-33. Test developed and characteristics determined by [facility]. See Compliance Statement B: [facility]/CS - - - - - - - - - - - - - - - - - - - - - - - - - - - - - - NPM1 Quantitative, Ratio 0.0000 ------ ------ ------ -- Order comments NPM1 Mutation Detection by RT-PCR, Quantitative ONE FULL LAVENDER BONE MARROW FLT3 ITD and TKD Mutation Detection [facility] test code 4642638 FLT3 Source Bone Marrow - - - [...] methodology. Test developed and characteristics determined by [employer]. See Compliance Statement B: [employer]/CS ------ ------ ------ -- Order comments FLT3 ITD and TKD Mutation Detection ONE FULL LAVENDER BONE MARROW Test performed by: [facility] [address] [place], [place] Specimen Narrative Performed At BONE MARROW [facility] DEPARTMENT OF FLT3, NPM1, CEBPA, IDH2 PCR PATHOLOGY AND ONLY ONE FULL LAVENDER GENOMIC MEDICINE Performing Organization Address City/State/Zipcode Phone Number [facility] DEPARTMENT OF [address] [place] [address] PATHOLOGY AND GENOMIC MEDICINE SHOWN ABOVE * Flow cytometry evaluation (05/19/2019 2:44 PM CDT) Only the most recent of 2 results within the time period is included. [facility] Flow cytometry See link below for PDF Lab [facility] evaluation Report [facility] Specimen Blood Narrative Performed At Performing Organization Address City/[facility] Centercode Phone Number [facility] DEPARTMENT OF [address] [place] [address] PATHOLOGY AND GENOMIC MEDICINE [facility] * 54 gene myeloid mutation test (05/19/2019 2:44 PM CDT) Interpretation VARIANT(S) DETECTED: [place] No Mutations Detected [facility] Amplicon coverage:532 of HOSPITAL 538 amplicons (98.9%) had >100x coverage and were included in the analysis. 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 [facility] Product name Apheresis PLT, Leukored IRR #2 [facility] Unit number [id number] [facility] Product code [id number] [facility] Dispense status Transfused [facility] Blood [id number] [place] expiration date [facility] Blood type code 6200 [facility] Blood type A POSITIVE [facility] Specimen Blood Performing Organization Address City/[facility]/Zipcode Phone Number [facility] [place] [address] PATHOLOGY AND GENOMIC MEDICINE [address] * Type and screen (05/19/2019 5:25 AM CDT) Only the most recent of 2 results within the time period is included. Pathologist [facility] ABO grouping A [facility] Rh type POS [facility] Antibody screen NEG [place] (gel) [facility] Specimen Performing Organization Address City/State/Zipcode Phone Number [facility] DEPARTMENT OF [address] [place] [address] PATHOLOGY AND GENOMIC MEDICINE [address] * Smear review (05/17/2019 5:25 AM CDT) Smear review Smear Reviewed [facility] Specimen Performing Organization Address City/[facility]/Zipcode Phone Number [facility] DEPARTMENT OF [address] [place] [address] PATHOLOGY AND GENOMIC MEDICINE [address] * Lactic acid level, SEPSIS - Now and repeat 2x every 3 hours (05/17/2019 5:25 AM CDT) Only the most recent of 3 results within the time period is included. Pathologist [facility] Lactic acid 0.9 0.5 - 2.2 mmol/L [facility] Specimen Blood Performing Organization Address [facility] Cent[facility]ode Phone Number [facility] DEPARTMENT OF [address] [place] [address] PATHOLOGY AND GENOMIC MEDICINE [address] * CBC hemogram (05/17/2019 5:25 AM CDT) WBC 0.70 (LL) 4.50 - 11.00 k/uL [place] Comment: [facility] WBC results called to and read HOSPITAL back byFRANKI GARCIA/DACIA (name/location) at 05/17/201905:57 (date/time) by A. RBC 2.61 (L) 4.40 - 6.00 m/uL [facility] HGB 7.6 (L) 14.0 - 18.0 g/dL [facility] HCT 25.0 (L) 41.0 - 51.0 % [facility] MCV 95.8 82.0 - 100.0 fL [facility] MCH 29.1 27.0 - 34.0 pg [facility] MCHC 30.4 (L) 31.0 - 37.0 g/dL [facility] RDW - SD 53.5 37.0 - 55.0 fL [facility] MPV 11.1 8.8 - 13.2 fL [facility] Platelet count 16 (LL) 150 - 400 k/uL [place] Comment: [facility] PLT results called to and read HOSPITAL back byFRANKI GARCIA/DACAI (name/location) at 05/17/201905:57 (date/time) by MFNoel. Nucleated RBC 0.00 /100 WBC [facility] Specimen Blood Performing Organization Address City/State/Zipcode Phone Number [facility] [place] [address] PATHOLOGY AND [facility] MEDICINE [address] * Thyroid stimulating hormone (05/17/2019 5:25 AM CDT) TSH 2.25 0.27 - 4.20 uIU/mL [facility] Specimen Plasma specimen Performing Organization Address [facility] Cent[facility]ode Phone Number [facility] [place] [address] PATHOLOGY AND [facility] MEDICINE [address] * T4, free (05/17/2019 5:25 AM CDT) T4, free 1.4 0.9 - 1.7 ng/dL [facility] Specimen Plasma specimen Performing Organization Address [facility] Cent[facility]ode Phone Number [facility] [place] [address] PATHOLOGY [facility] MEDICINE [address] * Hemoglobin A1c (05/17/2019 5:25 AM CDT) Hemoglobin A1C 6.8 (H) 4.0 - 5.6 % [place] Comment: [facility] HbA1c cutoffs for diagnosing HOSPITAL diabetes: 4.0% - 5.6%=normal 5.7% - 6.4%=increased risk for diabetes (prediabetes) >=6.5%=diabetes Goals for glycemic control (ADA 2016) < 7.0%Target for non adults with diabetes. More or less stringent targets may be appropriate for individual patients. <7.5% Target for Children and adolescents with type 1 diabetes. Specimen Blood Performing Organization Address City/[facility]/Zipcode Phone Number [facility] [place] [address] PATHOLOGY AND [facility] MEDICINE [address] * Folate level (05/17/2019 5:25 AM CDT) Folate 10.6 4.8 - 24.2 ng/mL [facility] Specimen Serum Performing Organization Address City/State/Zipcode Phone Number [facility] DEPARTMENT OF [address] [place] [address] PATHOLOGY AND GENOMIC MEDICINE [place] [address] [place] [address] HOSPITAL * Vitamin B12 level (05/17/2019 5:25 AM CDT) Vitamin B12 234 211 - 946 pg/mL [place] Comment: [facility] Significant overlap exists HOSPITAL between normal and deficiency states. However, most patients with deficiencies will have Serum B12 <200 pg/mL. Specimen Serum Performing Organization Address City/[facility]/Zipcode Phone Number [facility] [place] [address] PATHOLOGY AND GENOMIC MEDICINE [place] [address] [place] [address] * Lipid panel (05/17/2019 5:25 AM CDT) [facility] Cholesterol 141 <200 mg/dL [facility] Triglycerides 184 (H) <150 mg/dL [facility] HDL cholesterol 47 >40 mg/dL [facility] LDL cholesterol 66Comment: Result obtained by <100 mg/dL [place] direct LDL measurement [facility] Lipid panel SeeBelow [place] interpretation Comment: [facility] Total Cholesterol HOSPITAL (mg/dL) <200 Desirable 200-239Borderline [...] specimen Performing Organization Address City/State/Zipcode Phone Number [facility] DEPARTMENT OF [address] [place] [address] PATHOLOGY AND GENOMIC MEDICINE [facility] [address] [place] [address] HOSPITAL * US Renal (05/16/2019 9:00 PM CDT) Specimen Narrative Performed At EXAMINATION:[facility] CLINICAL HISTORY:Renal failureacute (kidney [...] is mild hydronephrosis. The bladder is unremarkable. [facility]-[id number] Procedure Note Interface, Radiology Results Incoming - [...] is mild hydronephrosis. The bladder is unremarkable. [facility]-[id number] Performing Organization Address City/State/Zipcode Phone Number [facility] [address] [place] [address] * Radha Marks Virus (EBV) by PCR (05/16/2019 8:13 PM CDT) Radha Marks Not-Detected Not-Detected [place] virus, PCR copies/mL [facility] Radha Marks See link below for PDF Lab LUJAN virus, PCR ReportComment: Case Number: [facility] [id number] HOSPITAL Specimen Performing Organization Address City/State/Zipcode Phone Number [facility] DEPARTMENT OF [address] [place] [address] PATHOLOGY AND GENOMIC MEDICINE [facility] [address] [place] [address] [facility] * Syphilis total antibody (05/16/2019 7:18 PM CDT) Pathologist [facility] Syphilis total Non-reactiveComment: No Non-reactive [place] antibody serological evidence of [facility] syphilis infection. HOSPITAL Specimen Blood Performing Organization Address City/State/Zipcode Phone Number [facility] [place] [address] PATHOLOGY AND [facility] MEDICINE [address] * HIV Ag/Ab combination (05/16/2019 7:18 PM CDT) Pathologist [facility] HIV Ag/Ab Non-reactive Non-reactive [facility] Specimen Blood Performing Organization Address City/State/Zipcode Phone Number [facility] [place] [address] PATHOLOGY AND [facility] MEDICINE [address] * Parvovirus B19 antibody, IgG and IgM (05/16/2019 7:18 PM CDT) [facility] Parvovirus B19 6.31 (H) <=0.89 IV AR [...] levels of specific IgM antibodies. Performed by [facility], [address] [place] [phone] [email or web address] Tom MD - Lab. Director Specimen Serum Performing Organization Address [facility] Centercode Phone Number [facility] [address] [place] [address] [facility] RE[facility] [address] [place] [address] * Partial thromboplastin time, activated (05/16/2019 7:18 PM CDT) Only the most recent of 2 results within the time period is included. [facility] PTT 27.6 23.0 - 36.0 sec [place] Comment: [facility] PTT therapeutic range for HOSPITAL unfractionated heparin is 61.0-112.0 seconds which corresponds to Anti-Xa 0.3-0.7 U/ml. Specimen Blood Performing Organization Address [facility] Cent[facility]ode Phone Number [facility] DEPARTMENT OF [address] [place] [address] PATHOLOGY AND [facility] MEDICINE [address] * Fibrinogen (05/16/2019 7:18 PM CDT) [facility] Fibrinogen 355 200 - 450 mg/dL [facility] Specimen Blood Performing Organization Address [facility]/Zipcode Phone Number [facility] DEPARTMENT OF [address] [place] [address] PATHOLOGY AND [facility] MEDICINE [address] * Reticulocyte count (05/16/2019 7:18 PM CDT) [facility] Retic %, auto 2.1 0.5 - 2.1 % [facility] Retic absolute, 0.0550 0.0220 - 0.1260 m/uL [place] auto [facility] Specimen Blood Performing Organization Address City/[facility]/Zipcode Phone Number [facility] [place] [address] PATHOLOGY AND GENOMIC MEDICINE [address] * Urinalysis screen and microscopy, with reflex to culture (05/16/2019 5:30 PM CDT) Specimen site Clean catch [facility] Color, UA Straw [facility] Appearance, UA Clear [facility] Specific 1.013 1.001 - 1.035 [place] gravity, [facility] pH, UA 6.0 5.0 - 8.5 [facility] Protein, UA Negative Negative [facility] Glucose, UA Negative Negative [facility] Ketones, UA Negative Negative [facility] Bilirubin, UA Negative Negative [facility] Blood, UA Negative Negative [facility] Nitrite, UA Negative Negative [facility] Urobilinogen, <2.0 <2.0 [facility] Leukocyte Negative Negative [facility] Epithelial <1 /HPF [place] cells, [facility] WBC, UA <1 0 - 1 /HPF [facility] RBC, UA <1 0 - 5 /HPF [facility] Bacteria, UA None seen None seen [facility] Yeast, UA None seen [facility] Yeast with None seen [facility] Specimen Urine Performing Organization Address City/[facility] Cent[facility]ode Phone Number [facility] [place] [address] PATHOLOGY AND GENOMIC MEDICINE [address] * Urine culture (05/16/2019 5:30 PM CDT) [facility] Urine culture SEE COMMENTComment: [place] Bacteriuria screen negative. [facility] Specimen Performing Organization Address City/[facility]/Zipcode Phone Number [facility] [place] [address] PATHOLOGY AND GENOMIC MEDICINE [address] * Respiratory pathogen panel (05/16/2019 5:23 PM CDT) [facility] Respiratory Negative for all pathogens [place] pathogen panel tested: [facility] Negative for Adenovirus [facility] Negative for Coronavirus HKU1 Negative for [...] Nares - Not specified Performing Organization Address [facility] Phone Number [facility] [address] * Blood culture, aerobic & anaerobic (05/16/2019 3:33 PM CDT) Only the most recent of 2 results within the time period is included. [facility] Blood culture No growth after 5 days of [place] isolate incubation. [facility] Comment: HOSPITAL Specimen Information Specimen Source: Blood Specimen Site: Forearm, right Specimen Blood - Forearm, right Performing Organization Address [facility] Phone Number [facility] [address] * Prothrombin time with INR (05/16/2019 3:25 PM CDT) [facility] Prothrombin 13.8 11.5 - 14.5 sec [facility] INR 1.1 [place] Comment: [facility] The International Normalized HOSPITAL Ratio (INR) is a therapeutic monitoring tool for patients who are stable on oral anticoagulant therapy. An INR of 2.0-3.0 is suggested for deep vein thrombosis/pulmonary embolism. Specimen Blood Performing Organization Address [facility] Centercoct Phone Number [facility] [place] [address] PATHOLOGY AND GENOMIC MEDICINE [facility] [place] [address] * Comprehensive metabolic panel (05/16/2019 3:25 PM CDT) Sodium 143 135 - 148 mEq/L [facility] Potassium 4.3 3.5 - 5.0 mEq/L [facility] Chloride 108 98 - 112 mEq/L [facility] CO2 22 (L) 24 - 31 mEq/L [facility] Anion gap 13@ANIO 7 - 15 mEq/L [facility] BUN 29 (H) 8 - 23 mg/dL [facility] Creatinine 1.74 (H) 0.70 - 1.20 mg/dL [facility] Glucose 114 (H) 65 - 99 mg/dL [facility] Calcium 8.7 (L) 8.8 - 10.2 mg/dL [facility] Protein 6.1 (L) 6.3 - 8.3 g/dL [place] Comment: [facility] 4.6-7.0 g/dL 1 week 4.4-7.6 g/dL 7 months-1year 5.1-7.3 g/dL 1-2 years5.6-7 .5 g/dL >3 years6.0-8 .0 g/dL 18-150 6.3-8.3 g/dL Albumin 3.5 3.5 - 5.0 g/dL [facility] A/G ratio 1.3 0.7 - 3.8 [facility] Alkaline 64 40 - 129 U/L [place] phosphatase [facility] AST 16 10 - 50 U/L [facility] ALT 14 5 - 50 U/L [facility] Total bilirubin 0.6 0.0 - 1.2 mg/dL [facility] Specimen Plasma specimen Performing Organization Address City/State/Zipcode Phone Number [facility] OF [address] [place] [address] PATHOLOGY AND GENOMIC MEDICINE [address] * XR Chest 1 Vw Portable [...] the patient. IMPRESSION: No acute cardiopulmonary findings. [facility]-[id number] Procedure Note Hm Interface, Radiology Results Incoming [...] the patient. IMPRESSION: No acute cardiopulmonary findings. [facility]-[id number] Performing Organization Address City/State/Zipcode Phone Number [facility] [address] [place] [address] after 08/27/2018 Insurance Type Payer Benefit Subscriber ID Effective Phone Address Plan / Dates Group Medicare MEDICARE MEDICARE xxxxxxxxxxx 2007-P [place], PART A AND resent [place] [employer] COLONIAL COLONIAL xxxxxxxxx 2012-P [facility] Advance Directives For more information, please contact: [phone] Patient Account Administrator Explanation Type Date Recorded Advance Directives, 05/16/2019 3:06 PM Living Will and Medical Power of Casting Repairer
[2019-08-28] MEDS: HYDROCODONE/APAP 10MG-325MG TAB PO PRN (14:41)
[2019-08-28 15:58] VITALS: BP 137/65
[2019-08-28] MEDS ORDERED: SODIUM CHLORIDE 0.9% 250ML 250 ML ONE (16:07)
--- NOTE | 2019-08-28 16:15 | NUR ---
Second bag of platelets initiated at this time. VS WNL. Pt tolerating well. Port a cath patent. Call light within reach, bed in lowest position.
[2019-08-28 17:05] VITALS: BP 137/65
[2019-08-28] MEDS: VANCOMYCIN 1GM/NS 250 ML 250 ML IV SCH (19:52)
[2019-08-28 19:54] VITALS: BP 137/65
[2019-08-28 20:00] VITALS: BP 122/61
[2019-08-28 21:00] VITALS: BP 122/61
--- NOTE | 2019-08-28 22:30 | NUR ---
VERIFIED BLOOD WARMER ORDER WITH DR POWELL. NEW ORDER RECEIVED
[2019-08-29] VITALS: BP 119/57
--- NOTE | 2019-08-29 | NUR ---
INITIATED 1ST UNIT OF BLOOD. VS WNL AT THIS TIME. VERIFIED WITH 2ND NURSE. NO S/S OF REACTION. BED LOW/LOCKED. CONTINUE TO MONITOR CLOSELY
[2019-08-29] MEDS: CEFEPIME 2 GM/NS 0.9% 100 ML 100 ML IV SCH (02:36)
[2019-08-29 04:00] VITALS: BP 154/71
[2019-08-29] MEDS: SODIUM CHLORIDE 0.9% 1000ML 1,000 ML IV SCH (04:15)
[2019-08-29] MEDS: HYDROCODONE/APAP 10MG-325MG TAB PO PRN (04:20)
--- NOTE | 2019-08-29 04:30 | NUR ---
INITIATED 2ND UNIT OF BLOOD. VS WNL AT THIS TIME. VERIFIED WITH 2ND NURSE. NO S/S OF REACTION. BED LOW/LOCKED. CONTINUE TO MONITOR CLOSELY
--- NOTE | 2019-08-29 06:20 | NUR ---
BLOOD TRANSFUSION COMPLETED. VITAL SIGN STABLE AT THIS TIME. NO S/S OF REACTION. CONTINUE TO MONITOR CLOSELY
--- NOTE | 2019-08-29 06:30 | NUR ---
RETURN BLOOD WARMER TO FILM CUTTER
[2019-08-29] MEDS: VANCOMYCIN 1GM/NS 250 ML 250 ML IV SCH (06:40)
[2019-08-29 07:19] VITALS: BP 139/64
[2019-08-29 09:51] LABS: EOSINOPHILS % 1.1 % (0.0-6.0); HEMATOCRIT 27.5 % (38.2-49.6); HEMOGLOBIN 8.7 g/dL (14.0-18.0); LYMPHOCYTES # (AUTO) 0.6 (1.0-3.2); LYMPHOCYTES % 65.3 % (18.0-39.1); MEAN CORPUSCULAR HEMOGLOBIN 29.4 pg (28-32); MEAN CORPUSCULAR HGB CONC 31.6 g/dL (31-35); MEAN CORPUSCULAR VOLUME 92.9 fL (81-99); MONOCYTES # (AUTO) 0.2 (0.2-0.8); MONOCYTES % 21.1 % (4.4-11.3); NEUTROPHILS # (AUTO) 0.1 (2.1-6.9); NEUTROPHILS % 12.5 % (38.7-80.0); RED BLOOD COUNT 2.96 x10e6/uL (4.3-5.7); RED CELL DISTRIBUTION WIDTH 16.7 % (11.7-14.4)
[2019-08-29 10:06] LABS: PLATELET COUNT 45 x10e3/uL (140-360)
[2019-08-29 10:14] LABS: ALBUMIN 3.2 g/dL (3.5-5.0); ANION GAP 13.1 mmol/L (8-16); CALCIUM 8.9 mg/dL (8.4-10.2); CREATININE, SERUM 1.25 mg/dL (0.72-1.25); POTASSIUM 4.1 mmol/L (3.5-5.1)
[2019-08-29 10:48] LABS: LYMPHOCYTES % (MANUAL) 82 % (19-48); METAMYELOCYTES % (MANUAL) 2 % (0-0); MONOCYTES % (MANUAL) 8 % (3.4-9.0); NEUTROPHILS % (MANUAL) 8 % (40-74); NUCLEATED RED BLOOD CELLS 4
[2019-08-29 10:49] LABS: ANISOCYTOSIS SLIGHT; ELLIPTOCYTE, RBC SLIGHT; OVALOCYTES FEW; PLATELET ESTIMATE MARKEDLY DECREASED; PLATELET MORPHOLOGY COMMENT NORMAL; POLYCHROMASIA FEW; TEAR DROP CELLS FEW
[2019-08-29 11:29] VITALS: BP 141/68
[2019-08-29 11:53] VITALS: BP 141/68
--- NOTE | 2019-08-29 13:21 | Consultation ---
DATE OF CONSULTATION: 08/28/[address] Harvey Keith. HISTORY OF PRESENT ILLNESS: Harvey Sykes is a 79-year-old white male, referred to me for evaluation of pancytopenia and the patient had presented with weakness, subsequently was found to have a hemoglobin of 6.2, hematocrit of 19, white count of 700 and platelets of 10,000. HISTORY OF PAST ILLNESS: History of advanced MDS with multiple chromosomal abnormalities. The patient has been treated with systemic chemotherapy consisting of Vidaza. At one time, the bone marrow has shown more than 30% blasts. The patient did go to have a second opinion at [facility]. The patient was also told that he had far advanced MDS to continue the same treatment. However, because of multiple admissions for blood transfusions, platelet transfusions, rectal bleed, the patient has consented to no treatment except best supportive care. SOCIAL HISTORY: Noncontributory. FAMILY HISTORY: Noncontributory. ALLERGIES: PENICILLIN. REVIEW OF SYSTEMS: HEENT: Normal. CARDIAC: Normal. RESPIRATORY: Normal. GI: Multiple GI bleeds. : Normal. NEUROENDOCRINE: Essentially normal. HEMATOLOGIC: MDS. PHYSICAL EXAMINATION: GENERAL: A moderately built male, anemic, no palpable adenopathy. HEART: Within normal limits. LUNGS: Clear. ABDOMEN: Obese. RECTAL: Deferred. CENTRAL NERVOUS SYSTEM: Essentially normal. EXTREMITIES: Essentially normal. LABORATORY DATA: Shows a hemoglobin of 6.2, hematocrit 19, MCV 90, MCHC 32.6, RDW 16, white count was 700, platelets of 10,000, 79% lymphocytes, 2% myelocytes. Chemistry shows a sodium of 138, potassium 3.8, chloride , CO2 21, total protein 5.7, albumin 2.9, globulin is 2.8. IMAGING DATA: The patient did have a CT of the brain, which was reported essentially normal. IMPRESSION: 1. High-grade myelodysplastic syndrome. 2. Neutropenia. 3. Thrombocytopenia. 4. Anemia. 5. 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 PLAN, COMMENTS, AND SUGGESTIONS: Suggest best supportive care. I have not been able to convince at least some of the family members regarding best supportive care. It was a combined decision both by me and the patient to stop all the treatment approximately two months back. Since his performance status is extremely poor and he is hospitalized multiple times for blood and platelet transfusion. Possibility of decitabine was also discussed, however, the patient rightfully so has decided no treatment, however, the trouble is the family, who keeps on advising him things. I leave all decisions up to him. My suggestion again is best supportive care for this far advanced MDS and transformation to AML. MD TIMOTHY Yang/TIMOTHY /[id number]
--- NOTE | 2019-08-29 13:41 | NUR ---
Nutrition Screen Note RD Recommendation for Physician: Continue diet as ordered Plan of Care: RD following, monitoring for tolerance and adequacy Nutrition reason for involvement: Nutrition Risk Trigger - MST Primary Diagnose(s): AML, Pancytopenia PMH: HTN, NH, anemia, hyperlipidemia Ht:69 in Wt:28.4lb BMI:192 kg/m2 IBW:160lb +/-10% RD Assessment: (08/29/2019) Chart reviewed. Labs and meds reviewed. Initial encounter with patient. Pt is eating well and denies any difficulty chewing, swallowing, nor has any nausea, vomiting, or diarrhea. Pt is able to feed himself. Pt denies any Wt changes. Po intake should be adequate to meet needs. Current Diet: Regular diet Malnutrition Evaluation (08/29/2019) The patient does not meet criteria for a specified degree of malnutrition at this time. Will re-evaluate at follow-up as appropriate. Diet Education Needs Assessment: Diet education not indicated. Nutrition Care Level: Low Signed: Antonio Carver RD, LD, CNSC
--- NOTE | 2019-08-30 09:25 | Discharge Summary ---
COUNSELOR MARRIAGE AND FAMILY: Dr. Urban Velazquez. FINAL DIAGNOSES: 1. Severe pancytopenia, status post packed red blood cell transfusion and platelet transfusion. 2. Advanced myelodysplastic syndrome with AML. SUMMARY: 79-year-old male with recurrent thrombocytopenia, low hemoglobin, hematocrit, and leukopenia. The patient has advanced dysplastic syndrome. The patient now receives supportive measure. He did receive packed red blood cells. Hemoglobin now is 8.7, hematocrit 27.5, and platelets from less than 10 to 45. The patient is stable and discharged home. Continue with palliative care, outpatient. MD SUE Ramirez/TIMOTHY /[id number]
== END 2019-08-29 15:06 | disposition home or self-care (01) | DRG 835 ==
LOC: ER 09:55 → ERHOLD 13:12 → MED/SURG2 15:18
PROVIDERS: ADMIT Internal Medicine; ATTEND Internal Medicine
PROC: 30243R1 Transfusion of Nonautologous Platelets into Central Vein, Percutaneous Approach (ICD-10-PCS; principal; 2019-08-28)
PROC: 30243N1 Transfusion of Nonautologous Red Blood Cells into Central Vein, Percutaneous Approach (ICD-10-PCS; 2019-08-28)
DX: C92.00 Acute myeloblastic leukemia, not having achieved remission (principal); D61.818 Other pancytopenia; Z66 Do not resuscitate; I10 Essential (primary) hypertension; E78.5 Hyperlipidemia, unspecified; I25.10 Atherosclerotic heart disease of native coronary artery without angina pectoris; K21.9 Gastro-esophageal reflux disease without esophagitis; I25.2 Old myocardial infarction; Z88.0 Allergy status to penicillin
CPT/HCPCS: 36415; 70450; 80053; 82550; 82553; 83605; 84484; 85025; 85610; 85730; 86850; 86900; 86920; 87040; 87086; 93005; 99284; J1642; J2405; J3370; J7030; J7050; P9016; P9034